=== PATIENT | female | born 1970 | race Caucasian/White ===

== ENCOUNTER 2018-02-26 03:46 | Inpatient (IN) | payer OTHER ==
[~2018-02-26] VITALS: Ht 160 cm; Wt 125.2 kg
[~2018-02-26 03:46] MED LIST: CITA20 PO; CLIN150 PO; FURO40; GLIP2.5ER; LABE100 PO; LEVSOD50 PO; Lasix40 MG PO; METF500 PO; METF500C PO; METO25ER PO; Prinivil10 MG PO; Synthroid50 MCG PO; TRAZ50 PO; Toprol Xl25 MG PO; Valium5 MG PO
[2018-02-26] MEDS ORDERED: METF500C PO (04:13)
[2018-02-26] MEDS ORDERED: METO50 PO (04:13)
[2018-02-26] MEDS ORDERED: FURO80 PO (04:14)
[2018-02-26 05:05] LABS: BASOPHILS PERCENT AUTO 1 % (0-2); EOSINOPHILS PERCENT AUTO 2 % (0-6); Hematocrit 29.8 % (33.0-51.0); Hemoglobin 8.1 g/dL (11.5-16.0); IMMATURE GRAN ABSOLUTE AUTO 0.05 K/mm3 (0.00-0.10); IMMATURE GRAN PERCENT AUTO 0 % (0-1); LYMPHOCYTES ABSOLUTE AUTO 1.93 K/mm3 (0.84-5.20); LYMPHOCYTES PERCENT AUTO 17 % (21-46); MONOCYTES ABSOLUTE AUTO 0.57 K/mm3 (0.16-1.47); MONOCYTES PERCENT AUTO 5 % (4-13); Mean Corpuscular HGB 19.4 pg (26.0-34.0); Mean Corpuscular HGB Conc 27.2 g/dL (31.5-36.5); Mean Corpuscular Volume 71 fL (80-100); NEUTROPHILS PERCENT AUTO 75 % (41-73); NRBC ABSOLUTE 0.02 K/mm3 (0.00-0.02); NRBC Auto 0.2 /100 WBC (0.0-0.2); RDW Coefficient Variation 18.6 % (11.7-14.2); Red Blood Cell Count 4.18 M/mm3 (3.80-5.20); White Blood Cell Count 11.35 K/mm3 (4.00-11.30)
[2018-02-26 05:08] LABS: Platelet Count 212 K/mm3 (150-400)
[2018-02-26 05:21] LABS: Albumin, Blood 2.8 g/dL (3.4-5.0); Albumin/Globulin Ratio 0.6 (0.8-1.8); Bilirubin, Total 0.4 mg/dL (0.1-1.0); Bun/Creatinine Ratio 15.1 (12.0-20.0); Calcium, Blood 8.5 mg/dL (8.5-10.1); Creatinine, Blood 1.46 mg/dL (0.40-1.00); Globulin, Blood 4.5 g/dL (2.2-4.0); Potassium, Blood 3.8 mmol/L (3.5-5.5); Total Protein, Blood 7.3 g/dL (6.4-8.2)
[2018-02-26 07:08] LABS: Percent Saturation 5.6 % (15.0-50.0)
[2018-02-26 09:52] LABS: Source, Urine Clean Catch
[2018-02-26 10:01] LABS: Bilirubin, Urine Neg (Neg); Blood, Urine 1+ (Neg); Glucose Qualitative, Urine 1+ (Neg); Ketones, Urine Neg (Neg); Leukocyte Esterase, Urine 2+ (Neg); Nitrite, Urine Neg (Neg); Protein, Urine 3+ (Neg); Specific Gravity, Urine 1.005 (1.003-1.022); Urobilinogen, Urine NORM (Normal)
[2018-02-26 10:06] LABS: Appearance, Urine Clear (Clear); Color, Urine Yellow (P-Yellow)
[2018-02-26 10:07] LABS: Squamous Epithelial Cells Few /hpf (Few)
[2018-02-26 10:08] LABS: Bacteria Rare /hpf
[2018-02-26 15:42] LABS: Thyroid Stimulating Hormone 13.3 uIU/mL (0.360-4.800)
[2018-02-27 04:54] LABS: Source, Urine Catheter
[2018-02-27 04:55] LABS: Hematocrit 27.7 % (33.0-51.0); Hemoglobin 7.4 g/dL (11.5-16.0)
[2018-02-27 04:56] LABS: Bilirubin, Urine Neg (Neg); Blood, Urine 2+ (Neg); Glucose Qualitative, Urine Neg (Neg); Ketones, Urine Neg (Neg); Leukocyte Esterase, Urine 2+ (Neg); Nitrite, Urine Neg (Neg); Protein, Urine 4+ (Neg); Urobilinogen, Urine 1+ (Normal)
[2018-02-27 05:20] LABS: Appearance, Urine Hazy (Clear); Color, Urine Yellow (P-Yellow)
[2018-02-27 05:21] LABS: Squamous Epithelial Cells Rare /hpf (Few); White Blood Cells, Urine 50-100 /hpf (0-5)
[2018-02-27 05:23] LABS: Bacteria Few /hpf
[2018-02-27 05:28] LABS: Alanine Aminotransfer (ALT/SGP 28 U/L (12-78); Albumin, Blood 2.5 g/dL (3.4-5.0); Albumin/Globulin Ratio 0.6 (0.8-1.8); Alk Phos 82 U/L (50-136); Anion Gap 8 mmol/L (6-16); Aspartate Aminotrans (AST/SGOT 20 U/L (12-37); Bilirubin, Total 0.5 mg/dL (0.1-1.0); Blood Urea Nitrogen 21 mg/dL (8-24); Bun/Creatinine Ratio 15.9 (12.0-20.0); CO2, Blood 29 mmol/L (21-32); Calcium, Blood 8.3 mg/dL (8.5-10.1); Chloride, Blood 99 mmol/L (98-108); Creatinine, Blood 1.32 mg/dL (0.40-1.00); Globulin, Blood 4.1 g/dL (2.2-4.0); Glomerular Filtration Rate 46 (60-); Glucose, Blood 161 mg/dL (70-99); Magnesium, Blood 1.8 mg/dL (1.6-2.4); Phosphorus, Blood 4.9 mg/dL (2.5-4.9); Potassium, Blood 3.8 mmol/L (3.5-5.5); Sodium, Blood 136 mmol/L (136-145); Total Protein, Blood 6.6 g/dL (6.4-8.2)
[2018-02-27 13:20] LABS: Hematocrit 32.8 % (33.0-51.0)
[2018-02-28 05:02] LABS: BASOPHILS ABSOLUTE AUTO 0.07 K/mm3 (0.00-0.23); BASOPHILS PERCENT AUTO 1 % (0-2); EOSINOPHILS ABSOLUTE AUTO 0.22 K/mm3 (0.00-0.68); EOSINOPHILS PERCENT AUTO 3 % (0-6); Hematocrit 28.2 % (33.0-51.0); Hemoglobin 7.6 g/dL (11.5-16.0); IMMATURE GRAN ABSOLUTE AUTO 0.04 K/mm3 (0.00-0.10); IMMATURE GRAN PERCENT AUTO 1 % (0-1); LYMPHOCYTES ABSOLUTE AUTO 1.92 K/mm3 (0.84-5.20); LYMPHOCYTES PERCENT AUTO 24 % (21-46); MONOCYTES ABSOLUTE AUTO 0.55 K/mm3 (0.16-1.47); MONOCYTES PERCENT AUTO 7 % (4-13); Mean Corpuscular HGB 19.4 pg (26.0-34.0); Mean Corpuscular Volume 72 fL (80-100); NEUTROPHILS ABSOLUTE AUTO 5.24 K/mm3 (1.96-9.15); NEUTROPHILS PERCENT AUTO 65 % (41-73); Platelet Count 233 K/mm3 (150-400); RDW Coefficient Variation 18.6 % (11.7-14.2); RDW Standard Deviation 47.8 fL (35.1-46.3); Red Blood Cell Count 3.91 M/mm3 (3.80-5.20); White Blood Cell Count 8.04 K/mm3 (4.00-11.30)
[2018-02-28 05:21] LABS: Albumin, Blood 2.5 g/dL (3.4-5.0); Anion Gap 8 mmol/L (6-16); Blood Urea Nitrogen 26 mg/dL (8-24); Bun/Creatinine Ratio 16.6 (12.0-20.0); CO2, Blood 29 mmol/L (21-32); Calcium, Blood 8.4 mg/dL (8.5-10.1); Chloride, Blood 99 mmol/L (98-108); Creatinine, Blood 1.57 mg/dL (0.40-1.00); Glomerular Filtration Rate 38 (60-); Glucose, Blood 157 mg/dL (70-99); Magnesium, Blood 1.9 mg/dL (1.6-2.4); Phosphorus, Blood 5.2 mg/dL (2.5-4.9); Potassium, Blood 3.9 mmol/L (3.5-5.5); Sodium, Blood 136 mmol/L (136-145)
[2018-02-28 06:37] LABS: Protein, Urine Quantitative 164.2 mg/dL (0.0-11.9)
[2018-02-28 15:08] LABS: A/G RATIO 0.9 (0.7-1.7); ALBUMIN 2.9 g/dL (2.9-4.4); ALPHA-1-GLOBULIN 0.4 g/dL (0.0-0.4); ALPHA-2-GLOBULIN 0.8 g/dL (0.4-1.0); BETA GLOBULIN 1.2 g/dL (0.7-1.3); GAMMA GLOBULIN 1.2 g/dL (0.4-1.8); GLOBULIN, TOTAL 3.5 g/dL (2.2-3.9); IMMUNOGLOBULIN A, QN, SERUM 513 mg/dL (87-352); IMMUNOGLOBULIN G, QN, SERUM 1027 mg/dL (700-1600); IMMUNOGLOBULIN M, QN, SERUM 197 mg/dL (26-217); M-SPIKE Not Observed g/dL (Not Observed); PROTEIN, TOTAL, SERUM 6.4 g/dL (6.0-8.5)
[2018-03-01 05:33] LABS: BASOPHILS ABSOLUTE AUTO 0.08 K/mm3 (0.00-0.23); BASOPHILS PERCENT AUTO 1 % (0-2); EOSINOPHILS ABSOLUTE AUTO 0.24 K/mm3 (0.00-0.68); EOSINOPHILS PERCENT AUTO 3 % (0-6); Hematocrit 26.7 % (33.0-51.0); Hemoglobin 7.2 g/dL (11.5-16.0); IMMATURE GRAN ABSOLUTE AUTO 0.01 K/mm3 (0.00-0.10); IMMATURE GRAN PERCENT AUTO 0 % (0-1); LYMPHOCYTES ABSOLUTE AUTO 1.98 K/mm3 (0.84-5.20); LYMPHOCYTES PERCENT AUTO 27 % (21-46); MONOCYTES ABSOLUTE AUTO 0.51 K/mm3 (0.16-1.47); MONOCYTES PERCENT AUTO 7 % (4-13); Mean Corpuscular Volume 71 fL (80-100); NEUTROPHILS ABSOLUTE AUTO 4.48 K/mm3 (1.96-9.15); NEUTROPHILS PERCENT AUTO 61 % (41-73); Platelet Count 205 K/mm3 (150-400); RDW Coefficient Variation 18.7 % (11.7-14.2); RDW Standard Deviation 46.8 fL (35.1-46.3); Red Blood Cell Count 3.78 M/mm3 (3.80-5.20)
[2018-03-01 05:57] LABS: Albumin, Blood 2.4 g/dL (3.4-5.0); Anion Gap 9 mmol/L (6-16); Blood Urea Nitrogen 29 mg/dL (8-24); CO2, Blood 29 mmol/L (21-32); Calcium, Blood 8.3 mg/dL (8.5-10.1); Chloride, Blood 100 mmol/L (98-108); Creatinine, Blood 1.38 mg/dL (0.40-1.00); Glomerular Filtration Rate 44 (60-); Glucose, Blood 156 mg/dL (70-99); Magnesium, Blood 1.9 mg/dL (1.6-2.4); Potassium, Blood 3.7 mmol/L (3.5-5.5); Sodium, Blood 138 mmol/L (136-145)
[2018-03-01 14:14] LABS: Stool Occult Blood Guaiac 1 Neg (Neg)
[2018-03-02 06:14] LABS: Hematocrit 30.1 % (33.0-51.0); Hemoglobin 8.1 g/dL (11.5-16.0)
[2018-03-02 06:28] LABS: Albumin, Blood 2.8 g/dL (3.4-5.0); Anion Gap 8 mmol/L (6-16); Blood Urea Nitrogen 27 mg/dL (8-24); Bun/Creatinine Ratio 20.9 (12.0-20.0); CO2, Blood 31 mmol/L (21-32); Calcium, Blood 8.7 mg/dL (8.5-10.1); Chloride, Blood 100 mmol/L (98-108); Creatinine, Blood 1.29 mg/dL (0.40-1.00); Glomerular Filtration Rate 47 (60-); Glucose, Blood 140 mg/dL (70-99); Magnesium, Blood 1.8 mg/dL (1.6-2.4); Phosphorus, Blood 4.2 mg/dL (2.5-4.9); Potassium, Blood 4.1 mmol/L (3.5-5.5); Sodium, Blood 139 mmol/L (136-145)
[2018-03-02] MEDS ORDERED: GLIM2 PO (12:17)
[2018-03-02] MEDS ORDERED: Ferrous Sulfat325 MG PO (12:18)
[2018-03-02] MEDS ORDERED: CLON.2 PO (12:18)
[2018-03-02] MEDS ORDERED: LEVSOD50 PO (12:19)
[2018-03-04 08:58] LABS: HBSAG SCREEN Negative (Negative); HEP B CORE AB, TOT Negative (Negative); HEP C VIRUS AB 0.1 (0.0-0.9)
[2018-03-04 21:08] LABS: ALDOS/RENIN RATIO <.5 (0.0-30.0); ALDOSTERONE <1.0 ng/dL (0.0-30.0)
[2018-03-04 22:10] LABS: METANEPHRINE, UR 37 ug/L (Undefined)
== END 2018-03-02 14:13 | disposition home or self-care (01) | DRG 291 ==
LOC: ER 03:46 → MEDS 06:32
PROVIDERS: Emergency Medicine; Family Medicine; Hospitalist; Internal Medicine; Internal Medicine Gastroenterology; Internal Medicine Nephrology
PROC: 30233N1 Transfusion of Nonautologous Red Blood Cells into Peripheral Vein, Percutaneous Approach (ICD-10-PCS; 2018-03-02)
PROC: 0DB98ZX Excision of Duodenum, Via Natural or Artificial Opening Endoscopic, Diagnostic (ICD-10-PCS; principal; 2018-03-02 08:00)
PROC: 0DB68ZX Excision of Stomach, Via Natural or Artificial Opening Endoscopic, Diagnostic (ICD-10-PCS; 2018-03-02 08:00)
DX: I13.0 Hypertensive heart and chronic kidney disease with heart failure and stage 1 through stage 4 chronic kidney disease, or unspecified chronic kidney disease (principal); I50.21 Acute systolic (congestive) heart failure; N17.0 Acute kidney failure with tubular necrosis; N39.0 Urinary tract infection, site not specified; Z68.42 Body mass index [BMI] 45.0-49.9, adult; N18.9 Chronic kidney disease, unspecified; E11.22 Type 2 diabetes mellitus with diabetic chronic kidney disease; E66.01 Morbid (severe) obesity due to excess calories; I27.20 Pulmonary hypertension, unspecified; E03.9 Hypothyroidism, unspecified; D50.9 Iron deficiency anemia, unspecified; D63.1 Anemia in chronic kidney disease; K64.8 Other hemorrhoids; E11.65 Type 2 diabetes mellitus with hyperglycemia; E11.319 Type 2 diabetes mellitus with unspecified diabetic retinopathy without macular edema; J45.909 Unspecified asthma, uncomplicated; F41.9 Anxiety disorder, unspecified; G47.33 Obstructive sleep apnea (adult) (pediatric); K76.0 Fatty (change of) liver, not elsewhere classified
CPT/HCPCS: 36415; 51702; 76770; 80048; 80053; 80069; 81001; 81050; 82088; 82272; 82530; 82728; 82784; 82947; 83540; 83550; 83735; 83835; 83880; 84100; 84156; 84165; 84244; 84443; 84550; 85014; 85018; 85025; 86317; 86334; 86704; 86708; 86803; 86850; 86900; 86901; 86923; 87086; 87340; 90686; 93005; 93010; 93306; 93970; 93975; 94640; 94760; 96374; 96375; 99285-25; J0360; J0696; J0881; J1650; J1815; J2405; J2916; J7050; J7120

== ENCOUNTER 2018-07-10 06:01 | Day surgery (SDC) | payer OTHER ==
[~2018-07-10] VITALS: Ht 162.6 cm; Wt 128.0 kg
[~2018-07-10 06:01] MED LIST changes: +AMIT10 PO; +ATOR40TA PO; +Aspirin EC81 MG PO; +BUSP5 PO; +CLON.2 PO; +FURO80 PO; +Ferrous Sulfat325 MG PO; +GLIM4 PO; +LISI5 PO; +METO50ER PO
--- NOTE | 2018-07-10 09:00 | NUR ---
SHEATH PULLED: R FEMORAL SHEATH PULLED AND MANUAL PRESSURE HELD X 20 MIN. R FEM STABLE. NO BLEEDING OR HEMATOMA NOTED. PT DENIES PAIN OR NEEDS. FAMILY TO BEDSIDE. CALL LIGHT WITHIN REACH.
--- NOTE | 2018-07-10 10:00 | NUR ---
10CC AIR REMOVED FROM R WRIST TR BAND. -BLEEDING OR SWELLING.
--- NOTE | 2018-07-10 12:30 | NUR ---
DR MCALLISTER TO ROOM DISCUSSING PLAN OF CARE.
--- NOTE | 2018-07-10 12:47 | NUR ---
PT AMBULATES TO RESTROOM AND BACK WITHOUT DIFF. NADN. VSS. PT IV DC'D. CATH INTACT. PRESSURE DSG APPLIED. PT AND FAMILY VERBALIZES UNDERSTANDING WRITTEN AND VERBAL INSTRUCTIONS. PT DC TO HOME VIA ESCORT BY BRIE.
== END 2018-07-10 12:56 | disposition home or self-care (01) ==
LOC: MHTC 06:01
DX: I42.0 Dilated cardiomyopathy (principal); R93.1 Abnormal findings on diagnostic imaging of heart and coronary circulation; R53.83 Other fatigue; R06.02 Shortness of breath
CPT/HCPCS: 93458; 99152; 99153; C1769; C1887; C1894; J0360; J0690; J1644; J2250; J3010; J7030; Q9967

== ENCOUNTER → 2018-08-13 | Outpatient (CLI) | payer OTHER ==
[2018-08-15 14:37] LABS: HPV 16 Negative (Negative); HPV 18 Negative (Negative); HPV OTHER HR TYPES Negative (Negative)
== END | disposition home or self-care (01) ==
LOC: LAB 16:12 → LAB SHORT 16:12
PROVIDERS: Obstetrics & Gynecology
DX: Z12.4 Encounter for screening for malignant neoplasm of cervix (principal); N92.1 Excessive and frequent menstruation with irregular cycle
CPT/HCPCS: 87624; G0123

== ENCOUNTER 2018-10-16 12:14 | Day surgery (SDC) | payer OTHER | END 2018-10-16 22:42 | disposition home or self-care (01) | LOC: WOUND 12:14 | DX: S21.319A Laceration without foreign body of unspecified front wall of thorax with penetration into thoracic cavity, initial encounter (principal); I11.0 Hypertensive heart disease with heart failure; I50.9 Heart failure, unspecified; E11.9 Type 2 diabetes mellitus without complications; I25.10 Atherosclerotic heart disease of native coronary artery without angina pectoris; D64.9 Anemia, unspecified | CPT/HCPCS: G0463 ==

== ENCOUNTER 2018-10-24 00:13 | Day surgery (SDC) | payer OTHER | END 2018-10-24 22:43 | disposition home or self-care (01) | LOC: WOUND 00:13 | DX: T81.89XA Other complications of procedures, not elsewhere classified, initial encounter (principal); E11.9 Type 2 diabetes mellitus without complications; J45.909 Unspecified asthma, uncomplicated; E03.9 Hypothyroidism, unspecified; I11.0 Hypertensive heart disease with heart failure; I50.9 Heart failure, unspecified; Z95.1 Presence of aortocoronary bypass graft | CPT/HCPCS: G0463 ==

== ENCOUNTER 2018-10-30 11:00 | Day surgery (SDC) | payer OTHER | END 2018-10-30 22:44 | disposition home or self-care (01) | LOC: WOUND 11:00 | DX: T81.89XA Other complications of procedures, not elsewhere classified, initial encounter (principal); E11.9 Type 2 diabetes mellitus without complications; J45.909 Unspecified asthma, uncomplicated; I25.10 Atherosclerotic heart disease of native coronary artery without angina pectoris; I10 Essential (primary) hypertension; E03.9 Hypothyroidism, unspecified; Z95.1 Presence of aortocoronary bypass graft | CPT/HCPCS: G0463 ==

== ENCOUNTER 2018-11-06 10:45 | Day surgery (SDC) | payer OTHER | END 2018-11-06 22:56 | disposition home or self-care (01) | LOC: WOUND 10:45 | DX: T81.89XA Other complications of procedures, not elsewhere classified, initial encounter (principal); E11.622 Type 2 diabetes mellitus with other skin ulcer; J45.909 Unspecified asthma, uncomplicated; I11.0 Hypertensive heart disease with heart failure; I50.9 Heart failure, unspecified; I25.10 Atherosclerotic heart disease of native coronary artery without angina pectoris; D64.9 Anemia, unspecified; E03.9 Hypothyroidism, unspecified; Z95.1 Presence of aortocoronary bypass graft ==

== ENCOUNTER 2018-11-13 10:51 | Day surgery (SDC) | payer OTHER | END 2018-11-13 22:43 | disposition home or self-care (01) | LOC: WOUND 10:51 | DX: T81.89XA Other complications of procedures, not elsewhere classified, initial encounter (principal); I11.0 Hypertensive heart disease with heart failure; I50.9 Heart failure, unspecified; E11.9 Type 2 diabetes mellitus without complications; I25.10 Atherosclerotic heart disease of native coronary artery without angina pectoris; J45.909 Unspecified asthma, uncomplicated; D64.9 Anemia, unspecified; E03.9 Hypothyroidism, unspecified; Z95.1 Presence of aortocoronary bypass graft | CPT/HCPCS: G0463 ==

== ENCOUNTER 2018-11-20 10:55 | Day surgery (SDC) | payer OTHER | END 2018-11-20 22:58 | disposition home or self-care (01) | LOC: WOUND 10:55 | DX: T81.89XA Other complications of procedures, not elsewhere classified, initial encounter (principal); E11.9 Type 2 diabetes mellitus without complications; J45.909 Unspecified asthma, uncomplicated; I25.10 Atherosclerotic heart disease of native coronary artery without angina pectoris; I10 Essential (primary) hypertension; E03.9 Hypothyroidism, unspecified; Z95.1 Presence of aortocoronary bypass graft ==

== ENCOUNTER 2019-11-30 07:48 | Emergency (ER) | payer OTHER ==
[~2019-11-30] VITALS: Ht 160 cm; Wt 131.1 kg
[~2019-11-30 07:48] MED LIST changes: -FURO80 PO
[2019-11-30] MEDS ORDERED: GLIP5 PO (08:07)
[2019-11-30] MEDS ORDERED: EYLEA2 MG/0.02 (08:13)
[2019-11-30] MEDS ORDERED: Avastin25 MG/ML (08:13)
[2020-01-10] MEDS ORDERED: Prednisone20 MG PO (10:10)
[2020-01-10] MEDS ORDERED: CEPH500 PO (10:10)
== END 2019-11-30 08:38 | disposition home or self-care (01) ==
LOC: ER 07:48
DX: S63.501A Unspecified sprain of right wrist, initial encounter (principal); S80.212A Abrasion, left knee, initial encounter; S80.211A Abrasion, right knee, initial encounter; Z91.048 Other nonmedicinal substance allergy status; Z91.018 Allergy to other foods; Z88.8 Allergy status to other drugs, medicaments and biological substances; Z79.899 Other long term (current) drug therapy; E03.9 Hypothyroidism, unspecified; E11.65 Type 2 diabetes mellitus with hyperglycemia; J45.909 Unspecified asthma, uncomplicated; I10 Essential (primary) hypertension; F41.9 Anxiety disorder, unspecified; E11.319 Type 2 diabetes mellitus with unspecified diabetic retinopathy without macular edema; W18.30XA Fall on same level, unspecified, initial encounter
CPT/HCPCS: 73110; 73130; 99283-25

== ENCOUNTER 2020-01-20 10:26 | Inpatient (IN) | payer OTHER ==
[~2020-01-20] VITALS: Ht 160 cm; Wt 140.5 kg
[~2020-01-20 10:26] MED LIST changes: +Avastin25 MG/ML; +CEPH500 PO; +EYLEA2 MG/0.02; +GLIP5 PO; +Prednisone20 MG PO
[2020-01-20 11:39] LABS: Base Excess Venous 6.2 mmol/L; Bicarbonate Venous 29.6 mmol/L (24.0-30.0); PCO2 Venous 39.9 mmHg (38-42); pH Blood Venous 7.48 (7.34-7.37)
[2020-01-20 11:51] LABS: BASOPHILS ABSOLUTE AUTO 0.07 K/mm3 (0.00-0.23); BASOPHILS PERCENT AUTO 1 % (0-2); EOSINOPHILS ABSOLUTE AUTO 0.44 K/mm3 (0.00-0.68); EOSINOPHILS PERCENT AUTO 3 % (0-6); Hematocrit 38.2 % (33.0-51.0); Hemoglobin 12.2 g/dL (11.5-16.0); IMMATURE GRAN ABSOLUTE AUTO 0.28 K/mm3 (0.00-0.10); IMMATURE GRAN PERCENT AUTO 2 % (0-1); LYMPHOCYTES ABSOLUTE AUTO 1.66 K/mm3 (0.84-5.20); LYMPHOCYTES PERCENT AUTO 13 % (21-46); MONOCYTES ABSOLUTE AUTO 0.65 K/mm3 (0.16-1.47); MONOCYTES PERCENT AUTO 5 % (4-13); Mean Corpuscular HGB 27.3 pg (26.0-34.0); Mean Corpuscular HGB Conc 31.9 g/dL (31.5-36.5); Mean Corpuscular Volume 86 fL (80-100); Mean Platelet Volume 12.6 fL (9.1-12.4); NEUTROPHILS PERCENT AUTO 77 % (41-73); NRBC ABSOLUTE 0.02 K/mm3 (0.00-0.02); NRBC Auto 0.2 /100 WBC (0.0-0.2); Platelet Count 228 K/mm3 (150-400); RDW Coefficient Variation 15.8 % (11.7-14.2); RDW Standard Deviation 47.8 fL (35.1-46.3); Red Blood Cell Count 4.47 M/mm3 (3.80-5.20)
[2020-01-20 12:17] LABS: Albumin/Globulin Ratio 0.5 (0.8-1.8); Bilirubin, Total 0.6 mg/dL (0.1-1.0); Bun/Creatinine Ratio 33.1 (12.0-20.0); Calcium, Blood 9.5 mg/dL (8.5-10.1); Creatinine, Blood 2.9 mg/dL (0.40-1.00); Globulin, Blood 5.5 g/dL (2.2-4.0); Potassium, Blood 3.8 mmol/L (3.5-5.5); Total Protein, Blood 8.5 g/dL (6.4-8.2); Troponin I 0.143 ng/mL (0.000-0.040)
[2020-01-20] MEDS ORDERED: Diltiazem HCl120 MG PO (13:40)
[2020-01-20] MEDS ORDERED: FURO80 PO (13:40)
[2020-01-20] MEDS ORDERED: METO5 PO (13:41)
[2020-01-20] MEDS ORDERED: LANTUS SOL100 UNIT/1 SC (13:45)
[2020-01-20] MEDS ORDERED: ASPI325EC PO (13:47)
[2020-01-20] MEDS ORDERED: LEVSOD75 PO (13:49)
[2020-01-20] MEDS ORDERED: POTA10T PO (13:49)
[2020-01-20] MEDS ORDERED: AMIT10 PO (13:50)
[2020-01-20] MEDS ORDERED: AMLO10 PO (13:51)
[2020-01-20] MEDS ORDERED: ALOGLIPTIN6.25 MG PO (13:51)
[2020-01-20] MEDS ORDERED: CALC.25 PO (13:51)
[2020-01-20] MEDS ORDERED: ATOR40TA PO (13:52)
[2020-01-20] MEDS ORDERED: CARV25 PO (13:52)
[2020-01-20] MEDS ORDERED: GLIM4 PO (13:53)
[2020-01-20] MEDS ORDERED: HUMALOG100 UNIT/1 SC (13:55)
--- NOTE | 2020-01-21 04:30 | NUR ---
PT RESTED COMFORTABLY THROUGHOUT NIGHT. AOX4, 2LNC, TELE NSR, VOIDING 2L, 0 BM, AMBULATING INDEPENDENTLY. NO PAIN. VSS. CALL LIGHT WITHIN REACH, BED IN LOWEST POSITION. WILL CONTINUE TO MONITOR.
[2020-01-21 04:44] LABS: Hemoglobin 11.1 g/dL (11.5-16.0); Mean Corpuscular HGB 26.9 pg (26.0-34.0); Mean Corpuscular HGB Conc 31.7 g/dL (31.5-36.5); Mean Corpuscular Volume 85 fL (80-100); Mean Platelet Volume 12.5 fL (9.1-12.4); NRBC ABSOLUTE 0.03 K/mm3 (0.00-0.02); NRBC Auto 0.2 /100 WBC (0.0-0.2); Platelet Count 215 K/mm3 (150-400); RDW Coefficient Variation 15.8 % (11.7-14.2); RDW Standard Deviation 47.2 fL (35.1-46.3); Red Blood Cell Count 4.13 M/mm3 (3.80-5.20); White Blood Cell Count 14.85 K/mm3 (4.00-11.30)
[2020-01-21 05:09] LABS: Albumin, Blood 2.8 g/dL (3.4-5.0); Albumin/Globulin Ratio 0.5 (0.8-1.8); Bilirubin, Total 0.7 mg/dL (0.1-1.0); Bun/Creatinine Ratio 32.3 (12.0-20.0); Calcium, Blood 9.3 mg/dL (8.5-10.1); Creatinine, Blood 3.1 mg/dL (0.40-1.00); Globulin, Blood 5.1 g/dL (2.2-4.0); Magnesium, Blood 2.4 mg/dL (1.6-2.4); Phosphorus, Blood 6.3 mg/dL (2.5-4.9); Potassium, Blood 3.5 mmol/L (3.5-5.5); Total Protein, Blood 7.9 g/dL (6.4-8.2)
--- NOTE | 2020-01-21 17:43 | NUR ---
SHIFT NOTE PT HAS BEEN RESTING WELL IN ROOM T/O THE DAY. DENIES CP AND SOB, STS THAT BREATHING IS BETTER WITH O2. PT HAS BEEN WATCHING TV AND VISITING WITH S/O AT BEDSIDE. ECHO IS PERFORMED TODAY. DR GIVENS HAS BEEN IN TO SEE PT. VSS. OTHERWISE NO CHANGES TO DISCUSS FOR THIS SHIFT
[2020-01-22 04:12] LABS: Hemoglobin 11.4 g/dL (11.5-16.0)
[2020-01-22 04:32] LABS: Albumin, Blood 2.8 g/dL (3.4-5.0); Anion Gap 9 mmol/L (6-16); Blood Urea Nitrogen 101 mg/dL (8-24); Bun/Creatinine Ratio 32.7 (12.0-20.0); CO2, Blood 33 mmol/L (21-32); Chloride, Blood 91 mmol/L (98-108); Creatinine, Blood 3.09 mg/dL (0.40-1.00); Glomerular Filtration Rate 17 (60-); Glucose, Blood 100 mg/dL (70-99); Magnesium, Blood 2.2 mg/dL (1.6-2.4); Potassium, Blood 2.7 mmol/L (3.5-5.5); Sodium, Blood 133 mmol/L (136-145)
--- NOTE | 2020-01-22 05:51 | NUR ---
AO TELE NSR 2LNC VOIDING TO BATHROOM INDEPENDENTLY 0 BM CBG @HS 181 H/H HOLDING BUN/CREAT UNCHANGED NO C/O PAIN CALL LIGHT WITHIN REACH, BED IN LOWEST POSITION WILL CONTINUE TO MONITOR
--- NOTE | 2020-01-22 15:56 | NUR ---
PT TRANSFERED. PT TRANSFERED TO ROOM 334. CALL LIGHT IN REACH. PT ORIENTED TO ROOM. DENIES OTHER NEEDS AT THIS TIME.
--- NOTE | 2020-01-22 21:25 | NUR ---
2124 PT C/O INCREASED DRY COUGH AND SOME SOB. PT LS DIM IN BASES, NO CRACKLES NOTED. WCTM
--- NOTE | 2020-01-23 03:04 | NUR ---
0245 PT WOKE UP SWEATY STATES FEELS LIKE HER CBG IS LOW. CBCG CHECKED AND WAS 130. PT HAS BEEN NPO SINCE 0000 HRS. WCTM
--- NOTE | 2020-01-23 04:20 | NUR ---
SUMMARY PT HAD SOME SOB AT REST AND NOTED LEG SWELLING. SOB RESOLVED ON OWN. DR GIVENS ORDERED A POTASSIUM LAB DRAW AND WAS CALLED W/ RESULTS. DR GIVENS ORDERED OT DOSE OF BUMEX. PT HAS BEEN VOIDING WELL. PT DID HAVE EPISODE OF SWEATING AND CBG WAS CHECKED, CBG 130. PT CURRENTLY SLEEPING AND BREATHING EASY. CALL LIGHT IN REACH.
[2020-01-23 05:24] LABS: Hematocrit 34.4 % (33.0-51.0); Hemoglobin 11.1 g/dL (11.5-16.0)
[2020-01-23 05:46] LABS: Albumin, Blood 2.8 g/dL (3.4-5.0); Anion Gap 9 mmol/L (6-16); Blood Urea Nitrogen 86 mg/dL (8-24); Bun/Creatinine Ratio 30.6 (12.0-20.0); CO2, Blood 33 mmol/L (21-32); Calcium, Blood 9.3 mg/dL (8.5-10.1); Chloride, Blood 92 mmol/L (98-108); Creatinine, Blood 2.81 mg/dL (0.40-1.00); Glomerular Filtration Rate 19 (60-); Glucose, Blood 116 mg/dL (70-99); Magnesium, Blood 2.4 mg/dL (1.6-2.4); Phosphorus, Blood 4.9 mg/dL (2.5-4.9); Sodium, Blood 134 mmol/L (136-145)
--- NOTE | 2020-01-23 16:55 | NUR ---
SHIFT SUMMARY PT HAD BREAKFAST AND THEN FASTED UNTIL 1430 FOR STRESS TEST. PT NAPPED MOST OF THIS TIME. 1ST PORTION OF STRESS TEST COMPLETED THIS SHIFT. PT DENIES PAIN T/O SHIFT. PT IN TO VISIT TODAY. VS REVIEWED. NO CHANGES IN ASSESSMENT AT THIS TIME. WILL CONTINUE TO MONITOR UNTIL TURNOVER IS COMPLETE.
--- NOTE | 2020-01-24 04:10 | NUR ---
SUMMARY PT DENIES ANY SOB DURING SHIFT. PT HAS SLEPT OFF AND ON T/O NIGHT. PT CURRENTLY RESTING AND BREATHING EASY. CALL LIGHT IN REACH.
[2020-01-24 05:36] LABS: Hematocrit 32.7 % (33.0-51.0); Hemoglobin 10.6 g/dL (11.5-16.0)
[2020-01-24 05:58] LABS: Albumin, Blood 2.6 g/dL (3.4-5.0); Anion Gap 8 mmol/L (6-16); Blood Urea Nitrogen 82 mg/dL (8-24); CO2, Blood 32 mmol/L (21-32); Calcium, Blood 8.9 mg/dL (8.5-10.1); Chloride, Blood 94 mmol/L (98-108); Creatinine, Blood 2.73 mg/dL (0.40-1.00); Glomerular Filtration Rate 20 (60-); Glucose, Blood 120 mg/dL (70-99); Magnesium, Blood 2.4 mg/dL (1.6-2.4); Phosphorus, Blood 4.5 mg/dL (2.5-4.9); Potassium, Blood 3.1 mmol/L (3.5-5.5); Sodium, Blood 134 mmol/L (136-145)
[2020-01-24] MEDS ORDERED: ALDACTONE25 MG PO (12:59)
--- NOTE | 2020-01-24 14:52 | NUR ---
DISCHARGE PATIENT VERBALIZED UNDERSTANDING OF THE DISCHARGE ORDERS AND ALL QUESTIONS WERE ANSWERED. DR GIVENS UPDATED PRESCRIPTION ORDERS AT TIME OF DISCHARGE, PT VERBALIZED UNDERSTANDING, AND DISCHARGE PAPERWORK WAS UPDATED BY THIS RN. THE PHARMACY AT [facility] WAS CALLED AND GIVEN THE VERBAL ORDERS, WITH POSITIVE READBACK. HOSPITALIST NOTIFIED OF CHANGES, AND NEPHROLOGY'S REQUEST FOR HH ORDERS FOR RASH TO LEFT FOOT. HOSPITALIST NOTIFIED THIS RN THAT HH ORDERS WERE NOT APPROPRIATE AT THIS TIME, PT IS NOT HOMEBOUND. PT SEEN BY WOUND RN AND VERBAL RECS WERE GIVEN. THIS RN LEFT A MESSAGE WITH CARDIOLOGY'S ANSWERING SERVICE THAT PT WILL NEED FOLLOW-UP APPT, PER PT AND HOSPITALIST REQUEST. PT VERBALIZED UNDERSTANDING OF POST HOSPITAL FOLLOW-UP.
== END 2020-01-24 15:00 | disposition home or self-care (01) | DRG 291 ==
LOC: ER 10:26 → PCU 14:30 → ERHOLD 14:30 → PCU 16:07 → MEDS 01-22 15:50
PROVIDERS: Emergency Medicine; Internal Medicine Nephrology; Nurse Practitioner Acute Care; ADMIT Internal Medicine
DX: I13.0 Hypertensive heart and chronic kidney disease with heart failure and stage 1 through stage 4 chronic kidney disease, or unspecified chronic kidney disease (principal); I50.23 Acute on chronic systolic (congestive) heart failure; N18.6 End stage renal disease; J96.01 Acute respiratory failure with hypoxia; N17.0 Acute kidney failure with tubular necrosis; E87.1 Hypo-osmolality and hyponatremia; N25.81 Secondary hyperparathyroidism of renal origin; Z68.43 Body mass index [BMI] 50.0-59.9, adult; N18.4 Chronic kidney disease, stage 4 (severe); Z20.828 Contact with and (suspected) exposure to other viral communicable diseases; E11.22 Type 2 diabetes mellitus with diabetic chronic kidney disease; Z99.2 Dependence on renal dialysis; D63.1 Anemia in chronic kidney disease; E03.9 Hypothyroidism, unspecified; E11.3299 Type 2 diabetes mellitus with mild nonproliferative diabetic retinopathy without macular edema, unspecified eye; E66.01 Morbid (severe) obesity due to excess calories; E78.5 Hyperlipidemia, unspecified; E87.6 Hypokalemia; E88.09 Other disorders of plasma-protein metabolism, not elsewhere classified; F32.9 Major depressive disorder, single episode, unspecified; F41.1 Generalized anxiety disorder; I25.10 Atherosclerotic heart disease of native coronary artery without angina pectoris; J45.20 Mild intermittent asthma, uncomplicated; I44.7 Left bundle-branch block, unspecified; R33.9 Retention of urine, unspecified; T38.0X5A Adverse effect of glucocorticoids and synthetic analogues, initial encounter; Z95.1 Presence of aortocoronary bypass graft; E11.65 Type 2 diabetes mellitus with hyperglycemia
CPT/HCPCS: 36415; 71046; 76770; 78452; 80053; 80069; 82803; 82947; 83735; 83880; 84100; 84132; 84439; 84443; 84481; 84484; 85014; 85018; 85025; 85027; 93005; 93010; 93017; 96374; 96375; 99285-25; A9270-GY; A9500; C1751; C8929; J0706; J1644; J1940; J2405; J2785; J3480; J7050; Q9957

== ENCOUNTER 2020-06-21 11:18 | Day surgery (SDC) | payer OTHER ==
[~2020-06-21] VITALS: Ht 160 cm; Wt 137.0 kg
[~2020-06-21 11:18] MED LIST changes: +ALDACTONE25 MG PO; +ALOGLIPTIN6.25 MG PO; +AMLO10 PO; +ASPI325EC PO; +Aspir 8181 MG PO; +CALC.25 PO; +CARV25 PO; +Diltiazem HCl120 MG PO; +FURO80 PO; +GLIP2.5ER PO; +HUMALOG100 UNIT/1 SC; +LANTUS SOL100 UNIT/1 SC; +LEVSOD75 PO; +METO5 PO; +POTA10T PO
[2020-06-21] MEDS ORDERED: CLOP75 PO (11:58)
--- NOTE | 2020-06-21 13:18 | NUR ---
PT BACK TO RECOVERY ROOM AFTER PROCEDURE. DOZING, BUT ROUSES EASILY TO VERBAL STIMULI. VSS, CALL LIGHT IN REACH. REPORT RECEIVED FROM GRIFFIN TOPETE. PERM CATH IN PLACE TO RIGHT CHEST. DRESSING CLEAN, DRY, INTACT. NO BLEEDING OR SWELLING NOTED.
--- NOTE | 2020-06-21 14:32 | NUR ---
PT SLEEPING, SPOUSE AT BEDSIDE. CALL LIGHT IN REACH. VSS.
--- NOTE | 2020-06-21 15:09 | NUR ---
IV DC'D, CATH INTACT. PT AND VERBALIZED UNDERSTANDING OF DC INSTRUCTIONS. PT OUT TO CAR VIA WHEELCHAIR.
[2020-08-11] MEDS ORDERED: METO5 PO (14:08)
[2020-09-26] MEDS ORDERED: NARCAN4 M1 (13:20)
== END 2020-06-21 14:55 | disposition home or self-care (01) ==
LOC: MHTC 11:18
DX: I12.0 Hypertensive chronic kidney disease with stage 5 chronic kidney disease or end stage renal disease (principal); E11.22 Type 2 diabetes mellitus with diabetic chronic kidney disease; N18.6 End stage renal disease; E55.9 Vitamin D deficiency, unspecified; Z95.1 Presence of aortocoronary bypass graft; Z91.030 Bee allergy status; Z88.8 Allergy status to other drugs, medicaments and biological substances; Z91.018 Allergy to other foods; Z91.048 Other nonmedicinal substance allergy status; Z79.82 Long term (current) use of aspirin; Z79.4 Long term (current) use of insulin
CPT/HCPCS: 36558; 76937; 77001; 99152; C1750; C1769; C1894; J1644; J2250; J3010; J7030

== ENCOUNTER 2020-07-09 13:07 | Inpatient (IN) | payer OTHER ==
[~2020-07-09] VITALS: Ht 160 cm; Wt 132.8 kg
[~2020-07-09 13:07] MED LIST changes: +CLOP75 PO
[2020-07-09 13:35] LABS: BASOPHILS ABSOLUTE AUTO 0.04 K/mm3 (0.00-0.23); BASOPHILS PERCENT AUTO 0 % (0-2); EOSINOPHILS PERCENT AUTO 0 % (0-6); Hematocrit 32.1 % (33.0-51.0); Hemoglobin 10.7 g/dL (11.5-16.0); IMMATURE GRAN ABSOLUTE AUTO 0.18 K/mm3 (0.00-0.10); IMMATURE GRAN PERCENT AUTO 1 % (0-1); LYMPHOCYTES ABSOLUTE AUTO 0.72 K/mm3 (0.84-5.20); LYMPHOCYTES PERCENT AUTO 4 % (21-46); MONOCYTES ABSOLUTE AUTO 1.19 K/mm3 (0.16-1.47); MONOCYTES PERCENT AUTO 7 % (4-13); Mean Corpuscular HGB 27.8 pg (26.0-34.0); Mean Corpuscular HGB Conc 33.3 g/dL (31.5-36.5); Mean Corpuscular Volume 83 fL (80-100); NEUTROPHILS ABSOLUTE AUTO 15.78 K/mm3 (1.96-9.15); NEUTROPHILS PERCENT AUTO 88 % (41-73); Platelet Count 134 K/mm3 (150-400); RDW Coefficient Variation 15.1 % (11.7-14.2); RDW Standard Deviation 45.8 fL (35.1-46.3); Red Blood Cell Count 3.85 M/mm3 (3.80-5.20); White Blood Cell Count 17.91 K/mm3 (4.00-11.30)
[2020-07-09 13:36] LABS: Mean Platelet Volume 13.1 fL (9.1-12.4)
[2020-07-09 14:07] LABS: Albumin, Blood 2.5 g/dL (3.4-5.0); Albumin/Globulin Ratio 0.5 (0.8-1.8); Bilirubin, Total 0.9 mg/dL (0.1-1.0); Bun/Creatinine Ratio 10.7 (12.0-20.0); Calcium, Blood 8.5 mg/dL (8.5-10.1); Globulin, Blood 5.1 g/dL (2.2-4.0); Potassium, Blood 3.9 mmol/L (3.5-5.5); Total Protein, Blood 7.6 g/dL (6.4-8.2)
[2020-07-09 14:20] LABS: Troponin I 2.46 ng/mL (0.000-0.040)
[2020-07-09 14:52] LABS: Influenza A, PCR NEGATIVE (NEGATIVE); Influenza B, PCR NEGATIVE (NEGATIVE); Resp Syncytial Virus, PCR NEGATIVE (NEGATIVE); SARS-Cov-2 (COVID-19) PCR, MMC NEGATIVE (NEGATIVE)
[2020-07-09] MEDS ORDERED: POTA10T PO (15:16)
[2020-07-09 16:29] LABS: International Normalized Ratio 1.15; Prothrombin Time Results 12.2 Sec (9.7-11.5)
--- NOTE | 2020-07-09 16:49 | NUR ---
ECHOCARDIOGRAM COMPLETE
[2020-07-09] MEDS ORDERED: Amitriptyline H10 MG PO (18:41)
--- NOTE | 2020-07-09 18:42 | NUR ---
PT ARRIVED TO PCU 2 VIA [place] FROM ED. REPORT FROM YOSELYN MOYA, PT PULLED TO BED FROM [facility], SHE IS ON BIPAP, A/OX3 ORIENTED TO ROOM LAYOUT. CALL LIGHT IN REACH.
--- NOTE | 2020-07-09 21:36 | NUR ---
ASSUMED CARE AT 1900, SEA LAYING IN BED WITHOUT AND CONCERNS AT THIS TIME. [facility]
[2020-07-10 00:54] LABS: BASOPHILS ABSOLUTE AUTO 0.02 K/mm3 (0.00-0.23); BASOPHILS PERCENT AUTO 0 % (0-2); EOSINOPHILS PERCENT AUTO 0 % (0-6); Hematocrit 33.5 % (33.0-51.0); IMMATURE GRAN ABSOLUTE AUTO 0.12 K/mm3 (0.00-0.10); IMMATURE GRAN PERCENT AUTO 1 % (0-1); LYMPHOCYTES ABSOLUTE AUTO 0.58 K/mm3 (0.84-5.20); LYMPHOCYTES PERCENT AUTO 4 % (21-46); MONOCYTES ABSOLUTE AUTO 0.48 K/mm3 (0.16-1.47); MONOCYTES PERCENT AUTO 3 % (4-13); Mean Corpuscular HGB 27.3 pg (26.0-34.0); Mean Corpuscular HGB Conc 32.8 g/dL (31.5-36.5); Mean Corpuscular Volume 83 fL (80-100); NEUTROPHILS ABSOLUTE AUTO 13.91 K/mm3 (1.96-9.15); NEUTROPHILS PERCENT AUTO 92 % (41-73); Platelet Count 128 K/mm3 (150-400); RDW Coefficient Variation 14.9 % (11.7-14.2); RDW Standard Deviation 45.4 fL (35.1-46.3); Red Blood Cell Count 4.03 M/mm3 (3.80-5.20); White Blood Cell Count 15.11 K/mm3 (4.00-11.30)
[2020-07-10 00:58] LABS: Mean Platelet Volume 12.8 fL (9.1-12.4)
[2020-07-10 01:13] LABS: Alanine Aminotransfer (ALT/SGP 24 U/L (12-78); Albumin, Blood 2.6 g/dL (3.4-5.0); Albumin/Globulin Ratio 0.5 (0.8-1.8); Alk Phos 92 U/L (50-136); Anion Gap 14 mmol/L (6-16); Aspartate Aminotrans (AST/SGOT 35 U/L (12-37); Bilirubin, Total 0.7 mg/dL (0.1-1.0); Blood Urea Nitrogen 48 mg/dL (8-24); Bun/Creatinine Ratio 11.9 (12.0-20.0); CO2, Blood 25 mmol/L (21-32); Calcium, Blood 8.8 mg/dL (8.5-10.1); Chloride, Blood 88 mmol/L (98-108); Creatinine, Blood 4.02 mg/dL (0.40-1.00); Globulin, Blood 5.5 g/dL (2.2-4.0); Glomerular Filtration Rate 13 (60-); Glucose, Blood 403 mg/dL (70-99); Magnesium, Blood 2.3 mg/dL (1.6-2.4); Potassium, Blood 3.9 mmol/L (3.5-5.5); Sodium, Blood 127 mmol/L (136-145); Total Protein, Blood 8.1 g/dL (6.4-8.2)
--- NOTE | 2020-07-10 08:00 | NUR ---
pt laying in bed awake a/ox3, pleasant and cooperative with care, follows commands well, denies pain, lungs are clear dim in bases, resp even and unlabored, is currently on 4 liters via n/c, no cough noted, hrr, tele in place running sr per monitor, see strip, no edema noted, ppp+2, cap refill <3sec, vs stable, afebrile, iv site to left shoulder, infusing heperin gtt at this time, btx4, abd flat soft nontender, no void yet, skin c/w/d, maew, owen, call light in reach.
--- NOTE | 2020-07-10 12:46 | NUR ---
pt returned to room from dialysis, sitting up in the chair, is going to try to eat some lunch. call light in reach.
--- NOTE | 2020-07-10 17:43 | NUR ---
pt had a bedbath, is sitting on the side of the bed eating dinner, she states she can't eat it, ordered a different tray, she is continuing on 4 liters 02 via n/c, tolerated dialysis today, no acute changes today, call light in reach.
--- NOTE | 2020-07-10 22:44 | NUR ---
PT CBG AT APPROX 1939, [facility] NOTIFED THIS RN OF EVENING CBG RESULTS: 491. NO HUMALOG HS COVERAGE ORDERED. CALL PLACED TO MD FRAIRE AT APPROX 1949 WITH NO ANSWER. TWO MORE CALLS PLACED TO MD FRAIRE. STILL AWAITING A RETURN PHONE CALL AT THIS TIME.
--- NOTE | 2020-07-10 23:18 | NUR ---
PT UPDATE MD TRUONG ON FLOOR ADMITTING OTHER PT. SPOKE TO MD TRUONG ABOUT THIS PT'S CBG OF 491, SINCE STILL HAVE NOT HEARD BACK FROM MD FRAIRE. MD TRUONG W/ ORDERS FOR MED SLIDING SCALE COVERAGE FOR PT TONIGHT.
[2020-07-11 03:59] LABS: Hematocrit 34.1 % (33.0-51.0); Hemoglobin 11.1 g/dL (11.5-16.0)
[2020-07-11 04:15] LABS: Albumin, Blood 2.4 g/dL (3.4-5.0); Anion Gap 9 mmol/L (6-16); Blood Urea Nitrogen 64 mg/dL (8-24); Bun/Creatinine Ratio 16.9 (12.0-20.0); CO2, Blood 27 mmol/L (21-32); Calcium, Blood 8.8 mg/dL (8.5-10.1); Chloride, Blood 89 mmol/L (98-108); Creatinine, Blood 3.78 mg/dL (0.40-1.00); Glomerular Filtration Rate 14 (60-); Glucose, Blood 478 mg/dL (70-99); Magnesium, Blood 2.4 mg/dL (1.6-2.4); Phosphorus, Blood 4.8 mg/dL (2.5-4.9); Potassium, Blood 3.7 mmol/L (3.5-5.5); Sodium, Blood 125 mmol/L (136-145)
--- NOTE | 2020-07-11 05:57 | NUR ---
SHIFT SUMMARY NO ACUTE CHANGES THIS SHIFT. PT A&OX4. SP02>92% ON 4L NC. PT HAS OCCASIONAL DRY COUGH. TELEMETRY READS SR W/ BBB. HR 80'S. PT DENIED PAIN. PT ALSO DID NOT SLEEP MUCH DURING SHIFT, WATCHED TV AND RESTED. PT HAD ELEVATED BLOOD GLUCOSE THIS SHIFT, SEE PREVIOUS NOTE. CALL LIGHTIN MICHELLE. WILL GIVE REPORT TO ONCOMING NURSE.
--- NOTE | 2020-07-11 08:16 | NUR ---
ASSUMED CARE FROM NOC RN. PT WAS ASLEEP DURING MORNING REPORT, A VISUAL CHECK WAS DONE TO ENSURE PATIENT SAFETY. VS STABLE, PT ON RA. PT HAS CONSISTENTLY HAS HAD ELEVATED BLOOD SUGARS, AND SOME ADJUSTMENTS ARE BEING MADE TO INSULIN. PT REPORTS BEING VERY TIRED AND NOT BEING ABLE TO GET ENOUGH SLEEP. PT HAS HAD DIALYSIS SEVERAL TIMES THIS WEEK AND IS SCHEDULED AGAIN TODAY. PT IS CURRENTLY SITTING IN THE CHAIR VISITING WITH THE DOCTOR
[2020-07-11 09:31] LABS: Source, Urine Catheter
[2020-07-11 09:35] LABS: Bilirubin, Urine Neg (Neg); Blood, Urine 2+ (Neg); Glucose Qualitative, Urine 2+ (Neg); Ketones, Urine Neg (Neg); Leukocyte Esterase, Urine 1+ (Neg); Nitrite, Urine Neg (Neg); Protein, Urine 3+ (Neg); Urobilinogen, Urine 1+ (Normal)
[2020-07-11 09:44] LABS: Color, Urine Yellow (P-Yellow)
[2020-07-11 09:47] LABS: Appearance, Urine Hazy (Clear); Bacteria Many /hpf; Squamous Epithelial Cells Many /hpf (Few)
[2020-07-11 09:48] LABS: Amorphous Light (0-Heavy)
--- NOTE | 2020-07-11 12:30 | NUR ---
BLOOD GLUCOSE CBG WAS CHECKED THIS MORNING AND THE PT RECEIVED 22 UNITS TOTAL OF HUMALOG, UP ON RECHECKING PT'S CBG IT WAS 440, THIS VALUE DID NOT TRANSFER FROM MACHINE TO MEDITECH. THE AFTERNOON DOSES OF HUMALOG WERE GIVEN AT THIS POINT WHICH WAS A TOTAL OF 22UNITS; AN HOUR LATER THE RECHECK WAS 465. PT HAS BEEN NPO SINCE FINISHING BREAKFAST DR. TRIPATHI WAS NOTIFIED VIA PHONE, NO FURTHER DIRECTION WAS GIVEN AT THIS TIME.
[2020-07-11 16:34] LABS: Vancomycin, Random 23.2 ug/mL
[2020-07-11] MEDS ORDERED: Percocet 10-321 EACH PO (18:17)
--- NOTE | 2020-07-11 18:28 | NUR ---
SHIFT SUMMARY PT WAS VERY LETHARGIC TODAY. PT'S BLOOD GLUCOSE WAS VERY HIGH THIS MORNING AND MULTIPLE DOSES OF HUMALOG TO MANAGE THE GLUCOSE LEVELS. PT HAD DIALYSIS THIS AFTERNOON AND APPROXIMATELY 3.5L WAS REMOVED. PT HAS HAD BACK PAIN SINCE RETURNING FROM DIALYSIS WHICH IS TO BE TREATED PER EMAR. PT WAS KEPT NPO UNTIL BLOOD SUGAR WAS BETTER CONTROLLED. WHEN RETURNING FROM DIALYSIS PT'S SUGAR WAS IMPROVED AND THE SLIDING SCALE HUMALOG WAS HELD. PT WAS NOT INTERESTED IN EATING DINNER BUT STILL NEEDED THE 10 UNITS OF STANDING HUMALOG; PT WAS GIVEN A SNACK OF MILK, CRACKERS AND PEANUT BUTTER TO HELP STABLIZE THE GLUCOSE AND PREVENT IT FROM DROPPING. PT IS IN HER CHAIR RESTING AND WATCHING TV AT THIS TIME
[2020-07-12 04:56] LABS: Hematocrit 40.4 % (33.0-51.0); Hemoglobin 13.1 g/dL (11.5-16.0)
[2020-07-12 05:12] LABS: Albumin, Blood 2.6 g/dL (3.4-5.0); Anion Gap 10 mmol/L (6-16); Blood Urea Nitrogen 58 mg/dL (8-24); Bun/Creatinine Ratio 15.5 (12.0-20.0); CO2, Blood 27 mmol/L (21-32); Calcium, Blood 9.2 mg/dL (8.5-10.1); Chloride, Blood 94 mmol/L (98-108); Creatinine, Blood 3.74 mg/dL (0.40-1.00); Glomerular Filtration Rate 14 (60-); Glucose, Blood 210 mg/dL (70-99); Magnesium, Blood 2.4 mg/dL (1.6-2.4); Phosphorus, Blood 3.9 mg/dL (2.5-4.9); Potassium, Blood 3.5 mmol/L (3.5-5.5); Sodium, Blood 131 mmol/L (136-145)
--- NOTE | 2020-07-12 05:22 | NUR ---
SHIFT SUMMARY NO ACUTE CHANGES THIS SHIFT. PT A&OX4. SP02>92% ON 2L NC. PT MED NO TELE STATUS, VSS. PT C/0 OF 01/04 SHOULDER PAIN THIS SHIFT. MEDICATED PER EMAR X1. PT UP TO BATHROOM INDEPENDENTLY X1 THIS SHIFT TO VOID. PT SLEPT HARD FIRST HALF OF SHIFT, STATED SHE FEELS "MUCH BETTER". PT NOW UP IN CHAIR RESTING AND WATCHING TV. CALL LIGHT IN REACH. WILL GIVE REPORT TO ONCOMING NURSE.
--- NOTE | 2020-07-12 09:49 | NUR ---
ASSUMED CARE FROM NOC RN PT WAS SLEEPING DURING SHIFT CHANGE AND APPEARED COMFORTABLE RESTING IN HER RECLINER. PT WOKE FOR VS, BREAKFAST, CBG AND MORNING MEDICATION. PT REPORTS FEELING MUCH BETTER THAN YESTERDAY, LESS PAIN AND MALAISE. PT MOVED TO DIALYSIS AT APPROXIMATELY 0900 THIS MORNING VIA WHEELCHAIR.
[2020-07-12 12:52] LABS: Vancomycin, Random 13.1 ug/mL
--- NOTE | 2020-07-12 13:56 | NUR ---
SBAR REPORT FROM GRIFFIN CONNELLY U
[2020-07-13 05:27] LABS: Hematocrit 39.3 % (33.0-51.0); Hemoglobin 12.8 g/dL (11.5-16.0)
[2020-07-13 06:06] LABS: Albumin, Blood 2.4 g/dL (3.4-5.0); Anion Gap 12 mmol/L (6-16); Blood Urea Nitrogen 68 mg/dL (8-24); Bun/Creatinine Ratio 14.4 (12.0-20.0); CO2, Blood 22 mmol/L (21-32); Calcium, Blood 8.8 mg/dL (8.5-10.1); Chloride, Blood 92 mmol/L (98-108); Creatinine, Blood 4.73 mg/dL (0.40-1.00); Glomerular Filtration Rate 10 (60-); Glucose, Blood 236 mg/dL (70-99); Magnesium, Blood 2.3 mg/dL (1.6-2.4); Phosphorus, Blood 4.7 mg/dL (2.5-4.9); Potassium, Blood 3.9 mmol/L (3.5-5.5); Sodium, Blood 126 mmol/L (136-145)
--- NOTE | 2020-07-13 10:21 | NUR ---
DIALYSIS UNABLE TO GET THE CATH TO RUN 200BFR OR BETTER. DCED, RETURNED BLOOD. ORDERED CATHFLO. INSTILLED CATHFLO IN CATHS.
--- NOTE | 2020-07-13 10:49 | NUR ---
[place] [facility] [place], SPOKE WITH NAWAF.
--- NOTE | 2020-07-13 11:09 | NUR ---
DIALYSIS UNABLE TO GET CATH TO RUN. CALLED DR. GIVENS. DCED TX, RETURNED BLOOD. INSTILLED CATHFLO AGAIN.
[2020-07-13 15:32] LABS: Vancomycin, Random 28.9 ug/mL
--- NOTE | 2020-07-13 15:34 | NUR ---
Reviewed chart, discussed case with PT Gerson and Bedside RN Alda. Pt unable to work with PT due to significant fatigue. Pt has been receiving dialysis every day. Plan for permcath to be replaced. Pt resting in bed upon arrival. Pt appears faitgued and lethargic. Pt denies pain at this time and states pain occurs in her left shoulder and pain in her right jaw and ear when speaking. Pt reports recently developing difficulty hearing. Pt's spouse Deep at bedside. Answered questions and offered therapeutic listening. Ended visit to allow Pt to rest. Palliative Care will remain available.
--- NOTE | 2020-07-13 19:40 | NUR ---
PATIENT ARRIVED TO ICU 10 VIA BED FROM DIALYSIS POST CODE. PATIENT TRANSFERRED TO BED AND PLACED ON ICU MONITORS. MONITOR SHOWING SINUS WITH BBB. PATIENT AWAKE AND DIAPHORETIC, USING CELL PHONE TO TEXT HER . NS 500 CC BOLUS INFUSING POST CODE. POWER GLIDE STARTED TO RIGHT UPPER ARM. ALEJANDRA LINEN ROOM ATTENDANT AT BEDSIDE AND PLAN FOR DOCTOR ABDALLA TO REMOVE DIALYSIS CATH.
--- NOTE | 2020-07-13 19:42 | NUR ---
DAY RN REPORTS PATIENT OUT OF ROOM TO DIALYSIS.
[2020-07-13 19:50] LABS: Hematocrit 40.1 % (33.0-51.0); Hemoglobin 13.1 g/dL (11.5-16.0); Mean Corpuscular HGB 27.3 pg (26.0-34.0); Mean Corpuscular HGB Conc 32.7 g/dL (31.5-36.5); Mean Corpuscular Volume 84 fL (80-100); NRBC ABSOLUTE 0.05 K/mm3 (0.00-0.02); NRBC Auto 0.1 /100 WBC (0.0-0.2); Platelet Count 195 K/mm3 (150-400); RDW Coefficient Variation 15.9 % (11.7-14.2); RDW Standard Deviation 48.3 fL (35.1-46.3); White Blood Cell Count 37.64 K/mm3 (4.00-11.30)
--- NOTE | 2020-07-13 20:02 | NUR ---
PATIENT TRANSFER TO ICU10 PER GRIEF COUNSELLOR LISA, FROM DIALYSIS.
--- NOTE | 2020-07-13 20:11 | NUR ---
1910 pt less responsive, states she cannot breathe, pt becoming dusky with circumoral cyanosis, pt put in supine position. 02 placed via nasal cannula, rapid response team activated, pullman conductor returning blood, code called. care transferred to code team. see critical care record Dayron MOYA
[2020-07-13 20:12] LABS: Albumin, Blood 2.5 g/dL (3.4-5.0); Albumin/Globulin Ratio 0.5 (0.8-1.8); Bilirubin, Total 0.4 mg/dL (0.1-1.0); Bun/Creatinine Ratio 14.8 (12.0-20.0); Calcium, Blood 9.1 mg/dL (8.5-10.1); Creatinine, Blood 4.74 mg/dL (0.40-1.00); Globulin, Blood 5.5 g/dL (2.2-4.0); Magnesium, Blood 2.5 mg/dL (1.6-2.4); Phosphorus, Blood 4.4 mg/dL (2.5-4.9)
[2020-07-13 20:15] LABS: International Normalized Ratio 1.12; Prothrombin Time Results 11.9 Sec (9.7-11.5)
--- NOTE | 2020-07-13 20:33 | NUR ---
DOCTOR LIANNE IN TO SEE PATIENT TO REMOVE PERMA CATH
[2020-07-13 20:35] LABS: BAND PERCENT MAN 2 % (0-8); BASOPHILS PERCENT MAN 0 % (0-2); EOSINOPHILS PERCENT MAN 0 % (0-6); LYMPHOCYTES ABSOLUTE MAN 2.25 K/mm3 (0.84-5.20); LYMPHOCYTES PERCENT MAN 6 % (21-46); METAMYELOCYTE ABSOLUTE MAN 1.12 K/mm3 (0.00-0.00); METAMYELOCYTE PERCENT MAN 3 % (0-0); MONOCYTES ABSOLUTE MAN 1.88 K/mm3 (0.16-1.47); MONOCYTES PERCENT MAN 5 % (4-13); MYELOCYTE PERCENT MAN 4 % (0-0); NEUTROPHILS ABSOLUTE MAN 30.86 K/mm3 (1.96-9.15); SEG NEUTROPHILS PERCENT MAN 80 % (41-73); TOTAL CELLS COUNTED 100
--- NOTE | 2020-07-13 21:12 | NUR ---
RIGHT CHEST SITE OOZING SLIGHTLY CONTAINED IN DRESSING, AREA AROUND SITE SOFT. CONTINUE TO MONITOR. BIOX 88-89% ON RA OXYGEN PLACED AT 2L/NC
[2020-07-14 04:10] LABS: Hematocrit 37.6 % (33.0-51.0); Hemoglobin 11.9 g/dL (11.5-16.0)
[2020-07-14 04:28] LABS: Albumin, Blood 2.3 g/dL (3.4-5.0); Anion Gap 11 mmol/L (6-16); Blood Urea Nitrogen 80 mg/dL (8-24); Bun/Creatinine Ratio 15.5 (12.0-20.0); CO2, Blood 24 mmol/L (21-32); Calcium, Blood 8.6 mg/dL (8.5-10.1); Chloride, Blood 92 mmol/L (98-108); Creatinine, Blood 5.15 mg/dL (0.40-1.00); Glomerular Filtration Rate 9 (60-); Glucose, Blood 353 mg/dL (70-99); Magnesium, Blood 2.5 mg/dL (1.6-2.4); Phosphorus, Blood 5.2 mg/dL (2.5-4.9); Potassium, Blood 4.1 mmol/L (3.5-5.5); Sodium, Blood 127 mmol/L (136-145)
--- NOTE | 2020-07-14 06:33 | NUR ---
SUMMARY PATIENT SLEEPING OFF AND ON T/O NIGHT. PLACED ON 1L/NC DUE TO BIOX 88-89% ON RA. LUNG SOUNDS REMAIN CLEAR DECREASED IN THE BASES. CONTINUES TO BE SINUS RHYTHM WITH BBB. REPOSITIONING SELF IN BED FOR COMFORT. SITE TO RIGHT CHEST WHERE DIALYSIS CATH WAS REMOVED WITH DRESSING INTACT WITH NO FURTHER BLEEDING SEEN.
--- NOTE | 2020-07-14 07:45 | NUR ---
ASSUMED CARE BEDSIDE REPORT RECIEVED. PT IS LAYING IN BED RESTING QUIETLY. PT AWAKENS EASILY TO VERBAL STIMULI. PT IS ABLE ANSWER QUESTIONS APPROPRIATELY. PT DENIES PAIN, NAUSEA, AND SOB. VITAL SIGNS STABLE. PT ON 2L O2 NC. POWERGLIDE IN PLACE, NS INFUSING TKO. S/P DIALYSIS REMOVAL SITE TO RIGHT UPPER CHEST IS C/D/I. DRESSING WITH OLD BLOOD SHADOW NOTED. PT IS ABLE TO MOVE SELF AROUND IN BED INDEPENDENTLY. WILL CONTINUE TO MONITOR.
--- NOTE | 2020-07-14 12:35 | NUR ---
TRANSFER TO PCU REPORT CALLED VIA PHONE. ALL QUESTIONS ANSWERED. PT TAKEN TO PCU 16 VIA BED WITH TOOL GRINDING MACHINE OPERATOR ASSISTANCE. ALL PT BELONGINGS AND MEDS TAKEN WITH PT.
--- NOTE | 2020-07-14 17:28 | NUR ---
NO ACUTE EVENTS THIS HALF OF SHIFT. PATIENT ABLE TO AMBULATE FROM ICU BED TO ROOM BED WITH STANDBY ASSIST FOR LINE MANAGEMENT, PATIENT TOLERATED WELL. ON 1L NASAL CANNULA, WHEN TRIALED ON ROOM AIR PATIENT O2 DOWN TO 88%. CBG ELEVATED TO 452, TIDM INSULIN COVERAGE ADDED. NO HEARING DEFICITS NOTED TODAY. PATIENT DENIED PAIN THIS SHIFT, ALERT AND ORIENTED, COOPERATIVE WITH CARE. WCTM.
[2020-07-14 17:42] LABS: Vancomycin, Random 23.3 ug/mL
[2020-07-15 04:29] LABS: Hematocrit 34.2 % (33.0-51.0); Hemoglobin 11.2 g/dL (11.5-16.0); Mean Corpuscular HGB 27.3 pg (26.0-34.0); Mean Corpuscular HGB Conc 32.7 g/dL (31.5-36.5); Mean Corpuscular Volume 83 fL (80-100); NRBC ABSOLUTE 0.06 K/mm3 (0.00-0.02); NRBC Auto 0.2 /100 WBC (0.0-0.2); Platelet Count 226 K/mm3 (150-400); RDW Standard Deviation 48.7 fL (35.1-46.3); White Blood Cell Count 27.55 K/mm3 (4.00-11.30)
[2020-07-15 04:47] LABS: Mean Platelet Volume 13.9 fL (9.1-12.4)
[2020-07-15 04:59] LABS: Albumin, Blood 2.3 g/dL (3.4-5.0); Anion Gap 14 mmol/L (6-16); Blood Urea Nitrogen 103 mg/dL (8-24); Bun/Creatinine Ratio 21.7 (12.0-20.0); CO2, Blood 20 mmol/L (21-32); Calcium, Blood 8.9 mg/dL (8.5-10.1); Chloride, Blood 91 mmol/L (98-108); Creatinine, Blood 4.74 mg/dL (0.40-1.00); Glomerular Filtration Rate 10 (60-); Glucose, Blood 333 mg/dL (70-99); Magnesium, Blood 2.5 mg/dL (1.6-2.4); Phosphorus, Blood 5.2 mg/dL (2.5-4.9); Sodium, Blood 125 mmol/L (136-145)
--- NOTE | 2020-07-15 05:11 | NUR ---
SHIFT SUMMARY PT HAD AN UNEVENTFUL SHIFT. SHE WAS PLEASENT AND COOPERATIVE WITH CARE. VITALS STABLE. BP 140-150'S SYSTOLIC. HR 70-80'S, SINUS WITH A BBB AND FIRST DEGREE HB. PT DENIED ANY CHEST PAIN. O2 SATS >90% ON 1LPM VIA NC, PT DENIED ANY SOB. POWERGLIDE UNABLE TO FLUSH AND DRAW, REPOSITIONED AND DRESSING CHANGED, NOW ABLE TO FLUSH BUT DOES NOT DRAW. PT WAS HYPERGLYCEMIC AT START OF SHIFT, INSULIN REORDERED AND GIVEN AND BG DOWN TO 333 WITH AM LABS. PT IS ON HIGH SLIDING SCALE. CATH REMOVAL SITE IN [facility] IS WNL AND DRESSING IS CDI. PT STATES FEELING READY FOR PROCEDURE TODAY.
[2020-07-15 07:34] LABS: BAND PERCENT MAN 6 % (0-8); BASOPHILS PERCENT MAN 0 % (0-2); EOSINOPHILS ABSOLUTE MAN 0.27 K/mm3 (0.00-0.68); EOSINOPHILS PERCENT MAN 1 % (0-6); LYMPHOCYTES ABSOLUTE MAN 0.82 K/mm3 (0.84-5.20); LYMPHOCYTES PERCENT MAN 3 % (21-46); METAMYELOCYTE ABSOLUTE MAN 1.65 K/mm3 (0.00-0.00); METAMYELOCYTE PERCENT MAN 6 % (0-0); MONOCYTES PERCENT MAN 8 % (4-13); MYELOCYTE ABSOLUTE MAN 1.92 K/mm3 (0.00-0.00); MYELOCYTE PERCENT MAN 7 % (0-0); NEUTROPHILS ABSOLUTE MAN 20.66 K/mm3 (1.96-9.15); SEG NEUTROPHILS PERCENT MAN 69 % (41-73); TOTAL CELLS COUNTED 100
--- NOTE | 2020-07-15 15:57 | NUR ---
Attempted to see Pt but currently receiving dialysis in room. Will attempt to visit with Pt at a later time. Spoke with Bedside GRIFFIN Braxton and discussed case. No permcath placed today. Dr Masters consulted. Palliative Care will remain available for supportive visits as needed.
[2020-07-15 16:36] LABS: Vancomycin, Random 13.5 ug/mL
--- NOTE | 2020-07-15 17:05 | NUR ---
SHIFT SUMMARY NO ACUTE EVENTS THIS SHIFT, VSS. PATIENT ALERT AND ORIENTED, COOPERATIVE WITH CARE. PATIENT HAD NEW DIALYSIS CATH PLACED TODAY, SOME DISCHARGE NOTED AT SITE, NO ADDITIONAL DISCHARGE NOTED AFTER ARRIVAL TO UNIT. PATIENT RECIEVED DIALYSIS TODAY AT BEDSIDE, SOME ADDITIONAL DISCHARGE NOTED AT NEW CATH SITE FROM DIALYSIS, STOPPED WITH END OF DIALYSIS AND NO NEW DISCHARGE NOTED AT THIS TIME. PATIENT ABLE TO AMBULATE TO RECLINER WITH STANDBY ASSIST, TOLERATING WELL. PATIETN REMAINS ON 0.5-1 L NASAL CANNULA. PLAN IS FOR DIALYSIS AGAIN TOMORROW.
[2020-07-16 04:13] LABS: Hematocrit 34.7 % (33.0-51.0); Hemoglobin 11.4 g/dL (11.5-16.0)
[2020-07-16 04:28] LABS: Albumin, Blood 2.2 g/dL (3.4-5.0); Anion Gap 13 mmol/L (6-16); Blood Urea Nitrogen 85 mg/dL (8-24); Bun/Creatinine Ratio 24.8 (12.0-20.0); CO2, Blood 23 mmol/L (21-32); Calcium, Blood 8.7 mg/dL (8.5-10.1); Chloride, Blood 96 mmol/L (98-108); Creatinine, Blood 3.43 mg/dL (0.40-1.00); Glomerular Filtration Rate 15 (60-); Glucose, Blood 314 mg/dL (70-99); Magnesium, Blood 2.4 mg/dL (1.6-2.4); Phosphorus, Blood 5.1 mg/dL (2.5-4.9); Sodium, Blood 132 mmol/L (136-145)
--- NOTE | 2020-07-16 04:37 | NUR ---
SHIFT SUMMARY PT IS A/O X4, SBA IN ROOM. OVERNIGHT PT HAS BEEN ON RA WITH O2 SAT BETWEEN 92%-96%. DENIES SOB AND CHEST PAIN/PRESSURE OVERNIGHT. TOLERATING PO INTAKE W/O NAUSEA. HOB ELEVATED OVERNIGHT. BLOOD CULTURES CAME BACK POSITIVE; SEE MICRO; DISCUSSED WITH COMPUTER APPLICATIONS ENGINEER AND PHARMACY. PLAN IS FOR PT TO HAVE DIALYSIS TODAY. NO ACUTE CHANGES OVERNIGHT. PT RESTING IN BED WITH CALL LIGHT IN REACH AT THIS TIME.
[2020-07-16 11:36] LABS: Vancomycin, Random 21.3 ug/mL
--- NOTE | 2020-07-16 14:08 | NUR ---
Spiritual care visit conducted. Patient tells me about her CKD, port issues and heart problems. Then tells me about her recent family reconciliation, her [employer] business and her Shinto dayan. Her spouse Deep arrives and talks about their volunteering to get kids presents for Johnny, his work with kids with autism and how they work together to get the family through the tough days. I normalize their experience, reinforce helpful attitudes and practices and provide therapeutic listening and prayer. Patient and Deep responds well and show signs of increased peace. I will continue to remain available to patient and family.
--- NOTE | 2020-07-16 17:05 | NUR ---
PT STABLE POST PROCEDURE. PT AWKAE AND CONVERSING, CONTINUES TO DENY PAIN, REMAINS ON 2L NC, SPO2 92-94%. REPORT TO GRIFFIN ROONEY; ALL QUESTIONS ANSWERED. PT RETURNED TO PCU 16.
--- NOTE | 2020-07-16 17:52 | NUR ---
SHIFT SUMMARY PT RECIEVED DIALYSIS THIS AM. PT MADE NPO AFTER BREAKFAST FOR HOME LATER IN THE DAY. BLOOD SUGARS HAVE BEEN CONSISTENTLY ELEVATED T/O SHIFT. DR. TRIPATHI CALLED FOR LUNCH BLOOD SUGAR SINCE PT WAS NPO. 20 UNITS GIVEN INSTEAD OF THE ORIGINAL 28 UNITS. HOME DONE AT 1600 WITH NO SIGNS OF VEGITATION. PT MEDICATED WITH 28 UNITS THIS EVENING WITH DINNER. NEW PG PLACED TO DIAMOND. PT EAGAR TO DC SOMETIME SOON. VS REVIEWED. NO OTHER ACUTE CHANGES IN ASSESSMENT AT THIS TIME. PT UP IN CHAIR WITH AT BEDSIDE.
--- NOTE | 2020-07-17 05:41 | NUR ---
SHIFT SUMMARY PT SLEPT GOOD T/O SHIFT. VSS. ON ROOM AIR, SATURATING AT 95%. CBG OF 371 LAST NIGHT. MEDICATED FOR 15 UNITS OF HUMALOG, W/ HIGH SS. INSULIN. NO ACUTE CHANGES T/O SHIFT. PT REMAIN TO HAVE L SHOULDER PAIN. SHE ALSO REPORTS THAT HEARING IS BACK TO BASELINE. POWRGLIDE ON DIAMOND, PATENT BUT UNABLE TO PULL BLOOD THIS AM. PT HAS POOR APPETITE, DENIES NAUSEA AND VOMITING. SHE IS A SBA, STABLE ON FEET. PT REPORTS EAGER TO GO HOME SOON. CALL LIGHT WITHIN REACH.
[2020-07-17 05:49] LABS: Hematocrit 34.1 % (33.0-51.0); Hemoglobin 10.9 g/dL (11.5-16.0)
[2020-07-17 06:08] LABS: Albumin, Blood 2.2 g/dL (3.4-5.0); Anion Gap 12 mmol/L (6-16); Blood Urea Nitrogen 88 mg/dL (8-24); Bun/Creatinine Ratio 27.6 (12.0-20.0); CO2, Blood 24 mmol/L (21-32); Calcium, Blood 8.6 mg/dL (8.5-10.1); Chloride, Blood 95 mmol/L (98-108); Creatinine, Blood 3.19 mg/dL (0.40-1.00); Glomerular Filtration Rate 16 (60-); Glucose, Blood 323 mg/dL (70-99); Magnesium, Blood 2.4 mg/dL (1.6-2.4); Phosphorus, Blood 4.6 mg/dL (2.5-4.9); Potassium, Blood 4.2 mmol/L (3.5-5.5); Sodium, Blood 131 mmol/L (136-145)
[2020-07-17] MEDS ORDERED: ATOR40TA PO (08:12)
[2020-07-17] MEDS ORDERED: DOCUZEN 8.6-501 EACH PO (08:15)
[2020-07-17] MEDS ORDERED: Prinivil10 MG PO (08:16)
[2020-07-17] MEDS ORDERED: METO50ER PO (08:17)
[2020-07-17] MEDS ORDERED: ONDA4 PO (08:17)
[2020-07-17] MEDS ORDERED: MIRALAX17 GM PO (08:19)
[2020-07-17] MEDS ORDERED: Prednisone20 MG PO (10:14)
--- NOTE | 2020-07-17 10:39 | NUR ---
PATIENT GIVEN DISCHARGE INSTRUCTIONS. ALL QUESTIONS ANSWERED. MEDICATIONS REVIEWED WITH PATIENT. PATIENT TO FOLLOW-UP UP WITH PCP & ENT. DIALYSIS SCHEDULED FOR SUNDAY. PATIENT GETTING READY FOR DISCHARGE IN ROOM AT THIS TIME. TO HOOKING MACHINE OPERATOR.
--- NOTE | 2020-07-17 10:45 | NUR ---
PATIENT DISCHARGED AT 1045. OFFSET PRESSMAN ASSISTED PATIENT OUT BY WHEEL CHAIR.
[2020-08-11] MEDS ORDERED: METO5 PO (14:08)
[2020-09-26] MEDS ORDERED: NARCAN4 M1 (13:20)
== END 2020-07-17 10:47 | disposition home or self-care (01) | DRG 280 ==
LOC: ER 13:07 → ERHOLD 15:52 → PCU 15:52 → MEDS 15:52 → PCU 18:24 → MEDS 07-12 14:14 → ICUW 07-13 19:53 → PCU 07-14 12:32
PROVIDERS: Emergency Medicine; Family Medicine; Internal Medicine Nephrology; Nurse Practitioner Acute Care; Pharmacist; ADMIT Hospitalist
PROC: 5A09357 Assistance with Respiratory Ventilation, Less than 24 Consecutive Hours, Continuous Positive Airway Pressure (ICD-10-PCS; principal; 2020-07-09)
PROC: 0JH63XZ Insertion of Tunneled Vascular Access Device into Chest Subcutaneous Tissue and Fascia, Percutaneous Approach (ICD-10-PCS; 2020-07-15)
PROC: B24BZZ4 Ultrasonography of Heart with Aorta, Transesophageal (ICD-10-PCS; 2020-07-15)
PROC: 02HV33Z Insertion of Infusion Device into Superior Vena Cava, Percutaneous Approach (ICD-10-PCS; 2020-07-15)
PROC: B5181ZA Fluoroscopy of Superior Vena Cava using Low Osmolar Contrast, Guidance (ICD-10-PCS; 2020-07-15)
DX: T80.211A Bloodstream infection due to central venous catheter, initial encounter (principal); N18.6 End stage renal disease; I21.A1 Myocardial infarction type 2; J96.01 Acute respiratory failure with hypoxia; J18.9 Pneumonia, unspecified organism; A41.02 Sepsis due to Methicillin resistant Staphylococcus aureus; N25.81 Secondary hyperparathyroidism of renal origin; E87.1 Hypo-osmolality and hyponatremia; I16.1 Hypertensive emergency; I13.2 Hypertensive heart and chronic kidney disease with heart failure and with stage 5 chronic kidney disease, or end stage renal disease; Z79.82 Long term (current) use of aspirin; J45.909 Unspecified asthma, uncomplicated; Z79.4 Long term (current) use of insulin; E11.3293 Type 2 diabetes mellitus with mild nonproliferative diabetic retinopathy without macular edema, bilateral; E03.9 Hypothyroidism, unspecified; F41.1 Generalized anxiety disorder; Z99.2 Dependence on renal dialysis; I25.10 Atherosclerotic heart disease of native coronary artery without angina pectoris; E11.22 Type 2 diabetes mellitus with diabetic chronic kidney disease; J44.9 Chronic obstructive pulmonary disease, unspecified; Z95.1 Presence of aortocoronary bypass graft; E88.09 Other disorders of plasma-protein metabolism, not elsewhere classified; E66.01 Morbid (severe) obesity due to excess calories; H91.90 Unspecified hearing loss, unspecified ear; I25.5 Ischemic cardiomyopathy; E83.41 Hypermagnesemia; I08.0 Rheumatic disorders of both mitral and aortic valves
CPT/HCPCS: 0241U; 36415; 36558; 36589; 71045; 74176; 76937; 80053; 80069; 80202; 81001; 82947; 83605; 83735; 83880; 84100; 84145; 84443; 84484; 85014; 85018; 85025; 85610; 85730; 87040; 87070; 87077; 87147; 87186; 93005; 93010; 93312; 93325; 94660; 94760; 94762; 96365; 96367; 96375; 97110; 97162; 97165; 97530; 97535; 99152; 99285-25; A9270; C1750; C1751; C1769; C1894; C8923; J0153; J0282; J0456; J0696; J1644; J1815; J2001; J2250; J2405; J2704; J2930; J2997; J3010; J3370; J7030; J7040; J7050; J7512; Q9967

== ENCOUNTER 2020-07-21 06:39 | Day surgery (SDC) | payer OTHER ==
[~2020-07-21] VITALS: Ht 160 cm; Wt 127.0 kg
[~2020-07-21 06:39] MED LIST changes: +Amitriptyline H10 MG PO; +DOCUZEN 8.6-501 EACH PO; +MIRALAX17 GM PO; +ONDA4 PO; +Percocet 10-321 EACH PO
--- NOTE | 2020-07-21 08:50 | NUR ---
PT TO RECOVERY ROOM POST PROCEDURE. PT AWAKE AND CONVERSING APPORPRIATELY, DENIES PAIN AT SITE. MONITOR SR 80'S, B/P 160/72, AFEBRILE, SPO2 95% RA. R CHEST PERMCATH NO SWELLING/HEMATOMA, DRAIN GAUZE AND TAPE DRSG INTACT. PT SITTING UP AND EATING BREAKFAST.
--- NOTE | 2020-07-21 09:09 | NUR ---
GRIFFIN AT [facility] UPDATED ON PT'S DIALYSIS CATH.
--- NOTE | 2020-07-21 09:55 | NUR ---
PT DRESSED SELF WITHOUT ISSUE, SITE UNCHANGED-IV REMOVED, CANNULA INTACT.
--- NOTE | 2020-07-21 10:00 | NUR ---
PT AND RECEIVED DISCHARGE INSTRUCTIONS, MED LIST AND AFTER CARE INSTRUCTIONS; VERBALIZED GOOD UNDERSTANDING. PT LEFT FACILITY VIA W/C, CONDITION STABLE.
[2020-08-11] MEDS ORDERED: METO5 PO (14:08)
[2020-09-26] MEDS ORDERED: NARCAN4 M1 (13:20)
== END 2020-07-21 10:00 | disposition home or self-care (01) ==
LOC: MHTC 06:39
DX: T82.868A Thrombosis due to vascular prosthetic devices, implants and grafts, initial encounter (principal); E11.22 Type 2 diabetes mellitus with diabetic chronic kidney disease; I12.0 Hypertensive chronic kidney disease with stage 5 chronic kidney disease or end stage renal disease; N18.6 End stage renal disease; J44.9 Chronic obstructive pulmonary disease, unspecified; I25.10 Atherosclerotic heart disease of native coronary artery without angina pectoris; E66.9 Obesity, unspecified; A49.02 Methicillin resistant Staphylococcus aureus infection, unspecified site; R78.81 Bacteremia; Y82.8 Other medical devices associated with adverse incidents; Z99.2 Dependence on renal dialysis; Z79.4 Long term (current) use of insulin; Z87.01 Personal history of pneumonia (recurrent); Z95.1 Presence of aortocoronary bypass graft; Z88.3 Allergy status to other anti-infective agents; Z91.030 Bee allergy status; Z91.018 Allergy to other foods; Z91.048 Other nonmedicinal substance allergy status; Z79.82 Long term (current) use of aspirin; Z79.02 Long term (current) use of antithrombotics/antiplatelets
CPT/HCPCS: 36596; 99152; 99153; J1644; J2250; J3010; J7040; Q9967

== ENCOUNTER 2020-07-27 14:21 | Emergency (ER) | payer OTHER ==
[~2020-07-27] VITALS: Ht 160 cm; Wt 127.0 kg
[2020-08-11] MEDS ORDERED: METO5 PO (14:08)
[2020-09-26] MEDS ORDERED: NARCAN4 M1 (13:20)
== END 2020-07-27 18:57 | disposition home or self-care (01) ==
LOC: ER 14:21
DX: M54.31 Sciatica, right side (principal); E11.9 Type 2 diabetes mellitus without complications; E03.9 Hypothyroidism, unspecified; I10 Essential (primary) hypertension; J45.909 Unspecified asthma, uncomplicated; Z79.899 Other long term (current) drug therapy; Z91.030 Bee allergy status; Z79.4 Long term (current) use of insulin
CPT/HCPCS: 72131; 93971; 99283-25

== ENCOUNTER 2020-07-30 19:29 | Inpatient (IN) | payer OTHER ==
[~2020-07-30] VITALS: Ht 160 cm; Wt 128.4 kg
[2020-07-30 20:04] LABS: BASOPHILS ABSOLUTE AUTO 0.04 K/mm3 (0.00-0.23); BASOPHILS PERCENT AUTO 0 % (0-2); EOSINOPHILS ABSOLUTE AUTO 0.33 K/mm3 (0.00-0.68); EOSINOPHILS PERCENT AUTO 4 % (0-6); Hematocrit 31.3 % (33.0-51.0); Hemoglobin 9.6 g/dL (11.5-16.0); IMMATURE GRAN ABSOLUTE AUTO 0.11 K/mm3 (0.00-0.10); IMMATURE GRAN PERCENT AUTO 1 % (0-1); LYMPHOCYTES ABSOLUTE AUTO 1.32 K/mm3 (0.84-5.20); LYMPHOCYTES PERCENT AUTO 14 % (21-46); MONOCYTES ABSOLUTE AUTO 0.88 K/mm3 (0.16-1.47); MONOCYTES PERCENT AUTO 9 % (4-13); Mean Corpuscular HGB 28.3 pg (26.0-34.0); Mean Corpuscular HGB Conc 30.7 g/dL (31.5-36.5); Mean Corpuscular Volume 92 fL (80-100); Mean Platelet Volume 11.3 fL (9.1-12.4); NEUTROPHILS ABSOLUTE AUTO 6.71 K/mm3 (1.96-9.15); NEUTROPHILS PERCENT AUTO 71 % (41-73); NRBC ABSOLUTE 0.02 K/mm3 (0.00-0.02); NRBC Auto 0.2 /100 WBC (0.0-0.2); Platelet Count 158 K/mm3 (150-400); RDW Coefficient Variation 16.7 % (11.7-14.2); RDW Standard Deviation 56.4 fL (35.1-46.3); Red Blood Cell Count 3.39 M/mm3 (3.80-5.20); White Blood Cell Count 9.39 K/mm3 (4.00-11.30)
[2020-07-30 20:28] LABS: Albumin, Blood 1.9 g/dL (3.4-5.0); Albumin/Globulin Ratio 0.4 (0.8-1.8); Bilirubin, Total 0.4 mg/dL (0.1-1.0); Bun/Creatinine Ratio 7.5 (12.0-20.0); Calcium, Blood 8.6 mg/dL (8.5-10.1); Creatinine, Blood 2.28 mg/dL (0.40-1.00); Potassium, Blood 4.2 mmol/L (3.5-5.5); Total Protein, Blood 6.9 g/dL (6.4-8.2); Troponin I 0.048 ng/mL (0.000-0.040)
[2020-07-30] MEDS ORDERED: SERT100 PO (21:16)
[2020-07-30] MEDS ORDERED: XANAX0.5 MG PO (21:17)
[2020-07-31 00:01] LABS: Vancomycin, Random 13.5 ug/mL
[2020-07-31 05:06] LABS: BASOPHILS ABSOLUTE AUTO 0.02 K/mm3 (0.00-0.23); BASOPHILS PERCENT AUTO 0 % (0-2); EOSINOPHILS ABSOLUTE AUTO 0.47 K/mm3 (0.00-0.68); EOSINOPHILS PERCENT AUTO 6 % (0-6); Hematocrit 26.6 % (33.0-51.0); Hemoglobin 8.2 g/dL (11.5-16.0); IMMATURE GRAN ABSOLUTE AUTO 0.08 K/mm3 (0.00-0.10); IMMATURE GRAN PERCENT AUTO 1 % (0-1); LYMPHOCYTES ABSOLUTE AUTO 1.26 K/mm3 (0.84-5.20); LYMPHOCYTES PERCENT AUTO 15 % (21-46); MONOCYTES ABSOLUTE AUTO 0.83 K/mm3 (0.16-1.47); MONOCYTES PERCENT AUTO 10 % (4-13); Mean Corpuscular HGB 28.1 pg (26.0-34.0); Mean Corpuscular HGB Conc 30.8 g/dL (31.5-36.5); Mean Corpuscular Volume 91 fL (80-100); NEUTROPHILS PERCENT AUTO 68 % (41-73); NRBC ABSOLUTE 0.02 K/mm3 (0.00-0.02); NRBC Auto 0.2 /100 WBC (0.0-0.2); Platelet Count 152 K/mm3 (150-400); RDW Coefficient Variation 16.7 % (11.7-14.2); RDW Standard Deviation 55.8 fL (35.1-46.3); Red Blood Cell Count 2.92 M/mm3 (3.80-5.20); White Blood Cell Count 8.36 K/mm3 (4.00-11.30)
[2020-07-31 05:41] LABS: Calcium, Blood 8.2 mg/dL (8.5-10.1); Creatinine, Blood 2.87 mg/dL (0.40-1.00); Potassium, Blood 3.9 mmol/L (3.5-5.5)
--- NOTE | 2020-07-31 14:14 | NUR ---
1400 DOSE OF 120MG PO CARDIZEM HELD FOR BP OF 101/63. DR DOOLEY AWARE.
--- NOTE | 2020-07-31 18:16 | NUR ---
NO DIALYSIS TODAY, ANTICIPATE TOMORROW, PT C/O OF BACK PAIN, DECLINES PER LAST PERCOCETT, DOES TAKE SOME TYLENOL AND A XANAEX AT [address] DOOLEY SHE IS A POSSIBLE DISCHARGE TOMORROW. NO ACUTE CHANGES NOTED THIS SHIFT. WILL CONTINUE TO MONITOR AND REPORT TO ONCOMING RN.
--- NOTE | 2020-08-01 04:45 | NUR ---
CUT OUT STITCHER SUMMARY PT A&OX4, ABLE TO MAKE NEEDS KNOWN, PLEASANT AND COOPERATIVE TO CARE. PT MEDICATED FOR BACK PAIN X1 PER EMAR. NO C/O CP OR N&V. PT CONT TO C/O SOB W/ EXERTION, PT ON 3LPM O2 VIA NC, SATS >9O%. PT CALM AND RESTED IN BED T/O SHIFT. NO ACUTE CHANGES NOTED. PT 2P MAX ASSIST WITH TRANSFERS D/T WEAKNESS. BED AT LOWEST POSITION. CALL LIGHT WITHIN REACH.
[2020-08-01 05:49] LABS: Hematocrit 27.9 % (33.0-51.0); Hemoglobin 8.6 g/dL (11.5-16.0)
[2020-08-01 06:09] LABS: Albumin, Blood 1.7 g/dL (3.4-5.0); Anion Gap 7 mmol/L (6-16); Blood Urea Nitrogen 33 mg/dL (8-24); Bun/Creatinine Ratio 7.5 (12.0-20.0); CO2, Blood 34 mmol/L (21-32); Calcium, Blood 8.9 mg/dL (8.5-10.1); Chloride, Blood 93 mmol/L (98-108); Creatinine, Blood 4.38 mg/dL (0.40-1.00); Glomerular Filtration Rate 11 (60-); Glucose, Blood 134 mg/dL (70-99); Magnesium, Blood 2.2 mg/dL (1.6-2.4); Phosphorus, Blood 5.2 mg/dL (2.5-4.9); Potassium, Blood 4.2 mmol/L (3.5-5.5); Sodium, Blood 134 mmol/L (136-145)
[2020-08-01 13:42] LABS: Vancomycin, Random 14.6 ug/mL
--- NOTE | 2020-08-02 05:52 | NUR ---
AUTO PAINTER HELPER SUMMARY NO ACUTE CHANGES NOTED TO PT THIS SHIFT. A&OX4, ABLE TO MAKE NEEDS KNOWN, PLEASANT AND COOPERATIVE TO CARE. MEDICATED FOR BACK PAIN PER EMAR. NO C/O CP OR N&V. PT CONT ON 3LPM O2 VIA NC, SOB W/ EXERTION NOTED. PT 1-2P ASSIST TO BSC. PT CALM AND RESTED IN BED T/O SHIFT. BED AT LOWEST POSITION. CALL LIGHT WITHIN REACH.
[2020-08-02 11:57] LABS: Vancomycin, Random 17.7 ug/mL
[2020-08-02] MEDS ORDERED: VANCOMYCIN HCL1 G1 IV (13:25)
[2020-08-11] MEDS ORDERED: METO5 PO (14:08)
[2020-09-26] MEDS ORDERED: NARCAN4 M1 (13:20)
== END 2020-08-02 14:46 | disposition home or self-care (01) | DRG 189 ==
LOC: ER 19:29 → MEDS 23:19 → ENPENDDIS 08-02 12:47 → MEDS 08-02 14:46
PROVIDERS: Internal Medicine Nephrology; Physician Assistant; ADMIT Hospitalist
DX: J96.01 Acute respiratory failure with hypoxia (principal); N18.6 End stage renal disease; I13.2 Hypertensive heart and chronic kidney disease with heart failure and with stage 5 chronic kidney disease, or end stage renal disease; N25.81 Secondary hyperparathyroidism of renal origin; E87.1 Hypo-osmolality and hyponatremia; I50.22 Chronic systolic (congestive) heart failure; I24.8 Other forms of acute ischemic heart disease; R78.81 Bacteremia; E66.2 Morbid (severe) obesity with alveolar hypoventilation; Z68.43 Body mass index [BMI] 50.0-59.9, adult; T82.7XXA Infection and inflammatory reaction due to other cardiac and vascular devices, implants and grafts, initial encounter; E11.22 Type 2 diabetes mellitus with diabetic chronic kidney disease; E03.9 Hypothyroidism, unspecified; E88.09 Other disorders of plasma-protein metabolism, not elsewhere classified; M54.5 Low back pain; B95.62 Methicillin resistant Staphylococcus aureus infection as the cause of diseases classified elsewhere; E11.3293 Type 2 diabetes mellitus with mild nonproliferative diabetic retinopathy without macular edema, bilateral; F41.1 Generalized anxiety disorder; I25.10 Atherosclerotic heart disease of native coronary artery without angina pectoris; D63.1 Anemia in chronic kidney disease; M54.16 Radiculopathy, lumbar region; J44.9 Chronic obstructive pulmonary disease, unspecified; I25.2 Old myocardial infarction; Z95.1 Presence of aortocoronary bypass graft; Z99.2 Dependence on renal dialysis; Z91.018 Allergy to other foods; Z88.8 Allergy status to other drugs, medicaments and biological substances; Z91.030 Bee allergy status; Z91.048 Other nonmedicinal substance allergy status; Z79.4 Long term (current) use of insulin; Z79.82 Long term (current) use of aspirin; Z98.890 Other specified postprocedural states; Z79.02 Long term (current) use of antithrombotics/antiplatelets; Z79.899 Other long term (current) drug therapy; Y84.8 Other medical procedures as the cause of abnormal reaction of the patient, or of later complication, without mention of misadventure at the time of the procedure
CPT/HCPCS: 36415; 70450; 71045; 80048; 80053; 80069; 80202; 82947; 83735; 83880; 84132; 84484; 85014; 85018; 85025; 85651; 86140; 87040; 93005; 93010; 99285-25; A9270; J0881; J1644; J1815; J3370; J7050

== ENCOUNTER 2020-08-05 11:35 | Emergency (ER) | payer OTHER ==
[~2020-08-05] VITALS: Ht 160 cm; Wt 131.1 kg
[~2020-08-05 11:35] MED LIST changes: +SERT100 PO; +VANCOMYCIN HCL1 G1 IV; +XANAX0.5 MG PO
[2020-08-05 18:51] LABS: BASOPHILS ABSOLUTE AUTO 0.03 K/mm3 (0.00-0.23); BASOPHILS PERCENT AUTO 0 % (0-2); EOSINOPHILS ABSOLUTE AUTO 0.23 K/mm3 (0.00-0.68); EOSINOPHILS PERCENT AUTO 3 % (0-6); Hematocrit 27.6 % (33.0-51.0); Hemoglobin 8.3 g/dL (11.5-16.0); IMMATURE GRAN ABSOLUTE AUTO 0.18 K/mm3 (0.00-0.10); IMMATURE GRAN PERCENT AUTO 3 % (0-1); LYMPHOCYTES ABSOLUTE AUTO 1.47 K/mm3 (0.84-5.20); LYMPHOCYTES PERCENT AUTO 20 % (21-46); MONOCYTES ABSOLUTE AUTO 0.69 K/mm3 (0.16-1.47); MONOCYTES PERCENT AUTO 10 % (4-13); Mean Corpuscular HGB 27.3 pg (26.0-34.0); Mean Corpuscular HGB Conc 30.1 g/dL (31.5-36.5); Mean Corpuscular Volume 91 fL (80-100); Mean Platelet Volume 10.8 fL (9.1-12.4); NEUTROPHILS ABSOLUTE AUTO 4.69 K/mm3 (1.96-9.15); NEUTROPHILS PERCENT AUTO 64 % (41-73); Platelet Count 192 K/mm3 (150-400); RDW Coefficient Variation 17.2 % (11.7-14.2); RDW Standard Deviation 56.3 fL (35.1-46.3); Red Blood Cell Count 3.04 M/mm3 (3.80-5.20); White Blood Cell Count 7.29 K/mm3 (4.00-11.30)
[2020-08-05 19:14] LABS: C-REACTIVE PROTEIN, EXT RANGE >19.000 mg/dL (0.000-0.300)
[2020-08-05 20:31] LABS: Anion Gap 7 mmol/L (6-16); Blood Urea Nitrogen 31 mg/dL (8-24); Bun/Creatinine Ratio 7.9 (12.0-20.0); CO2, Blood 31 mmol/L (21-32); Chloride, Blood 97 mmol/L (98-108); Creatinine, Blood 3.92 mg/dL (0.40-1.00); Glomerular Filtration Rate 13 (60-); Glucose, Blood 135 mg/dL (70-99); Potassium, Blood 4.3 mmol/L (3.5-5.5); Sodium, Blood 135 mmol/L (136-145)
[2020-08-11] MEDS ORDERED: METO5 PO (14:08)
[2020-09-26] MEDS ORDERED: NARCAN4 M1 (13:20)
== END 2020-08-05 22:57 | disposition home or self-care (01) ==
LOC: ER 11:35
PROVIDERS: Emergency Medicine
DX: M54.5 Low back pain (principal); Z79.02 Long term (current) use of antithrombotics/antiplatelets; Z79.4 Long term (current) use of insulin; Z79.899 Other long term (current) drug therapy
CPT/HCPCS: 36415; 72132; 80048; 83605; 83880; 85025; 85651; 86140; 87040; 87077; 87147; 87186; 99284-25; A9270; Q9967

== ENCOUNTER 2020-08-12 08:28 | Day surgery (SDC) | payer OTHER ==
[~2020-08-12] VITALS: Ht 160 cm; Wt 127.0 kg
--- NOTE | 2020-08-12 10:30 | NUR ---
PT TO RECOVERY ROOM POST PROCEDURE. PT DROWSY, BUT CONVERSING APPROPRIATELY, DENIES PAIN POST PROCEDURE. MONITOR SR 80'S, B/P 156/85, AFEBRILE, SPO2 95% 2L NC. R CHEST PERM CATH SITE NO SWELLING/HEMATOMA, DRAIN GAUZE AND TAPE DRSG INTACT. PT'S SPOUSE AT BEDSIDE, UPDATED WITH PT'S CONSENT.
--- NOTE | 2020-08-12 11:08 | NUR ---
REPORT TO Maylin FIELDS RN; ALL QUESTIONS ANSWERED.
--- NOTE | 2020-08-12 11:11 | NUR ---
PETRA RECIEVED FROM DAISY Deluna RN.
--- NOTE | 2020-08-12 12:01 | NUR ---
DISCHARGE PT REMAINED A&OX3 AND DENIED ANY PAIN DURING RECOVERY. RIGHT UPPER CHEST SITE REMAINS CDI-NO HEMATOMA NOTED. IV DC'D WITH CANULA IN TACT. DISCHARGE PAPERWORK GONE OVER WITH PT AND SPOUSE. PT AND SPOUSE VERBALLY STATED THE UNDERSTANDING OF THE DISCHARGE PAPERWORK AND DENIED ANY QUESTIONS AT THIS TIME. PT REQUIRED ASISTANCE WITH DRESSING AND AMBUALTING TO WHEELCHAIR. PT WHEELED OUT BY HER SPOUSE.
[2020-09-26] MEDS ORDERED: NARCAN4 M1 (13:20)
== END 2020-08-12 12:29 | disposition home or self-care (01) ==
LOC: MHTC 08:28
DX: T82.49XA Other complication of vascular dialysis catheter, initial encounter (principal); I12.0 Hypertensive chronic kidney disease with stage 5 chronic kidney disease or end stage renal disease; N18.6 End stage renal disease; E11.22 Type 2 diabetes mellitus with diabetic chronic kidney disease; J44.9 Chronic obstructive pulmonary disease, unspecified; I25.10 Atherosclerotic heart disease of native coronary artery without angina pectoris; Y71.8 Miscellaneous cardiovascular devices associated with adverse incidents, not elsewhere classified; Z99.2 Dependence on renal dialysis; Z95.1 Presence of aortocoronary bypass graft; Z79.4 Long term (current) use of insulin; Z79.82 Long term (current) use of aspirin
CPT/HCPCS: 36010; 36581; 36596; 75827; 82947; 99152; 99153; C1725; C1750; C1769; J1644; J2250; J3010; J7040; Q9967

== ENCOUNTER 2020-08-19 17:26 | Inpatient (IN) | payer OTHER ==
[~2020-08-19] VITALS: Ht 160 cm; Wt 141.1 kg
[2020-08-19 18:01] LABS: BASOPHILS PERCENT AUTO 1 % (0-2); EOSINOPHILS ABSOLUTE AUTO 0.25 K/mm3 (0.00-0.68); EOSINOPHILS PERCENT AUTO 2 % (0-6); Hematocrit 26.8 % (33.0-51.0); Hemoglobin 8.2 g/dL (11.5-16.0); IMMATURE GRAN ABSOLUTE AUTO 0.18 K/mm3 (0.00-0.10); IMMATURE GRAN PERCENT AUTO 2 % (0-1); LYMPHOCYTES ABSOLUTE AUTO 1.31 K/mm3 (0.84-5.20); LYMPHOCYTES PERCENT AUTO 11 % (21-46); MONOCYTES ABSOLUTE AUTO 0.98 K/mm3 (0.16-1.47); MONOCYTES PERCENT AUTO 9 % (4-13); Mean Corpuscular HGB 27.5 pg (26.0-34.0); Mean Corpuscular HGB Conc 30.6 g/dL (31.5-36.5); Mean Corpuscular Volume 90 fL (80-100); NEUTROPHILS ABSOLUTE AUTO 8.73 K/mm3 (1.96-9.15); NEUTROPHILS PERCENT AUTO 76 % (41-73); NRBC ABSOLUTE 0.03 K/mm3 (0.00-0.02); NRBC Auto 0.3 /100 WBC (0.0-0.2); Platelet Count 390 K/mm3 (150-400); RDW Coefficient Variation 16.7 % (11.7-14.2); RDW Standard Deviation 54.4 fL (35.1-46.3); Red Blood Cell Count 2.98 M/mm3 (3.80-5.20); White Blood Cell Count 11.55 K/mm3 (4.00-11.30)
[2020-08-19 18:25] LABS: Alanine Aminotransfer (ALT/SGP 19 U/L (12-78); Albumin, Blood 2.1 g/dL (3.4-5.0); Albumin/Globulin Ratio 0.4 (0.8-1.8); Alk Phos 82 U/L (50-136); Anion Gap 10 mmol/L (6-16); Aspartate Aminotrans (AST/SGOT 17 U/L (12-37); Bilirubin, Total 0.4 mg/dL (0.1-1.0); Blood Urea Nitrogen 21 mg/dL (8-24); Bun/Creatinine Ratio 7.8 (12.0-20.0); CO2, Blood 28 mmol/L (21-32); Calcium, Blood 9.2 mg/dL (8.5-10.1); Chloride, Blood 99 mmol/L (98-108); Creatinine, Blood 2.69 mg/dL (0.40-1.00); Globulin, Blood 4.8 g/dL (2.2-4.0); Glomerular Filtration Rate 20 (60-); Glucose, Blood 83 mg/dL (70-99); Potassium, Blood 3.9 mmol/L (3.5-5.5); Sodium, Blood 137 mmol/L (136-145); Total Protein, Blood 6.9 g/dL (6.4-8.2)
[2020-08-19 19:14] LABS: International Normalized Ratio 1.13
--- NOTE | 2020-08-19 19:52 | NUR ---
DIALYSIS ED CALLED BLOOD CULTURE DRAW. ASKED TO DRAW BLOOD CULTURE SIMULTANEOUSLY WITH LAB. LETICIA BLOOD CULTURE PER PROTOCAL. GAVE TO CUT OFF OPERATOR SCORER.
[2020-08-20 00:10] LABS: Influenza A, PCR Negative (NEGATIVE); Influenza B, PCR Negative (NEGATIVE); Resp Syncytial Virus, PCR Negative (NEGATIVE); SARS-Cov-2 (COVID-19) PCR, MMC Negative (NEGATIVE)
[2020-08-20] MEDS ORDERED: PERCOCET 10-321 EAC1 PO (03:20)
[2020-08-20] MEDS ORDERED: MIRTAZAPINE7.5 M1 PO (03:23)
[2020-08-20 05:39] LABS: BASOPHILS ABSOLUTE AUTO 0.09 K/mm3 (0.00-0.23); BASOPHILS PERCENT AUTO 1 % (0-2); EOSINOPHILS PERCENT AUTO 3 % (0-6); Hematocrit 25.9 % (33.0-51.0); Hemoglobin 7.9 g/dL (11.5-16.0); IMMATURE GRAN ABSOLUTE AUTO 0.15 K/mm3 (0.00-0.10); IMMATURE GRAN PERCENT AUTO 1 % (0-1); LYMPHOCYTES ABSOLUTE AUTO 1.45 K/mm3 (0.84-5.20); LYMPHOCYTES PERCENT AUTO 13 % (21-46); MONOCYTES ABSOLUTE AUTO 0.92 K/mm3 (0.16-1.47); MONOCYTES PERCENT AUTO 8 % (4-13); Mean Corpuscular HGB 27.2 pg (26.0-34.0); Mean Corpuscular HGB Conc 30.5 g/dL (31.5-36.5); Mean Corpuscular Volume 89 fL (80-100); Mean Platelet Volume 11.1 fL (9.1-12.4); NEUTROPHILS ABSOLUTE AUTO 8.12 K/mm3 (1.96-9.15); NEUTROPHILS PERCENT AUTO 74 % (41-73); Platelet Count 367 K/mm3 (150-400); RDW Coefficient Variation 16.6 % (11.7-14.2); RDW Standard Deviation 53.9 fL (35.1-46.3); White Blood Cell Count 11.03 K/mm3 (4.00-11.30)
[2020-08-20 06:00] LABS: Bun/Creatinine Ratio 7.9 (12.0-20.0); Calcium, Blood 9.1 mg/dL (8.5-10.1); Creatinine, Blood 2.77 mg/dL (0.40-1.00); Potassium, Blood 3.4 mmol/L (3.5-5.5)
--- NOTE | 2020-08-20 06:40 | NUR ---
Rn summary: Patient arrived from ER via stretcher and was assisted to bed from stretcher. Pt is comfortable at this time. Pt with healing pressure ulcer area on coccyx, has a small blister on her left waist and a scab on left abdomen. Pt is able to turn to side with some assist. Pt states she has numbness in her feet and is unable to stand unassisted. She states she puts her arms around her husbands neck and he pivot transfers to the commode. Pt has a permacath to R upper chest wall. Last dialysis was Sunday. Pt is alert and oriented and pleasant. Pt has MRSA positive blood cultures per Dr Masters. Pt is on her mensus. Pt was medicated at 0510 with percocet x1 for back pain after turning and repositioning in bed. Pt was able to rest afterward. Call light is in reach. Pt in contact isolation.
--- NOTE | 2020-08-20 18:16 | NUR ---
SHIFT SUMMARY. A&OX4, ON BEDREST ALTHOUGH WAS ABLE TO ASSIST PT TO BSC WITH HOME ROUTINE, DIALYSIS COMPLETED TODAY. LOWER BACK PAIN MANAGED WELL WITH CURRENT ORDERS. NO N/V, SOB. BLOOD CULTURES POSITIVE, AWAITING FINAL RESULT, MD AWARE. AT BEDSIDE THIS AFTERNOON. NO OTHER CHANGES OR CONCERNS.
--- NOTE | 2020-08-21 04:56 | NUR ---
SHIFT SUMMARY ASSUMED CARE OF PT AT 1900. PT IS A/OX4. HEART SOUNDS REGULAR, LUNG SOUNDS CLEAR. PT HAS NOT VOIDED THIS SHIFT, BUT THIS IS NORMAL FOR HER. PT HAS BEEN ON BED REST. PT C/O PAIN IN HER BACK, MEDICATED PER EMAR. PT REFUSED L0NG ACTING INSULIN BECAUSE HER BLOOD SUGAR WAS LOWER THAN NORMAL AT 122. AFTER RECHECK AT 0000 GLUCOSE WAS 90. PT RECEIVED A SNACK AND HAS HAD NO SYMPTOMS SINCE. PT SLEPT T/O THE NIGHT. CALL LIGHT IN REACH, BED IN LOWEST POSTION.
[2020-08-21 05:38] LABS: BASOPHILS ABSOLUTE AUTO 0.09 K/mm3 (0.00-0.23); BASOPHILS PERCENT AUTO 1 % (0-2); EOSINOPHILS PERCENT AUTO 4 % (0-6); Hematocrit 28.2 % (33.0-51.0); Hemoglobin 8.4 g/dL (11.5-16.0); IMMATURE GRAN PERCENT AUTO 2 % (0-1); LYMPHOCYTES ABSOLUTE AUTO 1.38 K/mm3 (0.84-5.20); LYMPHOCYTES PERCENT AUTO 12 % (21-46); MONOCYTES ABSOLUTE AUTO 0.87 K/mm3 (0.16-1.47); MONOCYTES PERCENT AUTO 8 % (4-13); Mean Corpuscular HGB 27.1 pg (26.0-34.0); Mean Corpuscular HGB Conc 29.8 g/dL (31.5-36.5); Mean Corpuscular Volume 91 fL (80-100); Mean Platelet Volume 11.2 fL (9.1-12.4); NEUTROPHILS ABSOLUTE AUTO 8.16 K/mm3 (1.96-9.15); NEUTROPHILS PERCENT AUTO 74 % (41-73); Platelet Count 396 K/mm3 (150-400); RDW Coefficient Variation 16.6 % (11.7-14.2); RDW Standard Deviation 55.6 fL (35.1-46.3)
[2020-08-21 06:02] LABS: Albumin, Blood 2.2 g/dL (3.4-5.0); Anion Gap 7 mmol/L (6-16); Blood Urea Nitrogen 20 mg/dL (8-24); CO2, Blood 30 mmol/L (21-32); Calcium, Blood 9.6 mg/dL (8.5-10.1); Chloride, Blood 98 mmol/L (98-108); Creatinine, Blood 2.86 mg/dL (0.40-1.00); Glomerular Filtration Rate 19 (60-); Glucose, Blood 120 mg/dL (70-99); Magnesium, Blood 2.2 mg/dL (1.6-2.4); Phosphorus, Blood 3.6 mg/dL (2.5-4.9); Potassium, Blood 3.5 mmol/L (3.5-5.5); Sodium, Blood 135 mmol/L (136-145)
--- NOTE | 2020-08-21 17:08 | NUR ---
SHIFT SUMMARY NO ACUTE EVENTS THIS SHIFT, VSS. PATIENT IS ALERT AND ORIENTED, COOPERATIVE WITH CARE. PATIENT COMPLAINED OF BACK PAIN THROUGHOUT SHIFT, MEDICATED PER EMAR. PATIENT WAS ABLE TO GET UP TO BEDSIDE COMMODE PER TECHNICAL SALES DIRECTOR WITH ASSISTANCE FROM TECHNICAL SALES DIRECTOR AND PATIENT'S AT BEDSIDE. PATIENT DENIES ANY NUMBNESS OR TINGLING THIS SHIFT.
--- NOTE | 2020-08-22 05:00 | NUR ---
SHIFT SUMMARY ASSUMED CARE OF PT AT 1900. PT IS A/OX4. HEART SOUNDS DISTANT. LUNG SOUNDS DIMINISHED. PT DID NOT VOID BUT THIS WAS NORMAL FOR HER. PT C/O PAIN ONCE DURING THE NIGHT. MEDICATED PER EMAR. PT HAS NO NEW COMPLAINTS. PT AT 2 POSITIVE BLOOD CULTURES, PHARMACIST SAYS SHE IS GETTING PRPER ABX FOR TREATMENT. CALL LIGHT IN REACH, BED IN LOWEST POSITION.
[2020-08-22 05:03] LABS: Hematocrit 24.3 % (33.0-51.0); Hemoglobin 7.5 g/dL (11.5-16.0)
[2020-08-22 05:28] LABS: Albumin, Blood 1.9 g/dL (3.4-5.0); Anion Gap 8 mmol/L (6-16); Blood Urea Nitrogen 28 mg/dL (8-24); Bun/Creatinine Ratio 8.4 (12.0-20.0); CO2, Blood 28 mmol/L (21-32); Calcium, Blood 9.2 mg/dL (8.5-10.1); Chloride, Blood 97 mmol/L (98-108); Creatinine, Blood 3.32 mg/dL (0.40-1.00); Glomerular Filtration Rate 16 (60-); Glucose, Blood 174 mg/dL (70-99); Magnesium, Blood 2.1 mg/dL (1.6-2.4); Phosphorus, Blood 4.3 mg/dL (2.5-4.9); Potassium, Blood 3.9 mmol/L (3.5-5.5); Sodium, Blood 133 mmol/L (136-145)
--- NOTE | 2020-08-22 18:25 | NUR ---
PT SUMMARY: PT ALERT AND ORIENTED, AT BASELINE. VITALS HRR SR 80'S ON TELE NO EVENTS REPORTED, BP SYSTOLIC 120-150'S, SATS ABOVE 90% ON RA, AFEBRILE. PT HAD DIALYSIS TODAY, NO ISSUES REPORTED, PT KEEPS C/O BACK PAIN WORSENS WITH MOVEMENT PAIN MEDS GIVEN X2 FOR THE SHIFT AND WAS EFFECTIVE. PT USES BEDSIDE COMMODE 1PA VIA WALKER, PT HAD A BOWEL MOVEMENT THIS AM, VOIDED THIS AFTERNOON UNABLE TO MEASURE PER CONSTRUCTION COST ESTIMATOR. PT DENIES ANY INCONTINENCE AND WEAKNESS ON THE LOWER EXTREMITIES FOR THE SHIFT. TO REPEAT BLOOD CULTURE IN AM PER DR BRISENO AND DR BOSS TO RE-EVALUATE PT. CAME IN TO VIST PT TODAY. NO OTHER ISSUES ENCOUNTERED, PT ABLE TO MAKE NEEDS KNOWN. WILL MONITOR UNTIL END OF SHIFT
--- NOTE | 2020-08-23 01:12 | NUR ---
ASSUMED CARE OF PT. THIS RN AGREES TO PREVIOUS RN'S ASSESSMENT FINDINGS. PT AWAKE WATCHING TV IN BED BUT DENIED COMPLAINTS/NEEDS. WCTM.
--- NOTE | 2020-08-23 04:09 | NUR ---
SUMMARY: PT A/OX4, CALLS APPROPRIATELY AND SPECIFIES NEEDS. SHE C/O MILD BACK PAIN W/MOVEMENT BUT DENIED NEEDING PRN PAIN RELIEF THIS SHIFT. PT ON DIALYSIS W/PERMACATH PRESENT TO R.CW. SHE VOIDS OCCASIONALLY VIA 1PA W/FWW TO BSC BUT WASN'T UP THIS SHIFT. BLOOD SUGARS REMAINED STABLE. SHE'S NSR AT 80'S-90'S BPM PER TELEMETRY W/VSS AND AFEBRILE. NO ACUTE CHANGES. REPEAT BLOOD CX'S THIS AM. WCTM AND REPORT TO DAY RN.
[2020-08-23 05:50] LABS: Hematocrit 25.2 % (33.0-51.0); Hemoglobin 7.6 g/dL (11.5-16.0)
[2020-08-23 06:05] LABS: Albumin, Blood 1.9 g/dL (3.4-5.0); Anion Gap 8 mmol/L (6-16); Blood Urea Nitrogen 27 mg/dL (8-24); Bun/Creatinine Ratio 9.8 (12.0-20.0); CO2, Blood 29 mmol/L (21-32); Calcium, Blood 9.1 mg/dL (8.5-10.1); Chloride, Blood 97 mmol/L (98-108); Creatinine, Blood 2.76 mg/dL (0.40-1.00); Glomerular Filtration Rate 19 (60-); Glucose, Blood 183 mg/dL (70-99); Magnesium, Blood 2.2 mg/dL (1.6-2.4); Phosphorus, Blood 3.5 mg/dL (2.5-4.9); Potassium, Blood 3.9 mmol/L (3.5-5.5); Sodium, Blood 134 mmol/L (136-145)
--- NOTE | 2020-08-23 14:32 | NUR ---
Patient is sitting up in bed and alert. Patient talks of her medical issues and the struggle to get some infections under control. Patient tells me that she just takes things one day at a time because things seem to be good one day and not the next. Patient talks about her family unit complications and the stress that this causes her but recently there have some positive steps toward reconciliation though. I reinforce helpful attitudes and practices and provide pastoral guidance and prayer. Patient responds well and shows signs of increased peace. I will continue to remain available to patient and family.
--- NOTE | 2020-08-23 19:40 | NUR ---
PT AA&OX4. COOPERATE. MEDICATED FOR PAIN X1. REPORTS TOLERABLE PAIN IF " LAYING STILL".1 ASSIST TO BSC. AWAITING BLOOD CULTURE TO DETERMIN PLAN. MAY NEED TO TRANSFER NORTH FOR MRI. NO MAJOR ISSUES NOTED, CLIENT HAS NO COMPLAINTS OR CONCERNS.
[2020-08-24 05:43] LABS: Hemoglobin 7.5 g/dL (11.5-16.0)
[2020-08-24 06:05] LABS: Albumin, Blood 1.8 g/dL (3.4-5.0); Anion Gap 7 mmol/L (6-16); Blood Urea Nitrogen 25 mg/dL (8-24); Bun/Creatinine Ratio 9.6 (12.0-20.0); CO2, Blood 32 mmol/L (21-32); Chloride, Blood 95 mmol/L (98-108); Creatinine, Blood 2.61 mg/dL (0.40-1.00); Glomerular Filtration Rate 21 (60-); Glucose, Blood 126 mg/dL (70-99); Magnesium, Blood 2.1 mg/dL (1.6-2.4); Potassium, Blood 4.3 mmol/L (3.5-5.5); Sodium, Blood 134 mmol/L (136-145)
--- NOTE | 2020-08-24 06:29 | NUR ---
SHIFT SUMMARY NO ACUTE CHANGES THIS SHIFT. AOX4. VSS. REPORTS PAIN / & STATED PAIN HAS BEEN TOLERABLE ALL NIGHT, DENIES NEED FOR ANY PAIN MEDICATION, WAS MEDICATED PRIOR TO SHIFT STARTING LAST NIGHT. DENIES N/V OR DYSPNEA. HS CBG @154. DID NOT VOID THIS SHIFT, IS DIALYSIS PT. AWAITING REPEAT BLOOD CX RESULTS. PT WANTING TO DC HOME. CALL LIGHT IN REACH, WILL MONITOR.
--- NOTE | 2020-08-24 11:35 | NUR ---
PATIENT RETURNED FROM DIALYSIS VIA HER BED. TOLERATED RBC TRANSFUSION WELL. PAIN WELL CONTROLLED AT THIS TIME, MORNING MEDICATIONS GIVEN.
--- NOTE | 2020-08-24 17:44 | NUR ---
SHIFT SUMMARY: NO ACUTE EVENTS. C/O 08/04 PAIN IN BACK; MEDICATED PER EMAR WITH ADEQUATE RELIEF. HAD DIALYSIS TODAY, TRANSFUSED 1 UNIT PRBC'S DURING, TOLERATED WELL. HAD LARGE BM THIS MORNING, BUT STILL NEEDS TO TAKE BOWEL MEDS. WAS DISAPPOINTED THAT ONE BLOOD CULTURE CAME BACK POSITIVE TODAY; PHARMACIST NOTIFIED, STATED THAT DAPTOMYCIN WAS ADEQUATE COVERAGE. DID NOT WORK WITH PT/OT TODAY (SEE NOTES). APPETITE GOOD, TOLERATING PO INTAKE. SPOUSE VISITED THIS AFTERNOON.
[2020-08-25 05:59] LABS: Hematocrit 27.7 % (33.0-51.0); Hemoglobin 8.4 g/dL (11.5-16.0)
--- NOTE | 2020-08-25 05:59 | NUR ---
SHIFT SUMMARY NO ACUTE CHANGES THIS SHIFT. AOX4. VSS. REPORTED 3/10 BACK PAIN, MEDICATED 1X c OXYCODONE, PT ABLE TO REST COMFORTABLY. HS CBG @151, COVERAGE & SNACK PROVIDED. CALL LIGHT IN REACH & PT ABLE TO MAKE NEEDS KNOWN.
[2020-08-25 06:39] LABS: Albumin, Blood 1.7 g/dL (3.4-5.0); Anion Gap 8 mmol/L (6-16); Blood Urea Nitrogen 31 mg/dL (8-24); Bun/Creatinine Ratio 12.6 (12.0-20.0); CO2, Blood 29 mmol/L (21-32); Calcium, Blood 8.9 mg/dL (8.5-10.1); Chloride, Blood 96 mmol/L (98-108); Creatinine, Blood 2.46 mg/dL (0.40-1.00); Glomerular Filtration Rate 22 (60-); Glucose, Blood 181 mg/dL (70-99); Magnesium, Blood 2.1 mg/dL (1.6-2.4); Phosphorus, Blood 4.1 mg/dL (2.5-4.9); Potassium, Blood 4.1 mmol/L (3.5-5.5); Sodium, Blood 133 mmol/L (136-145)
--- NOTE | 2020-08-25 15:13 | NUR ---
MRI SCHEDULED FOR 08/31 IN [place]: PATIENT CALLED TO CHECK TIME ON MRI APPOINTMENT IN [place] ON AUGUST 31. PT STATED THAT SHE WAS TOLD SHE DOES NOT HAVE AN APPT NEXT WEEK FOR MRI, AND THAT HER INSURANCE MUST PRE-AUTHORIZE THE MRI BEFORE THEY CAN SCHEDULE. DR. BRISENO NOTIFIED IN PERSON.
--- NOTE | 2020-08-25 15:36 | NUR ---
Patient is lying in bed and alert. Spouse, Deep, is bedside. Patient immediately tells me that she is having a down day beacuse of the length of her hospital stay, the slow gains on having good cultures and the back pain. I normalize patient's experience, and provide levity, pastoral bereavement counselor and prayer. Patient shows signs of an elevated mood. I will continue to remain available to patient and family.
--- NOTE | 2020-08-25 18:15 | NUR ---
SHIFT SUMMARY: AFTER GETTING ON AND OFF BSC THIS AFTERNOON, PT'S PAIN INCREASED TO 8/10; RECEIVED VERBAL ORDER FOR ONE TIME DOSE OF PAIN MEDICATION AND INTERVAL CHANGE TO [id number]. PT REPORTS THAT PAIN IS CONTROLLED AT THIS TIME. RU CHEST PERMACATH REMOVED WITHOUT INCIDENT, DRESSING CD&I, NO S/S OF BLEEDING. TOLERATING PO INTAKE, DENIES NAUSEA. PATIENT MADE AWARE OF PLAN FOR CT SCAN TOMORROW. SPOUSE VISITED THIS AFTERNOON.
--- NOTE | 2020-08-26 04:32 | NUR ---
SHIFT SUMMARY ASUSMED CARE OF PT AT 1900. PT IS A/OX4. HEART SOUNDS REGULAR, LUNG SOUNDS DIMINISHED. PT PERMACTH BANDAGE CHANGED. PT STATES NO NEW COMPLAINTS, COMPLINED OF PAIN ONCE DURING THE NIGHT. CALL LIGHT IN REACH, BED IN LOWEST POSITON.
[2020-08-26 04:42] LABS: Hematocrit 28.3 % (33.0-51.0); Hemoglobin 8.8 g/dL (11.5-16.0)
[2020-08-26 05:01] LABS: Albumin, Blood 1.9 g/dL (3.4-5.0); Anion Gap 7 mmol/L (6-16); Blood Urea Nitrogen 36 mg/dL (8-24); Bun/Creatinine Ratio 12.3 (12.0-20.0); CO2, Blood 31 mmol/L (21-32); Calcium, Blood 9.1 mg/dL (8.5-10.1); Chloride, Blood 93 mmol/L (98-108); Creatinine, Blood 2.93 mg/dL (0.40-1.00); Glomerular Filtration Rate 18 (60-); Glucose, Blood 106 mg/dL (70-99); Magnesium, Blood 2.2 mg/dL (1.6-2.4); Phosphorus, Blood 4.6 mg/dL (2.5-4.9); Potassium, Blood 3.7 mmol/L (3.5-5.5); Sodium, Blood 131 mmol/L (136-145)
--- NOTE | 2020-08-26 13:33 | NUR ---
Spiritual care visit conducted. I Provide pastoral youth counselor and emotioanl/spiritual encouragement. Patient responds well and voices appreciation for the visit.
--- NOTE | 2020-08-26 17:51 | NUR ---
SHIFT SUMMARY PT AxOx4. PLEASANT AND COOPERATIVE WITH CARE. PT REPORTS BACK PAIN, INCREASED WITH MOVEMENT. MEDICATED PER EMAR. PT HAD CT OF CHEST/ABD TODAY. MORE BLOOD CULTURES SENT TO LAB. NPO AFTER NOON FOR EXPECTED PERM CATH REPLACEMENT PROCEDURE THIS EVENING. PT STILL WAITING AT THIS TIME. IN ROOM TODAY AND GIVEN UPDATE. PT HAD 1 VOID TODAY WITH 'S HELP TO BSC. DECLINED GETTING UP ANY OTHER TIMES. VITALS REVIEWED. PT CURRENTLY RESTING IN BED WITH CALL LIGHT IN REACH. DECLINES ANY NEEDS AT THIS TIME.
--- NOTE | 2020-08-27 04:33 | NUR ---
SHIFT SUMMARY ASSUMED CARE OF PT AT 1900. PT IS A/OX4. HEART SOUNDS REGULAR, LUNG SOUNDS DIMINISHED. PT C/O PAIN ONCE THIS SHIFT, MEDICATED PER EMAR. PT HAS NO NEW COMPLAINTS. DR AWAN WAS CALLED AND UPDATED ABOUT PTS CONCERNS. DR GIVENS UPDATED PT MEDICATIONS AND TALKED WITH HER ABOUT WHAT HIS PLAN OF CARE WAS. HE IS AWAITING BLOOD CULTURE RESULTS FROM AFTER PERMACATH WAS REMOVED. CALL LIGHT IN REACH, BED IN LOWEST POSITON.
[2020-08-27 04:51] LABS: Hematocrit 29.5 % (33.0-51.0); Hemoglobin 9.1 g/dL (11.5-16.0)
[2020-08-27 05:06] LABS: Anion Gap 9 mmol/L (6-16); Blood Urea Nitrogen 53 mg/dL (8-24); CO2, Blood 29 mmol/L (21-32); Calcium, Blood 9.5 mg/dL (8.5-10.1); Chloride, Blood 93 mmol/L (98-108); Creatinine, Blood 3.53 mg/dL (0.40-1.00); Glomerular Filtration Rate 15 (60-); Glucose, Blood 170 mg/dL (70-99); Magnesium, Blood 2.3 mg/dL (1.6-2.4); Phosphorus, Blood 5.6 mg/dL (2.5-4.9); Potassium, Blood 4.3 mmol/L (3.5-5.5); Sodium, Blood 131 mmol/L (136-145)
--- NOTE | 2020-08-27 10:06 | NUR ---
Patient is alert and very conversive today. Patient talks about the delays and set-backs that have occurred due to not having the infection resolved. She states that the challenges get her down sometimes but not as much as it affects her . She states her concerns about the stress and frustration he is carrying. Patient is looking forward to a visit with her friend, Sammi, who is coming on Sunday. I listen empathically, reinforce her positive attitude and outlook and provide pastoral mitochondrial disorders counselor and prayer for her and her spouse, Deep. Patient responds well and shows signs of reduced stress. I will continue to remain available.
--- NOTE | 2020-08-27 12:58 | NUR ---
PT GOING UP TO [place] FOR MRI NOW, TRANSPORT HERE TO TAKE HER VIA BIMAL WATERS HAS BEEN ARRANGED BY CARE MANAGEMENT
--- NOTE | 2020-08-27 17:18 | NUR ---
SUMMARY PT STILL OUT OF THE ROOM, WENT TO [place] FOR MRI
--- NOTE | 2020-08-27 17:41 | NUR ---
SUMMARY PT BACK FROM MRI, HERE TO VISIT, PT MED PER EMAR FOR PAIN
--- NOTE | 2020-08-28 05:36 | NUR ---
SHIFT SUMMARY PATIENT ALERT AND ORIENTED. WAS MEDICATED PER EMAR FOR PAIN NEEDED. HAD NO COMPLAINTS OF CHEST PAIN OR SHORTNESS OF BREATH. IV PATENT AND FLUSHED. BED IN LOWEST POSITION WITH WHEELS LOCKED AND ALARM ON. CALL LIGHT WITHIN REACH. REPORT GIVEN TO ONCOMING RN.
[2020-08-28 09:04] LABS: Bun/Creatinine Ratio 16.6 (12.0-20.0); Calcium, Blood 9.6 mg/dL (8.5-10.1); Creatinine, Blood 4.1 mg/dL (0.40-1.00); Potassium, Blood 4.4 mmol/L (3.5-5.5)
--- NOTE | 2020-08-28 18:44 | NUR ---
SHIFT SUMMARY- PT BP WAS LOWER THIS MORNING, WHEN COMPARED TO PREVIOUS MORNINGS. SPOKE TO DR GREENBERGPRASHLEY HELD TODAY, IV LASIX GIVEN THEN METOPROLOL AFTER BP RECHECK. PT WAS C/O BACK SPASAMS, SPOKE TO DR RICK AND RECIEVED AN ORDER FOR FLEXERIL. PT HAS RECIEVED 2 DOSES AND PAIN HAS BEEN WELL MANAGED, IT DOES MAKE HER A LITTLE SLEEPY, PER PT STATEMENT.
[2020-08-29 05:14] LABS: Hemoglobin 8.5 g/dL (11.5-16.0)
[2020-08-29 05:35] LABS: Albumin, Blood 1.9 g/dL (3.4-5.0); Anion Gap 8 mmol/L (6-16); Blood Urea Nitrogen 77 mg/dL (8-24); Bun/Creatinine Ratio 17.2 (12.0-20.0); CO2, Blood 28 mmol/L (21-32); Calcium, Blood 9.4 mg/dL (8.5-10.1); Chloride, Blood 92 mmol/L (98-108); Creatinine, Blood 4.47 mg/dL (0.40-1.00); Glomerular Filtration Rate 11 (60-); Glucose, Blood 174 mg/dL (70-99); Magnesium, Blood 2.6 mg/dL (1.6-2.4); Phosphorus, Blood 6.7 mg/dL (2.5-4.9); Sodium, Blood 128 mmol/L (136-145)
--- NOTE | 2020-08-29 05:41 | NUR ---
SHIFT SUMMARY PATIENT ALERT AND ORIENTED. HER BACK WAS VERY PAINFUL OVERNIGHT WHICH CAUSED HER TO NOT BE ABLE TO GET MUCH SLEEP. PATIENT MEDICATED PER EMAR FOR PAIN AND BACK SPASMS. PATIENT WAS ABLE TO HAVE A BOWEL MOVEMENT, SOME VANNA RED BLOOD WAS NOTICED UPON GIVING EMMA CARE AFTER BUT IT WAS NOT IN THE BM. IV PATENT AND FLUSHED. BED IN LOWEST POSITION WITH WHEELS LOCKED AND ALARM ON. CALL LIGHT WITHIN REACH. REPORT GIVEN TO ONCOMING RN.
--- NOTE | 2020-08-29 07:57 | NUR ---
ASSUMED CARE OF PT- BEDSIDE REPORT COMPLETED WITH NIGHT RN. PT STATED 2/10 PAIN AT THIS TIME. PAIN IS WELL MANAGED PER PT. 4/10 IS THE POINT WHERE SHE WANTS PAIN MEDICATION. 5/10 IS UNBEARABLE. WILL CTM PT FOR S&S OF PAIN AND MEDICATE PER EMAR. PT IN BED CALL LIGHT IN REACH ABLE TO MAKE NEEDS KNOWN. PT WAS UP TO BSC LAST NIGHT AND HAD A LARGE BM. PER REPORT WHEN STAFF ASSISTED WITH EMMA CARE THERE WAS SOME VANNA RED BLOOD NOTED, NO OTHER S&S OF BLEEDING SINCE. HGB IS A LITTLE LOWER THAN PREVIOUS LABS 2 DAYS AGO. WILL MENTION TO DR RICK ON MORNING ROUNDS.
--- NOTE | 2020-08-29 18:26 | NUR ---
SHIFT SUMMARY- PT ALERT AND ORIENTED, 2P ASSIST TO THE BSC. PT HAS NOT BEEN OUT OF BED TODAY. PAIN SEEMS TO BE WELL MANAGED PT REPORTS A 2/10 ON LAST CARE ROUNDING. PT DECLINED SS INSULIN BUT TOOK 12 UNIT DOSE WITH DINNER. PT IS IN BED CALL LIGHT IN REACH ABLE TO MAKE HER NEEDS KNOWN, CALLS APPROPRIATELY. PLAN IS TO PLACE A DIALYSIS PORT ONCE THE PT HAS NEGATIVE BLOOD CULTURES. MOST RECENT BLOOD CULTURES TAKEN YESTERDAY CAME BACK POSSITIVE ON TODAYS RESULT.
--- NOTE | 2020-08-29 19:41 | NUR ---
CALLED DR RICK- PT HAD A BED BATH TODAY. LICENSED CLUB MANAGER NOTED MENSTRAL LIKE BLEEDING WITH CLOTS THE SIZE OF A ISSAC. SPOKE TO DR ABOUT THIS HE IS AWARE. ORDER RECIEVED FOR SCD'S AND DC HEPARIN. PASSED ON TO NIGHT RN IN BEDSIDE REPORT. NIGHT LICENSED CLUB MANAGER TO PLACE THE SCD'S.
[2020-08-30 05:04] LABS: Hemoglobin 8.6 g/dL (11.5-16.0)
[2020-08-30 05:33] LABS: Albumin, Blood 1.8 g/dL (3.4-5.0); Anion Gap 11 mmol/L (6-16); Blood Urea Nitrogen 85 mg/dL (8-24); Bun/Creatinine Ratio 16.8 (12.0-20.0); CO2, Blood 21 mmol/L (21-32); Calcium, Blood 9.3 mg/dL (8.5-10.1); Chloride, Blood 93 mmol/L (98-108); Creatinine, Blood 5.05 mg/dL (0.40-1.00); Glomerular Filtration Rate 10 (60-); Glucose, Blood 119 mg/dL (70-99); Magnesium, Blood 2.7 mg/dL (1.6-2.4); Phosphorus, Blood 7.5 mg/dL (2.5-4.9); Potassium, Blood 5.2 mmol/L (3.5-5.5); Sodium, Blood 125 mmol/L (136-145)
--- NOTE | 2020-08-30 06:06 | NUR ---
SHIFT SUMMARY A/O, ABLE TO MAKE NEEDS KNOWN. COOPERATIVE WITH CARE. CALLS AND ANSWERS QUESTIONS APPROPRIATELY. C/O PAIN/DISCOMFORT TO BACK WHICH IS ACUTE R/T DISCITIS OF LUMBAR REGION; MEDICATED PER EMAR. REQUEST SENT OFF TO [facility] FOR MRI RESULTS. REMAINS ON IV ABX WHICH INFUSE WITHOUT COMPLICATION. APPEARED TO REST MUCH OF THE NIGHT. VSS/AFEBRILE. BED IN LOWEST POSITION; ALARM ON. CALL LIGHT AND BELONGINGS WITHIN REACH. CONTINUE WITH CURRENT PLAN OF CARE. REPORT TO ONCOMING RN.
--- NOTE | 2020-08-30 17:50 | NUR ---
SHIFT SUMMARY- PT IS A/O, PLESANT AND COOPERATIVE. SHE IS EATING AND DRINKING WELL. HER IS AT HER BEDSIDE. SHE SLEPT FOR A BIT THIS AFTERNOON. SHE EXPERIENCED SOME PAIN THIS AFTERNOON AND WAS TREATED PER JUL. SHE RECIEVED AN ECHO THIS MORNING. SHE WORKED WITH PT AND OT AND TOLERATED WELL. SHE WAS UP THE THE BS. HER BED IS IN THE LOW POSITION AND CALL LIGHT IS WITIN REACH.
--- NOTE | 2020-08-31 04:45 | NUR ---
SHIFT SUMMARY ASSUMED CARE OF PT AT 1900. PT IS A/OX4. HEART SOUNDS DISTANT. LUNG SOUNDS DIMINISHED. PT HAS NO NEW COMPLAINTS BUT SAYS THAT HER BACK IS HURTING MORE THAN USUAL. PT WAS MEDICATED TWICE WITH PAIN MEDICATION. CALL LIGHT IN REACH, BED IN LOWEST POSITION.
[2020-08-31 04:55] LABS: Hematocrit 29.7 % (33.0-51.0); Hemoglobin 9.2 g/dL (11.5-16.0)
[2020-08-31 05:20] LABS: Albumin, Blood 2.1 g/dL (3.4-5.0); Anion Gap 10 mmol/L (6-16); Blood Urea Nitrogen 90 mg/dL (8-24); Bun/Creatinine Ratio 15.8 (12.0-20.0); CO2, Blood 27 mmol/L (21-32); Calcium, Blood 9.7 mg/dL (8.5-10.1); Chloride, Blood 89 mmol/L (98-108); Creatinine, Blood 5.68 mg/dL (0.40-1.00); Glomerular Filtration Rate 8 (60-); Glucose, Blood 115 mg/dL (70-99); Magnesium, Blood 2.9 mg/dL (1.6-2.4); Potassium, Blood 5.1 mmol/L (3.5-5.5); Sodium, Blood 126 mmol/L (136-145)
[2020-08-31 05:39] LABS: Phosphorus, Blood 8.2 mg/dL (2.5-4.9)
--- NOTE | 2020-08-31 06:08 | NUR ---
CRITICAL VALUE NOTIFEID DR GIVENS AT 0608. SAID THAT THAT WAS AN ACCEPTABLE LEVEL FOR THE PATIENT.
--- NOTE | 2020-08-31 16:46 | NUR ---
SHIFT SUMMARY- PT IS A/O, PLESANT AND COOPERATIVE. HER WAS AT BEDSIDE THIS AFTERNOON. SHE IS BEING TREATED FOR PAIN NEEDED. ONE OF HER BLOOD CULTURES FROM YESTERDAY CAME BACK POSITIVE. SHE IS EATING AND DRINKING WELL. BLOOD SUGARS HAVE REMAINED STABLE. HER BED IS IN THE LOW POSITION AND CALL LIGHT IS WITHIN REACH
[2020-09-01 06:13] LABS: Hematocrit 28.8 % (33.0-51.0); Hemoglobin 9.1 g/dL (11.5-16.0)
[2020-09-01 06:46] LABS: Albumin, Blood 2.1 g/dL (3.4-5.0); Anion Gap 14 mmol/L (6-16); Blood Urea Nitrogen 92 mg/dL (8-24); Bun/Creatinine Ratio 14.9 (12.0-20.0); CO2, Blood 23 mmol/L (21-32); Calcium, Blood 9.7 mg/dL (8.5-10.1); Chloride, Blood 89 mmol/L (98-108); Creatinine, Blood 6.16 mg/dL (0.40-1.00); Glomerular Filtration Rate 8 (60-); Glucose, Blood 145 mg/dL (70-99); Magnesium, Blood 2.7 mg/dL (1.6-2.4); Potassium, Blood 5.5 mmol/L (3.5-5.5); Sodium, Blood 126 mmol/L (136-145)
[2020-09-01 06:49] LABS: Phosphorus, Blood 8.5 mg/dL (2.5-4.9)
--- NOTE | 2020-09-01 07:57 | NUR ---
PATIENT AWAKE AND PAINFUL MOST OF NIGHT SLEEPING ONLY A SHORT TIME AFTER RECEIVING PAIN PILL AND ANTI SPASMOTIC MEDICATION. THIS MORNING'S PHOSPHORUS WAS 8.5.. DR GIVENS HAD ALREADY PLACED ORDER FOR TEMPORARY DIALYSIS CATHETER PLACEMENT WITH DIALYSIS TO FOLLOW. HE WAS INFORMED OF THE OF THE CRITICAL LAB AT 0740. DEE WAS DETERMINED TO HAVE A BOWEL MOVEMENT EARLY THIS MORNING, AND INSISTED ON SITTING ON BSC FOR AROUND 30 MINIUTES. SHE WAS A MAXIMUM EFFORT OF TWO STAFF TO GET HER TO THE EDGE OF THE BED AND PIVOT HER TO THE COMMODE. PART OF THIS IS MAY BE THAT IT APPEARS SHE STIFFENS UP LIKE SHE IS JUST TERRIFIED. GETTING BACK TO BED, SHE COULD NOT PARTICIPATE AT ALL, AND ALMOST FELL INTO THE BED WITH TWO STRONG STAFF. A&OX4, JUST FRIGHTENED OF HER CURRENT SITUATION
--- NOTE | 2020-09-01 13:02 | NUR ---
Patient talks about how much of a challenge these days have been and how slow the process for recovery is. She admits to being down today again. We discuss ways to distract and up lift her, as well as, ways to think about what is happening with a more positive spin. I normalize her experience and provide anxiety containment and prayer. Patient responds well and shows signs of an elevated mood.
--- NOTE | 2020-09-01 18:31 | NUR ---
SHIFT SUMMARY PT AOX4; MORBID OBESITY- 2P MAX ASISST. PT WAS AT BEDSIDE TODAY. PT VERY PAINFUL ON HER LOWERBACK; MEDICATED PER EMAR. PT ALSO TAKES FLEXIRIL WITH HER MEDS. DR ABDALLA TRIED TO PUT A TEMPORARY CATH FOR DIALYSIS TODAY; HOWEVER WAS NOT SUCCESSFUL; WILL TRY AGAIN TOMORROW ,MORNING. NPO AT MIDNIGHT; PT AWARE. PT BED IS IN THE LOWEST POSITION AND CALL LIGHT WITHIN REACH
--- NOTE | 2020-09-01 23:23 | NUR ---
DR GIVENS DC IV BUMEX. ORDER IV LASIX 200 MG X ONE. ORDER LOKELMA 15 GM X ONE.
--- NOTE | 2020-09-02 04:00 | NUR ---
SHIFT SUMMARY PATIENT HAD NO ACUTE CHANGES OBSERVED. AXOX 4 AND MORBID OBESE. BEDREST AND NPO FOR PROCEDURE. POWERGLIDE DIAMOND INTACT. REPORTED LOW BACK PAIN AND MUSCLE SPASMS. OXYCODONE AND FLEXERIL GIVEN PER EMAR. CBG 117. VSS/AFEBRILE. DENIES SOB AND N/V. IV LASIX ORDERED BY DR GIVENS AND GIVEN. CALL LIGHT IN REACH. BED IN LOWEST POSITION. WILL CONTINUE TO MONITOR UNTIL DAY SHIFT NURSE ASSUMES CARE.
[2020-09-02 05:15] LABS: Hemoglobin 8.2 g/dL (11.5-16.0)
[2020-09-02 05:45] LABS: Albumin, Blood 1.9 g/dL (3.4-5.0); Anion Gap 13 mmol/L (6-16); Blood Urea Nitrogen 98 mg/dL (8-24); Bun/Creatinine Ratio 14.7 (12.0-20.0); CO2, Blood 24 mmol/L (21-32); Calcium, Blood 9.4 mg/dL (8.5-10.1); Chloride, Blood 91 mmol/L (98-108); Creatinine, Blood 6.67 mg/dL (0.40-1.00); Glomerular Filtration Rate 7 (60-); Glucose, Blood 122 mg/dL (70-99); Magnesium, Blood 2.8 mg/dL (1.6-2.4); Sodium, Blood 128 mmol/L (136-145)
[2020-09-02 06:00] LABS: Phosphorus, Blood 8.4 mg/dL (2.5-4.9)
--- NOTE | 2020-09-02 18:29 | NUR ---
PT HAD PERMACATH PLACED THIS MORNING AND THEN HAD HD IN THE DIALYSIS ROOM. PT IS TO BE NPO AFTER MIDNIGHT FOR A HOME IN [facility], NO ACUTE CHANGES NOTED THIS SHIFT, WILL CONTINUE TO MONITOR AND REPORT TO ONCOMING RN.
--- NOTE | 2020-09-03 05:20 | NUR ---
PHYSICIAN CORRESPONDENCE GOING FOR HOME TODAY. NPO SINCE 0000. OK TO GIVE PO PAIN MEDICATIONS. PHYSICIAN STATED OK TO GIVE PO PAIN MEDICATIONS.
--- NOTE | 2020-09-03 05:59 | NUR ---
SHIFT SUMMARY A/O, ABLE TO MAKE NEEDS KNOWN. COOPERATIVE WITH CARE. CALLS AND ANSWERS QUESTIONS APPROPRIATELY. C/O PAIN/DISCOMFORT TO BACK X2; MEDICATED PER EMAR. NO ACUTE CHANGES NOTED OVERNIGHT. RECIEVED IV ABX THROUGH POWERGLIDE WITHOUT ANY COMPLICATIONS. APPEARED TO REST WELL OVERNIGHT. REMINDED THAT MOVEMENT WHILE IN BED IN VERY IMPORTANT. NPO SINCE MIDNIGHT. BED REMAINED IN LOWEST POSITION. CALL LIGHT AND BELONGINGS WITHIN REACH. CONTINUE WITH CURRENT PLAN OF CARE. REPORT TO ONCOMING RN.
[2020-09-03 06:04] LABS: Hematocrit 25.2 % (33.0-51.0); Hemoglobin 7.7 g/dL (11.5-16.0)
[2020-09-03 06:24] LABS: Magnesium, Blood 2.3 mg/dL (1.6-2.4)
[2020-09-03 06:25] LABS: Albumin, Blood 1.8 g/dL (3.4-5.0); Anion Gap 9 mmol/L (6-16); Blood Urea Nitrogen 51 mg/dL (8-24); Bun/Creatinine Ratio 11.1 (12.0-20.0); CO2, Blood 29 mmol/L (21-32); Calcium, Blood 8.5 mg/dL (8.5-10.1); Chloride, Blood 91 mmol/L (98-108); Creatinine, Blood 4.58 mg/dL (0.40-1.00); Glomerular Filtration Rate 11 (60-); Glucose, Blood 96 mg/dL (70-99); Potassium, Blood 3.6 mmol/L (3.5-5.5); Sodium, Blood 129 mmol/L (136-145)
[2020-09-03 06:26] LABS: Phosphorus, Blood 5.4 mg/dL (2.5-4.9)
--- NOTE | 2020-09-03 08:04 | NUR ---
PT TOLERATED HOME WELL.
--- NOTE | 2020-09-03 08:32 | NUR ---
PT RESTING, BREATHING UNLABORED AND EVEN, PT EASILY AWAKENED AND CALL LIGHT IN REACH.
--- NOTE | 2020-09-03 08:46 | NUR ---
PT DRANK SIPS OF WATER WITH NO ASPIRATION.
--- NOTE | 2020-09-03 17:05 | NUR ---
SHIFT SUMMARY PT AWAKE DURING SHIFT REPORT. NPO FOR HOME THIS AM, AT START OF SHIFT. PT TOLERATED WELL. PER REPORT, NO VEGATATION FOUND. BCX'S OBTAINED AGAIN, PER ORDERS. ONE SET FROM DIALYSIS PORT AND THE OTHER FROM IN [facility]. PT ABLE TO EAT BREAKFAST AFTER PROCEDURE. DR BOSS PLACED ORDERS THIS AM. [facility] CALLED TO REPORT, LOC-WHOLE BODY WHITE CELL STUDY TO BE DONE ON SUNDAY AM; THEY ARE UNABLE TO DO OVER THE WEEKEND. NO PREP NEEDED. PT DOWN TO DIALYSIS AT 1300 AND NOW RETURNED TO . PT'S TO , ASSISTING PT TO BSC FOR BM. NYSTATIN PWD ORDERED FOR ABD SKIN FOLDS AND GROIN AREA REDNESS. CALL LT IN REACH. ABLE TO MAKE NEEDS KNOWN.
[2020-09-04 05:22] LABS: Hematocrit 25.8 % (33.0-51.0)
--- NOTE | 2020-09-04 05:51 | NUR ---
SHIFT SUMMARY- PT. A&O, CALLS APPROPRIATELY. HAD DIALYSIS YESTERDAY. NO COMPLAINTS OF PAIN OR DISCOMFORT T/O THE NIGHT. NIGHT TIME MEDS GIVEN W/O DIFFICULTY. PT. SCHEDULED FOR WHITE CELL SCAN ON SUNDAY. DENIED ANY NEEDS THIS SHIFT. VSS. CALL LIGHT WITHIN REACH AND SIDE RAILS UPX2. WILL CONT TO MONITOR.
[2020-09-04 05:52] LABS: Albumin, Blood 1.9 g/dL (3.4-5.0); Anion Gap 7 mmol/L (6-16); Blood Urea Nitrogen 35 mg/dL (8-24); Bun/Creatinine Ratio 9.5 (12.0-20.0); CO2, Blood 31 mmol/L (21-32); Calcium, Blood 8.9 mg/dL (8.5-10.1); Chloride, Blood 96 mmol/L (98-108); Creatinine, Blood 3.68 mg/dL (0.40-1.00); Glomerular Filtration Rate 14 (60-); Glucose, Blood 150 mg/dL (70-99); Magnesium, Blood 2.4 mg/dL (1.6-2.4); Potassium, Blood 3.6 mmol/L (3.5-5.5); Sodium, Blood 134 mmol/L (136-145)
--- NOTE | 2020-09-04 18:44 | NUR ---
SHIFT SUMMARY DEE WENT TO DIALYSIS THIS MORNING. HER VISITED. GOT OXY FOR PAIN WITH FLEXERIL. CALAZIME APPLIED TO SACRAL AND COCCYX AREA, ENCOURAGED HER TO MOVE AROUND IN BED. IT TOOK A LOT OF ENCOURAGEMENT TO GET HER TO SIT UP AT EOB, SHE DECLINED SITTING IN A CHAIR. SHE IS VERY PAINFUL WITH MOVEMENT IN HER BACK. MICONAZOLE POWDER APPLIED TO YEAST UNDER PANUS. CBGS NOT REQUIRING INSULIN THIS SHIFT. CALL LIGHT IN REACH, [facility]
--- NOTE | 2020-09-05 05:07 | NUR ---
SHIFT SUMMARY- NO ACUTE CHANGES OVERNIGHT. PT. C/O BACK PAIN, MEDICATED PER EMAR. PT. REPORTED MINIMAL RELIEF. OFFERED TO REPOSITION FOR COMFORT AND PRN. PT. REFUSED, STATES PAINFUL TO MOVE AROUND IN BED. IV ABX'S GIVEN PER EMAR, TOLERATING WELL. DENIED OTHER NEEDS T/O THE NIGHT, VSS. CALL LIGHT WITHIN REACH AND SIDE RAILS UPX2. WILL CONT TO MONITOR.
[2020-09-05 09:39] LABS: BASOPHILS ABSOLUTE AUTO 0.07 K/mm3 (0.00-0.23); BASOPHILS PERCENT AUTO 1 % (0-2); EOSINOPHILS ABSOLUTE AUTO 1.57 K/mm3 (0.00-0.68); EOSINOPHILS PERCENT AUTO 13 % (0-6); Hematocrit 26.1 % (33.0-51.0); Hemoglobin 7.9 g/dL (11.5-16.0); IMMATURE GRAN ABSOLUTE AUTO 0.12 K/mm3 (0.00-0.10); IMMATURE GRAN PERCENT AUTO 1 % (0-1); LYMPHOCYTES ABSOLUTE AUTO 1.08 K/mm3 (0.84-5.20); LYMPHOCYTES PERCENT AUTO 9 % (21-46); MONOCYTES ABSOLUTE AUTO 0.81 K/mm3 (0.16-1.47); MONOCYTES PERCENT AUTO 7 % (4-13); Mean Corpuscular HGB 26.9 pg (26.0-34.0); Mean Corpuscular HGB Conc 30.3 g/dL (31.5-36.5); Mean Corpuscular Volume 89 fL (80-100); Mean Platelet Volume 10.3 fL (9.1-12.4); NEUTROPHILS ABSOLUTE AUTO 8.55 K/mm3 (1.96-9.15); NEUTROPHILS PERCENT AUTO 70 % (41-73); Platelet Count 265 K/mm3 (150-400); RDW Coefficient Variation 17.8 % (11.7-14.2); RDW Standard Deviation 57.1 fL (35.1-46.3); Red Blood Cell Count 2.94 M/mm3 (3.80-5.20)
[2020-09-05 09:58] LABS: Anion Gap 4 mmol/L (6-16); Blood Urea Nitrogen 24 mg/dL (8-24); Bun/Creatinine Ratio 7.6 (12.0-20.0); CO2, Blood 32 mmol/L (21-32); Calcium, Blood 9.1 mg/dL (8.5-10.1); Chloride, Blood 95 mmol/L (98-108); Creatinine, Blood 3.15 mg/dL (0.40-1.00); Glomerular Filtration Rate 17 (60-); Glucose, Blood 160 mg/dL (70-99); Phosphorus, Blood 3.2 mg/dL (2.5-4.9); Potassium, Blood 3.5 mmol/L (3.5-5.5); Sodium, Blood 131 mmol/L (136-145)
--- NOTE | 2020-09-05 18:40 | NUR ---
SHIFT SUMMARY DEE WAS VERY PAINFUL THIS SHIFT. OXY CHANGED TO PO DILAUDID BY DOCTOR PRABHOJT. HAD HD THIS MORNING. POOR PO INTAKE TODAY. UP TO BSC FOR BM WITH MAX AO2. CALAZIME APPLIED TO RED SACRAL AREA. POSITIVE BLOOD CULTURE RESULTS TODAY WITH GRAM POSITIVE COCCI IN CLUSTERS, DR RICK AWARE, MORE BC DRAWN. VISITED. CALL LIGHT IN REACH, [facility]
[2020-09-06 05:07] LABS: HBSAG SCREEN Negative (Negative)
[2020-09-06 05:24] LABS: Hematocrit 26.4 % (33.0-51.0); Hemoglobin 7.9 g/dL (11.5-16.0)
--- NOTE | 2020-09-06 05:34 | NUR ---
SHIFT SUMMARY- PT. PAINFUL LAST NIGHT 09/04. STATES WORSE WITH MOVEMENT. MEDICATED PER EMAR. APPEARED TO HAVE RESTED COMFORTABLY T/O THE NIGHT, NO APPARENT DISTRESS NOTED. DENIED ANY OTHER NEEDS DURING THE NIGHT. CALL LIGHT WITHIN REACH AND SIDE RAILS UPX2. WILL CONT TO MONITOR.
[2020-09-06 05:49] LABS: Magnesium, Blood 2.2 mg/dL (1.6-2.4)
[2020-09-06 05:50] LABS: Albumin, Blood 1.8 g/dL (3.4-5.0); Anion Gap 6 mmol/L (6-16); Blood Urea Nitrogen 20 mg/dL (8-24); CO2, Blood 31 mmol/L (21-32); Calcium, Blood 9.1 mg/dL (8.5-10.1); Chloride, Blood 97 mmol/L (98-108); Creatinine, Blood 2.84 mg/dL (0.40-1.00); Glomerular Filtration Rate 19 (60-); Glucose, Blood 110 mg/dL (70-99); Phosphorus, Blood 3.1 mg/dL (2.5-4.9); Potassium, Blood 3.6 mmol/L (3.5-5.5); Sodium, Blood 134 mmol/L (136-145)
--- NOTE | 2020-09-06 12:39 | NUR ---
Patient is lying in bed and resting. Patient's spouse, Deep is bedside and he fills me in on the lengthy test patient will be involved today in to determine the origin of the infection. Patient explains how tired she is. I provide a quick prayer and allow patient return to resting. Deep voices appreciation for the prayer. I will continue to remain available to patient and family
--- NOTE | 2020-09-06 13:15 | NUR ---
INITIAL PAL CARE VISIT - PAL CARE referral received from staff, due to poorly controlled low back pain. Pt is a 50 year old woman, PMH-ESRD on hemodialysis, DM-insulin dep, COPD, CAD s/p CABG, recent MRSA infections thought to be from dialysis cath but now thought to be discitis and osteomyelitis of lumbar spine. She had her HD cath replaced a number of times, and this did not resolve or prove to be primary source of infection. Pt is lying in bed with half eaten lunch on overbed table. She appears very uncomfortable with short, catching respirations with breath holding, grimacing, grunting and frowning noted during conversation. She appears anxious also. We reviewed her s/s, especially nature of her pain. She was started on PO dilaudid yesterday and has had two doses since then and is anticipating next dose now that she has had lunch. Pt states it helps but it's hard to stay on top of pain, and remember to ask for analgesics q4hrs per eMAR. Pt is obese. During assessment, seeping of abd injection site noted and much of pt's bedding and gown spotted with blood. quick to assist with me cleaning and changing. All new bedding brought in and nurse notified. I reviewed plan of care, current s/s and medications with pt's RN and contacted with request to consider a long acting rx for pain so that PO dilauded could be used less frequently for break thru pain. Pt has special considerations with HD and renal function. VO received and entered for duragesic patch 12.5 mcg q3d starting now. This was discussed with pt/ & pt's RN. Pt is undergoing w/u to determine source of infection today. When discussing other s/s she denies nausea, LORA or sort throat. She acknowledges anxiety and depression. She is on routine meds for these chronic issues and also has a prn rx for anxiety. She has tried neurontin for pain in the past and did not feel it was helpful. She does report some shooting/referred pain from her low back down the back of her left thigh. Plan for f/u tomorrow to reassess pain, anxiety and for supportive visit from [facility].
--- NOTE | 2020-09-06 18:39 | NUR ---
pt eating dinner this evening, looks more relaxed, states her pain is better, rates at about 2, she has the fentanyl patch on. no further needs at this time, call light in reach.
[2020-09-07 05:04] LABS: Hematocrit 28.9 % (33.0-51.0); Hemoglobin 8.7 g/dL (11.5-16.0)
[2020-09-07 05:18] LABS: Anion Gap 8 mmol/L (6-16); Blood Urea Nitrogen 27 mg/dL (8-24); CO2, Blood 30 mmol/L (21-32); Calcium, Blood 9.4 mg/dL (8.5-10.1); Chloride, Blood 96 mmol/L (98-108); Creatinine, Blood 3.38 mg/dL (0.40-1.00); Glomerular Filtration Rate 15 (60-); Glucose, Blood 162 mg/dL (70-99); Phosphorus, Blood 3.5 mg/dL (2.5-4.9); Sodium, Blood 134 mmol/L (136-145)
--- NOTE | 2020-09-07 05:45 | NUR ---
SHIFT SUMMARY PATIENT ALERT AND ORIENTED. SHE CONTINUES TO BE EXTREMELY PAINFUL UPON MOVEMENT. MEDICATED PER EMAR FOR PAIN. PATIENT WORE O2 NEEDED WHEN SHE WAS FEELING SHORT OF BREATH. POWERGLIDE PATENT AND FLUSHED. BED IN LOWEST POSITION WITH WHEELS LOCKED AND ALARM ON. CALL LIGHT WITHIN REACH. REPORT GIVEN TO ONCOMING RN.
--- NOTE | 2020-09-07 14:50 | NUR ---
Patient has had dialysis today and she is on some pain management medications so she is very drowsy. Patient's spouse, Deep, and dauther, Stephanie, are bedside and they get me caught up on the findings from yesterday's attempt to locate the infection. We also talk about the family and how they are doing with all that is happening with Y[place] and what the plan will be when she is finally ready to go home. I listen therapeutically and provide prayer. I will continue to remain available.
--- NOTE | 2020-09-07 17:50 | NUR ---
SHIFT SUMMARY: NO ACUTE EVENTS. HAD DIALYSIS TODAY, TOLERATED WELL. BLOOD CULTURES NEGATIVE X 2 DAYS. C/O 6/10 BACK PAIN; MEDICATED WITH DILAUDID AND FLEXERIL PER EMAR WITH ADEQUATE RELIEF. ON ROOM AIR AT BASELINE, BUT USED O2 FOR LOW SATS O/N. SPOUSE VISITED ALL AFTERNOON.
--- NOTE | 2020-09-07 18:37 | NUR ---
Spiritual care note: Pt appeared very weak and sleepy having just recieved dialysis. Spouse and dtr were at bedside. Spouse reports "we're doing ok" and declined needs/concerns. Offered prayer and encouragement. Affirmed obvious love. I will remain available.
[2020-09-08 05:20] LABS: Hematocrit 25.3 % (33.0-51.0); Hemoglobin 7.6 g/dL (11.5-16.0)
[2020-09-08 05:41] LABS: Albumin, Blood 1.8 g/dL (3.4-5.0); Anion Gap 7 mmol/L (6-16); Blood Urea Nitrogen 22 mg/dL (8-24); Bun/Creatinine Ratio 7.3 (12.0-20.0); CO2, Blood 30 mmol/L (21-32); Calcium, Blood 8.7 mg/dL (8.5-10.1); Chloride, Blood 95 mmol/L (98-108); Creatinine, Blood 3.02 mg/dL (0.40-1.00); Glomerular Filtration Rate 18 (60-); Glucose, Blood 153 mg/dL (70-99); Magnesium, Blood 1.9 mg/dL (1.6-2.4); Potassium, Blood 3.9 mmol/L (3.5-5.5); Sodium, Blood 132 mmol/L (136-145)
--- NOTE | 2020-09-08 07:10 | NUR ---
SHIFT SUMMARY NO ACUTE CHANGES THIS SHIFT. AOX4. VSS. REPORTS 4/10 LOW BACK PAIN, MEDICATED 2X c FLEXERIL & 2X c 4MG DILAUDID, STATES RELIEF. HS CBG @129, HELD SCHEDULED 80U SEMGLEE. PT PASSED ROUGHLY 4 SMALL BLOOD CLOTS WHEN USING BSC, LARGEST BEING ROUGHLY 4CM x 1.5CM, PT STATES BLOOD IS FROM MENSES. CALL LIGHT IN REACH.
--- NOTE | 2020-09-08 12:01 | NUR ---
Pt currently receiving dialysis at this time, covered with a warm blanket with eyes closed. She awakens easily. She remains pleasant and oriented. This is a f/u on pain managemnt. She states her pain is better controlled with fentanyl patch in place and dilauded po. No immedicate other needs identified at this time.
--- NOTE | 2020-09-08 19:40 | NUR ---
SHIFT SUMMARY: NO ACUTE EVENTS. HAD DIALYSIS TODAY, WAS QUITE FATIGUED WHEN COMPLETED. C/O PAIN IN LOW BACK; MEDICATED WITH FLEXERIL AND DILAUDID WITH ADEQUATE RELIEF. O2 SAT THIS MORNING 85-90% ON RA; PLACED ON 2 L/MIN NC WITH SATS 92-95%. BLOOD CULTURES WITH NO GROWTH X 3 DAYS; PT IS QUITE HOPEFUL THAT SHE WILL GET TO GO HOME SOON. DECLINED OFFERED BATH AND LINEN CHANGE. WORKED WITH PHYSICAL THERAPY FOR A SHORT TIME, TOO PAINFUL TO DO MUCH. IS REFUSING HEPARIN SQ BECAUSE SHE REPORTED THAT SHE HAD PASSED SOME BLOOD CLOTS VAGINALLY LAST NIGHT, IS NOT ON HER MENSES.
--- NOTE | 2020-09-09 05:45 | NUR ---
SHIFT SUMMARY NO ACUTE CHANGES THIS SHIFT, MEDICATED 2X FOR BACK PAIN W/DILAUDID & FLEXARIL, REPORTS MINIMAL PAIN @ REST (08/04), UP X2 TO BSC W/2 PERSON ASSIST, FWW & GAIT BELT, SLEPT T/O THE NIGHT, BEDRESTING AT THIS TIME, CALL LIGHT IN REACH, WILL CONT TO MONITOR UNTIL REPORT GIVEN TO DAY RN.
[2020-09-09 05:48] LABS: Hematocrit 28.9 % (33.0-51.0); Hemoglobin 8.7 g/dL (11.5-16.0)
[2020-09-09 06:23] LABS: Albumin, Blood 2.1 g/dL (3.4-5.0); Anion Gap 9 mmol/L (6-16); Blood Urea Nitrogen 22 mg/dL (8-24); Bun/Creatinine Ratio 7.5 (12.0-20.0); CO2, Blood 30 mmol/L (21-32); Calcium, Blood 9.5 mg/dL (8.5-10.1); Chloride, Blood 93 mmol/L (98-108); Creatinine, Blood 2.95 mg/dL (0.40-1.00); Glomerular Filtration Rate 18 (60-); Glucose, Blood 166 mg/dL (70-99); Magnesium, Blood 2.2 mg/dL (1.6-2.4); Phosphorus, Blood 2.9 mg/dL (2.5-4.9); Potassium, Blood 4.2 mmol/L (3.5-5.5); Sodium, Blood 132 mmol/L (136-145)
--- NOTE | 2020-09-09 15:36 | NUR ---
Spiritual care visit conducted. I provide therapeutic listening and prayer. Patient and Deep voice their appreciation for the visit.
--- NOTE | 2020-09-09 18:59 | NUR ---
SHIFT SUMMARY PT IS A&OX4 ABLE TO MAKE NEEDS KNONW. PT HAS BEEN IN PAIN FOR THE SHIFT. USE OF PRN PAIN MEDICATION AND ICE PACK HELPED DECREASE PAIN LEVEL BUT PAIN WAS A CONSTANT. PT CAME TO VISIT AND THAT SEEMED TO GIVE COMFORT TO THE PATIENT. PT DECLINED MORNING AND AFTERNOON INSULIN DOSES SHE DID NOT EAT. PT WENT TO CT AT DINNER AND INSULIN WAS HELD, PT IN ROOM WITH DINNER TRAY AND STATES SHE MAY TRY TO EAT SOMTHING. CALL LIGHT W/IN REACH. SHIFT REPORT GIVEN TO NIGHT NURSE.
--- NOTE | 2020-09-10 03:36 | NUR ---
SHIFT SUMMARY: VSS. AFEB. 02 99% ON 2L VIA NC. MED X1 W/ DILAUDID AND FLEXERIL FOR BACK PAIN. REPORTS PAIN 3/10 IMPROVES TO 1/10 W/ MEDS AND KEEPS PAIN FROM SPIKING MUCH W/ MOVEMENT. PT HAS BEEN SLEEPING MOST OF THE NIGHT. IV ABT INFUSED PER ORDERS. REFUSES OFFERS AND ENCOURAGEMENT TO TURN, CHOSING TO STAY ON HER BACK FLOATING W/ PILLOWS UNDER BOTH HIPS. NO ACUTE CHANGES. WCTM.
[2020-09-10 06:05] LABS: Hematocrit 24.9 % (33.0-51.0); Hemoglobin 7.5 g/dL (11.5-16.0)
[2020-09-10 06:19] LABS: Albumin, Blood 1.9 g/dL (3.4-5.0); Anion Gap 7 mmol/L (6-16); Blood Urea Nitrogen 28 mg/dL (8-24); Bun/Creatinine Ratio 7.9 (12.0-20.0); CO2, Blood 31 mmol/L (21-32); Calcium, Blood 9.5 mg/dL (8.5-10.1); Chloride, Blood 92 mmol/L (98-108); Creatinine, Blood 3.55 mg/dL (0.40-1.00); Glomerular Filtration Rate 15 (60-); Glucose, Blood 121 mg/dL (70-99); Magnesium, Blood 2.2 mg/dL (1.6-2.4); Sodium, Blood 130 mmol/L (136-145)
--- NOTE | 2020-09-10 17:27 | NUR ---
SHIFT SUMMARY PT AOX4; AT BEDSIDE. PT HAD DIALYSIS THIS AM. PT ALSO HAD A BLOOD CULTURE DRAW THIS AFTERNOON. H&H IS LOW- ARANESP GIVEN PER EMAR. BED IS IN THE LOWEST POSITION AND CALL LIGHT WITHIN REACH
--- NOTE | 2020-09-11 06:02 | NUR ---
SHIFT SUMMARY: PATIENT IS A&OX4, REFUSING TO TURN AND CHANGE POSITION AND FULL SKIN ASSESSMENT. PATIENT REPORTS HAVING HER PERIOD AND IS REFUSING HEPARIN BECAUSES OF THIS. PATIENT REFUSES ASSISTANCE WITH CHANGING EMMA PADS AND DENIES NEED OF SUPPLIES.
[2020-09-11 08:22] LABS: Hematocrit 23.9 % (33.0-51.0); Hemoglobin 7.2 g/dL (11.5-16.0)
[2020-09-11 08:55] LABS: Albumin, Blood 1.9 g/dL (3.4-5.0); Anion Gap 6 mmol/L (6-16); Blood Urea Nitrogen 22 mg/dL (8-24); Bun/Creatinine Ratio 6.7 (12.0-20.0); CO2, Blood 33 mmol/L (21-32); Calcium, Blood 9.2 mg/dL (8.5-10.1); Chloride, Blood 96 mmol/L (98-108); Glomerular Filtration Rate 16 (60-); Glucose, Blood 99 mg/dL (70-99); Magnesium, Blood 2.3 mg/dL (1.6-2.4); Phosphorus, Blood 3.3 mg/dL (2.5-4.9); Potassium, Blood 3.9 mmol/L (3.5-5.5); Sodium, Blood 135 mmol/L (136-145)
--- NOTE | 2020-09-11 11:59 | NUR ---
1116 pt c/o feeling fuzzy and light headed, o2 via rebreather @15 litres, blood returned. HRR at this time, no cyanosis noted, pt encouraged ti take deep breathes and relax. bp 62/42/ pulse 88 rr 12 biox 88% on room air. 1118 bp 64/47 pulse 90 rr 16 biox 100% on fifteen litres. blood return complete. pt alert and oriented starting to feel better. 1120 bp 98/57 pulse 91 rr 16 biox 98 % on 3 litres per n/c pt stabilizing. 1131 bp 116/60, p 90 rr 16 biox 98 % 3L/nc pt to floor via bed with medical staff in stable condition. ralph Vivar Rn
--- NOTE | 2020-09-11 19:14 | NUR ---
SHIFT SUMMARY PT AxOx4. REPORTS HIGH PAIN IN HIPS AND BACK WITH MOVEMENTS. STATES "I CANNOT GET UP." PT ATTEMPTED VOID ON BEDPAN THIS AM THAT WAS UNSUCCESSFUL D/T TOO MUCH PAIN. DIALYSIS DONE TODAY. DIALYSIS NURSE REPORTED PATIENT HAD LOW PRESSURES AT DIALYSIS. MONITORED VITALS PER PROTOCOL. BP INCREASED AFTER GETTING BACK TO THE FLOOR. DR BRISENO ORDERED 2 MG IV DILAUDID ONE TIME ORDER TO GIVE PATIENT SO SHE COULD GET OUT OF BED AND USE COMMODE. PT MEDICATED PER ORDER, [facility]ANCE FROM AND 2 STAFF. PT URINATED AND HAD BM. MIRALAX ORDERED AND ADMINISTRATED FOR CONSTIPATION. PT HAD COMPLETE PELVIC US TODAY FOR REPORTED IRREGULAR MENSTRUAL BLEEDING. DECLINED INSULIN X2 TODAY- TOOK EVENING DOSE. PT CURRENTLY RESTING IN BED WITH AT BEDSIDE AND CALL LIGHT IN REACH, EATING TAKE OUT. REPORTS PAIN 3/10 WITHOUT MOVEMENT. MEDICATED FOR PAIN PER EMAR. DENIES ANY FURTHER NEEDS AT THIS TIME.
--- NOTE | 2020-09-12 00:49 | NUR ---
LATE ENTRY: 09/11/20 @2220 - PATIENT REFUSED LONG ACTING INSULIN DUE TO BLOOD GLUCOSE BEING 121. HOSPITALITY WORKERS, ANURAG RAMOS WAS NOTIFIED AND IS AWARE.
--- NOTE | 2020-09-12 06:12 | NUR ---
SHIFT SUMMARY: A&OX4, PATIENT CONTINUES TO RATE BACK PAIN 3/10 AT REST. PATIENT IS ENCOURAGED TO TAKE PAIN MEDICINE SO THAT REPOSITIONING IS NOT SO PAINFUL. PATIENT CONTINUES TO REFUSE PAIN MED AND REPOSITIONING. SECOND MATE UNABLE TO DO FULL SKIN ASSESSMENT. BLOOD GLUCOSE WAS 121 AT HS. PATIENT REFUSED LONG ACTING INSULIN. DRY CHAIN OFFBEARER ENVIRONMENTAL ASSOCIATE WAS NOTIFIED AND REFUSAL WAS DOCUMENTED ON THE JUL.
[2020-09-12 07:59] LABS: BASOPHILS ABSOLUTE AUTO 0.07 K/mm3 (0.00-0.23); BASOPHILS PERCENT AUTO 1 % (0-2); EOSINOPHILS ABSOLUTE AUTO 0.78 K/mm3 (0.00-0.68); EOSINOPHILS PERCENT AUTO 10 % (0-6); Hematocrit 24.1 % (33.0-51.0); Hemoglobin 7.3 g/dL (11.5-16.0); IMMATURE GRAN ABSOLUTE AUTO 0.05 K/mm3 (0.00-0.10); IMMATURE GRAN PERCENT AUTO 1 % (0-1); LYMPHOCYTES ABSOLUTE AUTO 0.74 K/mm3 (0.84-5.20); LYMPHOCYTES PERCENT AUTO 9 % (21-46); MONOCYTES ABSOLUTE AUTO 0.73 K/mm3 (0.16-1.47); MONOCYTES PERCENT AUTO 9 % (4-13); Mean Corpuscular HGB 26.5 pg (26.0-34.0); Mean Corpuscular HGB Conc 30.3 g/dL (31.5-36.5); Mean Corpuscular Volume 88 fL (80-100); Mean Platelet Volume 10.3 fL (9.1-12.4); NEUTROPHILS ABSOLUTE AUTO 5.66 K/mm3 (1.96-9.15); NEUTROPHILS PERCENT AUTO 71 % (41-73); Platelet Count 232 K/mm3 (150-400); RDW Coefficient Variation 16.8 % (11.7-14.2); RDW Standard Deviation 53.2 fL (35.1-46.3); Red Blood Cell Count 2.75 M/mm3 (3.80-5.20); White Blood Cell Count 8.03 K/mm3 (4.00-11.30)
[2020-09-12 08:14] LABS: Anion Gap 6 mmol/L (6-16); Blood Urea Nitrogen 24 mg/dL (8-24); Bun/Creatinine Ratio 6.9 (12.0-20.0); CO2, Blood 33 mmol/L (21-32); Calcium, Blood 9.1 mg/dL (8.5-10.1); Chloride, Blood 96 mmol/L (98-108); Creatinine, Blood 3.47 mg/dL (0.40-1.00); Glomerular Filtration Rate 15 (60-); Glucose, Blood 107 mg/dL (70-99); Magnesium, Blood 2.2 mg/dL (1.6-2.4); Phosphorus, Blood 3.5 mg/dL (2.5-4.9); Sodium, Blood 135 mmol/L (136-145)
--- NOTE | 2020-09-12 16:43 | NUR ---
SHIFT SUMMARY NO ACUTE CHANGES, A&Ox4. FLAT AND WITHDRAWN EFFECT. PT REFUSES TO GET OUT OF BED OR REPOSITION. STATES PAIN IS TOO MUCH c MOVEMENT. TREATED FOR PAIN x2 THIS SHIFT. STATES PAIN IS BETTER AFTER MEDICATION ADMINISTRATION. REMAINS ON 2 L/MIN NC. NEW PG PLACED TODAY, PREVIOUS PG WOULD NOT FLUSH. NO DIALYSIS TODAY. PERMACATH PLACEMENT TOMORROW. PT IS CURRENTLY RESTING, IS AT BEDSIDE. CALL LIGHT WITHIN REACH, CALLS APPROPRIATELY.
--- NOTE | 2020-09-13 05:19 | NUR ---
SHIFT SUMMARY PT FELL AROUND 192 LAST NIGHT. REPORTED HE WAS ATTEMPTING TO TRAN[place] [facility] [place] SHE "SLID". EDUCATED THE IMPORTANCE OF STAFF HELP, GAIT BELT & NON SLIP SOCKS. PT DENIES INJURY FROM FALL. TOOK 3 PEOPLE & LIFT TO TRANSFER BACK TO BED. AOX3. VSS. SPO2 >90% ON 2L O2, STATES SHE USES O2 PRN. REPORTS 6/10 SPASM PAIN IN LOW BACK, MEDICATED 2X c 5MG FLEXERIL & 2X c 4MG DILAUDID PER ORDERS. HS CBG @109, HELD HS HIMANSHU PER ORDERS. PLAN TO HAVE NEW PERMACATH PLACED FOR DIALYSIS TODAY. PT BEDREST @THIS TIME, VERY WEAK & DECONDITIONED. ATTEMPTED TO STAND PT 2 PER c GAIT BELT & SHE WAS UNABLE TO SUPPORT WEIGHT. PER REPORT PT HAS NOT BEEN PARTICIPATING IN PT/OT. CALL LIGHT IN REACH & PT ABLE TO MAKE NEEDS KNOWN.
[2020-09-13 08:41] LABS: BASOPHILS ABSOLUTE AUTO 0.11 K/mm3 (0.00-0.23); BASOPHILS PERCENT AUTO 1 % (0-2); EOSINOPHILS PERCENT AUTO 9 % (0-6); Hematocrit 25.5 % (33.0-51.0); Hemoglobin 7.8 g/dL (11.5-16.0); IMMATURE GRAN ABSOLUTE AUTO 0.07 K/mm3 (0.00-0.10); IMMATURE GRAN PERCENT AUTO 1 % (0-1); LYMPHOCYTES ABSOLUTE AUTO 0.76 K/mm3 (0.84-5.20); LYMPHOCYTES PERCENT AUTO 8 % (21-46); MONOCYTES ABSOLUTE AUTO 0.68 K/mm3 (0.16-1.47); MONOCYTES PERCENT AUTO 7 % (4-13); Mean Corpuscular HGB 26.5 pg (26.0-34.0); Mean Corpuscular HGB Conc 30.6 g/dL (31.5-36.5); Mean Corpuscular Volume 87 fL (80-100); Mean Platelet Volume 10.7 fL (9.1-12.4); NEUTROPHILS ABSOLUTE AUTO 7.21 K/mm3 (1.96-9.15); NEUTROPHILS PERCENT AUTO 74 % (41-73); Platelet Count 257 K/mm3 (150-400); RDW Coefficient Variation 16.5 % (11.7-14.2); RDW Standard Deviation 52.5 fL (35.1-46.3); Red Blood Cell Count 2.94 M/mm3 (3.80-5.20); White Blood Cell Count 9.73 K/mm3 (4.00-11.30)
[2020-09-13 09:14] LABS: Anion Gap 8 mmol/L (6-16); Blood Urea Nitrogen 31 mg/dL (8-24); Bun/Creatinine Ratio 7.5 (12.0-20.0); CO2, Blood 30 mmol/L (21-32); Calcium, Blood 9.2 mg/dL (8.5-10.1); Chloride, Blood 95 mmol/L (98-108); Creatinine, Blood 4.14 mg/dL (0.40-1.00); Glomerular Filtration Rate 12 (60-); Glucose, Blood 106 mg/dL (70-99); Magnesium, Blood 2.1 mg/dL (1.6-2.4); Phosphorus, Blood 3.5 mg/dL (2.5-4.9); Potassium, Blood 4.2 mmol/L (3.5-5.5); Sodium, Blood 133 mmol/L (136-145)
--- NOTE | 2020-09-13 17:21 | NUR ---
SHIFT SUMMARY NO ACUTE CHANGES, A&Ox4, FLAT AND WITHDRAWN. PT HAD A FALL DURING THE PREVIOUS SHIFT, PT STATES SHE HAS NO INJURIES FROM THIS FALL. PERMACATH PLACEMENT WAS NOT COMPLETED TODAY, LIKELY TO OCCUR TOMORROW. NO DIALYSIS TODAY. PT TREATED FOR PAIN X2 TODAY PER EMAR AND PT REQUEST. PT IN SEVERE PAIN WITH ANY MOVEMENT OR ELEVATION OF HOB. PT USED BEDPAN X1 TODAY, HAD A BM. PT TOLERATED ROLLING ONTO BEDPAN FAIRLY. REPEAT BLOOD CULTURES DONE PER GIVENS ORDERS. PT IS RESTING IN BED WITH CALL LIGHT WITHIN REACH. @ BEDSIDE. PT IS BEDBOUND AT BECAUSE SHE IS WEAK AND UNABLE TO BARE WEIGHT. PT CALLS APPROPRIATELY.
--- NOTE | 2020-09-14 05:50 | NUR ---
SHIFT SUMMARY NO ACUTE CHANGES THIS SHIFT. FLAT, WITHDRAWN. AOX3. VSS. REPORTS 3/10 LOW BACK PAIN SPASMS, MEDICATED 1X c 5MG FLEXERIL & 1X c 2MG DILAUDID. 2 ASSIST c BEDPAN, TOLERATED WELL, BEDREST @THIS TIME SINCE UNABLE TO BEAR WEIGHT R/T PAIN & DECONDITIONING. HAS APPEARED MORE COMFORTABLE/RELAXED TONIGHT. DENIES ANY NEEDS WHEN ASKED. PLAN TO GET PERMACATH PLACED TODAY. CALL LIGHT IN REACH, WILL MONITOR.
[2020-09-14 07:04] LABS: Hematocrit 23.5 % (33.0-51.0); Hemoglobin 7.3 g/dL (11.5-16.0)
[2020-09-14 07:41] LABS: Anion Gap 8 mmol/L (6-16); Blood Urea Nitrogen 35 mg/dL (8-24); Bun/Creatinine Ratio 7.7 (12.0-20.0); CO2, Blood 29 mmol/L (21-32); Calcium, Blood 9.4 mg/dL (8.5-10.1); Chloride, Blood 94 mmol/L (98-108); Creatinine, Blood 4.57 mg/dL (0.40-1.00); Glomerular Filtration Rate 11 (60-); Glucose, Blood 127 mg/dL (70-99); Magnesium, Blood 2.2 mg/dL (1.6-2.4); Phosphorus, Blood 3.8 mg/dL (2.5-4.9); Potassium, Blood 4.4 mmol/L (3.5-5.5); Sodium, Blood 131 mmol/L (136-145)
--- NOTE | 2020-09-14 09:17 | NUR ---
PT DOWN TO DIALYSIS
--- NOTE | 2020-09-14 14:45 | NUR ---
Spiritual care visit conducted. Patient tells me about how discouraged she is by infection continuing to grow in her blood and her stay in the hospital continue to be extended. Patient's spouse, Deep, who is present for the visit talks about their efforts to try to stay positive. Patient is exhausted from dialysis is seeing that her temporary port is beginning to fail. I normalize patient's experience, reinforce helpful attitudes and practices and provide prayer. Patient shows very little change from the spiritual care visit but Deep shows signs of being encouraged in his dayan. I will continue to remain available to patient and family.
--- NOTE | 2020-09-14 14:59 | NUR ---
PT BACK FROM DIALYSIS AROUND 1300, PT WITH NEW POSITIVE BLOOD CULTURES, DR RICK NOTIFIED, PICC LINE ON HOLD AND PERMACATH ON HOLD, DR RICK CAME TO SPEAK WITH THE PT AND HER SPOUSE IN THE ROOM IN REGARDS TO THE BLOOD CULTURES
--- NOTE | 2020-09-14 17:09 | NUR ---
SUMMARY PT RESTING QUIETLY IN BED, WAKES EASILY, GOT DIALYSIS TODAY, CECILIA WELL, PT MED PER EMAR FOR PAIN, SPOUSE IN TO VISIT, NO COMPLAINTS, VSS, WILL CONT TO MONITOR
--- NOTE | 2020-09-15 04:52 | NUR ---
SHIFT SUMMARY AOX4. TEARFUL & EMOTIONAL DURING ASSESSMENT OVER TODAYS BLOOD CX RESULTS. VSS. REPORTS LOW BACK PAIN IS "GETTING BETTER" & MOSTLY SHARP RADIATING PAIN DOWN R LEG TONIGHT. MEDICATED 1X c 2MG DILAUDID & 1X c 5MG FLEXERIL, STATED PAIN RELIEF. HS CBG @127, HELD INSULIN COVERAGE SINCE PT REPORTS LACK OF APPETITE. SLEPT WELL T/O NIGHT. AWAITING NEGATIVE BLOOD CX RESULTS BEFORE DC HOME c HH. BEDREST @THIS TIME, PT WEAK & DECONDITIONED. CALL LIGHT IN REACH & PT ABLE TO MAKE NEEDS KNOWN.
[2020-09-15 05:55] LABS: Hemoglobin 7.7 g/dL (11.5-16.0)
[2020-09-15 06:21] LABS: Anion Gap 7 mmol/L (6-16); Blood Urea Nitrogen 25 mg/dL (8-24); Bun/Creatinine Ratio 6.7 (12.0-20.0); CO2, Blood 30 mmol/L (21-32); Calcium, Blood 9.1 mg/dL (8.5-10.1); Chloride, Blood 95 mmol/L (98-108); Creatinine, Blood 3.73 mg/dL (0.40-1.00); Glomerular Filtration Rate 14 (60-); Glucose, Blood 116 mg/dL (70-99); Magnesium, Blood 2.1 mg/dL (1.6-2.4); Phosphorus, Blood 3.1 mg/dL (2.5-4.9); Potassium, Blood 3.8 mmol/L (3.5-5.5); Sodium, Blood 132 mmol/L (136-145)
--- NOTE | 2020-09-15 10:38 | NUR ---
PT OFF FLOOR 0900 FOR DIALYSIS. UNABLE TO PASS AM MEDICATION WILL ADMINISTER WHEN PT RETURNS. PT HEMOGLOBIN 6.9. DR. GIVENS ORDERED 2 UNITS PRBC TO BE ADMINISTERED DURING DIALYSIS. PT TYPED AND CROSSED, CONSENT SIGNED. DR. FERRO DC'D HEPARIN, PT TO RESTART ELIQUIS 5MG BID. DR. DAMIAN CONSULTED BY THIS RN HE STATES OKAY TO START.
--- NOTE | 2020-09-15 18:41 | NUR ---
PT AA&OX4. BEDREST. NO DIALYSIS TODAY. BLOCK HANDLER ADMINISTERED CATHFLOW AND OBTAIN BLOOD CULTURES VIA CATH. MEDICATED FOR PAIN X2 WITH HYDROMORPHONE WITH GOOD RESULTS. LLL WITH CRACKLES ALL OTHER LOBES CLEAR. INITIATED IS WITH EDUCATION, WILL NEED REINFORCED. AM PM INSULIN HELD D/T LOW BG, DR. RICK NOTIFIED, HE REPORTS HE "WILL LOOK INTO IT" NO OTHER CHANGES NOTED.
--- NOTE | 2020-09-16 06:11 | NUR ---
HOT POND OPERATOR SUMMARY PT A/O X4. MEDICATED ONCE OVERNIGHT FOR CHORNIC BACK PAIN. SLEPT WELL TONIGHT. DENIES SOB, NAUSEA. CALLS APPROPRIATELY. NO ACUTE CHANGES. FLAT EXPRESSION. CONTINUES TO BE ON BEDREST WITH LACK OF MOTIVATION. CALL LIGHT WITHIN REACH.
[2020-09-16 08:49] LABS: Hematocrit 26.1 % (33.0-51.0); Hemoglobin 8.2 g/dL (11.5-16.0)
[2020-09-16 09:06] LABS: Albumin, Blood 2.2 g/dL (3.4-5.0); Anion Gap 10 mmol/L (6-16); Blood Urea Nitrogen 29 mg/dL (8-24); Bun/Creatinine Ratio 7.1 (12.0-20.0); CO2, Blood 28 mmol/L (21-32); Calcium, Blood 9.2 mg/dL (8.5-10.1); Chloride, Blood 95 mmol/L (98-108); Creatinine, Blood 4.08 mg/dL (0.40-1.00); Glomerular Filtration Rate 12 (60-); Glucose, Blood 116 mg/dL (70-99); Magnesium, Blood 2.1 mg/dL (1.6-2.4); Phosphorus, Blood 2.9 mg/dL (2.5-4.9); Sodium, Blood 133 mmol/L (136-145)
[2020-09-16 10:18] LABS: Hematocrit 24.6 % (33.0-51.0); Hemoglobin 7.5 g/dL (11.5-16.0)
[2020-09-16 10:40] LABS: Anion Gap 8 mmol/L (6-16); Blood Urea Nitrogen 30 mg/dL (8-24); Bun/Creatinine Ratio 7.2 (12.0-20.0); CO2, Blood 29 mmol/L (21-32); Calcium, Blood 9.3 mg/dL (8.5-10.1); Chloride, Blood 94 mmol/L (98-108); Creatinine, Blood 4.17 mg/dL (0.40-1.00); Glomerular Filtration Rate 12 (60-); Glucose, Blood 156 mg/dL (70-99); Phosphorus, Blood 4.1 mg/dL (2.5-4.9); Potassium, Blood 3.9 mmol/L (3.5-5.5); Sodium, Blood 131 mmol/L (136-145)
--- NOTE | 2020-09-16 15:37 | NUR ---
Spiritual care visit conducted. Patient is resting but easily awakens as I walk in the . Patient tells me about her perspective that no news is good news as she continues to wait for proof that she no longer has an infection. Patient is challenged by the fact that now she will be in the hopsital at least through Sunday because of needing her port installed and DR. Pruitt not working again until Sunday. I listen empthically and provide prayer.
--- NOTE | 2020-09-16 18:39 | NUR ---
SHIFT SUMMARY PT A&O AND ABLE TO MAKE NEEDS KNONW. PT RECEIVED DIALYSIS THIS MORNING. PT HAD PASSED A BLOOD CLOT WHEN ON THE BED BAUMANN, INFORMED DR RICK. PT DECLINED HEPARIN SHOT, DR. RICK REQUESTED PT TRY TO HAVE PT WEAR SCD WHEN IN BED. PT AGREABLE TO THE IDEA. PT POWERGLIDE STOPPED WORKING AND WAS REMOVED, NEW POWERGLIDE INSERTED BY [facility]. DUE TO DIALYSIS AND POWERGLID FAILING TEFLARO FINISHED INFUSING AT 1800. NO ACUTE CHANGES TO REPORT. CALL LIGHT W/IN REACH, PT WATCHING TV.
--- NOTE | 2020-09-17 04:09 | NUR ---
MOBILE HOME PARK MANAGER SUMMARY PT A/O X4. MEDICATED ONCE FOR CHRONIC BACK PAIN OVERNIGHT. USES CALL LIGHT APPROPRIATELY. VOIDED AND HAD 1 BM OVERNIGHT ON BEDPAN, NO BLOOD CLOTS SEEN THIS TIME. THERE IS STILL SOME MENSTRUAL BLOOD SPOTTING. PT CONTINUES TO BE ON BEDREST. ROOM AIR MAINTAINING GOOD SATS, DENIES SOB, DENIES CHEST PAIN. PT TOLERATED BILATERAL SCD'S FOR THE FIRST HALF OF THE NIGHT. VSS. CALL LIGHT WITHIN REACH. WILL CONTINUE TO MONITOR.
[2020-09-17 06:04] LABS: Hematocrit 24.9 % (33.0-51.0); Hemoglobin 7.9 g/dL (11.5-16.0)
[2020-09-17 06:23] LABS: Albumin, Blood 2.1 g/dL (3.4-5.0); Anion Gap 7 mmol/L (6-16); Blood Urea Nitrogen 19 mg/dL (8-24); Bun/Creatinine Ratio 6.2 (12.0-20.0); CO2, Blood 31 mmol/L (21-32); Calcium, Blood 8.8 mg/dL (8.5-10.1); Chloride, Blood 94 mmol/L (98-108); Creatinine, Blood 3.07 mg/dL (0.40-1.00); Glomerular Filtration Rate 17 (60-); Glucose, Blood 137 mg/dL (70-99); Magnesium, Blood 2.1 mg/dL (1.6-2.4); Phosphorus, Blood 2.3 mg/dL (2.5-4.9); Potassium, Blood 3.6 mmol/L (3.5-5.5); Sodium, Blood 132 mmol/L (136-145)
--- NOTE | 2020-09-17 17:24 | NUR ---
SHIFT SUMMARY PT IS ALERT AND ORIENTED AND ABLE TO MAKE NEEDS KNOWN. PT HAD DIALYSIS THIS MORNING AND IMAGING THIS AFTERNOON. PT HAS HAD PAIN IN THE RIGHT HIP AND BACK THROUGHOUT SHIFT. MEDICATED PER EMAR AND USING ICE PACKS TO HELP THE PAIN. NO ACUTE CHANGES TO REPORT. PT RESTING IN BED, CALL LIGHT W/IN REACH. WILL CONTINUE TO MONITOR UNITL NIGHT NURSE ARRIVES.
[2020-09-18 04:53] LABS: Hematocrit 25.7 % (33.0-51.0); Hemoglobin 7.8 g/dL (11.5-16.0)
[2020-09-18 05:13] LABS: Albumin, Blood 2.1 g/dL (3.4-5.0); Anion Gap 5 mmol/L (6-16); Blood Urea Nitrogen 15 mg/dL (8-24); Bun/Creatinine Ratio 5.9 (12.0-20.0); CO2, Blood 31 mmol/L (21-32); Calcium, Blood 8.7 mg/dL (8.5-10.1); Chloride, Blood 97 mmol/L (98-108); Creatinine, Blood 2.54 mg/dL (0.40-1.00); Glomerular Filtration Rate 21 (60-); Glucose, Blood 136 mg/dL (70-99); Phosphorus, Blood 1.9 mg/dL (2.5-4.9); Potassium, Blood 3.5 mmol/L (3.5-5.5); Sodium, Blood 133 mmol/L (136-145)
--- NOTE | 2020-09-18 05:33 | NUR ---
SHIFT SUMMARY- PT. A&OX4, HAD LARGE BM DURING THE NIGHT WITH MODERATE AMOUNT OF URINE OUTPUT. C/O PAIN TO BACK AND R HIP. MEDICATED PER EMAR. PT. APPEARED TO HAVE RESTED COMFORTABLY T/O THE NIGHT, NO APPARENT DISTRESS NOTED. DENIED ANY OTHER NEEDS T/O THE NIGHT. VSS. CALL LIGHT WITHIN REACH AND SIDE RAILS UPX2. WILL CONT TO MONITOR.
--- NOTE | 2020-09-18 18:43 | NUR ---
SHIFT SUMMARY DEE COMPLAINED OF R HIP PAIN AND BACK PAIN--GAVE FLEXERIL, PO DILAUDID WHICH WORKED SOMEWHAT. DECLINED TO GET UP TO CHAIR AT LUNCH AND AT DINNER. VISITED. USED BED BAUMANN. TOOK PILLS PRESCRIBED. CALL LIGHT IN REACH, TM
[2020-09-19 05:21] LABS: Hemoglobin 8.1 g/dL (11.5-16.0)
--- NOTE | 2020-09-19 05:33 | NUR ---
SHIFT SUMMARY- NO ACUTE EVENTS OVERNIGHT. MEDICATED FOR C/O BACK AND R HIP PAIN. PT. SLEPT T/O THE NIGHT, NO APPARENT DISTRESS NOTED. VOIDED 1X IN BEDPAN, VSS. CALL LIGHT WITHIN REACH. WILL CONT TO MONITOR.
[2020-09-19 05:55] LABS: Albumin, Blood 2.2 g/dL (3.4-5.0); Anion Gap 4 mmol/L (6-16); Blood Urea Nitrogen 18 mg/dL (8-24); Bun/Creatinine Ratio 6.2 (12.0-20.0); CO2, Blood 30 mmol/L (21-32); Calcium, Blood 9.3 mg/dL (8.5-10.1); Chloride, Blood 96 mmol/L (98-108); Creatinine, Blood 2.89 mg/dL (0.40-1.00); Glomerular Filtration Rate 18 (60-); Glucose, Blood 154 mg/dL (70-99); Phosphorus, Blood 2.7 mg/dL (2.5-4.9); Potassium, Blood 3.7 mmol/L (3.5-5.5); Sodium, Blood 130 mmol/L (136-145)
--- NOTE | 2020-09-19 18:52 | NUR ---
SHIFT SUMMARY DEE COMPLAINED OF R HIP PAIN THIS SHIFT, GOT PO DILAUDID AND FLEXERIL PRN. HAD DIALYSIS THIS MORNING. VISITED. USED BEDPAN TO PASS URINE. GOT UP TO CHAIR WITH LIFT, HOWEVER IT WAS TOO PAINFUL FOR HER TO TOLERATE, SHE ONLY MANAGED A FEW MINUTES. BOTTOM RED, CALAZIME APPLIED, REPOSITIONED. EDUCATED ON IMPORTANCE OF MOBILITY, AND THE BENEFITS OF A SNF. SHE STILL IS REALLY WANTING TO GO HOME. CALL LIGHT IN REACH, REPORT GIVEN TO NIGHT NURSE
[2020-09-20 05:17] LABS: Hemoglobin 8.1 g/dL (11.5-16.0)
--- NOTE | 2020-09-20 05:18 | NUR ---
SHIFT SUMMARY- PT. HAD NO ACUTE EVENTS OVERNIGHT. HAD BM AND VOIDED 1X LAST NIGHT IN BEDPAN. PT. VERY PAINFUL WITH MOVEMENT. MEDICATED PER EMAR WITH GOOD EFFECT. SLEPT T/O THE NIGHT, NO APPARENT DISTRESS NOTED. VSS. CALL LIGHT WITHIN REACH, SIDE RAILS UPX2, AND BED IN LOW POSITION. WILL CONT TO MONITOR.
[2020-09-20 05:35] LABS: Albumin, Blood 2.3 g/dL (3.4-5.0); Anion Gap 5 mmol/L (6-16); Blood Urea Nitrogen 12 mg/dL (8-24); Bun/Creatinine Ratio 4.9 (12.0-20.0); CO2, Blood 31 mmol/L (21-32); Calcium, Blood 8.9 mg/dL (8.5-10.1); Chloride, Blood 98 mmol/L (98-108); Creatinine, Blood 2.43 mg/dL (0.40-1.00); Glomerular Filtration Rate 23 (60-); Glucose, Blood 152 mg/dL (70-99); Phosphorus, Blood 2.6 mg/dL (2.5-4.9); Potassium, Blood 3.7 mmol/L (3.5-5.5); Sodium, Blood 134 mmol/L (136-145)
--- NOTE | 2020-09-20 13:49 | NUR ---
Spiritual care visit conducted. Patient finally has good news to share about the reduction of the infection to the point that her port can be reinstalled and she can DC from the hospital. Patient also is very quick to say that she will not go to a SNF from the hospital. She shares the horrible things she has experienced as her grandmother was lodged in a local SNF. Patient also went through the life changing experience she had as she cared for her Grand mother until she . Deep came into the room while we were talking and so the conversation shifted toward him as he explained about the steps he is taking to live healthier and bring more to the table at home in order to take the weight of the patient. I reinforce helpful attitudes and practices and provide therapeutic listening and prayer. I will continue to remain available to patient and family.
--- NOTE | 2020-09-20 17:08 | NUR ---
PT A&Ox4. PLEASANT WITH CARE. PT REPORTS HIGH BACK AND R HIP PAIN, ESPECIALLY WITH MOVEMENT. DR RICK CHANGED PATIENTS PAIN MEDICATIONS AND ORDERED GAPAPENTIN FOR NERVE PAIN. PT HAD ONE DOSE OF NEW PAIN MEDS AND GABAPENTIN AND REPORTED NO PAIN. PT REQUESTED TO GET UP AND GET IN RECLINER DUE TO FEELING SO MUCH BETTER. PATIENT TOLERATED RECLINER FOR APPROX 1 HOUR. NO DIALYSIS TODAY. POWERGLIDE DRESSING CHANGED TODAY. PT IN FOR VISIT, AND UPDATE ON CARE PLAN. PT HAD PHYSICAL THERAPY TODAY. POSSIBLE DC TOMORROW AFTER PERM CATH PLACEMENT TOMORROW AM. STILL WAITING ON DR BOSS, INFECTIOUS DISEASE F/U VISIT. VITALS REVIEWED. PT CURRENTLY RESTING IN BED WITH CALL LIGHT IN REACH. DENIES ANY NEEDS AT THIS TIME.
--- NOTE | 2020-09-21 05:29 | NUR ---
SUMMARY: A/OX4, CALLS APPROPRIATELY AND PLEASANT/COOPERATIVE W/CARE. SHE'S REPORTED IMPROVED BACK, HIP AND NERVE PAIN SINCE ADDITION OF GABAPENTIN AND SWITCHING TO PRN PERCOCET W/PREVIOUSLY RX'D FLEXERIL. SHE DEMONSTRATED LIFTING LEGS FROM BED THIS SHIFT AND HER WAS ABLE TO MANUALLY LIFT HER TO A CHAIR ON DAY SHIFT. BACK PAIN REMAINS WORSE W/MOVEMENT BUT WAS TOLERABLE W/THIS NEW MED REGIMEN. REPOSITIONING ASSIST PROVIDED PRN AND PT CONT'S OLIGURIC W/NO UO TONIGHT. SHE'S BEEN NPO SINCE MS FOR NEW PERMCATH PLACEMENT TODAY BY , THEN PT MAY HAVE DIALYSIS W/POSSIBLE D/C HOME. SHE IS STILL AWAITING INFECTIOUS DISEASE F/U THAT DIDN'T OCCUR ON 09/20/20. NO ACUTE CHANGES, VSS/AFEBRILE. WCTM AND REPORT TO DAY RN.
[2020-09-21 06:46] LABS: Hematocrit 26.2 % (33.0-51.0); Hemoglobin 7.9 g/dL (11.5-16.0)
[2020-09-21 06:56] LABS: Albumin, Blood 2.3 g/dL (3.4-5.0); Anion Gap 6 mmol/L (6-16); Blood Urea Nitrogen 18 mg/dL (8-24); CO2, Blood 27 mmol/L (21-32); Calcium, Blood 8.9 mg/dL (8.5-10.1); Chloride, Blood 98 mmol/L (98-108); Creatinine, Blood 2.99 mg/dL (0.40-1.00); Glomerular Filtration Rate 18 (60-); Glucose, Blood 155 mg/dL (70-99); Potassium, Blood 3.8 mmol/L (3.5-5.5); Sodium, Blood 131 mmol/L (136-145)
--- NOTE | 2020-09-21 12:40 | NUR ---
PT RETURNED FROM DIALYSIS AOX4 AND COOPERATIVE OF CARE AT 1240.
[2020-09-21 17:47] LABS: Influenza A, PCR NEGATIVE (NEGATIVE); Influenza B, PCR NEGATIVE (NEGATIVE); Resp Syncytial Virus, PCR NEGATIVE (NEGATIVE); SARS-Cov-2 (COVID-19) PCR, MMC NEGATIVE (NEGATIVE)
--- NOTE | 2020-09-21 17:47 | NUR ---
PT AOX4 AND COOPERATIVE OF CARE. PT TREATED FOR R HIP PAIN PER EMAR AND STATES HER PAIN IS BETTER CONTROLLED NOW. PT WAS NPO ALL DAY AND WAS TAKEN DOWN FOR PERMA CATH PLACEMENT. WILL WAIT FOR PT TO RETURN.
--- NOTE | 2020-09-21 18:07 | NUR ---
PT BACK TO ROOM AFTER PERMCATH PLACEMENT. HANDOFF REPORT GIVEN TO [facility]. MEDICATIONS AND SITE REVIEWED. NO FURTHER QUESTIONS.
[2020-09-22 05:48] LABS: Hematocrit 26.2 % (33.0-51.0)
[2020-09-22 06:04] LABS: Albumin, Blood 2.2 g/dL (3.4-5.0); Anion Gap 5 mmol/L (6-16); Blood Urea Nitrogen 18 mg/dL (8-24); Bun/Creatinine Ratio 6.7 (12.0-20.0); CO2, Blood 31 mmol/L (21-32); Calcium, Blood 8.3 mg/dL (8.5-10.1); Chloride, Blood 95 mmol/L (98-108); Creatinine, Blood 2.67 mg/dL (0.40-1.00); Glomerular Filtration Rate 20 (60-); Glucose, Blood 164 mg/dL (70-99); Magnesium, Blood 1.9 mg/dL (1.6-2.4); Phosphorus, Blood 2.9 mg/dL (2.5-4.9); Potassium, Blood 3.6 mmol/L (3.5-5.5); Sodium, Blood 131 mmol/L (136-145)
--- NOTE | 2020-09-22 06:13 | NUR ---
SUMMARY NO NEW ISSUES NOTED. PT PAIN TX PER EMAR WITH RELIEF. PT PERMACATH SITE HAS REMAINED C/D/I. PT CURRENTLY SLEEPING AND IN NO DISTRESS. CALL LIGHT IN REACH.
[2020-09-22] MEDS ORDERED: CYCL10 PO (16:22)
[2020-09-22] MEDS ORDERED: CUBICIN RF500 M1 IV ×2 (16:24→16:29)
[2020-09-22] MEDS ORDERED: FENTANYL1 EA12 TOP (16:31)
[2020-09-22] MEDS ORDERED: GABA100 PO (16:32)
[2020-09-22] MEDS ORDERED: HUMALOG KW100 UNIT/1 SC (16:34)
[2020-09-22] MEDS ORDERED: ANTIFUNGAL POWD71 GM TOP (16:36)
[2020-09-22] MEDS ORDERED: Percocet 5-3251 EACH PO (16:37)
[2020-09-22] MEDS ORDERED: MIRALAX17 GM PO (16:38)
[2020-09-22] MEDS ORDERED: Senno8.6 MG PO (16:38)
[2020-09-22] MEDS ORDERED: VISBIOME 112.51 EACH PO (16:39)
--- NOTE | 2020-09-22 17:24 | NUR ---
ATTEMPTED PICC LINE X3 ON R UPPER ARM. ABLE TO GET INTO VEIN X2 WITH GOOD BLOOD FLOW, UNABLE TO THREAD WIRE BOTH TIMES. DEANGELO TIDWELL RN ATTEMPTED TO GET PICC IN WITH GOOD BLOOD FLOW AND UNABLE TO THREAD THE WIRE. 2 HOURS SPENT INTRYING TO GET A PICC LINE STARTED. WILL GET PICC LINE WHEN POWER-GLIDE IN L ARM NEEDS CHANGED. WILL TAKE HOSPITAL ORDER FOR CHANGE.
--- NOTE | 2020-09-22 18:05 | NUR ---
PT AOX4 AND COOPERATIVE OF CARE. PT DISCHARGED TODAY AFTER LAST DOSE OF ANTIBOTIC GIVEN, AND AN ATTEMPT AT PICC LINE. PICC LINE WAS UNABLE TO BE PLACED SO PT HAS BEEN SCHEDULED TO HAVE ONE REPLACED 10/07/20 AT [facility]. APPOIMENTS SCHEDULED AND REVIEWED. PT WILL SET UP DIALYISIS TIME THROUGH DR GIVENS[facility]S CLINIC. ALL PAPER WORK REVIEWED AND EDUCATIONAL MATERIAL SENT WITH PT. PT HAD ALL PERSONAL BELONGINGS COLLECTED AND MEDICAITON WAS FAXED TO [facility]. PT ESCORTED OUT VIA WHEEL CHAIR AND FRIEND TO TRANSPORT HOME.
== END 2020-09-22 17:44 | disposition home health service (06) | DRG 539 ==
LOC: ER 17:26 → MEDS 08-20 02:16
PROVIDERS: Emergency Medicine; Family Medicine; Hospitalist; Internal Medicine; Internal Medicine Nephrology; Physician Assistant; Radiology Diagnostic Radiology; ADMIT Internal Medicine
PROC: 5A1D70Z Performance of Urinary Filtration, Intermittent, Less than 6 Hours Per Day (ICD-10-PCS; 2020-08-23)
PROC: 05PYX3Z Removal of Infusion Device from Upper Vein, External Approach (ICD-10-PCS; principal; 2020-08-25)
PROC: 02H633Z Insertion of Infusion Device into Right Atrium, Percutaneous Approach (ICD-10-PCS; 2020-09-02)
PROC: B518ZZA Fluoroscopy of Superior Vena Cava, Guidance (ICD-10-PCS; 2020-09-02)
PROC: B24BZZ4 Ultrasonography of Heart with Aorta, Transesophageal (ICD-10-PCS; 2020-09-03)
DX: M46.26 Osteomyelitis of vertebra, lumbar region (principal); N18.6 End stage renal disease; I24.8 Other forms of acute ischemic heart disease; N25.81 Secondary hyperparathyroidism of renal origin; Z68.43 Body mass index [BMI] 50.0-59.9, adult; I13.2 Hypertensive heart and chronic kidney disease with heart failure and with stage 5 chronic kidney disease, or end stage renal disease; Z68.42 Body mass index [BMI] 45.0-49.9, adult; E87.1 Hypo-osmolality and hyponatremia; Z20.822 Contact with and (suspected) exposure to COVID-19; M46.46 Discitis, unspecified, lumbar region; R79.81 Abnormal blood-gas level; E87.5 Hyperkalemia; E83.41 Hypermagnesemia; E83.39 Other disorders of phosphorus metabolism; E11.9 Type 2 diabetes mellitus without complications; E11.22 Type 2 diabetes mellitus with diabetic chronic kidney disease; E03.9 Hypothyroidism, unspecified; J45.909 Unspecified asthma, uncomplicated; I50.9 Heart failure, unspecified; F41.1 Generalized anxiety disorder; D63.1 Anemia in chronic kidney disease; E11.3293 Type 2 diabetes mellitus with mild nonproliferative diabetic retinopathy without macular edema, bilateral; E87.6 Hypokalemia; Z91.048 Other nonmedicinal substance allergy status; G89.29 Other chronic pain; I25.5 Ischemic cardiomyopathy; B95.62 Methicillin resistant Staphylococcus aureus infection as the cause of diseases classified elsewhere; E66.01 Morbid (severe) obesity due to excess calories; I25.10 Atherosclerotic heart disease of native coronary artery without angina pectoris; N92.6 Irregular menstruation, unspecified; F41.8 Other specified anxiety disorders; I25.2 Old myocardial infarction; Z99.2 Dependence on renal dialysis; Z88.8 Allergy status to other drugs, medicaments and biological substances; Z91.018 Allergy to other foods; Z91.030 Bee allergy status; Z79.4 Long term (current) use of insulin; Z79.02 Long term (current) use of antithrombotics/antiplatelets; Z79.899 Other long term (current) drug therapy; Z79.82 Long term (current) use of aspirin; Z98.890 Other specified postprocedural states; Z95.1 Presence of aortocoronary bypass graft
CPT/HCPCS: 0241U; 36415; 36430; 36556; 71045; 71250; 72126; 72129; 72132; 73522; 74176; 76856; 76937; 77001; 78802; 80048; 80053; 80069; 82550; 82947; 83036; 83605; 83735; 84132; 84145; 85014; 85018; 85025; 85610; 85651; 86140; 86850; 86900; 86901; 86923; 87040; 87077; 87147; 87186; 87340; 93005; 93010; 93308; 93312; 93321; 93325; 96365-59; 96375-59; 97110; 97112; 97162; 97166; 97530; 99152; 99153; 99285-25; A9270; A9270-GY; A9569; C1750; C1752; C1769; C1894; J0712; J0878; J0881; J1170; J1644; J1815; J1940; J2250; J2270; J2310; J2997; J3010; J3370; J3480; J7030; J7040; J7050; J7060; P9016; Q9967

== ENCOUNTER 2020-09-28 11:47 | Inpatient (IN) | payer OTHER ==
[~2020-09-28] VITALS: Ht 160 cm; Wt 102.1 kg
[~2020-09-28 11:47] MED LIST changes: +ANTIFUNGAL POWD71 GM TOP; +CUBICIN RF500 M1 IV; +CYCL10 PO; +FENTANYL1 EA12 TOP; +GABA100 PO; +HUMALOG KW100 UNIT/1 SC; +MIRTAZAPINE7.5 M1 PO; +NARCAN4 M1; +PERCOCET 10-321 EAC1 PO; +Percocet 5-3251 EACH PO; +Senno8.6 MG PO; +VISBIOME 112.51 EACH PO
[2020-09-28 12:46] LABS: BASOPHILS ABSOLUTE AUTO 0.17 K/mm3 (0.00-0.23); BASOPHILS PERCENT AUTO 1 % (0-2); EOSINOPHILS ABSOLUTE AUTO 0.38 K/mm3 (0.00-0.68); EOSINOPHILS PERCENT AUTO 3 % (0-6); Hematocrit 29.3 % (33.0-51.0); Hemoglobin 8.6 g/dL (11.5-16.0); IMMATURE GRAN ABSOLUTE AUTO 0.14 K/mm3 (0.00-0.10); IMMATURE GRAN PERCENT AUTO 1 % (0-1); LYMPHOCYTES ABSOLUTE AUTO 0.85 K/mm3 (0.84-5.20); LYMPHOCYTES PERCENT AUTO 7 % (21-46); MONOCYTES ABSOLUTE AUTO 0.95 K/mm3 (0.16-1.47); MONOCYTES PERCENT AUTO 8 % (4-13); Mean Corpuscular HGB Conc 29.4 g/dL (31.5-36.5); Mean Corpuscular Volume 89 fL (80-100); Mean Platelet Volume 11.3 fL (9.1-12.4); NEUTROPHILS ABSOLUTE AUTO 10.19 K/mm3 (1.96-9.15); NEUTROPHILS PERCENT AUTO 80 % (41-73); NRBC ABSOLUTE 0.03 K/mm3 (0.00-0.02); NRBC Auto 0.2 /100 WBC (0.0-0.2); Platelet Count 303 K/mm3 (150-400); RDW Coefficient Variation 18.9 % (11.7-14.2); RDW Standard Deviation 58.5 fL (35.1-46.3); Red Blood Cell Count 3.31 M/mm3 (3.80-5.20); White Blood Cell Count 12.68 K/mm3 (4.00-11.30)
[2020-09-28 13:02] LABS: Albumin, Blood 2.3 g/dL (3.4-5.0); Albumin/Globulin Ratio 0.5 (0.8-1.8); Bilirubin, Total 0.5 mg/dL (0.1-1.0); Bun/Creatinine Ratio 5.5 (12.0-20.0); Calcium, Blood 8.7 mg/dL (8.5-10.1); Creatinine, Blood 7.13 mg/dL (0.40-1.00); Globulin, Blood 4.9 g/dL (2.2-4.0); Potassium, Blood 4.8 mmol/L (3.5-5.5); Total Protein, Blood 7.2 g/dL (6.4-8.2)
[2020-09-28 13:04] LABS: International Normalized Ratio 1.1; Prothrombin Time Results 11.8 Sec (9.7-11.5)
[2020-09-28 14:12] LABS: Source, Urine Catheter
[2020-09-28 14:15] LABS: Appearance, Urine Hazy (Clear); Blood, Urine 3+ (Neg); Color, Urine Yellow (P-Yellow); Glucose Qualitative, Urine Neg (Neg); Ketones, Urine Neg (Neg); Leukocyte Esterase, Urine 3+ (Neg); Nitrite, Urine Neg (Neg); Protein, Urine 3+ (Neg); Urobilinogen, Urine NORM (Normal)
[2020-09-28 14:21] LABS: Bilirubin, Urine 1+ (Neg)
[2020-09-28 14:22] LABS: White Blood Cells, Urine 25-50 /hpf (0-5)
[2020-09-28 14:24] LABS: Bacteria Many /hpf; Red Blood Cells, Urine 0-2 /hpf (0-2); Squamous Epithelial Cells Rare /hpf (Few); Transitional Epithelial Cells Few /hpf (0-Rare)
[2020-09-28 14:29] LABS: U Amphetamine Screen Not Detected; U Barbituate Screen Not Detected; U Benzodiazapine Screen Not Detected; U Buprenorphine Screen Not Detected; U Cannabinoids Screen Not Detected; U Cocaine Screen Not Detected; U Methadone Screen Not Detected; U Methamphetamine Screen Not Detected; U Opiates Screen DETECTED; U Oxycodone Screen DETECTED; U Phencyclidine Screen Not Detected; U Propoxyphene Screen Not Detected
[2020-09-28] MEDS ORDERED: OXYGEN (15:34)
[2020-09-28 15:58] LABS: Base Excess Venous 6.5 mmol/L; Bicarbonate Venous 29.6 mmol/L (24.0-30.0); PCO2 Venous 47.9 mmHg (38-42); PO2 Venous 83.7 mmHg (38-42); pH Blood Venous 7.42 (7.34-7.37)
--- NOTE | 2020-09-28 18:30 | NUR ---
PATIENT IS ALERT AND ORIENTED. HER COCCYX IS PAINFUL. PICTURE OF HER COCCYX WOUND IS ON THE CHART. HILL IS IN PLACE AND DRAINING CLOUDY YELLOW URINE. THE PATIENT'S /CAREGIVER WAS AT THE BEDSIDE UPON ADMIT. ON 3L O2 VIA NC. DR. GIVENS HAS BEEN CONSULTED AND PLANS ON DIALIZING THE PATIENT TONIGHT. WILL CONTINUE TO MONITOR
--- NOTE | 2020-09-28 20:44 | NUR ---
1:1 NON-ROUTINE HOURS HEMODIALYSIS ORDERED BY DR GIVENS FOR PATIENT ADMITED TO FLOOR VIA ER WITH C/O EXACERBATION OF CHRONIC HYPOXIA WITH SATS MID 70s. PATIENT HAS REPORTEDLY MISSED HER LAST SCHEDULED CHRONIC OUTPAIENT HEMODIALYSIS APPOINTMENT.
--- NOTE | 2020-09-29 04:17 | NUR ---
SHIFT SUMMARY ADMITTED FOR AMS/UTI. FULL CODE. PLAN FOR SNF PLACEMENT OR DC WITH HOME HEALTH. IV ABX TO TREAT THE UTI. PT HAD DIALYSIS LAST NIGHT. PT WAS ORIGINALLY OBTUNDED AND VERY DROWSY ON ASSESSMENT. PT MORE ALERT AND CONVERSATIONAL AFTER DIALYSIS. PM MEDICATIONS WERE HELD DUE TO PT BEING DROWSY AND POSSIBLE ASPIRATION RISK. PT RESTING IN BED WATCHING TV AT THIS TIME.
[2020-09-29 04:51] LABS: Hematocrit 27.2 % (33.0-51.0); Hemoglobin 8.1 g/dL (11.5-16.0)
--- NOTE | 2020-09-29 05:11 | NUR ---
SHIFT SUMMARY I HAVE ASSESSED THIS PT. I HAVE READ THE GREENBELT'S DOCUMENTATION AND I AGREE. SHIFT SUMMARY IN GREENBELT NOTES.
[2020-09-29 05:14] LABS: Anion Gap 7 mmol/L (6-16); Blood Urea Nitrogen 27 mg/dL (8-24); Bun/Creatinine Ratio 5.1 (12.0-20.0); CO2, Blood 31 mmol/L (21-32); Calcium, Blood 8.6 mg/dL (8.5-10.1); Chloride, Blood 97 mmol/L (98-108); Creatinine, Blood 5.33 mg/dL (0.40-1.00); Glomerular Filtration Rate 9 (60-); Glucose, Blood 136 mg/dL (70-99); Magnesium, Blood 2.5 mg/dL (1.6-2.4); Sodium, Blood 135 mmol/L (136-145)
--- NOTE | 2020-09-29 14:30 | NUR ---
Spiritual care visit conducted. Patient is crying and states that she is scared. She says her body fills wierd and numb and she can't remember things. Her Deep is present and [facility] and patient cries while saying that she does not remember it at all. Patient also shares about how worried she is about the future. Deep explains about how his world seems upside down as well. I listen empathically, normalize their experience and reactions and provide encouragement and prayer. They respond well and show signs of reduced stress and fear. I will continue to remain available to patient and family.
--- NOTE | 2020-09-29 19:16 | NUR ---
SHIFT SUMMARY PT HAD MOMENTS OF CONFUSION THIS AM BUT HER MENTATION HAS IMPROVED T/O THE DAY. C/O NOT BEING ABLE TO MOVE R ARM AND LEG AND NOT BEING ABLE TO SEE HER HAND WELL. C.T. DONE AND DIALYSIS DONE WELL. TOLERATING P.O INTAKE. POWERGLIDE DRESSING CHANGED. GETTING IV ANTIBIOTICS FOR UTI. HILL PATENT AND DRAINING. LARGE STAGE ONE PRESSURE ULCER ON COCCYX. VSS. REPORT GIVEN TO ONCOMING RN.
--- NOTE | 2020-09-29 19:39 | NUR ---
DUE TO NEEDING OF LIFT ROOM THE PT HAS BEEN MOVED FROM 303 TO 364.
--- NOTE | 2020-09-30 04:33 | NUR ---
SHIFT SUMMARY ADMITTED FOR AMS/HYPOXIA. PT IS A FULL CODE. PLAN FOR SNF PLACEMENT. PT CONTINUES TO COMPLAIN THAT SHE CANNOT SEE BELOW HER ELBOWS OR MOVE HER RIGHT ARM, DESPITE USING THE ARM INTERMITTENTLY. PT APPEARS ANXIOUS THROUGHOUT THE SHIFT, BUT HAS BEEN RESTING/SLEEPING FREQUENTLY. NO NEW CONCERNS THIS SHIFT.
--- NOTE | 2020-09-30 05:16 | NUR ---
CTA/OUTREACH COUNSELOR I HAVE ASSESSED THIS PT. I HAVE READ THE OUTREACH COUNSELOR DOCUMENTATION AND I AGREE. SHIFT SUMMARY IN OUTREACH COUNSELOR NOTES
[2020-09-30 06:18] LABS: Hematocrit 28.4 % (33.0-51.0); Hemoglobin 8.3 g/dL (11.5-16.0)
[2020-09-30 06:57] LABS: Albumin, Blood 2.1 g/dL (3.4-5.0); Anion Gap 7 mmol/L (6-16); Blood Urea Nitrogen 23 mg/dL (8-24); Bun/Creatinine Ratio 5.4 (12.0-20.0); CO2, Blood 31 mmol/L (21-32); Calcium, Blood 8.8 mg/dL (8.5-10.1); Chloride, Blood 96 mmol/L (98-108); Creatinine, Blood 4.26 mg/dL (0.40-1.00); Glomerular Filtration Rate 12 (60-); Glucose, Blood 122 mg/dL (70-99); Magnesium, Blood 2.3 mg/dL (1.6-2.4); Phosphorus, Blood 4.5 mg/dL (2.5-4.9); Potassium, Blood 3.6 mmol/L (3.5-5.5); Sodium, Blood 134 mmol/L (136-145)
--- NOTE | 2020-09-30 08:00 | NUR ---
PT PLEASANT QUIET. A/O X3. NO PAIN AT THIS TIME. H/R REG, NO MURMER NOTED. IS DISTANT. NO TELE. LUNGS CLEAR, BUT DIM T/O. ON 3L O2. RESP EASY UNLABORED. BT HYPO. LAST BM FEW DAYS PER PT. VOIDS HILL CATH. YELLOW WITH SOME SEDIMENT NOTED. PT HAS BREAKDOWN ON BOTTOM. BARRIER CREAM WHITE AND PINK APPLIED. DIALYSIS PORT NOTED LUCW. STATES NO FISTULA. BED IN LOW POSITION, CALL LITE IN REACH, CALLS APPROP
--- NOTE | 2020-09-30 12:30 | NUR ---
PT TO DIALYSIS [phone] - [phone]. RETURNED TO ROOM. HUSB AT BEDSIDE. PT PLEASANT AWAKE.
--- NOTE | 2020-09-30 14:05 | NUR ---
Spiritual care visit conducted. Patient tells me about the CT scan results and how plaesed she is to know that she did not sustain a stroke. Patient's spouse Deep is present during the visit. Patient shares about how she will go to [facility] and that she will attempt to maintain a good attitude about it. She discusses her fears surrounding this relocation strategy and also the pluses. I normalize her experience, reinforce helpful attitudes and provide therapeutic listening. Patient and Deep respond well and show signs of an elevated mood.
--- NOTE | 2020-09-30 14:46 | NUR ---
ADVISED OF PT WOUNDS BREAKDOWN ON BOTTOM. BARRIER CREAM APPLIED
--- NOTE | 2020-09-30 18:17 | NUR ---
PT DID SOME PT TODAY. SPENT SOME TIME ENCOURAGING HER TO CONTINUE TO EXERCISE. MOVEMENT HAS IMPROVED IN RT HAND. IS SLIDING ACROSS TABLE. HAS BEEN ABLE TO DIAL PHONE AND TALK. ENCOURAGED HER TO CONTINUE TO EXERCISE HER LEGS ABLE AND PUSH FOR PT TO KEEP WORKING WITH HER. SHE STATES WANTS TO WALK AGAIN. KNOWS IS A HARD ROAD. SHE VERBALIZED UNDERSTANDING THAT WORK IS WHAT SHE NEEDS TO DO. NO OTHER CONCERNS NOTED TODAY. BED IN LOW POSITION, CALL LITE IN REACH, CALLS APPROP
--- NOTE | 2020-10-01 05:38 | NUR ---
SHIFT SUMMARY LYING IN SEMI FOWLERS WITH EYES OPEN WHILE VISITING WITH SCRAP BALER AFTER BED BATH. HAS RESTED OFF AND ON. NO SIGNIFICANT CHANGES THIS SHIFT. POWERGLIDE AND PIV REMAIN PATENT, EACH FLUSH WITH EASE. BEDBATH COMPLETED THIS MORNING. MEPILEX CHANGED TO COCCYX/SACRUM. DENIES PAIN, DISCOMFORT, OR FURTHER NEEDS AT THIS TIME. SAFETY MEASURES IN PLACE. WILL CONTINUE TO MONITOR AND ADDRESS NEEDS THEY ARISE. WILL GIVE HAND OFF TO ONCOMING SHIFT USING SBAR DURING BEDSIDE REPORT.
[2020-10-01 06:06] LABS: Hematocrit 27.8 % (33.0-51.0); Hemoglobin 8.3 g/dL (11.5-16.0)
[2020-10-01 06:26] LABS: Albumin, Blood 2.2 g/dL (3.4-5.0); Anion Gap 4 mmol/L (6-16); Blood Urea Nitrogen 25 mg/dL (8-24); Bun/Creatinine Ratio 6.9 (12.0-20.0); CO2, Blood 33 mmol/L (21-32); Calcium, Blood 8.9 mg/dL (8.5-10.1); Chloride, Blood 95 mmol/L (98-108); Creatinine, Blood 3.61 mg/dL (0.40-1.00); Glomerular Filtration Rate 14 (60-); Glucose, Blood 142 mg/dL (70-99); Magnesium, Blood 2.3 mg/dL (1.6-2.4); Phosphorus, Blood 4.2 mg/dL (2.5-4.9); Potassium, Blood 3.3 mmol/L (3.5-5.5); Sodium, Blood 132 mmol/L (136-145)
--- NOTE | 2020-10-01 08:35 | NUR ---
PT PLEASANT QUIET A/O X3. PT DENIES PAIN. H/R REG, NO MURMER NOTED. LUNGS CLEAR BUT DIM T/O. RESP EASY, UNLABORED. ON 2L O2. BT HYPO. LAST BM STATED ABOUT A WEEK. BED REST. TURN Q2. VOIDS HILL CATH. YELLOW SEDIMENTARY FLUID IN BAG. BOTTOM HAS RED SKIN, OPEN AREAS, LITE WHITE AND PINK CREAM APPLIED WITH MEPILEX. DIALYSIS PORT LUCW. NOT OTHER CONCERNS NOTED. ENCOURAGING AMBULATION AND PHYSICAL THERAPY. BED IN LOW POSITION, CALL LITE IN REACH CALLS APPROP
--- NOTE | 2020-10-01 09:52 | NUR ---
to dialysis 0945 y
--- NOTE | 2020-10-01 18:26 | NUR ---
PT HAS BEEN PLEASANT TODAY. NO C/O PAIN. HAS BEEN COOPERATIVE WITH THERAPY. STATES IS INTERESTED IN WALKING SOON. ADMITS IS GOING TO BE TREMENDOUS AMOUNT OF WORK. BUT WILLING TO DO THE WORK. HUSB AT BEDSIDE THIS AFT. SISTER ALSO IN ROOM TODAY. PT COUNTANANCE IMPROVED TODAY OVER YESTERDAY. NO NEW CONCERNS NOTED. BED IN LOW POSITION, CALL LITE IN REACH, CALLS APPROP
--- NOTE | 2020-10-02 03:59 | NUR ---
PATIENT HAD AN UNEVENTFUL NIGHT. MEPILEX REMAINS IN PLACE AND INTACT OVER SACRUM AND COCCYX. REDNESS BETWEEN GLUTEAL FOLDS APPEARS MUCH IMPROVED PER ORDER DESK CLERK WHO ASSISTED THIS RN WITH REPOSITIONING AND HAS BEEN WITH HER LAST TWO NIGHTS TO RECOGNIZE THE IMPROVEMENT. STILL NO BOWEL MOVEMENT SINCE 09/22. NO COMPLAINTS OF PAIN EXCEPT FOR CONTINUED NUMBNESS AND TINGLING LOWER EXTREMITIES AND RIGHT HAND
[2020-10-02 05:48] LABS: Hematocrit 27.9 % (33.0-51.0); Hemoglobin 8.5 g/dL (11.5-16.0)
[2020-10-02 06:05] LABS: Albumin, Blood 2.2 g/dL (3.4-5.0); Anion Gap 7 mmol/L (6-16); Blood Urea Nitrogen 25 mg/dL (8-24); CO2, Blood 31 mmol/L (21-32); Calcium, Blood 9.1 mg/dL (8.5-10.1); Chloride, Blood 91 mmol/L (98-108); Creatinine, Blood 3.11 mg/dL (0.40-1.00); Glomerular Filtration Rate 17 (60-); Glucose, Blood 168 mg/dL (70-99); Magnesium, Blood 2.2 mg/dL (1.6-2.4); Phosphorus, Blood 3.6 mg/dL (2.5-4.9); Potassium, Blood 3.4 mmol/L (3.5-5.5); Sodium, Blood 129 mmol/L (136-145)
--- NOTE | 2020-10-02 17:49 | NUR ---
SHIFT SUMMARY PT ALERT ORIENTED; AT BEDSIDE. PT PAINFUL; BUT REFUSED ANY PAIN MEDICATIONS BECAUSE OF WHAT HAPPENED TO HER. PT MOST OF THE TIME REFUSES TO BE TURN; BUT CALLS APPROPRIATELY. PT HAS HILL DRAINING AND PATENT. DENIES SOB OR CP. PT AWAITS FOR PLACEMENT. BED IS IN THE LOWEST POSITION AND CALL LIGHT WITHIN REACH
[2020-10-03 04:30] LABS: Hemoglobin 8.7 g/dL (11.5-16.0)
[2020-10-03 05:08] LABS: Albumin, Blood 2.3 g/dL (3.4-5.0); Anion Gap 9 mmol/L (6-16); Blood Urea Nitrogen 33 mg/dL (8-24); Bun/Creatinine Ratio 9.5 (12.0-20.0); CO2, Blood 29 mmol/L (21-32); Calcium, Blood 9.3 mg/dL (8.5-10.1); Chloride, Blood 91 mmol/L (98-108); Creatinine, Blood 3.47 mg/dL (0.40-1.00); Glomerular Filtration Rate 15 (60-); Glucose, Blood 212 mg/dL (70-99); Magnesium, Blood 2.2 mg/dL (1.6-2.4); Phosphorus, Blood 4.2 mg/dL (2.5-4.9); Potassium, Blood 3.6 mmol/L (3.5-5.5); Sodium, Blood 129 mmol/L (136-145)
--- NOTE | 2020-10-03 18:23 | NUR ---
SHIFT SUMMARY: PT REMAINS ALERT AND ORIENTED X4. ON ROOM AIR, RESPIRATORY IN TO ASSESS NEED FOR O2. PT DENIES SOB. Q2 TURNING AND NEEDED. CLEAN AND APPLIED NEW MEPILEX TO COCCYX AND BUTTOCK WOUNDS. ABDOMINAL FOLDS CLEANED AND POWDER APPLIED. PT COMPLAINS OF SOME RIGHT HAND SORNESS, REQUESTED ICE. HILL IN PLACE DRAINING TO GRAVITY. DIALYSIS THIS AM. VITALS REMAIN STABLE. NO ACUTE CHANGES. WILL CONTINUE TO MONITOR AND REPORT OFF.
--- NOTE | 2020-10-04 04:33 | NUR ---
DEE HAD AN UNEVENTFUL NIGHT. SHE IS A&OX4, PLEASANT AND COOPERATIVE WITH STAFF, AND IS EVEN BEGINNING TO ALLOW STAFF TO CHANGE AND/OR SHIFT HER POSITION QUITE FREQUENTLY AT NIGHT. SHE IS VERY CONCERNED ABOUT WHY HER RIGHT FOREARM AND ESPECIALLY HER RIGHT HAND, THEY ARE STILL NOT FUNCTIONING WELL DESPITE HER CONSTANTLY PERFORMING RANGE OF MOTION AND USING HAND EXERCIZE BALLS FOR STRENGTHENING. HOPING TO FIND OUT WHY THIS NEW DEVELOPMENT IS HAPPENING.
[2020-10-04 07:07] LABS: HBSAG SCREEN Negative (Negative)
[2020-10-04 09:40] LABS: Hematocrit 29.3 % (33.0-51.0); Hemoglobin 8.8 g/dL (11.5-16.0)
[2020-10-04 10:00] LABS: Albumin, Blood 2.4 g/dL (3.4-5.0); Anion Gap 10 mmol/L (6-16); Blood Urea Nitrogen 24 mg/dL (8-24); Bun/Creatinine Ratio 8.7 (12.0-20.0); CO2, Blood 29 mmol/L (21-32); Calcium, Blood 9.3 mg/dL (8.5-10.1); Chloride, Blood 98 mmol/L (98-108); Creatinine, Blood 2.75 mg/dL (0.40-1.00); Glomerular Filtration Rate 20 (60-); Glucose, Blood 233 mg/dL (70-99); Magnesium, Blood 1.9 mg/dL (1.6-2.4); Potassium, Blood 3.8 mmol/L (3.5-5.5); Sodium, Blood 137 mmol/L (136-145)
--- NOTE | 2020-10-04 15:28 | NUR ---
Spiritual care visit conducted. I talk with patient's spouse, Deep, in the hallway. He tells me about the struggle to find a local SNF that will allow for the antibiotics that patient has need of. He talks about the solution that he has been trying to push at [facility]. that in his mind would solve the dilemma. He also shares his struggle to stay positive. We talk about different strategies and what might work for him. He has a few good ones in place but the longevity and weight of this situation is causing both the patient and himself to have to work at it. Deep responds well to this conversation and displays evidence of an elevated mood. Spiritual care will continue to remain available to patient and family.
--- NOTE | 2020-10-04 19:58 | NUR ---
DISCHARGE SUMMARY PT AxOx4. PLEASANT AND COOPERATIVE WITH CARE. PT HAD DIALYSIS TODAY. REPORTED R HAND/ARM WEAKNESS & PAIN TODAY. HEAT AND ICE APPLIED AND MEDICATED WITH TYLENOL. PT , TRISTIAN IN THE ROOM TODAY, UPDATED ON PLAN OF CARE. PLAN IS CURRENTLY LOOKING FOR SNF PLACEMENT. HILL DRAINING CLEAR YELLOW URINE. PT HAD LARGE BM TODAY. PT UNABLE TO WORK WITH PATIENT TODAY. Q2 TURNS AND FLOATING WITH PILLOWS TOLERATED. PT CURRENTLY RESTING IN BED WITH CALL LIGHT IN REACH. VITALS REVIEWED. DENIES ANY NEEDS AT THIS TIME.
--- NOTE | 2020-10-05 03:56 | NUR ---
SPORTS STATISTICIAN SUMMARY PT A/O X4. PLEASANT AND COOPERATIVE. ICE PACK PROVIDED FOR RIGHT ARM PAIN. DENIES SOB, NAUSEA, CHEST PAIN. CONTINUES TO BE ON BEDREST. CALLS APPROPRIATELY. VSS, NO ACUTE CHANGES.
[2020-10-05 06:39] LABS: Albumin, Blood 2.5 g/dL (3.4-5.0); Anion Gap 7 mmol/L (6-16); Blood Urea Nitrogen 18 mg/dL (8-24); Bun/Creatinine Ratio 7.9 (12.0-20.0); CO2, Blood 30 mmol/L (21-32); Calcium, Blood 9.3 mg/dL (8.5-10.1); Chloride, Blood 95 mmol/L (98-108); Creatinine, Blood 2.28 mg/dL (0.40-1.00); Glomerular Filtration Rate 24 (60-); Glucose, Blood 215 mg/dL (70-99); Phosphorus, Blood 3.2 mg/dL (2.5-4.9); Potassium, Blood 3.8 mmol/L (3.5-5.5); Sodium, Blood 132 mmol/L (136-145)
--- NOTE | 2020-10-05 19:40 | NUR ---
SHIFT SUMMARY PT AxOx4. PLEASANT AND COOPERATIVE WITH CARE. PT HAD DIALYSIS TODAY AND WORKED WITH PT. PT WAS ABLE TO GET PATIENT TO SIT UP x2. PATIENT C/O FEELING WORN OUT AFTER AND REQUESTED TYLENOL, AND FLEXERIL. MEDICATED PER EMAR. PT DECLINED ADVIL UNTIL CONSULTING WITH DR GIVENS. PT HAD BM TODAY. HILL PATENT AND DRAINING TO GRAVITY. , TRISTIAN IN ROOM TODAY, UPDATED ON PLAN OF CARE. VITALS REVIEWED. PT CURRENTLY RESTING IN BED WITH CALL LIGHT IN REACH. DENIES ANY NEEDS AT THIS TIME.
--- NOTE | 2020-10-06 07:22 | NUR ---
A+O, RM AIR SALINE LOCKED, CALL LIGHT IN REACH, REPOSITIONED Q2, HIP PAIN WAS CONTROLLED WITH MUSCLE RELAXER, NO ACUTE CHANGES NOTED DURING SHIFT
[2020-10-06 09:01] LABS: HBSAG SCREEN Negative (Negative); HEP A AB, IGM Negative (Negative); HEP B CORE AB, IGM Negative (Negative); HEP B SURFACE AB Non Reactive (.); HEP C VIRUS AB <0.1 (0.0-0.9)
[2020-10-06 09:24] LABS: Hematocrit 30.2 % (33.0-51.0); Hemoglobin 9.1 g/dL (11.5-16.0)
[2020-10-06 09:36] LABS: Albumin, Blood 2.5 g/dL (3.4-5.0); Anion Gap 8 mmol/L (6-16); Blood Urea Nitrogen 19 mg/dL (8-24); Bun/Creatinine Ratio 7.9 (12.0-20.0); CO2, Blood 29 mmol/L (21-32); Calcium, Blood 9.4 mg/dL (8.5-10.1); Chloride, Blood 100 mmol/L (98-108); Creatinine, Blood 2.42 mg/dL (0.40-1.00); Glomerular Filtration Rate 23 (60-); Glucose, Blood 215 mg/dL (70-99); Magnesium, Blood 1.8 mg/dL (1.6-2.4); Phosphorus, Blood 3.3 mg/dL (2.5-4.9); Potassium, Blood 3.7 mmol/L (3.5-5.5); Sodium, Blood 137 mmol/L (136-145)
--- NOTE | 2020-10-06 15:47 | NUR ---
Spiritual care visit conducted. Patient tells me about her possible transfer to a SNF in [place] and then receive her regular schedule of dialysis in [place]. She talks about how disappointing it is to have to be so far away from home and about all that Deep tried to do to allow for her to stay local. Patient talks about the struggle that PT has been for her but she understands what she will have to do to get back home. She admits that she is very scared. I provide pastoral drug abuse counselor and prayer. Patient responds well and shows signs of increased peace. Spiritual care will remain available.
--- NOTE | 2020-10-06 16:56 | NUR ---
SHIFT SUMMARY- PT A/OX4. PT PLEASANT AND COOPERATIVE T/O THE DAY. LS DIMINISHED, ON RA. PT REPORTS PAIN TO BILAT HIPS AND RIGHT HAND, PT USING ICE PACK FOR RIGHT HAND AND DID AGREE FOR AN ADVIL AFTER TALKING WITH DR GIVENS, PT TOOK ADVIL PRIOR TO WORKING WITH THERAPY. BED BATH COMPLETED AND PT AGREED TO GET UP TO CHAIR WITH LIFT. PT ABLE TO SIT UP IN CHAIR WITH THERAPY TODAY. NO DIALYSIS TODAY. PT TO D/C ON SUNDAY/ SUNDAY NEXT WEEK TO [facility] ONCE OUTPATIENT DIALYSIS SET UP. NEW PHOTOS TAKEN OF BUTTOCKS/ COCCYX, NEW DRESSINGS APPLIED. PRESSURE ULCER/ EXCORIATION IMPROVING. PT REMAINS WITH HILL IN PLACE. NO OTHER ACUTE CHANGES THIS SHIFT.
--- NOTE | 2020-10-07 06:13 | NUR ---
SHIFT SUMMARY ASSUMED CARE OF PT AT 1900. PT IS A/OX4. HEART SOUNDS REGULAR, LUNG SOUNDS DIMINISHED. PT HAS CATHETER DRAINING WITH GRAVITY, URINE CLEAR AND YELLOW. PT CONCERND ABOUT WHEN CATHETER WILL COME OUT. PT DIALYSIS PORT IS FREE OF S/SX OF INFECTION. PT HAD NO OTHER COMPLAINTS DURING THE NIGHT. PT SLEPT T/O THE NIGHT. CALL LIGHT IN REACH, BED IN LOWEST POSITON.
[2020-10-07 09:37] LABS: Hematocrit 30.5 % (33.0-51.0); Hemoglobin 9.3 g/dL (11.5-16.0)
[2020-10-07 09:54] LABS: Albumin, Blood 2.5 g/dL (3.4-5.0); Anion Gap 8 mmol/L (6-16); Blood Urea Nitrogen 25 mg/dL (8-24); Bun/Creatinine Ratio 8.9 (12.0-20.0); CO2, Blood 27 mmol/L (21-32); Calcium, Blood 9.7 mg/dL (8.5-10.1); Chloride, Blood 98 mmol/L (98-108); Creatinine, Blood 2.81 mg/dL (0.40-1.00); Glomerular Filtration Rate 19 (60-); Glucose, Blood 269 mg/dL (70-99); Magnesium, Blood 1.9 mg/dL (1.6-2.4); Phosphorus, Blood 3.5 mg/dL (2.5-4.9); Potassium, Blood 3.8 mmol/L (3.5-5.5); Sodium, Blood 133 mmol/L (136-145)
--- NOTE | 2020-10-07 15:42 | NUR ---
Spiritual care visit conducted. Patient tells me about her successes with PT and also the pain it creates. She talks about the hope of possibly going to a local SNF and the progress that has been made since yesterday. She reminds me about how exhausting dialysis is for her. I provide therapeutic listening and prayer.
--- NOTE | 2020-10-07 17:18 | NUR ---
SHIFT SUMMARY PATIENT ALERT AND ORIENTED THIS SHIFT. PATIENT REMAINS BEDBOUND. PATIENT DOWN TO DIALYSIS THIS AM. HILL CATHETER REMAINS IN PLACE, DRAINING YELLOW URINE. PATIENT STATES PAIN IN THE RIGHT FOREARM/WRIST, 4 OUT OF 10 PAIN THIS AFTERNOON. PATIENT STATES THIS PAIN HAS BEEN A RECENT OCCURANCE. PATIENT MEDICATED PER EMAR. VISITOR IN THE ROOM WITH PATIENT THIS AFTERNOON. PATIENT CURRENTLY LYING IN BED WATCHING TELEVISION.
--- NOTE | 2020-10-08 04:30 | NUR ---
SHIFT SUMMARY ASSUMED CARE OF PT AT 1900. HEART SOUNDS REGULAR, LUNG SOUNDS DIMINISHED. PT HAS CATHETER DRAINING CLEAR YELLOW URINE. PT HAD BM THIS EVENING. SKIN ON PT BOTTOM IS RED. PT C/O PAIN IN HER R ARM. PT WAS MEDICATED WITH FENTYAL WITH LITTLE RELEIF. PT THINKS THAT THE PAIN IN NERVE PAIN. PT STATES THE BENGAY ALSO DOES NOT HELP WITH THE PAIN. CALL LIGHT IN REACH, BED IN LOWEST POSITION.
[2020-10-08 08:56] LABS: Hematocrit 30.4 % (33.0-51.0); Hemoglobin 9.7 g/dL (11.5-16.0)
[2020-10-08 09:15] LABS: Albumin, Blood 2.6 g/dL (3.4-5.0); Anion Gap 7 mmol/L (6-16); Blood Urea Nitrogen 20 mg/dL (8-24); Bun/Creatinine Ratio 8.7 (12.0-20.0); CO2, Blood 29 mmol/L (21-32); Calcium, Blood 9.7 mg/dL (8.5-10.1); Chloride, Blood 97 mmol/L (98-108); Creatinine, Blood 2.29 mg/dL (0.40-1.00); Glomerular Filtration Rate 24 (60-); Glucose, Blood 209 mg/dL (70-99); Magnesium, Blood 1.8 mg/dL (1.6-2.4); Phosphorus, Blood 3.3 mg/dL (2.5-4.9); Potassium, Blood 3.5 mmol/L (3.5-5.5); Sodium, Blood 133 mmol/L (136-145)
--- NOTE | 2020-10-08 14:01 | NUR ---
STUDENT ASSESSMENT REVIEW I HAVE REVIEWED THE STUDENT'S ASSESSMENT, CONDUCTED MY OWN ASSESSMENT, AND I AGREE WITH THE STUDENT'S FINDINGS.
--- NOTE | 2020-10-08 19:12 | NUR ---
Shift Summary, The patient is A/OX4 to person, place, time, and event. The patient is compliant and cooperative with care. 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 The patient has c/o right arm/hand pain controlled with medication per EMAR and cold packs. She is receiving IV antibiotics per EMAR. Patient worked with PT/OT this shift. She has no acute changes this shift. She is currently resting in her bed and watching TV.
--- NOTE | 2020-10-09 06:05 | NUR ---
PT IS A/O, DIALYSIS PT, C/O PAIN IN RIGHT ARM, BENGAY AND ICE PACKS USED FOR PAIN. HILL CATH, PT IS ON BEDREST. PLAN TO D/C TO SNF FOR ABX THERAPY.
[2020-10-09 09:52] LABS: Hematocrit 31.4 % (33.0-51.0); Hemoglobin 9.9 g/dL (11.5-16.0)
[2020-10-09 10:09] LABS: Albumin, Blood 2.5 g/dL (3.4-5.0); Anion Gap 9 mmol/L (6-16); Blood Urea Nitrogen 26 mg/dL (8-24); Bun/Creatinine Ratio 9.8 (12.0-20.0); CO2, Blood 25 mmol/L (21-32); Calcium, Blood 9.6 mg/dL (8.5-10.1); Chloride, Blood 101 mmol/L (98-108); Creatinine, Blood 2.66 mg/dL (0.40-1.00); Glomerular Filtration Rate 20 (60-); Glucose, Blood 257 mg/dL (70-99); Magnesium, Blood 1.5 mg/dL (1.6-2.4); Phosphorus, Blood 3.1 mg/dL (2.5-4.9); Potassium, Blood 3.7 mmol/L (3.5-5.5); Sodium, Blood 135 mmol/L (136-145)
--- NOTE | 2020-10-09 19:23 | NUR ---
SHIFT SUMMARY: NO ACUTE EVENTS TO REPORT THIS SHIFT. PT A&O; CALM AND COOPERATIVE WITH CARE. MEDICATED FOR CHRONIC PAIN PER EMAR. DIALYSIS THIS SHIFT; PT TIRED & WEAK. HILL IN PLACE; PATENT AND DRAINING. AWAITING OUTPATIENT DIALYSIS COORDINATION. REPORT GIVEN TO ONCOMING RN.
--- NOTE | 2020-10-10 05:59 | NUR ---
PT IS A/O, BEDBOUND WITH CHRONIC BACK PAIN AND WEAKNESS, WORKING WITH PT DURING THE DAY. HILL CATH, PT TO HAVE CT TODAY DUE TO RIGHT ARM PAIN. SOURCE UNKNOWN, DIALYSIS PT SEEING BY DR GIVENS.
[2020-10-10 13:14] LABS: Hematocrit 32.2 % (33.0-51.0); Hemoglobin 10.4 g/dL (11.5-16.0)
[2020-10-10 13:30] LABS: Albumin, Blood 2.7 g/dL (3.4-5.0); Anion Gap 10 mmol/L (6-16); Blood Urea Nitrogen 23 mg/dL (8-24); Bun/Creatinine Ratio 9.7 (12.0-20.0); CO2, Blood 27 mmol/L (21-32); Calcium, Blood 9.7 mg/dL (8.5-10.1); Chloride, Blood 93 mmol/L (98-108); Creatinine, Blood 2.38 mg/dL (0.40-1.00); Glomerular Filtration Rate 23 (60-); Glucose, Blood 202 mg/dL (70-99); Magnesium, Blood 1.8 mg/dL (1.6-2.4); Phosphorus, Blood 3.4 mg/dL (2.5-4.9); Potassium, Blood 3.8 mmol/L (3.5-5.5); Sodium, Blood 130 mmol/L (136-145)
--- NOTE | 2020-10-10 19:45 | NUR ---
SHIFT SUMMARY: NO ACUTE EVENTS TO REPORT THIS SHIFT. PT A&O; CALM AND COOPERATIVE WITH CARE. MEDICATED FOR R ARM PAIN PER EMAR. C-SPINE CT THIS SHIFT; NO ACUTE PROCESS NOTED. NO DIALYSIS TODAY. AWAITING SAFE DISCHARGE PLAN. REPORT GIVEN TO ONCOMING RN.
--- NOTE | 2020-10-11 06:20 | NUR ---
PT IS A/O, DIALYSIS PT. LIFT PT DUE TO WEAKNESS AND BACK PAIN, PLAN TO D/C TO SNF. CBG AC/HS. MEDICATED THIS SHIFT FOR BACK PAIN, RIGHT ARM WEAK AND PAINFUL, ICE BAGS HELPFUL.
[2020-10-11 09:52] LABS: Hematocrit 32.3 % (33.0-51.0); Hemoglobin 10.2 g/dL (11.5-16.0)
[2020-10-11 10:10] LABS: Albumin, Blood 2.7 g/dL (3.4-5.0); Anion Gap 10 mmol/L (6-16); Blood Urea Nitrogen 27 mg/dL (8-24); Bun/Creatinine Ratio 10.3 (12.0-20.0); CO2, Blood 26 mmol/L (21-32); Chloride, Blood 93 mmol/L (98-108); Creatinine, Blood 2.61 mg/dL (0.40-1.00); Glomerular Filtration Rate 21 (60-); Glucose, Blood 236 mg/dL (70-99); Magnesium, Blood 1.7 mg/dL (1.6-2.4); Phosphorus, Blood 3.7 mg/dL (2.5-4.9); Potassium, Blood 3.6 mmol/L (3.5-5.5); Sodium, Blood 129 mmol/L (136-145)
--- NOTE | 2020-10-11 17:03 | NUR ---
SHIFT SUMMARY PATIENT ALERT AND ORIENTED THIS SHIFT. PATIENT DOWN FOR DIALYSIS THIS AM. PATIENT'S SPOUSE IN THE ROOM FOR MUCH OF THIS SHIFT. PATIENT UP TO RECLINER VIA LIFT THIS AFTERNOON. PATIENT WORKED WITH PT/OT WHILE IN THE RECLINER. NO ACUTE CHANGES THIS SHIFT. PATIENT CURRENTLY LAYING IN BED WATCHING TELEVISION.
--- NOTE | 2020-10-12 06:11 | NUR ---
PT IS A/O, LIFT PT, CHRONIC BACK PAIN AND WEAKNESS TO RIGHT ARM AND LEGS, HILL CATH. DIALYSIS PT, PLANS TO D/C TO SNF FOR ANTIBIOTIC MANAGEMENT. PT REFUSED PRN NORCO FOR PAIN THIS SHIFT.
[2020-10-12 06:56] LABS: Hematocrit 31.1 % (33.0-51.0); Hemoglobin 9.9 g/dL (11.5-16.0)
[2020-10-12 07:14] LABS: Albumin, Blood 2.8 g/dL (3.4-5.0); Anion Gap 7 mmol/L (6-16); Blood Urea Nitrogen 20 mg/dL (8-24); Bun/Creatinine Ratio 9.4 (12.0-20.0); CO2, Blood 29 mmol/L (21-32); Calcium, Blood 9.8 mg/dL (8.5-10.1); Chloride, Blood 98 mmol/L (98-108); Creatinine, Blood 2.13 mg/dL (0.40-1.00); Glomerular Filtration Rate 26 (60-); Glucose, Blood 222 mg/dL (70-99); Phosphorus, Blood 3.1 mg/dL (2.5-4.9); Potassium, Blood 3.7 mmol/L (3.5-5.5); Sodium, Blood 134 mmol/L (136-145)
--- NOTE | 2020-10-12 10:38 | NUR ---
Spiritual care visit conducted. Patient is lying in bed and alert. Patient tells me about the possible transport to a [place], [place]. We discuss her fears as well as the things she sees as benefits of the move. Patient talks about her goals and her gratitude for her 's flexibility to find a temporary living arrangement to remain in close proximity to the SNF. Patient continues to emphasize the pain that PT and OT work causes for patient but she also recognizes the improvement she has observed. I provide anxiety containment, therapeutic listening and prayer. Patient responds well and voices appreciation for the spiritual care and kindness given.
[2020-10-12 10:59] LABS: SARS-Cov-2 (COVID-19) PCR, MMC NEGATIVE (NEGATIVE)
--- NOTE | 2020-10-12 17:24 | NUR ---
Shift Summary, The patient is A/OX4 to person, place, time, and event. The patient has been cooperative with her care. She is a ceiling lift. The patient worked with PT/OT today. She had back and right arm pain that was relieved with pain medication per EMAR. Her was visiting [facility] and brought her food. Her IV antibiotics were continued today. She had no acute changes this shift. Patient is resting in her bed watching TV.
--- NOTE | 2020-10-12 18:02 | NUR ---
STUDENT ASSESSMENT REVIEW I HAVE REVIEWED THE STUDENT'S ASSESSMENT, CONDUCTED MY OWN ASSESSMENT, AND I AGREE WITH THE STUDENT'S FINDINGS.
--- NOTE | 2020-10-13 07:46 | NUR ---
PHOTOGRAPHIC ARTIST SUMMARY Yina slept well overnight after receiving one norco at for 7/10 right arm pain. She was quite proud of her advances in physical therapy with her upper body strengthening exercizes, but thinks this is what made her right arm less tolerable last night. Patient did not want to try APAP with her meds, and this RN offered her the [place] although the patient was quite reticent about taking it. Arm pain went from a 7 to a 2/10 shortly before she went to sleep
[2020-10-13 09:07] LABS: Hemoglobin 9.7 g/dL (11.5-16.0)
[2020-10-13 09:26] LABS: Albumin, Blood 2.8 g/dL (3.4-5.0); Anion Gap 7 mmol/L (6-16); Blood Urea Nitrogen 26 mg/dL (8-24); Bun/Creatinine Ratio 10.5 (12.0-20.0); CO2, Blood 29 mmol/L (21-32); Calcium, Blood 10.1 mg/dL (8.5-10.1); Chloride, Blood 97 mmol/L (98-108); Creatinine, Blood 2.48 mg/dL (0.40-1.00); Glomerular Filtration Rate 22 (60-); Glucose, Blood 223 mg/dL (70-99); Magnesium, Blood 1.9 mg/dL (1.6-2.4); Phosphorus, Blood 3.7 mg/dL (2.5-4.9); Potassium, Blood 3.9 mmol/L (3.5-5.5); Sodium, Blood 133 mmol/L (136-145)
--- NOTE | 2020-10-13 13:12 | NUR ---
Spiritual care visit conducted. Patient says that she is very disappointed about the plans [facility] [place] She shares about how she has had to work through many disppointments with her medical issues and how she has had to dig deep to keep from getting depressed. She talks about her daughter and her and how her long stay in the hospital has impacted them both. I normalize her experience and provide therapeutic lisntening and prayer. Patient responds well and shows signs of renewed dayan and hope. Spiritual care will continue to remain available
--- NOTE | 2020-10-13 19:46 | NUR ---
no acute changes noted during shift, call light in reach, able to make needs known but still has limited rom in r hand/arm, requested limited pain medication, rm air, moved from bed to chair for lunch and therapy asked that it continue to happen each lunch, bsr shared with noc nurse
--- NOTE | 2020-10-14 05:31 | NUR ---
SUMMARY PT PAIN TX PER EMAR W/ RELIEF. PT REPOSITIONED NEEDED. PT HAD NO OTHER ISSUES NOTED. CALL LIGHT IN REACH.
[2020-10-14 09:05] LABS: Hematocrit 30.8 % (33.0-51.0); Hemoglobin 9.9 g/dL (11.5-16.0)
[2020-10-14 09:32] LABS: Albumin, Blood 2.7 g/dL (3.4-5.0); Anion Gap 4 mmol/L (6-16); Blood Urea Nitrogen 21 mg/dL (8-24); Bun/Creatinine Ratio 8.9 (12.0-20.0); CO2, Blood 32 mmol/L (21-32); Calcium, Blood 9.6 mg/dL (8.5-10.1); Chloride, Blood 94 mmol/L (98-108); Creatinine, Blood 2.35 mg/dL (0.40-1.00); Glomerular Filtration Rate 23 (60-); Glucose, Blood 216 mg/dL (70-99); Phosphorus, Blood 3.3 mg/dL (2.5-4.9); Potassium, Blood 3.7 mmol/L (3.5-5.5); Sodium, Blood 130 mmol/L (136-145)
--- NOTE | 2020-10-14 19:44 | NUR ---
no acute changes noted during shift, pt back side is deterioriating, but she fights being moved/floated, got her up into the chair today for lunch, shared bsr with noc nurse and pt
--- NOTE | 2020-10-15 04:16 | NUR ---
SUMMARY NO NEW ISSUES NOTED. PT SLEPT T/O SHIFT. CALL LIGHT IN REACH.
[2020-10-15 10:04] LABS: Hematocrit 31.2 % (33.0-51.0); Hemoglobin 10.1 g/dL (11.5-16.0)
[2020-10-15 10:15] LABS: Albumin, Blood 2.5 g/dL (3.4-5.0); Anion Gap 7 mmol/L (6-16); Blood Urea Nitrogen 29 mg/dL (8-24); Bun/Creatinine Ratio 10.7 (12.0-20.0); CO2, Blood 29 mmol/L (21-32); Calcium, Blood 9.9 mg/dL (8.5-10.1); Chloride, Blood 94 mmol/L (98-108); Glomerular Filtration Rate 20 (60-); Glucose, Blood 266 mg/dL (70-99); Potassium, Blood 3.8 mmol/L (3.5-5.5); Sodium, Blood 130 mmol/L (136-145)
--- NOTE | 2020-10-15 17:16 | NUR ---
PATIENT A/OX4, UP WITH LIFT TO CHAIR TODAY. DIALYSIS DONE TODAY. VSS, ON RA. NORCO AND FLEXERIL USED TO TREAT HIP PAIN. WORKED WITH PT/OT TODAY. POWERGLIDE TO LUE WNL AND SL BETWEEN ABX. MEPILEX TO COCCYX REMAINS C/D/I. BLADDER TRAINING OVER NIGHT, HILL TO BE D/C'D IN AM.
[2020-10-16 07:07] LABS: Hematocrit 32.1 % (33.0-51.0)
[2020-10-16 07:28] LABS: Albumin, Blood 2.7 g/dL (3.4-5.0); Anion Gap 5 mmol/L (6-16); Blood Urea Nitrogen 25 mg/dL (8-24); Bun/Creatinine Ratio 10.4 (12.0-20.0); CO2, Blood 30 mmol/L (21-32); Calcium, Blood 9.6 mg/dL (8.5-10.1); Chloride, Blood 96 mmol/L (98-108); Creatinine, Blood 2.41 mg/dL (0.40-1.00); Glomerular Filtration Rate 23 (60-); Glucose, Blood 221 mg/dL (70-99); Phosphorus, Blood 3.3 mg/dL (2.5-4.9); Potassium, Blood 3.8 mmol/L (3.5-5.5); Sodium, Blood 131 mmol/L (136-145)
[2020-10-16 17:09] LABS: Source, Urine Catheter
[2020-10-16 17:13] LABS: Appearance, Urine Cloudy (Clear); Bilirubin, Urine Neg (Neg); Blood, Urine 5+ (Neg); Color, Urine Yellow (P-Yellow); Glucose Qualitative, Urine Neg (Neg); Ketones, Urine Neg (Neg); Leukocyte Esterase, Urine 3+ (Neg); Nitrite, Urine Neg (Neg); Protein, Urine 4+ (Neg); Specific Gravity, Urine 1.015 (1.003-1.022); Urobilinogen, Urine NORM (Normal)
--- NOTE | 2020-10-16 17:19 | NUR ---
PT IS A/OX3, PLEASANT AND COOPERATIVE, THE PT IS A LIFT PATIENT THE PT WAS UP IN THE CHAIR FOR A COUPLE HOURS FOR LUNCH TODAY. PTS WAS IN TO VISIT. THE PTS HILL CATHETER WAS TAKEN OUT AND REPLACED PER DR. SHARMA'S VERBAL ORDER AND A UA SENT. PTS BUTTOCKS WOUND WAS CLEANED AND A NEW DRESSING APPLIED, THE PT WAS GIVEN PAIN MEDICATION POST WOUND CARE, NEW PHOTO WAS TAKEN OF THE WOUND WITH THE PTS CONSENT, CALL LIGHT IN REACH, WILL CONTINUE TO MONITOR AND ASSESS FOR CHANGES
[2020-10-16 17:31] LABS: Bacteria Many /hpf; Squamous Epithelial Cells Few /hpf (Few); White Blood Cells, Urine TNTC /hpf (0-5)
--- NOTE | 2020-10-17 06:01 | NUR ---
SHIFT SUMMARY PT IS A 50 Y/O FEMALE, ADMITTD FOR HYPOXIA AND CURRENTLY WAITING PLACEMENT. PT IS BEDREST, LIFT PT. PT IS DIALYSIS, WITH PERMACATH IN LEFT UPPER CHEST. NO C/O ACUTE PAIN, NAUSEA OR SOB. VITAL SIGNS STABLE. NO ACUTE CHANGES IN PT CONDITION NOTED. WILL CONTINUE TO MONITOR AND TREAT PER EMAR UNTIL HAND OFF TO DAY SHIFT RN.
[2020-10-17 09:18] LABS: BASOPHILS ABSOLUTE AUTO 0.05 K/mm3 (0.00-0.23); BASOPHILS PERCENT AUTO 1 % (0-2); EOSINOPHILS ABSOLUTE AUTO 0.62 K/mm3 (0.00-0.68); EOSINOPHILS PERCENT AUTO 11 % (0-6); Hematocrit 26.7 % (33.0-51.0); Hemoglobin 8.4 g/dL (11.5-16.0); IMMATURE GRAN ABSOLUTE AUTO 0.06 K/mm3 (0.00-0.10); IMMATURE GRAN PERCENT AUTO 1 % (0-1); LYMPHOCYTES ABSOLUTE AUTO 1.06 K/mm3 (0.84-5.20); LYMPHOCYTES PERCENT AUTO 18 % (21-46); MONOCYTES ABSOLUTE AUTO 0.32 K/mm3 (0.16-1.47); MONOCYTES PERCENT AUTO 5 % (4-13); Mean Corpuscular HGB 27.5 pg (26.0-34.0); Mean Corpuscular HGB Conc 31.5 g/dL (31.5-36.5); Mean Corpuscular Volume 87 fL (80-100); Mean Platelet Volume 10.7 fL (9.1-12.4); NEUTROPHILS ABSOLUTE AUTO 3.79 K/mm3 (1.96-9.15); NEUTROPHILS PERCENT AUTO 64 % (41-73); Platelet Count 207 K/mm3 (150-400); RDW Coefficient Variation 16.7 % (11.7-14.2); RDW Standard Deviation 53.1 fL (35.1-46.3); Red Blood Cell Count 3.06 M/mm3 (3.80-5.20)
[2020-10-17 10:12] LABS: Magnesium, Blood 1.9 mg/dL (1.6-2.4)
[2020-10-17 10:15] LABS: Albumin, Blood 2.7 g/dL (3.4-5.0); Anion Gap 6 mmol/L (6-16); Blood Urea Nitrogen 24 mg/dL (8-24); Bun/Creatinine Ratio 10.9 (12.0-20.0); CO2, Blood 30 mmol/L (21-32); Calcium, Blood 9.4 mg/dL (8.5-10.1); Chloride, Blood 97 mmol/L (98-108); Glomerular Filtration Rate 25 (60-); Glucose, Blood 249 mg/dL (70-99); Phosphorus, Blood 2.7 mg/dL (2.5-4.9); Potassium, Blood 3.8 mmol/L (3.5-5.5); Sodium, Blood 133 mmol/L (136-145)
--- NOTE | 2020-10-17 10:37 | NUR ---
PT AKEN TO DIALYSIS AT 0900, PT WAS AWAKE A/OX4, APPEARED TO BE BREATHING EASILY ON RA
--- NOTE | 2020-10-17 18:39 | NUR ---
PT IS A/OX3, PLEASANT AND COOPERATIVE, PT IS UP WITH A CEILING LIFT TO THE CHAIR, THE PT WAS UP IN THE CHAIR FOR LUNCH FOR A SHORT TIME BUT WAS UNCOMFORTABLE AND WANTED TO BE PLACED BACK INTO THE BED, THE PTS BUTTOCKS WAS FLOATED T/O THE DAY ON PILLOWS PER HER REQUEST, THE PT WAS MEDICATED FOR PAIN X1 TODAY, THE HAD DIALYSIS TODAY AND TOLERATED WELL, THE PTS WAS AT THE BEDSIDE TODAY, CALL LIGHT IN REACH WILL CONTINUE TO MONITOR AND ASSESS FOR CHANGES
--- NOTE | 2020-10-18 07:15 | NUR ---
SHIFT SUMMARY PT IS A 50 Y/O FEMALE, ORIGINALLY ADMITTED FOR HYPOXIA AND CURRENTLY AWAITING PLACEMENT. SHE IS A&O X 4, BEDREST LIFT PATIENT. NO C/O ACUTE PAIN, NAUSEA OR SOB. VITAL SIGNS STABLE. NO ACUTE CHANGES IN PT CONDITION NOTED DURING THE NIGHT. WILL CONTINUE TO MONITOR AND TREAT PER EMAR UNTIL HAND OFF TO DAY SHIFT RN.
--- NOTE | 2020-10-18 19:40 | NUR ---
SHIFT SUMMARY: NO ACUTE CHANGES TO REPORT THIS SHIFT. PT A&O; CALM AND COOPERATIVE WITH CARE. MEDICATED FOR PAIN PRIOR TO WORKING WITH PT&OT. NO DIALYSIS TODAY. MEDICALLY STABLE; AWAITING PLACEMENT. REPORT GIVEN TO ONCOMING RN.
--- NOTE | 2020-10-19 06:24 | NUR ---
SHIFT SUMMARY PATIENT ALERT AND ORIENTED. DENIED NEED FOR PAIN MEDICATIONS. NO COMPLAINTS OF CHEST PAIN OR SHORTNESS OF BREATH. PATIENT SLEPT WELL OVERNIGHT AND HAD MINIMAL NEEDS. NO ACUTE ISSUES NOTED OVERNIGHT. POWERGLIDE PATENT AND FLUSHED. BED IN LOWEST POSITION WITH WHEELS LOCKED AND ALARM ON. CALL LIGHT WITHIN REACH. REPORT GIVEN TO ONCOMING RN.
[2020-10-19 09:50] LABS: BASOPHILS ABSOLUTE AUTO 0.07 K/mm3 (0.00-0.23); BASOPHILS PERCENT AUTO 1 % (0-2); EOSINOPHILS ABSOLUTE AUTO 0.64 K/mm3 (0.00-0.68); EOSINOPHILS PERCENT AUTO 9 % (0-6); Hemoglobin 9.9 g/dL (11.5-16.0); IMMATURE GRAN ABSOLUTE AUTO 0.07 K/mm3 (0.00-0.10); IMMATURE GRAN PERCENT AUTO 1 % (0-1); LYMPHOCYTES ABSOLUTE AUTO 1.22 K/mm3 (0.84-5.20); LYMPHOCYTES PERCENT AUTO 16 % (21-46); MONOCYTES ABSOLUTE AUTO 0.47 K/mm3 (0.16-1.47); MONOCYTES PERCENT AUTO 6 % (4-13); Mean Corpuscular HGB 27.6 pg (26.0-34.0); Mean Corpuscular HGB Conc 31.9 g/dL (31.5-36.5); Mean Corpuscular Volume 86 fL (80-100); NEUTROPHILS ABSOLUTE AUTO 4.96 K/mm3 (1.96-9.15); NEUTROPHILS PERCENT AUTO 67 % (41-73); Platelet Count 248 K/mm3 (150-400); RDW Coefficient Variation 16.4 % (11.7-14.2); RDW Standard Deviation 52.3 fL (35.1-46.3); Red Blood Cell Count 3.59 M/mm3 (3.80-5.20); White Blood Cell Count 7.43 K/mm3 (4.00-11.30)
[2020-10-19 10:16] LABS: Albumin, Blood 2.6 g/dL (3.4-5.0); Anion Gap 14 mmol/L (6-16); Blood Urea Nitrogen 30 mg/dL (8-24); Bun/Creatinine Ratio 11.9 (12.0-20.0); CO2, Blood 26 mmol/L (21-32); Calcium, Blood 9.7 mg/dL (8.5-10.1); Chloride, Blood 92 mmol/L (98-108); Creatinine, Blood 2.52 mg/dL (0.40-1.00); Glomerular Filtration Rate 22 (60-); Glucose, Blood 288 mg/dL (70-99); Magnesium, Blood 1.9 mg/dL (1.6-2.4); Phosphorus, Blood 3.6 mg/dL (2.5-4.9); Potassium, Blood 4.1 mmol/L (3.5-5.5); Sodium, Blood 132 mmol/L (136-145)
--- NOTE | 2020-10-19 10:30 | NUR ---
DIALYSIS NOTE PT MOVED TO BED 3 IN THE MIDDL;E O9F TREATMENT. BLOOD RETURNED TO PATIENT PRIOR DUE TO R/O LEAKING. WILL RESUME TX AFTER TEST C OMPLETE. PT EXPERIENCED NO NEGATIVE EFFECTS. STABLE
--- NOTE | 2020-10-19 19:52 | NUR ---
SHIFT SUMMARY: NO ACUTE CHANGES TO REPORT THIS SHIFT. PT A&O; CALM AND COOPERATIVE WITH CARE. MEDICATED FOR BACK & HIP PAIN PER EMAR. DIALYSIS TODAY; PT TOLERATED WELL. HILL IN PLACE FOR SKIN BREAKDOWN; PATENT & DRAINING. IV ABX CONTINUING. AWAITING PLACEMENT. REPORT GIVEN TO ONCOMING RN.
--- NOTE | 2020-10-20 04:49 | NUR ---
SHIFT SUMMARY: NO SIGNIFICANT CHANGES THIS SHIFT. PT A&O X4. VS WNL. PT MEDICATED WITH FLEXERIL Q6 PER ORDERS. PT REPORTS ONLY NEEDING NARCOTICS PRIOR TO PHYSICAL THERAPY IN THE MORNING. PT MAX ASSISTANCE REQUIRING LIFT FOR ALL TRANSFERS. HILL PATENT AND DRAINING YELLOW URINE. TOLERATING SIPS OF WATER THROUGHOUT NIGHT. DENIES N/V. NO COMPLAINTS THIS SHIFT. AWAITING SNF PLACEMENT.
[2020-10-20 08:12] LABS: BASOPHILS ABSOLUTE AUTO 0.08 K/mm3 (0.00-0.23); BASOPHILS PERCENT AUTO 1 % (0-2); EOSINOPHILS ABSOLUTE AUTO 0.68 K/mm3 (0.00-0.68); EOSINOPHILS PERCENT AUTO 9 % (0-6); Hematocrit 31.5 % (33.0-51.0); Hemoglobin 10.2 g/dL (11.5-16.0); IMMATURE GRAN ABSOLUTE AUTO 0.07 K/mm3 (0.00-0.10); IMMATURE GRAN PERCENT AUTO 1 % (0-1); LYMPHOCYTES ABSOLUTE AUTO 1.18 K/mm3 (0.84-5.20); LYMPHOCYTES PERCENT AUTO 16 % (21-46); MONOCYTES ABSOLUTE AUTO 0.53 K/mm3 (0.16-1.47); MONOCYTES PERCENT AUTO 7 % (4-13); Mean Corpuscular HGB 27.6 pg (26.0-34.0); Mean Corpuscular HGB Conc 32.4 g/dL (31.5-36.5); Mean Corpuscular Volume 85 fL (80-100); Mean Platelet Volume 11.3 fL (9.1-12.4); NEUTROPHILS ABSOLUTE AUTO 4.84 K/mm3 (1.96-9.15); NEUTROPHILS PERCENT AUTO 66 % (41-73); Platelet Count 255 K/mm3 (150-400); RDW Coefficient Variation 16.6 % (11.7-14.2); RDW Standard Deviation 51.7 fL (35.1-46.3); White Blood Cell Count 7.38 K/mm3 (4.00-11.30)
--- NOTE | 2020-10-20 17:43 | NUR ---
SHIFT SUMMARY PT AOX4; USES LIFT. PT WORKED WITH PT/OT TODAY. CONSISTENT PAIN PRESENT; MEDICATER PER EMAR. REPOSITION NEEDED. MEPELEX INTACT ON HER BUTTOCKS AREA. PT DENIES CP OR DISCOMFORT. BED IS IN THE LOWEST POSITION AND CALL LIGHT WITHIN REACH
--- NOTE | 2020-10-21 08:00 | NUR ---
No changes overnight for Ynia. Wound care done on her gluteal shearing wounds. New mepilex applied to lower right gluteus as area looked quite red after area of skin was gently removed. Borden given once in preparation for dressing changes.
[2020-10-21 09:55] LABS: BASOPHILS ABSOLUTE AUTO 0.08 K/mm3 (0.00-0.23); BASOPHILS PERCENT AUTO 1 % (0-2); EOSINOPHILS ABSOLUTE AUTO 0.75 K/mm3 (0.00-0.68); EOSINOPHILS PERCENT AUTO 10 % (0-6); Hematocrit 32.6 % (33.0-51.0); Hemoglobin 10.4 g/dL (11.5-16.0); IMMATURE GRAN ABSOLUTE AUTO 0.06 K/mm3 (0.00-0.10); IMMATURE GRAN PERCENT AUTO 1 % (0-1); LYMPHOCYTES ABSOLUTE AUTO 1.21 K/mm3 (0.84-5.20); LYMPHOCYTES PERCENT AUTO 16 % (21-46); MONOCYTES ABSOLUTE AUTO 0.46 K/mm3 (0.16-1.47); MONOCYTES PERCENT AUTO 6 % (4-13); Mean Corpuscular HGB 27.3 pg (26.0-34.0); Mean Corpuscular HGB Conc 31.9 g/dL (31.5-36.5); Mean Corpuscular Volume 86 fL (80-100); NEUTROPHILS ABSOLUTE AUTO 5.24 K/mm3 (1.96-9.15); NEUTROPHILS PERCENT AUTO 67 % (41-73); Platelet Count 265 K/mm3 (150-400); RDW Coefficient Variation 16.4 % (11.7-14.2); RDW Standard Deviation 51.9 fL (35.1-46.3); Red Blood Cell Count 3.81 M/mm3 (3.80-5.20)
[2020-10-21 10:12] LABS: Alanine Aminotransfer (ALT/SGP 21 U/L (12-78); Albumin, Blood 2.7 g/dL (3.4-5.0); Albumin/Globulin Ratio 0.7 (0.8-1.8); Alk Phos 111 U/L (50-136); Anion Gap 9 mmol/L (6-16); Aspartate Aminotrans (AST/SGOT 10 U/L (12-37); Bilirubin, Direct <0.1 mg/dL (0.0-0.3); Bilirubin, Indirect Unable to Calculate mg/dL (0.1-0.7); Bilirubin, Total 0.2 mg/dL (0.1-1.0); Blood Urea Nitrogen 29 mg/dL (8-24); Bun/Creatinine Ratio 11.2 (12.0-20.0); CO2, Blood 28 mmol/L (21-32); Calcium, Blood 10.3 mg/dL (8.5-10.1); Chloride, Blood 96 mmol/L (98-108); Globulin, Blood 4.1 g/dL (2.2-4.0); Glomerular Filtration Rate 21 (60-); Glucose, Blood 237 mg/dL (70-99); Magnesium, Blood 1.9 mg/dL (1.6-2.4); Phosphorus, Blood 3.6 mg/dL (2.5-4.9); Potassium, Blood 3.8 mmol/L (3.5-5.5); Sodium, Blood 133 mmol/L (136-145); Total Protein, Blood 6.8 g/dL (6.4-8.2)
--- NOTE | 2020-10-21 17:55 | NUR ---
SHIFT SUMMARY PT ALERT ORIENTED; AT BEDSIDE. PT IS STILL USES LIFT. PT WORKED WITH PHYSICAL THERAPY TODAY. PT VERY PAINFUL. MEDICATED PRIOR WORKING WITH PT. AFTER WORKING WITH THERAPIST, PT BECAME VERY PAINFUL; CALLED THE DR AND PT RECEIVED A ONE DOSE OF PAIN MEDS. PT AWAITS FOR DISCHARGE PLAN TO HAPPEN TO SUNDAY. PT WILL WORK WITH THERAPIST TOMORROW STEAM TUNNEL FEEDER, WILL PASS ALONG TO NEXT SHIFT NURSE TO MEDICATE THE PT PRIOR. NO CP OR ANY OTHER CONCERNS NOTED. MEPELEX INTACT ON HER COCCYX. BED IS IN THE LOWEST POSITION AND CALL LIGHT WITHIN REACH.
--- NOTE | 2020-10-22 06:34 | NUR ---
PT ALERT AND ORIENTED. VSS ON RA. C/O PAIN. MANAGED WELL W FLEXARIL. PT DECLINED OTHER PAIN MEDS. PT REPOSTIONED 2X. REFUSED Q2HR TURNS, EDUCATION PROVIDED. HILL IN PLACE. SEMINENT FOUND IN HILL CATHETER. SLEEPING B/W CARE. USING CALL LIGHT TO MAKE NEEDS KNOWN.
--- NOTE | 2020-10-22 16:48 | NUR ---
pt pleasnt today. she did stand with sit to stand lift today. she states is very pleased with this. took pain med prior to phys therapy. this helped per her discussion. husb in to visit today. no new concerns noted today., bed in low positoin, call lite in reach, calls approp
--- NOTE | 2020-10-23 05:33 | NUR ---
POSTAL SERVICE CLERK SUMMARY PT A/O X4. SLEPT WELL TONIGHT. DENIES PAIN, NAUSEA, SOB. ROOM AIR. VSS. NO ACUTE CHANGES. WILL CONTINUE TO MONITOR. CALL LIGHT WITHIN REACH.
[2020-10-23 09:43] LABS: BASOPHILS ABSOLUTE AUTO 0.07 K/mm3 (0.00-0.23); BASOPHILS PERCENT AUTO 1 % (0-2); EOSINOPHILS PERCENT AUTO 9 % (0-6); Hematocrit 31.7 % (33.0-51.0); IMMATURE GRAN ABSOLUTE AUTO 0.06 K/mm3 (0.00-0.10); IMMATURE GRAN PERCENT AUTO 1 % (0-1); LYMPHOCYTES ABSOLUTE AUTO 1.34 K/mm3 (0.84-5.20); LYMPHOCYTES PERCENT AUTO 17 % (21-46); MONOCYTES ABSOLUTE AUTO 0.47 K/mm3 (0.16-1.47); MONOCYTES PERCENT AUTO 6 % (4-13); Mean Corpuscular HGB 27.2 pg (26.0-34.0); Mean Corpuscular HGB Conc 31.5 g/dL (31.5-36.5); Mean Corpuscular Volume 86 fL (80-100); NEUTROPHILS ABSOLUTE AUTO 5.18 K/mm3 (1.96-9.15); NEUTROPHILS PERCENT AUTO 66 % (41-73); Platelet Count 237 K/mm3 (150-400); RDW Coefficient Variation 16.6 % (11.7-14.2); RDW Standard Deviation 52.8 fL (35.1-46.3); Red Blood Cell Count 3.67 M/mm3 (3.80-5.20); White Blood Cell Count 7.82 K/mm3 (4.00-11.30)
[2020-10-23 09:58] LABS: Albumin, Blood 2.6 g/dL (3.4-5.0); Anion Gap 11 mmol/L (6-16); Blood Urea Nitrogen 31 mg/dL (8-24); Bun/Creatinine Ratio 11.6 (12.0-20.0); CO2, Blood 27 mmol/L (21-32); Calcium, Blood 10.5 mg/dL (8.5-10.1); Chloride, Blood 99 mmol/L (98-108); Creatinine, Blood 2.67 mg/dL (0.40-1.00); Glomerular Filtration Rate 20 (60-); Glucose, Blood 216 mg/dL (70-99); Magnesium, Blood 1.7 mg/dL (1.6-2.4); Sodium, Blood 137 mmol/L (136-145)
--- NOTE | 2020-10-23 18:40 | NUR ---
SHIFT SUMMARY. A&OX4, PLEASANT AND COOPERATIVE WITH CARE. PT REPORTED BACK PAIN IS TOLERABLE THIS SHIFT AND DENIED THE NEED FOR PAIN MEDICAITON. NO N/V, SOB. DIALYSIS COMPLETED THIS AM. VSS. RESEARCHED POWERGLIDE IV, IT WAS PLACED IN AXEL 10/07/20. HILL PATENT AND DRAINING SMALL AMOUNT OF CLEAR YELLOW URINE.
--- NOTE | 2020-10-24 05:02 | NUR ---
RIVET TOSSER SUMMARY PT A/O X4. MEDICATED ONCE FOR HIP PAIN OVERNIGHT. SLEPT WELL TONIGHT. DENIED CHEST PAIN, SOB AND NAUSEA. NO OTHER COMPLAINTS. ABLE TO MAKE NEEDS KNOWN. REFUSES TO BE REPOSITOINED, LIKES TO HAVE HIPS FLOATED ONLY. CALL LIGHT WITHIN REACH, NO ACUTE CHANGES. PLEASANT AND COOPERATIVE.
--- NOTE | 2020-10-24 18:10 | NUR ---
SHIFT SUMMMARY. NO DIALYSIS TODAY. BOWEL CARE STARTED, PT HAD SMALL BM AND IS ON BEDPAN AGAIN ANNA THIS TIME. PT REPORTED PAIN ONCE THIS SHIFT, PAIN MANAGED WELL WITH CURRENT ORDERS. NO SOB, N/V. NO OTHER CHANGES OR CONCERNS.
--- NOTE | 2020-10-25 05:00 | NUR ---
AML ANALYST SUMMARY PT A/O X4. SLEPT WELL TONIGHT. MEDICATED ONCE OVERNIGHT FOR CHRONIC HIP AND BACK PAIN. DENIES SOB, NAUSEA AND OTHER COMPLAINTS. ABLE TO MAKE NEEDS KNOWN. PT REFUSES TO BE REPOSITIONED IN BED, ONLY LIKES TO HAVE HIPS FLOATED ON PILLOWS. NO ACUTE CHANGES, CALL LIGHT WITHIN REACH.
[2020-10-25 09:43] LABS: BASOPHILS ABSOLUTE AUTO 0.09 K/mm3 (0.00-0.23); BASOPHILS PERCENT AUTO 1 % (0-2); EOSINOPHILS ABSOLUTE AUTO 0.72 K/mm3 (0.00-0.68); EOSINOPHILS PERCENT AUTO 11 % (0-6); Hematocrit 33.5 % (33.0-51.0); Hemoglobin 10.8 g/dL (11.5-16.0); IMMATURE GRAN ABSOLUTE AUTO 0.06 K/mm3 (0.00-0.10); IMMATURE GRAN PERCENT AUTO 1 % (0-1); LYMPHOCYTES ABSOLUTE AUTO 1.37 K/mm3 (0.84-5.20); LYMPHOCYTES PERCENT AUTO 21 % (21-46); MONOCYTES ABSOLUTE AUTO 0.51 K/mm3 (0.16-1.47); MONOCYTES PERCENT AUTO 8 % (4-13); Mean Corpuscular HGB 27.7 pg (26.0-34.0); Mean Corpuscular HGB Conc 32.2 g/dL (31.5-36.5); Mean Corpuscular Volume 86 fL (80-100); Mean Platelet Volume 10.9 fL (9.1-12.4); NEUTROPHILS ABSOLUTE AUTO 3.94 K/mm3 (1.96-9.15); NEUTROPHILS PERCENT AUTO 59 % (41-73); Platelet Count 235 K/mm3 (150-400); RDW Coefficient Variation 16.6 % (11.7-14.2); RDW Standard Deviation 51.8 fL (35.1-46.3); White Blood Cell Count 6.69 K/mm3 (4.00-11.30)
[2020-10-25 10:09] LABS: Albumin, Blood 2.7 g/dL (3.4-5.0); Anion Gap 5 mmol/L (6-16); Blood Urea Nitrogen 34 mg/dL (8-24); Bun/Creatinine Ratio 12.4 (12.0-20.0); CO2, Blood 30 mmol/L (21-32); Calcium, Blood 10.9 mg/dL (8.5-10.1); Chloride, Blood 96 mmol/L (98-108); Creatinine, Blood 2.74 mg/dL (0.40-1.00); Glomerular Filtration Rate 20 (60-); Glucose, Blood 198 mg/dL (70-99); Magnesium, Blood 2.2 mg/dL (1.6-2.4); Phosphorus, Blood 4.5 mg/dL (2.5-4.9); Potassium, Blood 3.9 mmol/L (3.5-5.5); Sodium, Blood 131 mmol/L (136-145)
--- NOTE | 2020-10-25 18:12 | NUR ---
SHIFT SUMMARY PATIENT ALERT AND ORIENTATED X4. MEDICATED WITH NORCO 1X THIS SHIFT FOR CHRONIC PAIN IN HIPS AND BACK. PATIENT IS ABLE TO COMMUNICATE NEEDS APPROPRIATELY. DENIES SOB, NAUSEA, AND OTHER COMPLAINTS. PATIENT HAS WORKED WITH PHYSICAL THERAPY AND HAS ABULATED TO THE CHAIR THIS SHIFT. POWERGLIDE REMOVED. NO IV ACCESS ORDER RECEIVED. NO ACUTE CHANGES THIS SHIFT. VITAL SIGNS REVIEWED.
--- NOTE | 2020-10-25 18:34 | NUR ---
AIR CONDITIONING UNIT TESTER DOC REVIEW THIS RN ASSESSED THE PT. THIS RN REVIEWED STUDENT'S DOCUMENTATION AND AGREES WITH HIS ASSESSMENT.
--- NOTE | 2020-10-26 04:38 | NUR ---
SHIFT SUMMARY- PT. APPEARED TO HAVE SLEPT WELL T/O THE NIGHT, NO APPARENT DISTRESS NOTED. MEDICATED FOR PAIN TO R HIP AND BACK X1. PT. REPORTED GOOD RELIEF. DENIED ANY OTHER NEEDS DURING THE NIGHT, VSS. CALL LIGHT WITHIN REACH AND SIDE RAILS UPX2. WILL CONT TO MONITOR.
[2020-10-26 07:36] LABS: Hematocrit 32.7 % (33.0-51.0); Hemoglobin 10.4 g/dL (11.5-16.0)
[2020-10-26 07:56] LABS: Albumin, Blood 2.8 g/dL (3.4-5.0); Anion Gap 5 mmol/L (6-16); Blood Urea Nitrogen 26 mg/dL (8-24); Bun/Creatinine Ratio 10.9 (12.0-20.0); CO2, Blood 31 mmol/L (21-32); Calcium, Blood 10.8 mg/dL (8.5-10.1); Chloride, Blood 101 mmol/L (98-108); Creatinine, Blood 2.39 mg/dL (0.40-1.00); Glomerular Filtration Rate 23 (60-); Glucose, Blood 124 mg/dL (70-99); Phosphorus, Blood 3.8 mg/dL (2.5-4.9); Potassium, Blood 4.2 mmol/L (3.5-5.5); Sodium, Blood 137 mmol/L (136-145)
--- NOTE | 2020-10-26 18:11 | NUR ---
SHIFT SUMMARY PATIENT MEDICATED X1 FOR PAIN THIS SHIFT, DENIES NAUSEA AND SHORTNESS OF BREATH. WORKED WITH PT AND OT. UP TO RECLINER WITH CEILING LIFT, USED SIT TO STAND LIFT TO STAND TWICE. ATING AND DRINKING WELL. VISITED IN AFTERNOON. NO DIALYSIS TODAY.
--- NOTE | 2020-10-27 07:17 | NUR ---
SHIFT SUMMARY PT IS A 50 Y/O FEMALE, ADMITTED FOR HYPOXIA AND CURRENTLY AWAITING SNF PLACEMENT. SHE IS A&O X 4, BEDREST LIFT PT. SHE WAS MEDICATED ONCE FOR BACK PAIN WITH PRN HYDROCODONE. NO C/O NAUSEA OR SOB. VITAL SIGNS STABLE. HILL IN PLACE, PATENT AND DRAINING. NO ACUTE CHANGES IN PT CONDITION NOTED. REPORT GIVEN TO ONCOMING RN.
[2020-10-27 10:40] LABS: Hematocrit 34.3 % (33.0-51.0)
[2020-10-27 10:57] LABS: Albumin, Blood 2.9 g/dL (3.4-5.0); Anion Gap 5 mmol/L (6-16); Blood Urea Nitrogen 27 mg/dL (8-24); Bun/Creatinine Ratio 13.3 (12.0-20.0); CO2, Blood 30 mmol/L (21-32); Calcium, Blood 10.5 mg/dL (8.5-10.1); Chloride, Blood 97 mmol/L (98-108); Creatinine, Blood 2.03 mg/dL (0.40-1.00); Glomerular Filtration Rate 28 (60-); Glucose, Blood 181 mg/dL (70-99); Magnesium, Blood 2.1 mg/dL (1.6-2.4); Phosphorus, Blood 2.9 mg/dL (2.5-4.9); Potassium, Blood 3.9 mmol/L (3.5-5.5); Sodium, Blood 132 mmol/L (136-145)
--- NOTE | 2020-10-27 17:53 | NUR ---
SHIFT SUMMARY PATIENT MEDICATED X1 FOR PAIN, DENIES NAUSEA AND SHORTNESS OF BREATH. PATIENT WORKED WITH PT AND OT TODAY. UP TO RECLINCER VIA CEILING LIFT, PRACTICING STANDING VIA SIT TO STAND LIFT. DIALYSIS THIS MORNING. CARE MANAGEMENT CONTINUES TO SEEK SNF PLACEMENT. VISITED IN AFTERNOON.
--- NOTE | 2020-10-28 06:41 | NUR ---
SHIFT SUMMARY PT IS A 50 Y/O FEMALE, ADMITTED FOR HYPOXIA AND CURRENTLY AWAITING PLACEMENT VS HOME WITH HOME HEALTH. SHE IS A&O X 4, BEDREST AND LIFT TO THE CHAIR. NO C/O ACUTE PAIN, NAUSEA OR SOB. PT DID REPORT CHRONIC BACK PAIN, BUT DENIED THE NEED FOR PAIN MEDS. VITAL SIGNS STABLE. NO ACUTE CHANGES IN PT CONDITION NOTED. WILL CONTINUE TO MONITOR AND TREAT PER EMAR UNTIL HAND OFF TO DAY SHIFT RN.
[2020-10-28 09:37] LABS: Hematocrit 33.6 % (33.0-51.0); Hemoglobin 10.8 g/dL (11.5-16.0)
[2020-10-28 09:56] LABS: Albumin, Blood 2.8 g/dL (3.4-5.0); Anion Gap 5 mmol/L (6-16); Blood Urea Nitrogen 27 mg/dL (8-24); Bun/Creatinine Ratio 10.8 (12.0-20.0); CO2, Blood 31 mmol/L (21-32); Calcium, Blood 10.8 mg/dL (8.5-10.1); Chloride, Blood 95 mmol/L (98-108); Creatinine, Blood 2.49 mg/dL (0.40-1.00); Glomerular Filtration Rate 22 (60-); Glucose, Blood 149 mg/dL (70-99); Magnesium, Blood 2.1 mg/dL (1.6-2.4); Potassium, Blood 4.3 mmol/L (3.5-5.5); Sodium, Blood 131 mmol/L (136-145)
[2020-10-28] MEDS ORDERED: DOCU100 PO (13:47)
[2020-10-28] MEDS ORDERED: ACET325 PO (13:47)
[2020-10-28] MEDS ORDERED: INSULANPEN SC (13:48)
[2020-10-28] MEDS ORDERED: LIDO700A20 TOP (13:48)
--- NOTE | 2020-10-28 14:53 | NUR ---
Patient and Deep tell me about the plan to DC today. They share the concerns and the joys of leaving the hospital. I highlight their ability to overcome long and trying circumstances and point out that that it is that same kind of strength that will help them move toward total recovery. I Provide therapeutic listening and a prayer of blessing. They responds well and voice appreciation for the support from the spiritual care department.
--- NOTE | 2020-10-28 18:38 | NUR ---
PATIENT DISCHARGED HOME WITH HOME HEALTH. TEACHBACK METHOD USED. PATIENT AND VERBALIZED UNDERSTANDING OF THE DISCHARGE INSTRUCTIONS AND ALL OF THEIR QUESTIONS WERE ANSWERED. VERBALIZED THAT THEY HAD ALL THE EQUIPMENT THAT THEY NEED AT HOME TO CARE FOR PATIENT. ALL PERSONAL BELONGINGS SENT WITH PATIENT AND [facility]. PER ALE QUEVEDO FOR PATIENT TO DISCHARGE WITHOUT VOIDING POST URINARY CATHETER REMOVAL.
== END 2020-10-28 17:59 | disposition home health service (06) | DRG 871 ==
LOC: ER 11:47 → MEDS 11:48
PROVIDERS: Emergency Medicine; Family Medicine; Internal Medicine; Internal Medicine Nephrology; Physician Assistant; ADMIT Internal Medicine
PROC: 5A1D70Z Performance of Urinary Filtration, Intermittent, Less than 6 Hours Per Day (ICD-10-PCS; principal; 2020-10-01)
DX: B37.7 Candidal sepsis (principal); G92 Toxic encephalopathy; J96.21 Acute and chronic respiratory failure with hypoxia; I50.33 Acute on chronic diastolic (congestive) heart failure; N18.6 End stage renal disease; R53.2 Functional quadriplegia; E87.1 Hypo-osmolality and hyponatremia; N39.0 Urinary tract infection, site not specified; I13.2 Hypertensive heart and chronic kidney disease with heart failure and with stage 5 chronic kidney disease, or end stage renal disease; I50.32 Chronic diastolic (congestive) heart failure; M46.32 Infection of intervertebral disc (pyogenic), cervical region; Z20.822 Contact with and (suspected) exposure to COVID-19; L89.312 Pressure ulcer of right buttock, stage 2; T40.601A Poisoning by unspecified narcotics, accidental (unintentional), initial encounter; L89.152 Pressure ulcer of sacral region, stage 2; E03.9 Hypothyroidism, unspecified; E11.22 Type 2 diabetes mellitus with diabetic chronic kidney disease; J44.9 Chronic obstructive pulmonary disease, unspecified; F41.1 Generalized anxiety disorder; D63.1 Anemia in chronic kidney disease; M50.13 Cervical disc disorder with radiculopathy, cervicothoracic region; M48.03 Spinal stenosis, cervicothoracic region; I25.10 Atherosclerotic heart disease of native coronary artery without angina pectoris; E66.01 Morbid (severe) obesity due to excess calories; G89.4 Chronic pain syndrome; Z68.39 Body mass index [BMI] 39.0-39.9, adult; Z99.2 Dependence on renal dialysis; Z91.030 Bee allergy status; Z74.01 Bed confinement status; Z91.018 Allergy to other foods; Z88.8 Allergy status to other drugs, medicaments and biological substances; Z91.09 Other allergy status, other than to drugs and biological substances; I25.2 Old myocardial infarction; Z91.048 Other nonmedicinal substance allergy status; Z91.15 Patient's noncompliance with renal dialysis; Z79.899 Other long term (current) drug therapy; Z95.1 Presence of aortocoronary bypass graft; Z79.4 Long term (current) use of insulin; Z79.02 Long term (current) use of antithrombotics/antiplatelets; Z79.82 Long term (current) use of aspirin; Z98.890 Other specified postprocedural states
CPT/HCPCS: 36415; 51702; 70450; 71046; 71260; 72125; 80053; 80069; 80074; 81001; 82248; 82803; 82947; 83605; 83735; 84100; 85014; 85018; 85025; 85610; 85651; 86140; 86317; 87040; 87086; 87340; 93005; 93010; 93971; 97110; 97112; 97140; 97163; 97166; 97530; 99285-25; A9270; J0696; J0878; J0881; J1644; J1815; J2997; J3010; J7050; Q9967; U0004

== ENCOUNTER 2020-10-30 03:18 | Emergency (ER) | payer OTHER ==
[~2020-10-30] VITALS: Ht 160 cm; Wt 124.7 kg
[~2020-10-30 03:18] MED LIST changes: +ACET325 PO; +DOCU100 PO; +INSULANPEN SC; +LIDO700A20 TOP; +OXYGEN
[2020-10-30 03:40] LABS: Source, Urine Catheter
[2020-10-30 03:42] LABS: Appearance, Urine Turbid (Clear); Bilirubin, Urine Neg (Neg); Blood, Urine 5+ (Neg); Color, Urine Yellow (P-Yellow); Glucose Qualitative, Urine Neg (Neg); Ketones, Urine Neg (Neg); Leukocyte Esterase, Urine 3+ (Neg); Nitrite, Urine Neg (Neg); Protein, Urine 4+ (Neg); Urobilinogen, Urine NORM (Normal)
[2020-10-30 03:48] LABS: Bacteria Many /hpf; Red Blood Cells, Urine 0-2 /hpf (0-2); Squamous Epithelial Cells Not Seen /hpf (Few); White Blood Cells, Urine TNTC /hpf (0-5)
[2020-10-30 04:17] LABS: BASOPHILS ABSOLUTE AUTO 0.07 K/mm3 (0.00-0.23); BASOPHILS PERCENT AUTO 1 % (0-2); EOSINOPHILS ABSOLUTE AUTO 0.12 K/mm3 (0.00-0.68); EOSINOPHILS PERCENT AUTO 2 % (0-6); Hematocrit 37.1 % (33.0-51.0); IMMATURE GRAN ABSOLUTE AUTO 0.05 K/mm3 (0.00-0.10); IMMATURE GRAN PERCENT AUTO 1 % (0-1); LYMPHOCYTES ABSOLUTE AUTO 0.81 K/mm3 (0.84-5.20); LYMPHOCYTES PERCENT AUTO 10 % (21-46); MONOCYTES ABSOLUTE AUTO 0.78 K/mm3 (0.16-1.47); MONOCYTES PERCENT AUTO 10 % (4-13); Mean Corpuscular HGB 27.8 pg (26.0-34.0); Mean Corpuscular HGB Conc 32.3 g/dL (31.5-36.5); Mean Corpuscular Volume 86 fL (80-100); Mean Platelet Volume 10.8 fL (9.1-12.4); NEUTROPHILS ABSOLUTE AUTO 6.14 K/mm3 (1.96-9.15); NEUTROPHILS PERCENT AUTO 77 % (41-73); Platelet Count 189 K/mm3 (150-400); RDW Coefficient Variation 16.5 % (11.7-14.2); RDW Standard Deviation 52.4 fL (35.1-46.3); Red Blood Cell Count 4.31 M/mm3 (3.80-5.20); White Blood Cell Count 7.97 K/mm3 (4.00-11.30)
[2020-10-30 04:35] LABS: Alanine Aminotransfer (ALT/SGP 18 U/L (12-78); Albumin, Blood 3.1 g/dL (3.4-5.0); Albumin/Globulin Ratio 0.7 (0.8-1.8); Alk Phos 113 U/L (50-136); Anion Gap 7 mmol/L (6-16); Aspartate Aminotrans (AST/SGOT 12 U/L (12-37); Bilirubin, Total 0.4 mg/dL (0.1-1.0); Blood Urea Nitrogen 38 mg/dL (8-24); Bun/Creatinine Ratio 12.1 (12.0-20.0); CO2, Blood 28 mmol/L (21-32); Calcium, Blood 11.5 mg/dL (8.5-10.1); Chloride, Blood 94 mmol/L (98-108); Creatinine, Blood 3.14 mg/dL (0.40-1.00); Globulin, Blood 4.5 g/dL (2.2-4.0); Glomerular Filtration Rate 17 (60-); Glucose, Blood 232 mg/dL (70-99); Sodium, Blood 129 mmol/L (136-145); Total Protein, Blood 7.6 g/dL (6.4-8.2)
== END 2020-10-30 06:20 | disposition home or self-care (01) ==
LOC: ER 03:18
PROVIDERS: Emergency Medicine
DX: R33.9 Retention of urine, unspecified (principal); E11.9 Type 2 diabetes mellitus without complications; E03.9 Hypothyroidism, unspecified; I11.0 Hypertensive heart disease with heart failure; I50.9 Heart failure, unspecified; J44.9 Chronic obstructive pulmonary disease, unspecified; Z91.09 Other allergy status, other than to drugs and biological substances; Z91.030 Bee allergy status; Z91.018 Allergy to other foods; Z79.82 Long term (current) use of aspirin; Z79.4 Long term (current) use of insulin; Z79.899 Other long term (current) drug therapy
CPT/HCPCS: 36415; 51702; 80053; 81001; 85025; 87077; 87086; 87186; 99284-25

== ENCOUNTER → 2020-11-24 | Outpatient (CLI) | payer OTHER ==
[2020-11-24 10:51] LABS: Source, Urine Catheter
[2020-11-24 12:36] LABS: Appearance, Urine Cloudy (Clear); Bilirubin, Urine Neg (Neg); Blood, Urine 3+ (Neg); Color, Urine Yellow (P-Yellow); Glucose Qualitative, Urine Neg (Neg); Ketones, Urine Neg (Neg); Leukocyte Esterase, Urine 3+ (Neg); Nitrite, Urine Neg (Neg); Protein, Urine 3+ (Neg); Urobilinogen, Urine NORM (Normal)
[2020-11-24 13:08] LABS: Bacteria Many /hpf; Squamous Epithelial Cells Not Seen /hpf (Few); White Blood Cells, Urine TNTC /hpf (0-5)
== END ==
LOC: LAB 07:15 → LAB SHORT 07:15
PROVIDERS: Family Medicine
DX: N39.0 Urinary tract infection, site not specified (principal); Z88.8 Allergy status to other drugs, medicaments and biological substances; Z91.018 Allergy to other foods; Z91.038 Other insect allergy status; Z91.048 Other nonmedicinal substance allergy status; Z91.09 Other allergy status, other than to drugs and biological substances
CPT/HCPCS: 81001; 87077; 87086; 87186

== ENCOUNTER → 2021-02-10 | Outpatient (CLI) | payer OTHER ==
[2021-02-10 15:54] LABS: Source, Urine Catheter
[2021-02-10 17:50] LABS: Appearance, Urine Turbid (Clear); Bilirubin, Urine Neg (Neg); Blood, Urine 5+ (Neg); Color, Urine Yellow (P-Yellow); Glucose Qualitative, Urine Neg (Neg); Ketones, Urine Neg (Neg); Leukocyte Esterase, Urine 3+ (Neg); Nitrite, Urine Neg (Neg); Protein, Urine 4+ (Neg); Urobilinogen, Urine NORM (Normal)
[2021-02-10 18:22] LABS: Bacteria Many /hpf; Red Blood Cells, Urine TNTC /hpf (0-2); Squamous Epithelial Cells Few /hpf (Few); White Blood Cells, Urine TNTC /hpf (0-5)
== END | disposition home or self-care (01) ==
LOC: LAB HH 15:51 → LAB 15:51
PROVIDERS: Family Medicine
DX: N39.0 Urinary tract infection, site not specified (principal)
CPT/HCPCS: 81001; 87086

== ENCOUNTER 2021-02-16 20:16 | Inpatient (IN) | payer OTHER ==
[~2021-02-16] VITALS: Ht 160 cm; Wt 132.0 kg
[~2021-02-16 20:16] MED LIST changes: -Diltiazem HCl120 MG PO; -INSULANPEN SC; -SERT100 PO
[2021-02-16 21:02] LABS: BASOPHILS ABSOLUTE AUTO 0.05 K/mm3 (0.00-0.23); BASOPHILS PERCENT AUTO 0 % (0-2); EOSINOPHILS PERCENT AUTO 0 % (0-6); Hematocrit 33.4 % (33.0-51.0); Hemoglobin 11.4 g/dL (11.5-16.0); IMMATURE GRAN ABSOLUTE AUTO 0.13 K/mm3 (0.00-0.10); IMMATURE GRAN PERCENT AUTO 1 % (0-1); LYMPHOCYTES ABSOLUTE AUTO 0.52 K/mm3 (0.84-5.20); LYMPHOCYTES PERCENT AUTO 3 % (21-46); MONOCYTES ABSOLUTE AUTO 0.58 K/mm3 (0.16-1.47); MONOCYTES PERCENT AUTO 3 % (4-13); Mean Corpuscular HGB 33.2 pg (26.0-34.0); Mean Corpuscular HGB Conc 34.1 g/dL (31.5-36.5); Mean Corpuscular Volume 97 fL (80-100); Mean Platelet Volume 11.7 fL (9.1-12.4); NEUTROPHILS PERCENT AUTO 93 % (41-73); Platelet Count 189 K/mm3 (150-400); RDW Coefficient Variation 15.2 % (11.7-14.2); RDW Standard Deviation 54.5 fL (35.1-46.3); Red Blood Cell Count 3.43 M/mm3 (3.80-5.20); White Blood Cell Count 17.08 K/mm3 (4.00-11.30)
[2021-02-16 21:12] LABS: Source, Urine Catheter
[2021-02-16] MEDS ORDERED: SERT100 PO (21:13)
[2021-02-16] MEDS ORDERED: PANT40 PO (21:13)
[2021-02-16] MEDS ORDERED: AMARYL4 M1 PO (21:15)
[2021-02-16] MEDS ORDERED: FURO80 PO (21:15)
[2021-02-16 21:16] LABS: Appearance, Urine Cloudy (Clear); Bilirubin, Urine Neg (Neg); Blood, Urine 4+ (Neg); Color, Urine Brown (P-Yellow); Glucose Qualitative, Urine Neg (Neg); Ketones, Urine 1+ (Neg); Leukocyte Esterase, Urine 3+ (Neg); Nitrite, Urine Neg (Neg); Protein, Urine 3+ (Neg); Urobilinogen, Urine NORM (Normal)
[2021-02-16] MEDS ORDERED: DILT120ERA PO (21:16)
[2021-02-16] MEDS ORDERED: METO50 PO (21:16)
[2021-02-16 21:32] LABS: Alanine Aminotransfer (ALT/SGP 17 U/L (12-78); Albumin, Blood 2.5 g/dL (3.4-5.0); Albumin/Globulin Ratio 0.5 (0.8-1.8); Alk Phos 109 U/L (50-136); Anion Gap 15 mmol/L (6-16); Aspartate Aminotrans (AST/SGOT 20 U/L (12-37); Bilirubin, Total 0.5 mg/dL (0.1-1.0); Blood Urea Nitrogen 49 mg/dL (8-24); Bun/Creatinine Ratio 9.5 (12.0-20.0); CO2, Blood 24 mmol/L (21-32); Calcium, Blood 10.1 mg/dL (8.5-10.1); Chloride, Blood 89 mmol/L (98-108); Creatinine, Blood 5.15 mg/dL (0.40-1.00); Globulin, Blood 5.3 g/dL (2.2-4.0); Glomerular Filtration Rate 9 (60-); Glucose, Blood 254 mg/dL (70-99); Potassium, Blood 5.1 mmol/L (3.5-5.5); Sodium, Blood 128 mmol/L (136-145); Total Protein, Blood 7.8 g/dL (6.4-8.2)
[2021-02-16 21:35] LABS: Amorphous Mod (0-Heavy); Bacteria Many /hpf; Squamous Epithelial Cells Rare /hpf (Few); Triple Phosphate Crystals Mod /hpf; White Blood Cells, Urine TNTC /hpf (0-5)
[2021-02-16 22:55] LABS: SARS-Cov-2 (COVID-19) PCR, MMC NEGATIVE (NEGATIVE)
[2021-02-17 02:06] LABS: CHOL/HDL RATIO 6.6; Cholesterol 249 mg/dL (50-200); HDL Cholesterol 38 mg/dL (>39); LDL/HDL RATIO 4.7; Low Density Lipoprotein Chol 180 mg/dL (0-110); Triglycerides 156 mg/dL (30-160); Very Low Density Lipoprot Chol 31 mg/dL (6-32)
[2021-02-17 03:17] LABS: PCO2 Arterial 36.3 mmHg (35-45); PO2 Arterial 112 mmHg (80-100); pH Blood Arterial 7.38 (7.35-7.45)
[2021-02-17 04:29] LABS: International Normalized Ratio 1.11; Prothrombin Time Results 11.9 Sec (9.7-11.5)
[2021-02-17 05:11] LABS: BASOPHILS ABSOLUTE AUTO 0.06 K/mm3 (0.00-0.23); BASOPHILS PERCENT AUTO 0 % (0-2); EOSINOPHILS PERCENT AUTO 0 % (0-6); Hematocrit 32.4 % (33.0-51.0); Hemoglobin 10.8 g/dL (11.5-16.0); IMMATURE GRAN ABSOLUTE AUTO 0.23 K/mm3 (0.00-0.10); IMMATURE GRAN PERCENT AUTO 1 % (0-1); LYMPHOCYTES PERCENT AUTO 5 % (21-46); MONOCYTES ABSOLUTE AUTO 0.94 K/mm3 (0.16-1.47); MONOCYTES PERCENT AUTO 5 % (4-13); Mean Corpuscular HGB 32.4 pg (26.0-34.0); Mean Corpuscular HGB Conc 33.3 g/dL (31.5-36.5); Mean Corpuscular Volume 97 fL (80-100); Mean Platelet Volume 11.8 fL (9.1-12.4); NEUTROPHILS ABSOLUTE AUTO 15.61 K/mm3 (1.96-9.15); NEUTROPHILS PERCENT AUTO 88 % (41-73); Platelet Count 232 K/mm3 (150-400); RDW Coefficient Variation 15.2 % (11.7-14.2); RDW Standard Deviation 54.9 fL (35.1-46.3); Red Blood Cell Count 3.33 M/mm3 (3.80-5.20); White Blood Cell Count 17.74 K/mm3 (4.00-11.30)
[2021-02-17 06:10] LABS: Bilirubin, Total 0.5 mg/dL (0.1-1.0); Bun/Creatinine Ratio 10.1 (12.0-20.0); Calcium, Blood 9.5 mg/dL (8.5-10.1); Creatinine, Blood 5.25 mg/dL (0.40-1.00); Potassium, Blood 5.4 mmol/L (3.5-5.5); Total Protein, Blood 7.9 g/dL (6.4-8.2)
[2021-02-17 06:11] LABS: Albumin, Blood 2.3 g/dL (3.4-5.0); Albumin/Globulin Ratio 0.4 (0.8-1.8); Globulin, Blood 5.6 g/dL (2.2-4.0)
[2021-02-17] MEDS ORDERED: Ventolin/Prove6.7 GM INH (12:56)
[2021-02-17] MEDS ORDERED: DILTIAZEM 24HR120 M4 PO (12:57)
[2021-02-17] MEDS ORDERED: GABA600 PO (12:57)
[2021-02-17] MEDS ORDERED: METO50ER PO (12:58)
[2021-02-17] MEDS ORDERED: LEVSOD75 PO (12:58)
[2021-02-17] MEDS ORDERED: SERT100 PO (12:58)
[2021-02-17] MEDS ORDERED: INSULANPEN SC (12:59)
[2021-02-17] MEDS ORDERED: Amitriptyline H10 MG PO (12:59)
[2021-02-17] MEDS ORDERED: AMLO10 PO (13:01)
--- NOTE | 2021-02-17 16:31 | NUR ---
ASSUMING CARE OF PT PT ALERT AND ORIENTED. ON 3L NC, DENIES PAIN. RIGHT GROIN SITE CDI, NO S/S OF BLEEDING POST PCI. RIGHT PEDAL PULSE PALPABLE. B/P 120'S LEVOPHED IS OFF. HEPARIN GTT ON STANDBY POST PCI- RESTART TIME AT 1945. NO S/S OF ACUTE DISRESS.
--- NOTE | 2021-02-17 19:46 | NUR ---
ASSUMED CARE OF PT AT 1900, REPORT RECEIVED FROM ABISAI MOYA. PT POST WAIST CUTTER AND DIALYSIS, LYING FLAT IN REVERSE [place] POSITION. ALERT AND ORIENTED, ABLE TO MAKE NEEDS KNOWN. LEVOPHED INFUSING AT 1 MCG/MIN, AND HEPARIN CURRENTLY ON STANDBY UNTIL 1999. WILL RESUME AT 16 UNITS/KG/HR AT 1999. LUNGS CLEAR WITH DIM BASES, BOWEL TONES HYPOACTIVE. R GROIN SITE CDI, SOFT NO BLEEDING NOTED TO DRESSING. PULSES PALPABLE IN ALL EXTREMITIES, CAP REFILL WNL. PT ON 6L O2 VIA OXIMIZER, SPO2 95%. DENIES PAIN AT THIS TIME. TOLERATING SIPS OF WATER, DENIES NAUSEA.
[2021-02-18 04:48] LABS: Hematocrit 26.4 % (33.0-51.0); Hemoglobin 8.8 g/dL (11.5-16.0)
[2021-02-18 05:07] LABS: Albumin, Blood 1.9 g/dL (3.4-5.0); Anion Gap 11 mmol/L (6-16); Blood Urea Nitrogen 37 mg/dL (8-24); Bun/Creatinine Ratio 8.8 (12.0-20.0); CO2, Blood 26 mmol/L (21-32); Calcium, Blood 9.1 mg/dL (8.5-10.1); Chloride, Blood 91 mmol/L (98-108); Creatinine, Blood 4.19 mg/dL (0.40-1.00); Glomerular Filtration Rate 11 (60-); Glucose, Blood 230 mg/dL (70-99); Magnesium, Blood 2.3 mg/dL (1.6-2.4); Phosphorus, Blood 6.5 mg/dL (2.5-4.9); Potassium, Blood 4.3 mmol/L (3.5-5.5); Sodium, Blood 128 mmol/L (136-145)
--- NOTE | 2021-02-18 07:22 | NUR ---
SHIFT SUMMARY PT REMAINS ALERT AND ORIENTED, ABLE TO MAKE NEEDS KNOWN. LUNGS CLEAR WITH DIM BASES. OXYMIZER AT 7L WHILE ASLEEP DUE TO SATS OCCASIONALLY DROPPING TO MID 70'S. DENIED HAVING ANY PAIN OR SOB T/O SHIFT. COMPLAINS OF BACK PAIN WITH REPOSITIONING. GROIN SITE SOFT, CDI. HEPARIN INFUSING AT 18 UNITS/HR. LEVO CONTINUES TO BE ON STANDBY.
--- NOTE | 2021-02-18 10:48 | NUR ---
TRANSFER: REPORT RECIEVED FROM CLINICAL NUTRITION MANAGERGRIFFIN ELLIOTT. PT TO [facility] AT ABOUT 0945. UPON ASSESSMENT PT IS DROWSY, RESPONDS TO QUESTIONS, IS OREINTED. VSS, 90% ON 8L, CONTINUIOUS BI OX IN PLACE. VSS, PT ASKING TO USE BEDPAN, TELE APPLIED AND VERIFIED SINUS TACH 105. PT DENIES CP, PLACED ON BEDPAN, WILL CTM.
--- NOTE | 2021-02-18 16:52 | NUR ---
SUMMARY: NO ACUTE CHANGE SINCE TRANSFER TO PCU, PT A/O, VSS. TELE WNL, PT HAS DENIED CP. PLAN IS FOR INVESTMENT COUNSELOR TOMORROW AND NPO AT 0000 TONIGHT. WILL CTM AND REPORT TO NOC RN
--- NOTE | 2021-02-18 20:28 | NUR ---
THE PATIENT WAS COMPLAINING OF PAIN IN HER BACK DR. TRUONG WAS CALLED TO GET SOMETHING TO HELP WITH HER PAIN. SEE ORDERS
[2021-02-19 03:45] LABS: Hematocrit 26.3 % (33.0-51.0); Hemoglobin 8.7 g/dL (11.5-16.0); Mean Corpuscular HGB 32.8 pg (26.0-34.0); Mean Corpuscular HGB Conc 33.1 g/dL (31.5-36.5); Mean Corpuscular Volume 99 fL (80-100); Mean Platelet Volume 11.4 fL (9.1-12.4); Platelet Count 164 K/mm3 (150-400); RDW Coefficient Variation 15.7 % (11.7-14.2); RDW Standard Deviation 56.9 fL (35.1-46.3); Red Blood Cell Count 2.65 M/mm3 (3.80-5.20); White Blood Cell Count 8.11 K/mm3 (4.00-11.30)
[2021-02-19 04:10] LABS: Albumin, Blood 1.9 g/dL (3.4-5.0); Anion Gap 11 mmol/L (6-16); Blood Urea Nitrogen 49 mg/dL (8-24); Bun/Creatinine Ratio 8.7 (12.0-20.0); CO2, Blood 27 mmol/L (21-32); Calcium, Blood 9.7 mg/dL (8.5-10.1); Chloride, Blood 89 mmol/L (98-108); Creatinine, Blood 5.66 mg/dL (0.40-1.00); Glomerular Filtration Rate 8 (60-); Glucose, Blood 154 mg/dL (70-99); Magnesium, Blood 2.5 mg/dL (1.6-2.4); Potassium, Blood 4.7 mmol/L (3.5-5.5); Sodium, Blood 127 mmol/L (136-145)
[2021-02-19 04:42] LABS: Phosphorus, Blood 8.1 mg/dL (2.5-4.9)
--- NOTE | 2021-02-19 06:04 | NUR ---
SHIFT SUMMARY PATIENT IS RESTING IN BED. BED IS IN LOW POSITION. VITALS WERE STABLE. NO ACUTE EVENT DURING THE NIGHT. VITALS WERE STABLE. PATIENT COMPLAINED OF BACK PAIN AND WAS MEDICATED WITH PRN SEE EMAR. PATIENT IS NPO FOR POSSIBLE DIET AID TODAY. WILL CONTINUE TO MONITOR AND REPORT TO DAYSHIFT RN.
--- NOTE | 2021-02-19 08:00 | NUR ---
pt laying in bed awake, a/ox3, flat affect, lungs are clear in upper das, dim in bases, resp even and unlabored, no cough noted, is currently on 8 liters 02 via oxymizer, hrr, tele in place running sr per monitor see strip, ppp+1, cap refill< 3sec, vs stable, afebrile, iv sites are clear and patent, 22g to right wrist, central line to right groin, cath site to right groin is soft, wnl, btx4, abd flat soft nontender, has a chronic paulino cath, skin has small sores on buttocks, almost looks like scratches, feels very tired and weak today, will not be having another angio, will procede with dialysis, moves arms, call light in reach.
--- NOTE | 2021-02-19 15:37 | NUR ---
continuing with dialysis.
--- NOTE | 2021-02-19 18:00 | NUR ---
pt eating dinner, seems tired, isn't able to sit up due to back pain, working on yogurt. no acute changes this shift. call light in reach.
[2021-02-20 03:49] LABS: Hematocrit 24.5 % (33.0-51.0); Hemoglobin 8.1 g/dL (11.5-16.0); Mean Corpuscular HGB 32.4 pg (26.0-34.0); Mean Corpuscular HGB Conc 33.1 g/dL (31.5-36.5); Mean Corpuscular Volume 98 fL (80-100); Mean Platelet Volume 11.4 fL (9.1-12.4); Platelet Count 177 K/mm3 (150-400); RDW Coefficient Variation 15.7 % (11.7-14.2); RDW Standard Deviation 56.7 fL (35.1-46.3); White Blood Cell Count 7.52 K/mm3 (4.00-11.30)
[2021-02-20 04:02] LABS: Albumin, Blood 1.8 g/dL (3.4-5.0); Anion Gap 6 mmol/L (6-16); Blood Urea Nitrogen 31 mg/dL (8-24); Bun/Creatinine Ratio 7.9 (12.0-20.0); CO2, Blood 30 mmol/L (21-32); Calcium, Blood 9.4 mg/dL (8.5-10.1); Chloride, Blood 96 mmol/L (98-108); Creatinine, Blood 3.94 mg/dL (0.40-1.00); Glomerular Filtration Rate 12 (60-); Glucose, Blood 121 mg/dL (70-99); Magnesium, Blood 2.7 mg/dL (1.6-2.4); Phosphorus, Blood 5.4 mg/dL (2.5-4.9); Potassium, Blood 3.9 mmol/L (3.5-5.5); Sodium, Blood 132 mmol/L (136-145)
--- NOTE | 2021-02-20 06:49 | NUR ---
SHIFT SUMMARY PATIENT IS RESTING IN BED COMFORTABLY. BED IS IN LOW POSITION. PATIENT WAS SWITCHED TO HIFLOW NC WITH HUMIDIFIER BECAUSE OF COMPLAINTS OF DRY NOSTRILS. PATIENT IS DOING WELL. VITALS WERE STABLE. COMPLAINED OF BACK PAIN SEE EMAR. PATIENT WAS GOOD DRUING THE NIGHT. LIMITED MOVEMENT IN BED. WILL CONTINUE TO MONITOR. REPORT GIVEN TO DAY SHIFT RN.
--- NOTE | 2021-02-20 11:23 | NUR ---
REPORT GIVEN TO LUCY MOYA ON MEDICAL FLOOR.
--- NOTE | 2021-02-20 13:15 | NUR ---
PATIENT TRANSFERRED TO 356 FROM PCU ARRIVED TO UNIT @ 1255 TRANSPORTED VIA BED PATIENT A&OX4 ORIENTATED TO NEW ROOM AND ENVIRONMENT ABLE TO VERBALIZE NEEDS DENIES CHEST PAIN ON O2 @ 9L PER NC NO SOB NOTED PATIENT BEDBOUND CALL LIGHT WITHIN REACH HILL TO CD DRAINING CLEAR YELLOW URINE DRY DRESSING INTACT TO RT GROIN S/P CENTRAL LINE REMOVAL DIALYSIS CATH INTACT TO LT CHEST VSS TELE MONITOR INTACT FOR CONTINUED CARDIAC MONITORING NO S/S DISTRESS NOTED WILL CONT TO MONITOR
--- NOTE | 2021-02-21 05:50 | NUR ---
END OF SHIFT SUMMARY: Pt's room was interfering with tele signal so pt moved to 354. Pt tolerated moving well. Pt A&Ox4. Sats at 94% on 9LHFNC. Pt reporting pain in the back, medicated par eMAR. Pt is resting at this time. Call light within reach.
--- NOTE | 2021-02-21 09:30 | NUR ---
PATIENT TRANSPORTED OFF OF UNIT VIA BED TO DIALYSIS UNIT A&OX4 DENIED PAIN OR DISCOMFORT NO S/S DISTRESS NOTED PRIOR TO AND AT TIME OF TRANSFER
[2021-02-21 09:48] LABS: BASOPHILS ABSOLUTE AUTO 0.04 K/mm3 (0.00-0.23); BASOPHILS PERCENT AUTO 1 % (0-2); EOSINOPHILS ABSOLUTE AUTO 0.17 K/mm3 (0.00-0.68); EOSINOPHILS PERCENT AUTO 2 % (0-6); Hematocrit 26.3 % (33.0-51.0); Hemoglobin 8.6 g/dL (11.5-16.0); IMMATURE GRAN ABSOLUTE AUTO 0.43 K/mm3 (0.00-0.10); IMMATURE GRAN PERCENT AUTO 5 % (0-1); LYMPHOCYTES ABSOLUTE AUTO 0.73 K/mm3 (0.84-5.20); LYMPHOCYTES PERCENT AUTO 8 % (21-46); MONOCYTES ABSOLUTE AUTO 0.68 K/mm3 (0.16-1.47); MONOCYTES PERCENT AUTO 8 % (4-13); Mean Corpuscular HGB 32.3 pg (26.0-34.0); Mean Corpuscular HGB Conc 32.7 g/dL (31.5-36.5); Mean Corpuscular Volume 99 fL (80-100); Mean Platelet Volume 11.3 fL (9.1-12.4); NEUTROPHILS ABSOLUTE AUTO 6.62 K/mm3 (1.96-9.15); NEUTROPHILS PERCENT AUTO 76 % (41-73); Platelet Count 221 K/mm3 (150-400); RDW Coefficient Variation 15.6 % (11.7-14.2); RDW Standard Deviation 56.7 fL (35.1-46.3); Red Blood Cell Count 2.66 M/mm3 (3.80-5.20); White Blood Cell Count 8.67 K/mm3 (4.00-11.30)
[2021-02-21 10:03] LABS: Albumin, Blood 1.8 g/dL (3.4-5.0); Anion Gap 11 mmol/L (6-16); Blood Urea Nitrogen 43 mg/dL (8-24); Bun/Creatinine Ratio 8.9 (12.0-20.0); CO2, Blood 28 mmol/L (21-32); Calcium, Blood 9.7 mg/dL (8.5-10.1); Chloride, Blood 93 mmol/L (98-108); Creatinine, Blood 4.85 mg/dL (0.40-1.00); Glomerular Filtration Rate 10 (60-); Glucose, Blood 115 mg/dL (70-99); Magnesium, Blood 2.7 mg/dL (1.6-2.4); Phosphorus, Blood 6.7 mg/dL (2.5-4.9); Potassium, Blood 4.2 mmol/L (3.5-5.5); Sodium, Blood 132 mmol/L (136-145)
--- NOTE | 2021-02-21 12:20 | NUR ---
PATIENT RETURNED TO UNIT FROM DIALYSIS PATIENT REMAIS A&OX4 DENIES PAIN RESP EVEN UNLABORED NO COMPLIATIONS NOTED DSG INTACT TO LT CHEST DIALYSIS CATH
--- NOTE | 2021-02-21 16:50 | NUR ---
PATIENT A&OX4 O2 ABLE TO BE TITRATED DOWN TO 4L PER NC SATS REMAIN >90% PATIENT VERBALIZES IMPROVEMENT IN RESP STATUS DECREASED EPISODES OF SOB/PÉREZ RESP EASY/EVEN/UNLABORED AT REST NO S/S DISTRESS NOTED WILL CONT TO MONITOR
--- NOTE | 2021-02-22 04:38 | NUR ---
PT with MRSA infection pneumonia & required 2 to 4 l nc to keep sats greater than 92%. On vanco & rocephin to treat pneumona.On Hemodialysis had yesterday via lt chest perm cath. PT has chronic back pain, immobile with skin issues. Skin care provided. Bioxx to alert staff of hypoxia. Does not like to sit upright & may be why she aspirates. Spouse is caregiver, DC pending home eval. Continues in contact isolation
[2021-02-22] MEDS ORDERED: ATOR80 PO (11:24)
[2021-02-22] MEDS ORDERED: CLOP75 PO (11:25)
[2021-02-22] MEDS ORDERED: LINE600 PO (11:25)
--- NOTE | 2021-02-22 12:49 | NUR ---
Patient is lying in bed and alert. She tells me about her heart and back issues and her possible DC today. Patient talks at length about her daughter Stephanie and her 1st couple of weeks at college and struggles. We also talk about patient's spiritual needs at this time and about her inner conflict about whether she should be vaccinated or not. I normalize patient's experience and provide therapeutic listening, spiritual guidance and prayer. Patient responds well and shows signs of being uplifted in her dayan. I will continue to remain available to patient and family.
--- NOTE | 2021-02-22 14:51 | NUR ---
DISCHARGE: PACKET PRINTED AND PT EDUCATED, NEW MEDS REVIEWED. PER HOME 02 EVAL AND RT, PT TO DC ON 3L AND USE 3L AT HOME, PT AWARE. PT TO DC WITH CHRONIC HILL, DIALYSIS PERMACATH IN PLACE TO L CHEST WALL. EMS HERE TO ELECTRIC SHAVER MECHANIC PT AT ABOUT 1300. EMS GIVEN BLUE SHEET AND FACESHEET. PT TRANSFERED TO [facility] WITH OWN LIFT SHEET FROM HOME. O2 TANK FROM [facility] LEFT WITH PT WELL PT BELONGINGS AT ABOUT 1320.
== END 2021-02-22 13:48 | disposition home or self-care (01) | DRG 246 ==
LOC: ER 20:16 → ERHOLD 02-17 03:57 → ICUE 02-17 03:57 → PCU 02-18 09:36 → MEDS 02-20 13:04
PROVIDERS: Internal Medicine; Internal Medicine Nephrology; Student in an Organized Health Care Education/Training Program; ADMIT Hospitalist
PROC: 027136Z Dilation of Coronary Artery, Two Arteries with Three Drug-eluting Intraluminal Devices, Percutaneous Approach (ICD-10-PCS; principal; 2021-02-17)
PROC: B2181ZZ Fluoroscopy of Left Internal Mammary Bypass Graft using Low Osmolar Contrast (ICD-10-PCS; 2021-02-17)
PROC: B2111ZZ Fluoroscopy of Multiple Coronary Arteries using Low Osmolar Contrast (ICD-10-PCS; 2021-02-17)
PROC: 06HM33Z Insertion of Infusion Device into Right Femoral Vein, Percutaneous Approach (ICD-10-PCS; 2021-02-17)
PROC: 5A1D70Z Performance of Urinary Filtration, Intermittent, Less than 6 Hours Per Day (ICD-10-PCS; 2021-02-17)
DX: I21.4 Non-ST elevation (NSTEMI) myocardial infarction (principal); A41.9 Sepsis, unspecified organism; J18.9 Pneumonia, unspecified organism; N18.6 End stage renal disease; R57.0 Cardiogenic shock; J96.01 Acute respiratory failure with hypoxia; I50.21 Acute systolic (congestive) heart failure; I13.2 Hypertensive heart and chronic kidney disease with heart failure and with stage 5 chronic kidney disease, or end stage renal disease; J44.0 Chronic obstructive pulmonary disease with (acute) lower respiratory infection; Z68.42 Body mass index [BMI] 45.0-49.9, adult; E87.1 Hypo-osmolality and hyponatremia; N25.81 Secondary hyperparathyroidism of renal origin; E87.2 Acidosis; E83.41 Hypermagnesemia; Z20.822 Contact with and (suspected) exposure to COVID-19; D63.1 Anemia in chronic kidney disease; K21.9 Gastro-esophageal reflux disease without esophagitis; E87.5 Hyperkalemia; E88.09 Other disorders of plasma-protein metabolism, not elsewhere classified; R94.5 Abnormal results of liver function studies; E83.39 Other disorders of phosphorus metabolism; G89.29 Other chronic pain; M54.9 Dorsalgia, unspecified; G47.33 Obstructive sleep apnea (adult) (pediatric); I25.10 Atherosclerotic heart disease of native coronary artery without angina pectoris; E66.01 Morbid (severe) obesity due to excess calories; E11.22 Type 2 diabetes mellitus with diabetic chronic kidney disease; E03.9 Hypothyroidism, unspecified; F41.9 Anxiety disorder, unspecified; Z99.2 Dependence on renal dialysis; Z88.3 Allergy status to other anti-infective agents; Z88.8 Allergy status to other drugs, medicaments and biological substances; Z91.048 Other nonmedicinal substance allergy status; Z91.15 Patient's noncompliance with renal dialysis; Z91.038 Other insect allergy status; I25.2 Old myocardial infarction; Z95.828 Presence of other vascular implants and grafts; Z95.1 Presence of aortocoronary bypass graft; Z79.4 Long term (current) use of insulin; Z79.899 Other long term (current) drug therapy; Z86.14 Personal history of Methicillin resistant Staphylococcus aureus infection
CPT/HCPCS: 36415; 36556; 36600; 51702; 71045; 71260; 80053; 80061; 80069; 81001; 82306; 82803; 82947; 83605; 83735; 83880; 84132; 84145; 84443; 84484; 85014; 85018; 85025; 85027; 85610; 85730; 87086; 93005; 93010; 93455; 94660; 94762; 96365; 96375; 99152; 99153; 99291-25; A9270; C1725; C1760; C1769; C1874; C1887; C1894; C8929; C9600; C9601; J0456; J0692; J0696; J0881; J1250; J1265; J1644; J1815; J1940; J2185; J2250; J3010; J3370; J7030; J7050; J7060; Q9957; Q9967; U0004

== ENCOUNTER → 2021-04-28 | Outpatient (CLI) | payer OTHER ==
[~2021-04-28] MED LIST changes: +AMARYL4 M1 PO; +ATOR80 PO; +DILT120ERA PO; +DILTIAZEM 24HR120 M4 PO; +GABA600 PO; +INSULANPEN SC; +LINE600 PO; +METO50 PO; +PANT40 PO; +SERT100 PO; +Ventolin/Prove6.7 GM INH
== END ==
LOC: LAB 11:39 → LAB HH 11:39
DX: R33.9 Retention of urine, unspecified (principal)
CPT/HCPCS: 87086

== ENCOUNTER 2021-05-07 11:11 | Emergency (ER) | payer OTHER ==
[~2021-05-07] VITALS: Ht 157.5 cm; Wt 118.8 kg
[2021-05-07 12:17] LABS: BASOPHILS ABSOLUTE AUTO 0.08 K/mm3 (0.00-0.23); BASOPHILS PERCENT AUTO 1 % (0-2); EOSINOPHILS ABSOLUTE AUTO 0.21 K/mm3 (0.00-0.68); EOSINOPHILS PERCENT AUTO 3 % (0-6); Hematocrit 42.5 % (33.0-51.0); Hemoglobin 13.7 g/dL (11.5-16.0); IMMATURE GRAN ABSOLUTE AUTO 0.06 K/mm3 (0.00-0.10); IMMATURE GRAN PERCENT AUTO 1 % (0-1); LYMPHOCYTES ABSOLUTE AUTO 1.46 K/mm3 (0.84-5.20); LYMPHOCYTES PERCENT AUTO 19 % (21-46); MONOCYTES ABSOLUTE AUTO 0.61 K/mm3 (0.16-1.47); MONOCYTES PERCENT AUTO 8 % (4-13); Mean Corpuscular HGB 32.2 pg (26.0-34.0); Mean Corpuscular HGB Conc 32.2 g/dL (31.5-36.5); Mean Corpuscular Volume 100 fL (80-100); Mean Platelet Volume 11.6 fL (9.1-12.4); NEUTROPHILS ABSOLUTE AUTO 5.27 K/mm3 (1.96-9.15); NEUTROPHILS PERCENT AUTO 69 % (41-73); Platelet Count 170 K/mm3 (150-400); RDW Coefficient Variation 13.3 % (11.7-14.2); RDW Standard Deviation 48.8 fL (35.1-46.3); Red Blood Cell Count 4.25 M/mm3 (3.80-5.20); White Blood Cell Count 7.69 K/mm3 (4.00-11.30)
[2021-05-07 12:45] LABS: Bun/Creatinine Ratio 8.5 (12.0-20.0); Calcium, Blood 9.9 mg/dL (8.5-10.1); Creatinine, Blood 3.64 mg/dL (0.40-1.00); Potassium, Blood 4.3 mmol/L (3.5-5.5)
[2021-05-07 13:46] LABS: Source, Urine Catheter
[2021-05-07 13:49] LABS: Appearance, Urine Clear (Clear); Blood, Urine 3+ (Neg); Color, Urine Yellow (P-Yellow); Glucose Qualitative, Urine Neg (Neg); Ketones, Urine Neg (Neg); Leukocyte Esterase, Urine 3+ (Neg); Nitrite, Urine Neg (Neg); Protein, Urine 4+ (Neg); Specific Gravity, Urine 1.015 (1.003-1.022); Urobilinogen, Urine NORM (Normal)
[2021-05-07] MEDS ORDERED: ONDA4ODT MM (14:32)
[2021-05-07 14:35] LABS: Bilirubin, Urine 1+ (Neg)
[2021-05-07 14:37] LABS: Bacteria Many /hpf; Granular Casts 0-2 /lpf (0); Squamous Epithelial Cells Few /hpf (Few); White Blood Cells, Urine TNTC /hpf (0-5)
[2021-05-07] MEDS ORDERED: CIPR500 PO (15:07)
== END 2021-05-07 16:15 | disposition home or self-care (01) ==
LOC: ER 11:11
PROVIDERS: Emergency Medicine
DX: N39.0 Urinary tract infection, site not specified (principal); R11.2 Nausea with vomiting, unspecified; Z88.8 Allergy status to other drugs, medicaments and biological substances; Z91.048 Other nonmedicinal substance allergy status; Z91.030 Bee allergy status; Z91.018 Allergy to other foods; Z79.899 Other long term (current) drug therapy; Z79.4 Long term (current) use of insulin; E11.22 Type 2 diabetes mellitus with diabetic chronic kidney disease; E03.9 Hypothyroidism, unspecified; I13.0 Hypertensive heart and chronic kidney disease with heart failure and stage 1 through stage 4 chronic kidney disease, or unspecified chronic kidney disease; I50.9 Heart failure, unspecified; N18.9 Chronic kidney disease, unspecified; Z99.2 Dependence on renal dialysis; J44.9 Chronic obstructive pulmonary disease, unspecified; I25.2 Old myocardial infarction
CPT/HCPCS: 51702; 80048; 81001; 85025; 87086; 99284; A9270; J7030

== ENCOUNTER 2021-07-02 22:30 | Emergency (ER) | payer OTHER ==
[~2021-07-02] VITALS: Ht 160 cm; Wt 122.9 kg
[~2021-07-02 22:30] MED LIST changes: +CIPR500 PO; +ONDA4ODT MM
== END 2021-07-03 05:07 | disposition home or self-care (01) ==
LOC: ER 22:30
DX: T18.128A Food in esophagus causing other injury, initial encounter (principal); E11.9 Type 2 diabetes mellitus without complications; E03.9 Hypothyroidism, unspecified; J44.9 Chronic obstructive pulmonary disease, unspecified; I25.2 Old myocardial infarction; I11.0 Hypertensive heart disease with heart failure; I50.9 Heart failure, unspecified; Z91.048 Other nonmedicinal substance allergy status; Z88.8 Allergy status to other drugs, medicaments and biological substances; Z91.038 Other insect allergy status; Z91.018 Allergy to other foods; Z79.899 Other long term (current) drug therapy; Z79.4 Long term (current) use of insulin; Z79.02 Long term (current) use of antithrombotics/antiplatelets; X58.XXXA Exposure to other specified factors, initial encounter
CPT/HCPCS: 96372; 99283; J1610

== ENCOUNTER 2021-07-11 11:52 | Inpatient (IN) | payer OTHER ==
[~2021-07-11] VITALS: Ht 160 cm; Wt 128.3 kg
[2021-07-11] MEDS ORDERED: ZOLOFT50 MG PO (13:25)
[2021-07-11] MEDS ORDERED: TAMSULOSIN HCL0.4 M1 PO (13:26)
[2021-07-11] MEDS ORDERED: GLIMEPIRIDE4 MG PO (13:27)
[2021-07-11] MEDS ORDERED: ROPINIROLE HCL0.5 MG PO (13:29)
[2021-07-11] MEDS ORDERED: NEURONTIN300 MG PO (13:30)
[2021-07-11] MEDS ORDERED: INSULIN GL100 UNIT/2 SC (13:31)
[2021-07-11 15:09] LABS: Albumin, Blood 2.8 g/dL (3.4-5.0); Albumin/Globulin Ratio 0.6 (0.8-1.8); Bilirubin, Total 0.6 mg/dL (0.1-1.0); Bun/Creatinine Ratio 14.3 (12.0-20.0); C-REACTIVE PROTEIN, EXT RANGE 16.7 mg/dL (0.000-0.300); Calcium, Blood 9.5 mg/dL (8.5-10.1); Creatinine, Blood 3.92 mg/dL (0.40-1.00); Globulin, Blood 4.8 g/dL (2.2-4.0); Potassium, Blood 4.8 mmol/L (3.5-5.5); Total Protein, Blood 7.6 g/dL (6.4-8.2)
[2021-07-11 15:26] LABS: BASOPHILS ABSOLUTE AUTO 0.05 K/mm3 (0.00-0.23); BASOPHILS PERCENT AUTO 1 % (0-2); EOSINOPHILS ABSOLUTE AUTO 0.13 K/mm3 (0.00-0.68); EOSINOPHILS PERCENT AUTO 2 % (0-6); Hematocrit 39.4 % (33.0-51.0); Hemoglobin 12.5 g/dL (11.5-16.0); IMMATURE GRAN ABSOLUTE AUTO 0.11 K/mm3 (0.00-0.10); IMMATURE GRAN PERCENT AUTO 1 % (0-1); LYMPHOCYTES ABSOLUTE AUTO 1.13 K/mm3 (0.84-5.20); LYMPHOCYTES PERCENT AUTO 15 % (21-46); MONOCYTES ABSOLUTE AUTO 0.59 K/mm3 (0.16-1.47); MONOCYTES PERCENT AUTO 8 % (4-13); Mean Corpuscular HGB Conc 31.7 g/dL (31.5-36.5); Mean Corpuscular Volume 98 fL (80-100); Mean Platelet Volume 11.8 fL (9.1-12.4); NEUTROPHILS ABSOLUTE AUTO 5.68 K/mm3 (1.96-9.15); NEUTROPHILS PERCENT AUTO 74 % (41-73); Platelet Count 221 K/mm3 (150-400); RDW Coefficient Variation 14.2 % (11.7-14.2); RDW Standard Deviation 50.9 fL (35.1-46.3); Red Blood Cell Count 4.03 M/mm3 (3.80-5.20); White Blood Cell Count 7.69 K/mm3 (4.00-11.30)
[2021-07-12 05:23] LABS: BASOPHILS ABSOLUTE AUTO 0.04 K/mm3 (0.00-0.23); BASOPHILS PERCENT AUTO 0 % (0-2); EOSINOPHILS ABSOLUTE AUTO 0.02 K/mm3 (0.00-0.68); EOSINOPHILS PERCENT AUTO 0 % (0-6); Hematocrit 35.8 % (33.0-51.0); Hemoglobin 11.2 g/dL (11.5-16.0); IMMATURE GRAN ABSOLUTE AUTO 0.09 K/mm3 (0.00-0.10); IMMATURE GRAN PERCENT AUTO 1 % (0-1); LYMPHOCYTES ABSOLUTE AUTO 0.47 K/mm3 (0.84-5.20); LYMPHOCYTES PERCENT AUTO 5 % (21-46); MONOCYTES ABSOLUTE AUTO 0.15 K/mm3 (0.16-1.47); MONOCYTES PERCENT AUTO 2 % (4-13); Mean Corpuscular HGB Conc 31.3 g/dL (31.5-36.5); Mean Corpuscular Volume 99 fL (80-100); Mean Platelet Volume 11.5 fL (9.1-12.4); NEUTROPHILS ABSOLUTE AUTO 8.48 K/mm3 (1.96-9.15); NEUTROPHILS PERCENT AUTO 92 % (41-73); Platelet Count 194 K/mm3 (150-400); RDW Coefficient Variation 14.1 % (11.7-14.2); RDW Standard Deviation 51.5 fL (35.1-46.3); Red Blood Cell Count 3.61 M/mm3 (3.80-5.20); White Blood Cell Count 9.25 K/mm3 (4.00-11.30)
[2021-07-12 05:53] LABS: Albumin, Blood 2.4 g/dL (3.4-5.0); Albumin/Globulin Ratio 0.4 (0.8-1.8); Bilirubin, Total 0.6 mg/dL (0.1-1.0); Bun/Creatinine Ratio 15.8 (12.0-20.0); Calcium, Blood 9.6 mg/dL (8.5-10.1); Creatinine, Blood 3.86 mg/dL (0.40-1.00); Globulin, Blood 5.5 g/dL (2.2-4.0); Total Protein, Blood 7.9 g/dL (6.4-8.2)
--- NOTE | 2021-07-12 09:40 | NUR ---
DIALYSIS ADDED 30 MINS TO PT'S TX TIME (PER DR GIVENS) DUE TO PT'S PERMACATHS INABILITY TO MAINTAIN A BFR OF 350 ML/MIN. ALSO ORDERED ACTIVASE FOR EACH CATH FOR END OF TX.
[2021-07-12 13:09] LABS: Vancomycin, Random 13.9 ug/mL
--- NOTE | 2021-07-12 15:05 | NUR ---
Patient is lying in bed and alert. Because therapeutic alliance is already established in prior hospital stays, pt immediately tells me about her medical issues, her family unit complications and her dayan journey. Patient shares areas of her spiritual life that she would like to improve on and where her is struggling. I normalize pt's experience and provide spiritual guidance and prayer. Patient responds well and shows signs of having clear direction and voices appreciation for the visit. Patient states that the prayer offered was very meaningful and encouraging. I will continue to assist pt in the emotional/spiritual areas of dealing with high levels of medical issues.
--- NOTE | 2021-07-12 18:16 | NUR ---
PT AOX4 AND COOPERATIVE OF CARE. PT DOING WELL AND HAS HAD PAIN MANAGED PER EMAR. NO DISTRESS NOTED. PT WAS ABLE TO HAVE DIALYSIS TO. PT CAN CALL AND MAKE NEEDS KNOWN. PT IS A TWO PERSON TURN. CALL LIGHT WITHIN REACH. CHRONIC HILL WORKING WELL. NO DISTRESS NOTED WILL CONTINUE TO MONITOR.
[2021-07-13 06:54] LABS: Hematocrit 30.8 % (33.0-51.0); Hemoglobin 10.2 g/dL (11.5-16.0)
[2021-07-13 07:18] LABS: Albumin, Blood 2.4 g/dL (3.4-5.0); Anion Gap 10 mmol/L (6-16); Blood Urea Nitrogen 59 mg/dL (8-24); CO2, Blood 26 mmol/L (21-32); Calcium, Blood 9.4 mg/dL (8.5-10.1); Chloride, Blood 95 mmol/L (98-108); Creatinine, Blood 3.11 mg/dL (0.40-1.00); Glomerular Filtration Rate 16 (60-); Glucose, Blood 471 mg/dL (70-99); Phosphorus, Blood 4.4 mg/dL (2.5-4.9); Sodium, Blood 131 mmol/L (136-145)
--- NOTE | 2021-07-13 07:41 | NUR ---
PM SHIFT SUMMARY PATIENTIS BEING SEEN FOR DISCITIS. SHE ASKED WHEN ALL HER PAIN MEDICATIONS WERE SCHEDULE AND I EXPLAINED THEY ARE ON AN NEEDED BASIS AT SET TIME INTERVALS FROMT HE LAST ONE GTIVEN. SHE NOW HAS A LEFT ARM POWERGLIDE. SHE HAD DIALYSIS MORNING OF 07/12/21 AND TOLERATED IT WELL. IMAGING SHOWED L4-L5 DISC BULGES, EDEMA AND CHRONIC SEQUELA OF OSTEOMYELITIS. HER BLOOD CULTURES SHOW GRAM POSITIVE STAPH SPECIES.
[2021-07-13 08:10] LABS: HBSAG SCREEN Negative (Negative); HEP A AB, IGM Negative (Negative); HEP B CORE AB, IGM Negative (Negative); HEP C VIRUS AB <0.1 (0.0-0.9)
[2021-07-13 11:52] LABS: Glucose, Blood 560 mg/dL (70-99)
--- NOTE | 2021-07-13 17:28 | NUR ---
PT IS A/OX4, PLEASANT AND COOPERATIVE. PT REPORTED THAT SHE IS BEDBOUND AT THIS TIME DUE TO WEAKNESS DECONDITON AND PAIN. THE PT SO FAR REPORTS FELLING COMFORTABLE HAS NOT NEEDED PAIN MEDICATION SO FAR TODAY. PT WAS MEDICATED FOR ELEVATED BP PRN. PTS BLOOD SUGARS HAVE BEEN HIGH WAS NOTIFIED AND INSULIN HAS BEEN ADJUSTED. THE PT APPEARS TO BE BREATHING EASILY ON RA AT THIS TIME. CALL LIGHT IN REACH, WILL CONTINUE TO MONITOR AND ASSEE FOR CHANGES
[2021-07-13 21:08] LABS: Glucose, Blood 522 mg/dL (70-99)
--- NOTE | 2021-07-14 06:20 | NUR ---
PM SHIFT SUMMARY PATIENT HAD NO COMPLAINTS OF PAIN DURING THE SHIFT. SHE DID ASK IF SHE HAD ANY TORADOL LEFT INCASE SHE NEEDS IT LATER, AND I MENTIONED SHE HAD 1 DOSE LEFT. HER BLOOD SUGAR CHECK IN THE EVENING SHOWED A GLUCOSE OF 522. I SPOKE WITH DR. FERRO AND EXPLAINED SHE WAS ALREADY ON HIGH SLIDING SCALE, WELL GETTING HER FIRST DOSE OF GLARGINE SINCE BEING ADMITTED. SHE SUGGESTED WE WATCH AND TREND VALUES NOW THAT SHE IS GETTING MORE INSULIN DAILY. BLOOD CULTURE SHOWED PROBABLE SKIN CONTAMINANT STAPH AND NO GROWTH AT 2 DAYS.
[2021-07-14] MEDS ORDERED: DOCU100 PO (11:19)
[2021-07-14] MEDS ORDERED: Norco 5-325 Ta1 EACH PO (11:20)
[2021-07-14] MEDS ORDERED: MIRALAX17 GM PO (11:20)
[2021-07-14] MEDS ORDERED: ATOR40TA PO (14:06)
[2021-07-14] MEDS ORDERED: CLOP75 PO (14:07)
--- NOTE | 2021-07-14 16:42 | NUR ---
PT DISCHARGED THE PT VERBALIZED UNDERSTANDING OF THE DC INSTRUCTIONS. THE PTS PRESCRIPTIONS WERE FAXED TO [facility]- ON REQUESTED. THE PT APPEARED TO BE BREATHING EASILY ON RA. A FOLLOW UP APPOINTMENT WAS SCHEDULED WITH HER PCP. THE PT WAS LIFTED INTO A WHEELCHAIR FOR TRANSPORT HOME PT WAS ACCOMPANIED BY THE ESCORT. BELONGINGS RELEASED TO THE PATIENT
--- NOTE | 2021-07-14 17:04 | NUR ---
Patient is a [facility] patient who was transferred to [facility] on 07/11/2021 due to discitis. Patient is to discharge- 07/14/2021 with resumption of home health orders. Gathered supporting documentation for resumption (face sheet, discharge order, med list, and H&P) and faxed to [facility] for review. No further interventions required. Lyndsay Deleon Referral Liaison
== END 2021-07-14 16:38 | disposition home or self-care (01) | DRG 551 ==
LOC: ER 11:52 → MEDS 21:05
PROVIDERS: Internal Medicine Nephrology; Pharmacist; Physician Assistant; ADMIT Internal Medicine
PROC: 5A1D70Z Performance of Urinary Filtration, Intermittent, Less than 6 Hours Per Day (ICD-10-PCS; principal; 2021-07-12)
DX: M46.46 Discitis, unspecified, lumbar region (principal); N18.6 End stage renal disease; R53.2 Functional quadriplegia; M46.26 Osteomyelitis of vertebra, lumbar region; E87.1 Hypo-osmolality and hyponatremia; I13.2 Hypertensive heart and chronic kidney disease with heart failure and with stage 5 chronic kidney disease, or end stage renal disease; N25.81 Secondary hyperparathyroidism of renal origin; I50.32 Chronic diastolic (congestive) heart failure; M48.07 Spinal stenosis, lumbosacral region; G54.4 Lumbosacral root disorders, not elsewhere classified; E11.22 Type 2 diabetes mellitus with diabetic chronic kidney disease; D63.1 Anemia in chronic kidney disease; E03.9 Hypothyroidism, unspecified; J44.9 Chronic obstructive pulmonary disease, unspecified; I25.10 Atherosclerotic heart disease of native coronary artery without angina pectoris; Z95.0 Presence of cardiac pacemaker; I25.2 Old myocardial infarction; F41.9 Anxiety disorder, unspecified; Z91.02 Food additives allergy status; Z79.4 Long term (current) use of insulin; Z79.899 Other long term (current) drug therapy; Z74.01 Bed confinement status; Z91.09 Other allergy status, other than to drugs and biological substances; Z99.2 Dependence on renal dialysis; Z98.890 Other specified postprocedural states
CPT/HCPCS: 36415; 72131; 72148; 80053; 80069; 80074; 80202; 82947; 83605; 83735; 84132; 85014; 85018; 85025; 85651; 86140; 86317; 87040; 96365; 96372; 96375; 96376; 97110; 97166; 99284-25; A9270; C1751; J0360; J1100; J1170; J1644; J1815; J1885; J2543; J2997; J3010; J3370; J7030; J7050

== ENCOUNTER 2021-08-10 10:16 | Inpatient (IN) | payer OTHER ==
[~2021-08-10] VITALS: Ht 160 cm; Wt 133.5 kg
[~2021-08-10 10:16] MED LIST changes: +GLIMEPIRIDE4 MG PO; +INSULIN GL100 UNIT/2 SC; +NEURONTIN300 MG PO; +Norco 5-325 Ta1 EACH PO; +ROPINIROLE HCL0.5 MG PO; +TAMSULOSIN HCL0.4 M1 PO; +ZOLOFT50 MG PO
[2021-08-10 11:45] LABS: BASOPHILS ABSOLUTE AUTO 0.09 K/mm3 (0.00-0.23); BASOPHILS PERCENT AUTO 1 % (0-2); EOSINOPHILS PERCENT AUTO 1 % (0-6); Hematocrit 31.2 % (33.0-51.0); Hemoglobin 10.2 g/dL (11.5-16.0); IMMATURE GRAN ABSOLUTE AUTO 0.79 K/mm3 (0.00-0.10); IMMATURE GRAN PERCENT AUTO 4 % (0-1); LYMPHOCYTES ABSOLUTE AUTO 0.67 K/mm3 (0.84-5.20); LYMPHOCYTES PERCENT AUTO 3 % (21-46); MONOCYTES ABSOLUTE AUTO 0.81 K/mm3 (0.16-1.47); MONOCYTES PERCENT AUTO 4 % (4-13); Mean Corpuscular HGB 30.7 pg (26.0-34.0); Mean Corpuscular HGB Conc 32.7 g/dL (31.5-36.5); Mean Corpuscular Volume 94 fL (80-100); Mean Platelet Volume 11.4 fL (9.1-12.4); NEUTROPHILS ABSOLUTE AUTO 17.41 K/mm3 (1.96-9.15); NEUTROPHILS PERCENT AUTO 88 % (41-73); Platelet Count 267 K/mm3 (150-400); RDW Coefficient Variation 16.1 % (11.7-14.2); RDW Standard Deviation 55.5 fL (35.1-46.3); Red Blood Cell Count 3.32 M/mm3 (3.80-5.20); White Blood Cell Count 19.87 K/mm3 (4.00-11.30)
[2021-08-10 12:07] LABS: Albumin, Blood 2.3 g/dL (3.4-5.0); Albumin/Globulin Ratio 0.4 (0.8-1.8); Bilirubin, Total 0.7 mg/dL (0.1-1.0); Bun/Creatinine Ratio 8.1 (12.0-20.0); Calcium, Blood 9.8 mg/dL (8.5-10.1); Creatinine, Blood 4.47 mg/dL (0.40-1.00); Globulin, Blood 5.3 g/dL (2.2-4.0); Potassium, Blood 4.9 mmol/L (3.5-5.5); Total Protein, Blood 7.6 g/dL (6.4-8.2)
[2021-08-10 13:44] LABS: Source, Urine Clean Catch
[2021-08-10 13:58] LABS: Appearance, Urine Clear (Clear); Bilirubin, Urine Neg (Neg); Blood, Urine 4+ (Neg); Color, Urine Yellow (P-Yellow); Glucose Qualitative, Urine 1+ (Neg); Ketones, Urine 2+ (Neg); Leukocyte Esterase, Urine 2+ (Neg); Nitrite, Urine Neg (Neg); Protein, Urine 4+ (Neg); Specific Gravity, Urine 1.015 (1.003-1.022); Urobilinogen, Urine 1+ (Normal)
[2021-08-10 14:14] LABS: Red Blood Cells, Urine 0-2 /hpf (0-2)
[2021-08-10 14:16] LABS: Bacteria Many /hpf; Renal Epithelial Rare /hpf (0-Rare); Squamous Epithelial Cells Mod /hpf (Few)
[2021-08-10 14:35] LABS: Influenza A, PCR NEGATIVE (NEGATIVE); Influenza B, PCR NEGATIVE (NEGATIVE); Resp Syncytial Virus, PCR NEGATIVE (NEGATIVE)
[2021-08-10 14:36] LABS: SARS-Cov-2 (COVID-19) PCR, MMC POSITIVE (NEGATIVE)
[2021-08-10 16:06] LABS: Anti-Xa UFH, PHA Monitoring <0.10 IU/mL; International Normalized Ratio 1.18; Prothrombin Time Results 12.3 Sec (9.7-11.5)
--- NOTE | 2021-08-10 16:20 | NUR ---
Cristobal is lying in bed and expresses that she is dealing with pain. She also explains that she has just received pain meds. She asks for prayer, which I gladly provide. Patient voices appreciation for the prayer.
--- NOTE | 2021-08-10 19:18 | NUR ---
SHIFT SUMMARY: PATIENT ADMIT TO PCU AT 1800. NEURO WNL. ALERT AND ORIENTED X4. PERRLA. DENIES NUMBNESS/TINGLING. WHEELCHAIR BOUND AT BASELINE. USED SLIDE SHEET TO TRANSFER. IN ROOM AT ADMIT. ON 2L NASAL CANNULA UPON ARRIVAL. ABLE TO TITRATE DOWN TO 1L, SATING UPPER 90'S. DENIES SOB/COUGH. TELE SHOWING SINUS RHYTHM WITH HR 70'S. DENIES CHEST PAIN/PRESSURE. VITAL SIGNS STABLE. HEPARIN DRIP INFUSING. VERIFIED WEIGHT WITH PHARMACY. POWERGLIDE TO RIGHT FA. CHARGE NURSE IN ROOM AT THIS TIME ATTEMPTING ADDITIONAL IV. DENIES ABDOMINAL PAIN/NAUSEA. DRINKING WATER AT THIS TIME. CHRONIC HILL IN PLACE, CHANGED IN ED. DRAINING URINE TO GRAVITY. ATTENDS LOOSLY IN PLACE. REDNESS/SMALL ABRASION TO COCCYX. REDNESS TO FOLDS. RAILROAD WHEELS AND AXLES INSPECTOR, CALLED IN PROVIDER CONSULT TO DR. GIVENS. IN ROOM TO CONFIRM HOME MEDICATIONS. MED REC COMPLETE. ORIENTED TO ROOM/UNIT. CALL LIGHT IN REACH. REPORTED OFF TO ONCOMING RNEZIO.
[2021-08-11 01:56] LABS: Hematocrit 29.2 % (33.0-51.0); Hemoglobin 9.1 g/dL (11.5-16.0); Mean Corpuscular HGB 29.5 pg (26.0-34.0); Mean Corpuscular HGB Conc 31.2 g/dL (31.5-36.5); Mean Corpuscular Volume 95 fL (80-100); Mean Platelet Volume 11.4 fL (9.1-12.4); Platelet Count 232 K/mm3 (150-400); RDW Coefficient Variation 16.5 % (11.7-14.2); RDW Standard Deviation 57.7 fL (35.1-46.3); Red Blood Cell Count 3.08 M/mm3 (3.80-5.20); White Blood Cell Count 16.22 K/mm3 (4.00-11.30)
[2021-08-11 01:59] LABS: Albumin, Blood 2.1 g/dL (3.4-5.0); Anion Gap 8 mmol/L (6-16); Blood Urea Nitrogen 43 mg/dL (8-24); Bun/Creatinine Ratio 8.7 (12.0-20.0); CO2, Blood 32 mmol/L (21-32); Calcium, Blood 9.1 mg/dL (8.5-10.1); Chloride, Blood 88 mmol/L (98-108); Creatinine, Blood 4.95 mg/dL (0.40-1.00); Glomerular Filtration Rate 9 (60-); Glucose, Blood 171 mg/dL (70-99); Magnesium, Blood 2.1 mg/dL (1.6-2.4); Phosphorus, Blood 5.4 mg/dL (2.5-4.9); Potassium, Blood 4.6 mmol/L (3.5-5.5); Sodium, Blood 128 mmol/L (136-145)
--- NOTE | 2021-08-11 05:59 | NUR ---
OIL PROGRAM COMPLIANCE SPECIALIST SUMMARY PT IS AXO X4 AND USES HER CALL LIGHT TO MAKE HER NEEDS KNOWN. PT HAS DENIED ANY NAUSEA THIS SHIFT. PT'S BP IS WNL AND STABLE THIS SHIFT. TELE SHOWING SR/ST 90-101 W LEFT BBB AND PVC'S. PT HAS DENIED ANY CP OR PRESSURE THIS SHIFT. PT AFEBRILE. PT SLEEPING COMFORTABLY FOR MOST OF THE SHIFT W CALL LIGHT WITHIN REACH. WILL REPORT TO ONCOMING RN.
--- NOTE | 2021-08-11 10:39 | NUR ---
AM NOTE: ALERT AND ORIENTED X4. NEURO AT BASELINE. PERRLA. DENIES NUMBNESS/TINGLING. PAIN TO LOWER BACK, HISTORY OF DISC BULDGE AND OSTEOMYLYITIS. PAIN MEDS PER EMAR WITH GOOD RELIEF. ON 1L NASAL CANNULA SATING MID 90'S. DENIES SOB/COUGH. LUNGS SOUNDING CLEAR AND DIM IN BASES. TELE SHOWING SINUS RHYTHM WITH HR 80-90'S. DENIES CHEST PAIN/PRESSURE. BP STABLE. MIDODRINE HELD DUE TO SBP ABOVE 130. DENIES ABOMINAL PAIN/NAUSEA. DECREASED APPEATITE. FLUID RESTRICTION IN PLACE. HILL CATH DRAINING MINIMAL URINE TO GRAVITY. ATTENDS IN PLACE. REDNESS TO ABDOMINAL/EMMA AREA FOLDS. REDNESS/ABRASION TO COCCYX/BUTTOCK. CLEANED AND CREAM APPLIED. HEPARIN INFUSING. 2 POWERGLIDES DRAWING AND FLUSHING WELL, CAPS CHANGED. ISOLATION DISCONTINUED, PER INFECTION CONTROL. PLAN FOR DIALYSIS TODAY. AT BEDSIDE. WILL CONTINUE TO MONITOR.
[2021-08-11 13:36] LABS: Vancomycin, Random 15.4 ug/mL
--- NOTE | 2021-08-11 14:13 | NUR ---
UPDATE: PATIENT BACK FROM DIALYSIS. FEELING VERY NAUSEAOUS, SEE EMAR FOR MEDS GIVEN. NOT ABLE TO EAT LUNCH. STATES THE ONLY THING THAT HELPS HER NAUSEA IS SIPPING ON WATER. DR. GIVENS CALLED FLUID RESTRICTION CHANGED TO 1500ML. VITAL SIGNS REMAINS STABLE. WILL CONTINUE TO MONITOR.
--- NOTE | 2021-08-11 19:13 | NUR ---
SHIFT SUMMARY: SEE PREVIOUS NOTES. NO ACUTE CHANGES. NAUSEA RESOLVED. MINIMAL BACK PAIN. DRINKING WATER AND TOLERATING APPLESAUCE AND BLAND FOODS. HEPARIN AND TKO NS INFUSING AT THIS TIME. REMAINS ON 1-2L NASAL CANNULA. TELE REMAINS UNCHANGED. DENIES NEEDS AT THIS TIME. CALL LIGHT IN REACH. REPORTED OFF TO ONCOMING RN.
--- NOTE | 2021-08-11 20:33 | NUR ---
CARE ASSUMPTION PT IS AXO X4 AND COMMUNICATING APPROPRIATELY. O2 SATS >92% ON 2L NC. BP WNL AND STABLE. PT DENYING ANY NAUSEA AT THIS TIME. WCTM.
[2021-08-12 04:38] LABS: Hematocrit 26.7 % (33.0-51.0); Hemoglobin 8.1 g/dL (11.5-16.0); Mean Corpuscular HGB 29.5 pg (26.0-34.0); Mean Corpuscular HGB Conc 30.3 g/dL (31.5-36.5); Mean Corpuscular Volume 97 fL (80-100); Mean Platelet Volume 11.8 fL (9.1-12.4); Platelet Count 203 K/mm3 (150-400); RDW Standard Deviation 60.7 fL (35.1-46.3); Red Blood Cell Count 2.75 M/mm3 (3.80-5.20); White Blood Cell Count 12.45 K/mm3 (4.00-11.30)
[2021-08-12 04:53] LABS: Anti-Xa UFH, PHA Monitoring 0.37 IU/mL; International Normalized Ratio 1.28; Prothrombin Time Results 13.2 Sec (9.7-11.5)
[2021-08-12 04:55] LABS: Albumin, Blood 1.9 g/dL (3.4-5.0); Anion Gap 8 mmol/L (6-16); Blood Urea Nitrogen 32 mg/dL (8-24); Bun/Creatinine Ratio 8.6 (12.0-20.0); CO2, Blood 32 mmol/L (21-32); Calcium, Blood 8.9 mg/dL (8.5-10.1); Chloride, Blood 96 mmol/L (98-108); Creatinine, Blood 3.72 mg/dL (0.40-1.00); Glomerular Filtration Rate 13 (60-); Glucose, Blood 136 mg/dL (70-99); Phosphorus, Blood 4.5 mg/dL (2.5-4.9); Potassium, Blood 3.8 mmol/L (3.5-5.5); Sodium, Blood 136 mmol/L (136-145)
[2021-08-12 05:51] LABS: BAND PERCENT MAN 3 % (0-8); BASOPHILS PERCENT MAN 0 % (0-2); EOSINOPHILS ABSOLUTE MAN 0.24 K/mm3 (0.00-0.68); EOSINOPHILS PERCENT MAN 2 % (0-6); LYMPHOCYTES ABSOLUTE MAN 0.87 K/mm3 (0.84-5.20); LYMPHOCYTES PERCENT MAN 7 % (21-46); METAMYELOCYTE ABSOLUTE MAN 0.12 K/mm3 (0.00-0.00); METAMYELOCYTE PERCENT MAN 1 % (0-0); MONOCYTES ABSOLUTE MAN 0.37 K/mm3 (0.16-1.47); MONOCYTES PERCENT MAN 3 % (4-13); NEUTROPHILS ABSOLUTE MAN 10.83 K/mm3 (1.96-9.15); SEG NEUTROPHILS PERCENT MAN 84 % (41-73); TOTAL CELLS COUNTED 100
--- NOTE | 2021-08-12 05:55 | NUR ---
RESIDENTIAL MANAGER SUMMARY PT IS AXO X4 AND COMMUNICATES APPROPRIATELY. PT HAS MAINTAINED O2 SATS >92% ON 1L NC. PT HAS DENIED ANY NAUSEA THIS SHIFT. BP HAS REMAINED WNL AND STABLE THIS SHIFT DESPITE HAVING HER THIRD DOSE OF MIDODRINE HELD ON PREVIOUS DAYSHIFT. HEPARIN GTT RUNNING. PT HAS REFUSED REPOSITIONING THIS SHIFT. NO MAJOR CHANGES THIS SHIFT THE PT SLEPT COMFORTABLY FOR MOST OF THE NIGHT. WILL REPORT TO ONCOMING RN.
[2021-08-12 10:31] LABS: Vancomycin, Random 16.3 ug/mL
--- NOTE | 2021-08-12 10:33 | NUR ---
CARE ASSUMPTION THIS RN ASSUMED CARE FROM EZIO MOYA AT 0700. VSS. PATIENT IS ALERT AND ORENTED X4. PERRLA. NEURO IS INTACT. LUNG SOUNDS CLEAR/DIM. PATIENT REPORTS NO CHEST PAIN OR SHORTNESS OF BREATH. PATIENT REPORTS BACK PAIN AND RIGHT RIB PAIN, THAT IS NEW. THIS RN TOOK PICTURES OF PATIENT PRESSURE ULCER ON HER COCCYX AND IS IN THE CHART. SEE SHIFT ASSESSMENT FOR FULL DETAILS. MD COUCH AND FINN MADE AWARE OF PAIN AND DISCUSSED IT WITH THE PATIENT. PATIENT HAS A FRIEND AT BEDSIDE. PATIENT REPOSITIONED. CALL LIGHT WITHIN REACH AND BED IN LOWEST POSITION. WILL CONTINUE TO MONITOR AND PROVIDE CARE.
--- NOTE | 2021-08-12 11:09 | NUR ---
Spiritual care visit conducted. Patient is lying in bed and alert. Pt talks about her medical issues and the plan of care. She tells me about the emotional/spiritual struggles and her spouse, who is present does the same. I provide therapeutic listening and prayer. Patient responds well and shows signs of reduced stress.
--- NOTE | 2021-08-12 16:15 | NUR ---
Supportive visit this afternoon. Pt resting in bed and reports 4/10 pain in her chest when taking deep breaths. Pt denies dyspnea and anxiety. Reviewed plan of care and offered therapeutic listening. Pt reports being and never had any children. She does state inheriting a daughter who is now 19 years old. Listened as Pt reports seeing a spine surgeon in [facility] who is referring her to [facility]. Pt reports having a mechanical lift at home and has a wheel chair van that her spouse is able to transport her in. Pt reports current regimen is managing her pain. She reports no new concerns at this time. Palliative Care will remain available.
--- NOTE | 2021-08-12 17:20 | NUR ---
SHIFT SUMMARY PATIENT NEURO REMAINS INTACT. THERE IS HAS BEEN NO ACUTE CHANGES THIS SHIFT. PATIENT HAS REFUSED REPOSITIONING BESIDES TWICE THIS SHIFT. HILL CATH IN PLACE DRAINING WITH GRAVITY HERMAN COLORED. VSS. PATIENT REPORTS BACK PAIN AND RECEIVED MEDICATION PER EMAR. CALL LIGHT WITHIN REACH AND BED IN LOWEST POSITION. WILL CONTINUE TO MONITOR AND PROVIDE CARE UNTIL HAND OFF WITH NEXT SHIFT.
--- NOTE | 2021-08-12 18:23 | NUR ---
REPORT TO MED RN THIS RN GAVE REPORT TO MEDCIAL FLOOR RN.
--- NOTE | 2021-08-12 18:58 | NUR ---
SHIFT SUMMARY PATIENT TRANSFER FROM PCU. PATIENT ARRIVED SHORTLY BEFORE SHIFT CHANGE. ON HEPARIN DRIP, CHECKED ORDER AND RATE. ON 1L NC. HILL CATHETER IN PLACE DRAINING TO GRAVITY. PATIENT ON 2000ML FLUID RESTRICTION AND HAS RECEIVED 850ML OF FLUIDS. HEMODIALYSIS CATHETER PRESENT ON THE LEFT CHEST, DRESSING C/D/I. PATIENT IS A GOLD LIFT WITH Q2H REPOSITION. PATIENT IS WHEELCHAIR BOUND AT BASELINE. REPORTED THAT PATIENT HAS A STAGE 1 PRESSURE ULCER ON BUTTOCK, BLANCHABLE. PATIENT ORIENTED TO ROOM. BED IN LOW POSITION WITH CALL LIGHT IN REACH.
[2021-08-13 04:38] LABS: Hemoglobin 7.8 g/dL (11.5-16.0)
--- NOTE | 2021-08-13 04:52 | NUR ---
SHIFT Alert and oriented x'4. Respirations even and unlabored, O2@2L via n/c, complains of SOB on exrtion and some discomfort under right breast when taking a deep breathe. Medicated with hydrocodone x'2 due to lower back pain, effective relief. Excoriation to buttocks, barrier cream applied, turned and repositioned q2hrs and as needed comfort. Gaytan care complete, draining dark brianna cloudy urine. Heparin drip infusing. Resting peacefully in bed, safety maintained.
[2021-08-13 04:56] LABS: Albumin, Blood 1.9 g/dL (3.4-5.0); Anion Gap 8 mmol/L (6-16); Blood Urea Nitrogen 37 mg/dL (8-24); Bun/Creatinine Ratio 9.2 (12.0-20.0); CO2, Blood 31 mmol/L (21-32); Calcium, Blood 9.2 mg/dL (8.5-10.1); Chloride, Blood 93 mmol/L (98-108); Creatinine, Blood 4.02 mg/dL (0.40-1.00); Glomerular Filtration Rate 12 (60-); Glucose, Blood 60 mg/dL (70-99); Magnesium, Blood 2.5 mg/dL (1.6-2.4); Potassium, Blood 3.9 mmol/L (3.5-5.5); Sodium, Blood 132 mmol/L (136-145)
[2021-08-13 12:33] LABS: Vancomycin, Random 9.7 ug/mL
--- NOTE | 2021-08-13 14:30 | NUR ---
CRITICAL LAB VALUE 0719 CBG 52, GAVE DR LEROY NOTIFIED OF LOW CBG. RECHECK 0755 CBG 46, GAVE LEROY WITH SUGAR AND FRANSISCO AUGUSTIN, CHARGE NURSE NOTIFED. PATIENT A&O DENIES DIZZINESS OR LIGHTHEADED. RECHECK 0818 CBG 64. PATIENT EATING BREAKFAST TRAY. RECHECK 0857 CBG 66. NOTIFIED OF CBG RESULTS. RECHECKED CBG WITH DIFFERENT MACHINE 0931 29.
--- NOTE | 2021-08-13 19:10 | NUR ---
SHIFT SUMMARY A&OX4. LOW CBG THIS AM. CBG 79 PRIOR TO PATIENT GOING TO DIALYSIS. FIELD AUTOMOBILE ADJUSTER REPORTED THAT PATIENT WAS NOT HER TYPICAL SELF DURING SESSION. ON RETURN FROM DIALYSIS PATIENT STATED SHE FELT FOGGY AND THAT SHE DOES NOT NORMALLY FEEL LIKE THIS AFTER DIALYSIS. DR NOTIFIED. MEDICATED FOR BACK PAIN PER MAR X1. ON 2L NC. HILL PRESENT AND DRAINING TO GRAVITY DARK YELLOW, CLOUDY URINE. CATHETER CARE COMPLETED. CONSULT CALLED TO SURGERY PER DR. GIVENS REQUEST. CONSULT ALSO CALLED TO CARDIOLOGY REGARDING POSSIBLE HOME. HEPARIN DRIP INFUSING. EXCORITATION TO BUTTOCK, BARRIER CREAM APPLIED. REPOSITIONED Q2H. SMALL APPETITE. PATIENT RESTING IN BED. WILL CONTINUE TO MONITOR.
[2021-08-14 05:12] LABS: Hemoglobin 8.3 g/dL (11.5-16.0); Mean Corpuscular HGB 30.1 pg (26.0-34.0); Mean Corpuscular HGB Conc 30.7 g/dL (31.5-36.5); Mean Corpuscular Volume 98 fL (80-100); Mean Platelet Volume 12.2 fL (9.1-12.4); Platelet Count 225 K/mm3 (150-400); RDW Coefficient Variation 17.2 % (11.7-14.2); RDW Standard Deviation 62.4 fL (35.1-46.3); Red Blood Cell Count 2.76 M/mm3 (3.80-5.20); White Blood Cell Count 13.12 K/mm3 (4.00-11.30)
[2021-08-14 05:36] LABS: Albumin/Globulin Ratio 0.4 (0.8-1.8); Bilirubin, Total 0.5 mg/dL (0.1-1.0); Bun/Creatinine Ratio 8.6 (12.0-20.0); Calcium, Blood 9.1 mg/dL (8.5-10.1); Creatinine, Blood 3.15 mg/dL (0.40-1.00); Globulin, Blood 5.1 g/dL (2.2-4.0); Magnesium, Blood 2.3 mg/dL (1.6-2.4); Phosphorus, Blood 4.3 mg/dL (2.5-4.9); Total Protein, Blood 7.1 g/dL (6.4-8.2)
[2021-08-14 05:57] LABS: BAND PERCENT MAN 2 % (0-8); BASOPHILS ABSOLUTE MAN 0.26 K/mm3 (0.00-0.23); BASOPHILS PERCENT MAN 2 % (0-2); EOSINOPHILS ABSOLUTE MAN 0.26 K/mm3 (0.00-0.68); EOSINOPHILS PERCENT MAN 2 % (0-6); LYMPHOCYTES ABSOLUTE MAN 1.44 K/mm3 (0.84-5.20); LYMPHOCYTES PERCENT MAN 11 % (21-46); METAMYELOCYTE ABSOLUTE MAN 0.26 K/mm3 (0.00-0.00); METAMYELOCYTE PERCENT MAN 2 % (0-0); MONOCYTES ABSOLUTE MAN 0.65 K/mm3 (0.16-1.47); MONOCYTES PERCENT MAN 5 % (4-13); MYELOCYTE ABSOLUTE MAN 0.39 K/mm3 (0.00-0.00); MYELOCYTE PERCENT MAN 3 % (0-0); NEUTROPHILS ABSOLUTE MAN 9.84 K/mm3 (1.96-9.15); SEG NEUTROPHILS PERCENT MAN 73 % (41-73); TOTAL CELLS COUNTED 100
--- NOTE | 2021-08-14 07:23 | NUR ---
ALERT AND ORIENTED X'S 4. ABOUT 2100 BS 62, JUICE AND SNACK PROVIDED, INCREASED TO 113M REMAINED ASYMPTOMATIC. DENIES PAIN OR SOB. TURNED AND REPOSITIONED THROUGH NIGHT. HILL CATHETER PATENT. SAFETY MAINTAINED, CALL FERRO IN REACH
--- NOTE | 2021-08-14 16:39 | NUR ---
NURSE NOTE IR CONSULT PLACED 08/13. IR UNAVAILABLE TIL 08/16. DR. GIVENS REQUESTED SURGICAL BE CONSULTED INSTEAD. SURGICAL CONSULT CALLED IN ON 08/13. FOLLOW UP WITH SURGICAL CONSULT ON 08/14. SURGERY RECOMMENDING THAT IR BE CONSULTED SINCE THEY ORIGINALLY PLACED THE PERMACATH. DR. GIVENS NOTIFED AND NEW CONSULT PLACED FOR IR TO BE CALLED ON 08/16
--- NOTE | 2021-08-14 18:49 | NUR ---
SHIFT SUMMARY A&OX4. HAND TREMOR PRESENT. BEDREST WITH Q2H REPOSITION. PATIENT REQUESTS TO BE FLOATED WITH PILLOWS UNDER BOTH HIPS AND ARMS. REFUSED REPOSITION ONCE THIS SHIFT. BM THIS AM. EXORIATION ON BUTTOCK, BARRIER CREAM APPLIED. ON 2L NC. HILL DRAINING TO GRAVITY, DARK HERMAN URINE. CATHETER CARE COMPLETED. PERMACATH PRESENT ON LEFT CHEST. NO DIALYSIS TODAY. PLAN TO PULL PERMACATH AND REPLACE AFTER 48HR IF BC NEG. AWAITING IR. CONSULT NEEDS TO BE CALLED ON 08/16. HEPARIN DRIP INFUSING. FLUID RESTRICION OF 2000ML. FAMILY AT BEDSIDE MOST OF SHIFT. WILL CONTINUE TO MONITOR.
[2021-08-15 04:44] LABS: Hematocrit 26.4 % (33.0-51.0); Hemoglobin 8.1 g/dL (11.5-16.0); Mean Corpuscular HGB Conc 30.7 g/dL (31.5-36.5); Mean Corpuscular Volume 98 fL (80-100); Mean Platelet Volume 11.4 fL (9.1-12.4); NRBC ABSOLUTE 0.02 K/mm3 (0.00-0.02); NRBC Auto 0.2 /100 WBC (0.0-0.2); Platelet Count 226 K/mm3 (150-400); RDW Coefficient Variation 17.3 % (11.7-14.2); RDW Standard Deviation 62.4 fL (35.1-46.3); White Blood Cell Count 12.86 K/mm3 (4.00-11.30)
[2021-08-15 05:06] LABS: Anion Gap 9 mmol/L (6-16); Blood Urea Nitrogen 32 mg/dL (8-24); Bun/Creatinine Ratio 9.2 (12.0-20.0); CO2, Blood 29 mmol/L (21-32); Calcium, Blood 9.1 mg/dL (8.5-10.1); Chloride, Blood 96 mmol/L (98-108); Creatinine, Blood 3.46 mg/dL (0.40-1.00); Glomerular Filtration Rate 14 (60-); Glucose, Blood 145 mg/dL (70-99); Magnesium, Blood 2.3 mg/dL (1.6-2.4); Phosphorus, Blood 4.4 mg/dL (2.5-4.9); Potassium, Blood 3.7 mmol/L (3.5-5.5); Sodium, Blood 134 mmol/L (136-145)
[2021-08-15 05:22] LABS: BAND PERCENT MAN 5 % (0-8); BASOPHILS ABSOLUTE MAN 0.12 K/mm3 (0.00-0.23); BASOPHILS PERCENT MAN 1 % (0-2); EOSINOPHILS ABSOLUTE MAN 0.25 K/mm3 (0.00-0.68); EOSINOPHILS PERCENT MAN 2 % (0-6); LYMPHOCYTES PERCENT MAN 14 % (21-46); METAMYELOCYTE ABSOLUTE MAN 0.77 K/mm3 (0.00-0.00); METAMYELOCYTE PERCENT MAN 6 % (0-0); MONOCYTES ABSOLUTE MAN 0.38 K/mm3 (0.16-1.47); MONOCYTES PERCENT MAN 3 % (4-13); MYELOCYTE PERCENT MAN 7 % (0-0); NEUTROPHILS ABSOLUTE MAN 8.61 K/mm3 (1.96-9.15); SEG NEUTROPHILS PERCENT MAN 62 % (41-73); TOTAL CELLS COUNTED 100
--- NOTE | 2021-08-15 06:04 | NUR ---
SHIFT SUMMARY PATIENT REMAIN ON FLUIDS RESTRICTION 200OML AOX4 ABLE TO VOICE NEEDS C/O PAIN X 1 BACK PAIN REPOSTION AND PRN MEDICATION ADM WITH RELEIF.HILL CARE DONE DRAINING DARK URINE PT ON HEPARIN DRIP NO NEW ORDER AT THIS MOMENT CONT WITH SAME DOSE PER PHARMACY.TURNING AND REPOSTION Q 2 HRS NO ACUTE CHANGE IN THIS SHIFT.
--- NOTE | 2021-08-15 08:48 | NUR ---
Spiritual care visit conducted. Patient is lying in bed and alert. Patient tells me that she is feeling down today due to staff communications that suggest a long stay in the hospital at minimum through Sunday. Pt states that she still tries to stay up and leans on her dayan in God. I provide pastoral risk reduction counselor and prayer. Patient responds well and shows signs of an elevated mood.
--- NOTE | 2021-08-15 12:05 | NUR ---
INFORMED BY [facility]ART C[facility] RN THAT THIS PATIENT WILL BE GOING TO THE MECHANICAL FACILITIES TECHNICIAN RIGHT AFTER DIALYSIS FOR THE HOME
--- NOTE | 2021-08-15 12:34 | NUR ---
PICKED UP PATIENT FROM DIALYSIS AND TRANSFERED TO PROCEDURE ROOM BED. PATIENT AWAKE. AUDIBLE WHEEZING NOTED. DR. GUZMAN AT THE BEDSIDE AND ORDERED RT TREATMENT. RT CALLED AND CAME TOT HE BEDSIDE. ALBUTERAL TREATMENT GIVEN AND TOLERATED BY THE PATIENT 3 LPM CONTINUED AFTER THE TREATMENT.
--- NOTE | 2021-08-15 13:22 | NUR ---
HOME PERFORMED IN THEPROCEDURE ROOM OF THE HEART CENTER WITH ANESTHESIA PRESENT. PATIENT TOLERATED WELL. VVS. PATIENT WAKING FROM SEDATION AND TALKING WITH STAFF. OXYGEN WEANED TO 4LPM BNC.
--- NOTE | 2021-08-15 13:27 | NUR ---
PATIENT TALKING WITH STAFF AT THE BEDSIDE, REPORTED CALLED TO THE FLOOR RN OF 364 AND PATIENT PATIENT WILL BE TRANSFER TO [facility].
--- NOTE | 2021-08-15 13:57 | NUR ---
PT BACK FROM PROCEDURE
--- NOTE | 2021-08-15 15:17 | NUR ---
PT TO HEART CENTER AGAIN FOR DIALYSIS CATH EXCHANGE OR REMOVAL
--- NOTE | 2021-08-15 15:59 | NUR ---
PT BACK FROM [facility]ENTER, DIALYSIS CATH REMOVED, SITE CLEAN AND DRY, NO BLEEDING OR OOZING
--- NOTE | 2021-08-15 17:37 | NUR ---
SUMMARY PT SITTING UP IN BED WATCHING TV AND TALKING ON HER PHONE, PT HAS BEEN PLEASANT AND COOPERATIVE WITH CARE T/O THE DAY, PT WENT TO DIALYSIS THIS MORNING, CECILIA WELL, RIGHT AFTER DIALYSIS SHE WENT TO THE [employer] FOR A HOME, PT BACK TO THE ROOM BRIEFLY THEN WENT BACK TO THE [facility]ART CENTER AND HAD THE DIALYSIS CATHETER REMOVED, SPOUSE WAS IN TO VISIT BRIEFLY, PT MED PER EMAR FOR PAIN, DENIES ANY NAUSEA, L CHEST WALL SITE IS CLEAN AND DRY, VSS, WILL CONT TO MONITOR
--- NOTE | 2021-08-16 03:46 | NUR ---
SHIFT SUMMARY PATIENT REMAIN ALERT AND ORIENTED C/O PAIN X1 NORCO ADM WITH RELIEF.CONT HEPARIN DRIP NO CHANGE NEW BAG RUNNING AT THIS MOMENT.RECEIVED LAB RESULTS BLOOD CULTURE POSITIVE GRAM POSTIVE [place]CCINA CLUSTERS DR BARRIOS MADE AWARE NO NEW ORDER AT THIS TIME.CONT TURNING AND REPOSTION FOR COMFORT .
[2021-08-16 06:43] LABS: Hematocrit 25.9 % (33.0-51.0); Hemoglobin 7.8 g/dL (11.5-16.0)
[2021-08-16 06:50] LABS: Albumin, Blood 1.9 g/dL (3.4-5.0); Anion Gap 8 mmol/L (6-16); Blood Urea Nitrogen 21 mg/dL (8-24); Bun/Creatinine Ratio 7.4 (12.0-20.0); CO2, Blood 30 mmol/L (21-32); Chloride, Blood 100 mmol/L (98-108); Creatinine, Blood 2.83 mg/dL (0.40-1.00); Glomerular Filtration Rate 18 (60-); Glucose, Blood 137 mg/dL (70-99); Magnesium, Blood 2.2 mg/dL (1.6-2.4); Potassium, Blood 3.7 mmol/L (3.5-5.5); Sodium, Blood 138 mmol/L (136-145)
--- NOTE | 2021-08-16 17:18 | NUR ---
SUMMARY PT RESTING IN BED VISITING WITH HER SPOUSE AND WATCHING TV, PT HAS BEEN PLEASANT AND COOPERATIVE WITH CARE T/O THE DAY, MED PER EMAR FOR PAIN, PT'S OLD PERMA CATH SITE L CHEST WALL WITH SMALL AMOUNT OF OOZING, PT WITH MINOR NOSE BLEED, AFRIN ORDERED, NO DIALYSIS UNTIL NEW PERMACATH PLACED, VSS, WILL CONT TO MONITOR
[2021-08-17 04:52] LABS: Hematocrit 24.8 % (33.0-51.0); Hemoglobin 7.6 g/dL (11.5-16.0); Mean Corpuscular HGB 29.9 pg (26.0-34.0); Mean Corpuscular HGB Conc 30.6 g/dL (31.5-36.5); Mean Corpuscular Volume 98 fL (80-100); Platelet Count 247 K/mm3 (150-400); RDW Coefficient Variation 17.4 % (11.7-14.2); RDW Standard Deviation 62.4 fL (35.1-46.3); Red Blood Cell Count 2.54 M/mm3 (3.80-5.20); White Blood Cell Count 12.19 K/mm3 (4.00-11.30)
[2021-08-17 05:11] LABS: Anion Gap 8 mmol/L (6-16); Blood Urea Nitrogen 25 mg/dL (8-24); Bun/Creatinine Ratio 8.4 (12.0-20.0); CO2, Blood 29 mmol/L (21-32); Calcium, Blood 8.9 mg/dL (8.5-10.1); Chloride, Blood 98 mmol/L (98-108); Creatinine, Blood 2.99 mg/dL (0.40-1.00); Glomerular Filtration Rate 17 (60-); Glucose, Blood 272 mg/dL (70-99); Phosphorus, Blood 3.6 mg/dL (2.5-4.9); Potassium, Blood 3.7 mmol/L (3.5-5.5); Sodium, Blood 135 mmol/L (136-145)
[2021-08-17 05:27] LABS: BAND PERCENT MAN 5 % (0-8); BASOPHILS PERCENT MAN 0 % (0-2); EOSINOPHILS ABSOLUTE MAN 0.12 K/mm3 (0.00-0.68); EOSINOPHILS PERCENT MAN 1 % (0-6); LYMPHOCYTES ABSOLUTE MAN 2.07 K/mm3 (0.84-5.20); LYMPHOCYTES PERCENT MAN 17 % (21-46); METAMYELOCYTE ABSOLUTE MAN 0.24 K/mm3 (0.00-0.00); METAMYELOCYTE PERCENT MAN 2 % (0-0); MONOCYTES ABSOLUTE MAN 0.36 K/mm3 (0.16-1.47); MONOCYTES PERCENT MAN 3 % (4-13); MYELOCYTE ABSOLUTE MAN 0.36 K/mm3 (0.00-0.00); MYELOCYTE PERCENT MAN 3 % (0-0); NEUTROPHILS ABSOLUTE MAN 9.02 K/mm3 (1.96-9.15); SEG NEUTROPHILS PERCENT MAN 69 % (41-73); TOTAL CELLS COUNTED 100
--- NOTE | 2021-08-17 05:31 | NUR ---
SHIFT SUMMARY PATIENT ALERT AND ORIENTED DENIES PAIN LUNGS SOUND WHEEZING KAMI NEB TX ADM X 2 BY RT WITH RELIEF NON PRODUCTIVE COUGH NOTED TURNING AND REPOSTION HILL CATH DRANING WELL HERMAN URINE PT CONT FLUIDS RESTRICTION 2000CC.PT CONT HEPARIN DRIP NO CHANGE IN RATE.
--- NOTE | 2021-08-17 16:06 | NUR ---
TO MRI. HEPARIN STOPPED AT 1600 WITH PHARMACY AWARE.
--- NOTE | 2021-08-17 16:29 | NUR ---
BACK FROM MRI. HEPARIN HOOKED UP
--- NOTE | 2021-08-17 17:20 | NUR ---
ALERT. ORIENTED. W/C BOUND. POWERGLIDES X 2 PATENT. MEDICATED FOR BACK PAIN WITH GOOD RESULTS. BUTTOCK WITH FLAKEY SKI-COMBO CALAXINE AND ALOE APPLIED AFTER TAKING OFF PRIOR CREAM. TOLERATED WELL. CHRONIC HILL DRAINING TO GRAVITY. UNABLE TO DO MRI PER TECH PATIENT UNABLE TO FILL. UNLABORED RESPIRATIONS. ABLE TO MAKE NEEDS KNOWN. TURNED PRN. PERMACATH SITE HAS PRESSURE TEGADERM ON. WCTM
[2021-08-18 03:04] LABS: Hematocrit 25.7 % (33.0-51.0); Hemoglobin 7.8 g/dL (11.5-16.0); Mean Corpuscular HGB 29.7 pg (26.0-34.0); Mean Corpuscular HGB Conc 30.4 g/dL (31.5-36.5); Mean Corpuscular Volume 98 fL (80-100); Mean Platelet Volume 10.7 fL (9.1-12.4); Platelet Count 273 K/mm3 (150-400); RDW Coefficient Variation 17.2 % (11.7-14.2); RDW Standard Deviation 61.8 fL (35.1-46.3); Red Blood Cell Count 2.63 M/mm3 (3.80-5.20); White Blood Cell Count 11.21 K/mm3 (4.00-11.30)
[2021-08-18 03:19] LABS: Albumin, Blood 2.1 g/dL (3.4-5.0); Anion Gap 7 mmol/L (6-16); Blood Urea Nitrogen 28 mg/dL (8-24); Bun/Creatinine Ratio 9.3 (12.0-20.0); CO2, Blood 29 mmol/L (21-32); Calcium, Blood 9.1 mg/dL (8.5-10.1); Chloride, Blood 99 mmol/L (98-108); Creatinine, Blood 3.02 mg/dL (0.40-1.00); Glomerular Filtration Rate 16 (60-); Glucose, Blood 299 mg/dL (70-99); Magnesium, Blood 1.9 mg/dL (1.6-2.4); Phosphorus, Blood 3.7 mg/dL (2.5-4.9); Potassium, Blood 3.9 mmol/L (3.5-5.5); Sodium, Blood 135 mmol/L (136-145)
[2021-08-18 03:23] LABS: BAND PERCENT MAN 6 % (0-8); BASOPHILS PERCENT MAN 0 % (0-2); EOSINOPHILS ABSOLUTE MAN 0.67 K/mm3 (0.00-0.68); EOSINOPHILS PERCENT MAN 6 % (0-6); LYMPHOCYTES PERCENT MAN 17 % (21-46); METAMYELOCYTE ABSOLUTE MAN 0.44 K/mm3 (0.00-0.00); METAMYELOCYTE PERCENT MAN 4 % (0-0); MONOCYTES ABSOLUTE MAN 0.33 K/mm3 (0.16-1.47); MONOCYTES PERCENT MAN 3 % (4-13); MYELOCYTE ABSOLUTE MAN 0.22 K/mm3 (0.00-0.00); MYELOCYTE PERCENT MAN 2 % (0-0); NEUTROPHILS ABSOLUTE MAN 7.62 K/mm3 (1.96-9.15); SEG NEUTROPHILS PERCENT MAN 62 % (41-73); TOTAL CELLS COUNTED 100
--- NOTE | 2021-08-18 06:22 | NUR ---
SHIFT SUMMARY PATIENT ALERT AND ORIENTED X4 ABLE TO VOICE NEEEDS DENIES PAIN AT THIS MOMENT DRESSING TO UPPER POWERGLID CHANGE PT TOLARATED WELL NO S/S OF INFECTION NOTED NO SOB LUNGS SOUND CLEAR .SAFETY INPLACE WILL CONT TO MONITOR
[2021-08-18 09:23] LABS: Percent Saturation 34.2 % (15.0-50.0)
--- NOTE | 2021-08-18 15:16 | NUR ---
DIALYSIS NEW IJ. VENOUS RUNS POORLY. REVERSED LINES AND LAID PT FLAT GOT 250 BFR.
--- NOTE | 2021-08-18 16:09 | NUR ---
ALERT. ORIENTED. HAD TEMPORARY PERMACATH PLACED. TOLERATED WELL. AT THIS TIME RESEARCH INSTRUCTOR IS DOING TREATMENT W/V.S PER HER. RESEARCH INSTRUCTOR TO CHANGE DRESSING TO OLD PERMACATH SITE LEFT C.W. PATIENT EATTING GOOD. SLEEPING AT THIS TIME. UNLABORED RESPIRATIONS. IV HEPARIN INFUSING WITH PHARMACIST AWARE OF TIME PATIENT HEPARIN WAS SHUT OFF FOR [facility] PLAC[facility]
[2021-08-19 03:18] LABS: Hematocrit 24.9 % (33.0-51.0); Hemoglobin 7.7 g/dL (11.5-16.0); Mean Corpuscular HGB 29.7 pg (26.0-34.0); Mean Corpuscular HGB Conc 30.9 g/dL (31.5-36.5); Mean Corpuscular Volume 96 fL (80-100); Platelet Count 254 K/mm3 (150-400); RDW Coefficient Variation 17.2 % (11.7-14.2); RDW Standard Deviation 60.4 fL (35.1-46.3); Red Blood Cell Count 2.59 M/mm3 (3.80-5.20); White Blood Cell Count 11.65 K/mm3 (4.00-11.30)
[2021-08-19 03:37] LABS: Anion Gap 5 mmol/L (6-16); Blood Urea Nitrogen 20 mg/dL (8-24); Bun/Creatinine Ratio 9.2 (12.0-20.0); CO2, Blood 31 mmol/L (21-32); Calcium, Blood 8.4 mg/dL (8.5-10.1); Chloride, Blood 100 mmol/L (98-108); Creatinine, Blood 2.18 mg/dL (0.40-1.00); Glomerular Filtration Rate 24 (60-); Glucose, Blood 231 mg/dL (70-99); Magnesium, Blood 1.8 mg/dL (1.6-2.4); Phosphorus, Blood 2.7 mg/dL (2.5-4.9); Potassium, Blood 3.8 mmol/L (3.5-5.5); Sodium, Blood 136 mmol/L (136-145)
[2021-08-19 03:39] LABS: BAND PERCENT MAN 1 % (0-8); BASOPHILS ABSOLUTE MAN 0.11 K/mm3 (0.00-0.23); BASOPHILS PERCENT MAN 1 % (0-2); EOSINOPHILS ABSOLUTE MAN 0.11 K/mm3 (0.00-0.68); EOSINOPHILS PERCENT MAN 1 % (0-6); LYMPHOCYTES ABSOLUTE MAN 0.46 K/mm3 (0.84-5.20); LYMPHOCYTES PERCENT MAN 4 % (21-46); METAMYELOCYTE ABSOLUTE MAN 0.11 K/mm3 (0.00-0.00); METAMYELOCYTE PERCENT MAN 1 % (0-0); MONOCYTES ABSOLUTE MAN 1.16 K/mm3 (0.16-1.47); MONOCYTES PERCENT MAN 10 % (4-13); MYELOCYTE ABSOLUTE MAN 0.23 K/mm3 (0.00-0.00); MYELOCYTE PERCENT MAN 2 % (0-0); NEUTROPHILS ABSOLUTE MAN 9.43 K/mm3 (1.96-9.15); SEG NEUTROPHILS PERCENT MAN 80 % (41-73); TOTAL CELLS COUNTED 100
--- NOTE | 2021-08-19 11:08 | NUR ---
PT IS IN FOR DIALYSIS
[2021-08-19 14:13] LABS: Result SEE SEPARATE REPORT
--- NOTE | 2021-08-19 14:36 | NUR ---
CALLED AFTER PT HAD A BM THAT WAS BLACK. WAS CONCERNED ABOUT BLEEDING. RECEIVED AN ORDER FOR H&H LAB DRAW. PER DR DOOLEY, HOLD THE HEPARIN FOR NOW UNTIL SHE SEES THE RESULT
[2021-08-19 14:46] LABS: Hematocrit 24.9 % (33.0-51.0); Hemoglobin 7.7 g/dL (11.5-16.0)
--- NOTE | 2021-08-19 15:32 | NUR ---
RESTARTED THE HEPARIN PER DR DOOLEY. H&H SAME PREVIOUS DRAW. DR STATED TO CONTINUE MONITOR FOR ANY BLEEDING. PHARMACY AWARE ABOUT RESTARTING HEAPRIN.
--- NOTE | 2021-08-19 17:13 | NUR ---
SHIFT SUMMARY PT AOX4; AAT BEDSIDE. HEPARIN IS RUNNING. PT HAS BEDSORE AREA ON HER BUTTOCK, CREAM WAS APPLIED THIS AFTERNOON. CALLED THE DR TO GET AN ORDER FOR ANTIFUNGAL. CREASES UNDER THE PT ABD IS VERY YEASTY. MEDICATED FOR PAINX1. BED IS IN THE LOWEST POSITION AND CALL LIGHT WITHIN REACH.
[2021-08-19 21:31] LABS: Hematocrit 25.7 % (33.0-51.0); Hemoglobin 7.8 g/dL (11.5-16.0)
[2021-08-20 05:11] LABS: Hematocrit 23.7 % (33.0-51.0); Hemoglobin 7.2 g/dL (11.5-16.0)
[2021-08-20 05:32] LABS: Albumin, Blood 1.8 g/dL (3.4-5.0); Anion Gap 6 mmol/L (6-16); Blood Urea Nitrogen 12 mg/dL (8-24); Bun/Creatinine Ratio 7.1 (12.0-20.0); CO2, Blood 29 mmol/L (21-32); Calcium, Blood 7.7 mg/dL (8.5-10.1); Chloride, Blood 98 mmol/L (98-108); Creatinine, Blood 1.68 mg/dL (0.40-1.00); Glomerular Filtration Rate 32 (60-); Glucose, Blood 124 mg/dL (70-99); Magnesium, Blood 1.8 mg/dL (1.6-2.4); Phosphorus, Blood 2.2 mg/dL (2.5-4.9); Potassium, Blood 3.3 mmol/L (3.5-5.5); Sodium, Blood 133 mmol/L (136-145)
[2021-08-20 12:34] LABS: Stool Occult Blood Guaiac 1 Pos (Neg)
[2021-08-20 13:05] LABS: Campylobacter Sp Not Detected (NOT DETECT)
[2021-08-20 13:06] LABS: Adenovirus F 40/41 Not Detected (NOT DETECT); Astrovirus Not Detected (NOT DETECT); Cryptosporidium Not Detected (NOT DETECT); Cyclospora Cayetanensis Not Detected (NOT DETECT); E. Coli O157 Not Detected (NOT DETECT); Entamoeba Histolytica Not Detected (NOT DETECT); Enteroaggregative E. coli-EAEC Not Detected (NOT DETECT); Enteropathogenic E. coli-EPEC Not Detected (NOT DETECT); Enterotoxigenic E. coli-ETEC Not Detected (NOT DETECT); Giardia Lamblia Not Detected (NOT DETECT); Norovirus GI/GII Not Detected (NOT DETECT); Plesiomonas Shigelloides Not Detected (NOT DETECT); Rotavirus A Not Detected (NOT DETECT); Salmonella Sp Not Detected (NOT DETECT); Sapovirus Not Detected (NOT DETECT); Shiga Toxin-prod E. coli-STEC Not Detected (NOT DETECT); Shigella/Enteroin E. coli-EIEC Not Detected (NOT DETECT); Vibrio Cholerae Not Detected (NOT DETECT); Vibrio Sp Not Detected (NOT DETECT); Yersinia Enterocolitica Not Detected (NOT DETECT)
--- NOTE | 2021-08-20 18:37 | NUR ---
SUMMARY- PT A/O X4. REFUSING TO GET OOB TO CHAIR RELATED TO BACK PAIN AND DISC PROBLEMS. PT HAS EGG CRATE AND FLOATED ON PILLOWS. PT TOLERATING FOOD AND FLUIDS. BED BATH THIS AM. FOLDS RED, SKIN SPLITS. APPLIED MICONAZOLE AND BARRIER CREAM AFTER CLEANSED. HAVING FREQ SEMI-FORMED STOOLS, THIS AM BROWN-OLIVE JELLY TYPE. SENT GI PANAL- NEGATIVE FOR C-DIFF, POS OCCULT BLOOD. GIVEN IMMODIUM, NO FURTHER STOOL THIS SHIFT. C/O BACK PAIN, CONTROLLED WITH VICODIN 1 APPROX Q6. CONT WITH HEPARIN GTT FOR DVT. POWERGLIDE X2 LA, UPPER DRAWS. BLOOD SUGARS STABLE. SSRI PRN. PLAN FOR PERMACATH PLACEMENT MON.
[2021-08-21 02:24] LABS: Hematocrit 26.6 % (33.0-51.0); Hemoglobin 8.2 g/dL (11.5-16.0)
[2021-08-21 02:42] LABS: Albumin, Blood 2.1 g/dL (3.4-5.0); Anion Gap 6 mmol/L (6-16); Blood Urea Nitrogen 17 mg/dL (8-24); Bun/Creatinine Ratio 7.4 (12.0-20.0); CO2, Blood 30 mmol/L (21-32); Chloride, Blood 100 mmol/L (98-108); Creatinine, Blood 2.29 mg/dL (0.40-1.00); Glomerular Filtration Rate 23 (60-); Glucose, Blood 175 mg/dL (70-99); Phosphorus, Blood 3.7 mg/dL (2.5-4.9); Potassium, Blood 3.7 mmol/L (3.5-5.5); Sodium, Blood 136 mmol/L (136-145)
--- NOTE | 2021-08-21 05:58 | NUR ---
SHIFT SUMMARY AOX4 ABLE TO VOICE NEEDS C/O PAIN TO HER BACK REPOSITION AND PRN ADMIN PER EMAR WITH RELIEF.BED CHANGED TO BARIATRIC BED PT HAPPY .LUNGS SOUND CLEAR NO SOB PT CONT OXYGEN VIA N/C HILL DRANING DARK URINE .PT CONT HEPARIN DRIP NEW ORDER RECEIVED FROM PHARMACY CHANGE THE RATE THE PUMP UPDATED WITH THE NEW RATE.NO ACUTE CHANGE
--- NOTE | 2021-08-21 16:37 | NUR ---
SUMMARY- PT HAD DIALYSIS TODAY. PAIN CONTROLLED WITH NORCO. TOLERATING FOOD AND FLUID. IMMODIUM AND BANANA FLAKES THIS AM. PASSING GAS BUT HAD NO STOOL TODAY. PLAN FOR PERMACATH TOMORROW DR ABDALLA. CONT ON HEP GTT. BP ELEVATED THIS PM LIKELY RELATED TO METOPROLOL BEING HELD BEFORE DIALYSIS AND RN FORGOT TO GIVE DIRECTLY AFTER. GIVEN LATE AT [address] MILLIGAN F/U ON ELEVATED BP.
[2021-08-22 05:41] LABS: Hematocrit 26.9 % (33.0-51.0); Hemoglobin 8.1 g/dL (11.5-16.0)
[2021-08-22 06:13] LABS: Albumin, Blood 2.1 g/dL (3.4-5.0); Anion Gap 6 mmol/L (6-16); Blood Urea Nitrogen 14 mg/dL (8-24); Bun/Creatinine Ratio 7.8 (12.0-20.0); CO2, Blood 29 mmol/L (21-32); Calcium, Blood 9.1 mg/dL (8.5-10.1); Chloride, Blood 104 mmol/L (98-108); Creatinine, Blood 1.79 mg/dL (0.40-1.00); Glomerular Filtration Rate 30 (60-); Glucose, Blood 224 mg/dL (70-99); Phosphorus, Blood 3.1 mg/dL (2.5-4.9); Potassium, Blood 3.9 mmol/L (3.5-5.5); Sodium, Blood 139 mmol/L (136-145)
--- NOTE | 2021-08-22 06:39 | NUR ---
SHIFT SUMMARY PATIENT ALERT NO C/O CHEST CONT OXYGEN VIA N/C SPO2 94 NO SOB LUNGS SOUND CLEAR CONT HEPARIN DRIP.NO ACUTE CHANGE
[2021-08-22 16:13] LABS: BASOPHILS ABSOLUTE AUTO 0.04 K/mm3 (0.00-0.23); BASOPHILS PERCENT AUTO 1 % (0-2); EOSINOPHILS ABSOLUTE AUTO 0.18 K/mm3 (0.00-0.68); EOSINOPHILS PERCENT AUTO 3 % (0-6); Hematocrit 26.2 % (33.0-51.0); Hemoglobin 7.8 g/dL (11.5-16.0); IMMATURE GRAN ABSOLUTE AUTO 0.19 K/mm3 (0.00-0.10); IMMATURE GRAN PERCENT AUTO 3 % (0-1); LYMPHOCYTES ABSOLUTE AUTO 1.37 K/mm3 (0.84-5.20); LYMPHOCYTES PERCENT AUTO 19 % (21-46); MONOCYTES ABSOLUTE AUTO 0.48 K/mm3 (0.16-1.47); MONOCYTES PERCENT AUTO 7 % (4-13); Mean Corpuscular HGB 30.1 pg (26.0-34.0); Mean Corpuscular HGB Conc 29.8 g/dL (31.5-36.5); Mean Corpuscular Volume 101 fL (80-100); Mean Platelet Volume 10.9 fL (9.1-12.4); NEUTROPHILS ABSOLUTE AUTO 4.87 K/mm3 (1.96-9.15); NEUTROPHILS PERCENT AUTO 68 % (41-73); Platelet Count 237 K/mm3 (150-400); RDW Coefficient Variation 18.6 % (11.7-14.2); RDW Standard Deviation 68.3 fL (35.1-46.3); Red Blood Cell Count 2.59 M/mm3 (3.80-5.20); White Blood Cell Count 7.13 K/mm3 (4.00-11.30)
--- NOTE | 2021-08-22 16:48 | NUR ---
CALLED DR NEW AND DR ABDALLA- PT ARRIVED BACK FROM PROCEDURE. RECIEVED IN REPORT THE PT LOST ALOT OF BLOOD STST H&H WAS DRAWN, HEPARIN DRIP IS NO LONGER CONNECTED TO THE PT. UNCERTAIN WHAT THE CURRENT ORDER IS FOR THE HEPARIN. CALLED DR NEW SHE SPOKE TO DR ABDALLA AND STATED THE PT CAN RESUME THE HEPARIN DRIP AT THE CURRENT RATE WITH NO BOLUS DOSES FOR THE NEXT THREE HOURS. WILL CALL PHARMACY THE PT WAS DISCONNECTED FROM THE HEPARIN DRIP FOR AN UNKNOWN AMOUNT OF TIME. GATE GUARDGRIFFIN SIFUENTES WILL ASSIST.
--- NOTE | 2021-08-22 18:35 | NUR ---
SHIFT SUMMARY- PT ALERT AND ORIENTED. LIFT PT AT BASELINE. HILL CATH IN PLACE PATENT AND DRAINING. PT HAD C/O PAIN ONCE THIS MORNING, HER CHRONIC BACK PAIN, THIS EVENING POST PERMACATH PLACEMENT TO THE LEFT CHEST SHE C/O A HEADACHE AND SHOULDER PAIN. PT MEDICATED WITH PRN NORCO WHICH SEEEMED TO WORK WELL. PT COOK HELPER VEGETABLE A NEW ORDER FOR Q4 NEURO CHECKS THE FIRST ONE WAS COMPLETED AT 1700. PT HAS A SPECIFIC ORDER FOR POST OP VITALS WELL WHICH WERE COMPLETED NEXT SET OF VITALS SET FOR 1920. PT WAS NPO T/O THE DAY AND LANTUS INSULIN WAS HELD PER MD. PT HAS NO CURENT S&S OF DISTRESS NOTED, ON POST OP VITALS THE PT WAS NOTED TO HAVE SATS IN THE HIGH 80'S PLACED ON 2L O2 VIA NC, PT WAS ON THAT AMOUNT OF O2 THIS AM AND WAS TITRATED OFF PRE PROCEDURE. WILL CTM PT AND PASS ALL ON TO NIGHT RN IN BEDSIDE REPORT.
[2021-08-23 03:04] LABS: Hematocrit 26.2 % (33.0-51.0); Hemoglobin 7.9 g/dL (11.5-16.0)
[2021-08-23 03:35] LABS: Albumin, Blood 2.1 g/dL (3.4-5.0); Anion Gap 5 mmol/L (6-16); Blood Urea Nitrogen 17 mg/dL (8-24); Bun/Creatinine Ratio 8.2 (12.0-20.0); CO2, Blood 29 mmol/L (21-32); Chloride, Blood 104 mmol/L (98-108); Creatinine, Blood 2.08 mg/dL (0.40-1.00); Glomerular Filtration Rate 25 (60-); Glucose, Blood 205 mg/dL (70-99); Phosphorus, Blood 3.6 mg/dL (2.5-4.9); Potassium, Blood 4.2 mmol/L (3.5-5.5); Sodium, Blood 138 mmol/L (136-145)
--- NOTE | 2021-08-23 05:57 | NUR ---
SHIFT SUMMARY POST OP NEW PERMCATH TO LEFT UPPER CHEST DRESSING DRY CLEAN AND INTACT SOME SWELLING NOTED AROUND SHOULDER PT C/O PAIN NORCO ADM PER EMAR PT REASSES THE PAIN PT STATED SHE IS STILL IN PAIN DR HERRERA MADE AWARE NEW ORDER GIVE 1-2 TABS NORCO 5/325MG Q 4HRS PRN 2 TABS ADM WITH RELIEF PT SLEEPT WELL CONT NEURO CHECKS AND VITAL NO ACUTE CHANGE NOTED CONT HEPARIN DRIP NEW RATE UPDATED PER PHARMACY
--- NOTE | 2021-08-23 11:01 | NUR ---
HEPRIIN RATE ADJUSTED PER EMAR WHILE PT WAS AT DIALYSIS.
--- NOTE | 2021-08-23 15:53 | NUR ---
REPORT GIVEN TO STANLEY MOYA TAKING OVER CARE AT 1550. PT HAS BEEN AOX4 AND COOPERATIVE OF CARE. PT BEDREST AND NEEDS LIFTED TO BE TRANSFERED. PT HAD DIALYSIS TODAY AND TOLERATED WELL NO DISTRESS NOTED. PT HAS HAD PAIN DUE TO NEW PERMA CATH ON HER L UPPER CHEST AND IS TREATED PER EMAR.
[2021-08-23] MEDS ORDERED: BANATROL PLUS1 EAC1 PO (17:34)
[2021-08-23] MEDS ORDERED: RIFA300 PO (17:35)
[2021-08-23] MEDS ORDERED: CUBICIN500 MG IV (17:37)
--- NOTE | 2021-08-23 17:48 | NUR ---
DR. Ramy MASSEY NOTIFIED AT 2119 THAT PATIENT DID NOT HAVE ELIQUIS ON HOME MED REC. PROVIDER STATED HE WILL PLACE ORDERS ON MED REQ.
[2021-08-23] MEDS ORDERED: ELIQUIS5 M2 PO (17:55)
--- NOTE | 2021-08-23 18:48 | NUR ---
HEPRIN DRIP SHUT OFF AT 1603 WHEN ELIQUIS WAS GIVEN. CHARGE NURSE APPLE DID NOT KNOW HOW TO HELP RN PUT STOP TIME ON DRIPP.
--- NOTE | 2021-08-24 08:51 | NUR ---
Patient is a [facility] patient who was transferred to [facility] on 08/10/2021 due to hypotension. Patient discharged 08/23/2021 with resumption of home health orders. Gathered supporting documentation for resumption (face sheet, discharge order, med list, and H&P) and faxed to [facility] for review. No further interventions required. Lyndsay Deleon Referral Liaison
== END 2021-08-23 18:29 | disposition home or self-care (01) | DRG 853 ==
LOC: ER 10:16 → PCU 16:28 → MEDS 16:28 → PCU 17:48 → MEDS 08-12 18:49
PROVIDERS: Family Medicine; Hospitalist; Internal Medicine; Internal Medicine Nephrology; Pharmacist; Physician Assistant; Radiology Diagnostic Radiology; Student in an Organized Health Care Education/Training Program; ADMIT Internal Medicine
PROC: 3E03329 Introduction of Other Anti-infective into Peripheral Vein, Percutaneous Approach (ICD-10-PCS; principal; 2021-08-10)
PROC: 02PY03Z Removal of Infusion Device from Great Vessel, Open Approach (ICD-10-PCS; 2021-08-16)
PROC: 02HV33Z Insertion of Infusion Device into Superior Vena Cava, Percutaneous Approach (ICD-10-PCS; 2021-08-16)
PROC: 5A1D70Z Performance of Urinary Filtration, Intermittent, Less than 6 Hours Per Day (ICD-10-PCS; 2021-08-16)
PROC: 02HV33Z Insertion of Infusion Device into Superior Vena Cava, Percutaneous Approach (ICD-10-PCS; 2021-08-16)
PROC: 0JH63XZ Insertion of Tunneled Vascular Access Device into Chest Subcutaneous Tissue and Fascia, Percutaneous Approach (ICD-10-PCS; 2021-08-23)
PROC: B5181ZA Fluoroscopy of Superior Vena Cava using Low Osmolar Contrast, Guidance (ICD-10-PCS; 2021-08-23)
DX: A41.02 Sepsis due to Methicillin resistant Staphylococcus aureus (principal); N18.6 End stage renal disease; R65.21 Severe sepsis with septic shock; U07.1 COVID-19; T83.511A Infection and inflammatory reaction due to indwelling urethral catheter, initial encounter; N25.81 Secondary hyperparathyroidism of renal origin; E87.1 Hypo-osmolality and hyponatremia; I12.0 Hypertensive chronic kidney disease with stage 5 chronic kidney disease or end stage renal disease; I13.2 Hypertensive heart and chronic kidney disease with heart failure and with stage 5 chronic kidney disease, or end stage renal disease; I82.4Z1 Acute embolism and thrombosis of unspecified deep veins of right distal lower extremity; I50.22 Chronic systolic (congestive) heart failure; Z68.42 Body mass index [BMI] 45.0-49.9, adult; M46.26 Osteomyelitis of vertebra, lumbar region; M46.46 Discitis, unspecified, lumbar region; D63.1 Anemia in chronic kidney disease; I25.10 Atherosclerotic heart disease of native coronary artery without angina pectoris; R19.7 Diarrhea, unspecified; F41.8 Other specified anxiety disorders; E11.21 Type 2 diabetes mellitus with diabetic nephropathy; E03.9 Hypothyroidism, unspecified; E66.9 Obesity, unspecified; R07.89 Other chest pain; J44.9 Chronic obstructive pulmonary disease, unspecified; I25.2 Old myocardial infarction; Z95.1 Presence of aortocoronary bypass graft; Z98.890 Other specified postprocedural states; Z99.2 Dependence on renal dialysis; Z91.048 Other nonmedicinal substance allergy status; Z91.018 Allergy to other foods; Z79.4 Long term (current) use of insulin; Z79.899 Other long term (current) drug therapy
CPT/HCPCS: 0097U; 0241U; 36415; 36556; 36558; 36589; 51702; 71045; 72132; 74177; 75860; 76937; 80053; 80069; 80202; 81001; 82270; 82550; 82947; 83540; 83550; 83605; 83690; 83735; 84100; 85014; 85018; 85025; 85027; 85520; 85610; 85730; 86850; 86900; 86901; 87040; 87070; 87077; 87086; 87186; 87188; 93005; 93010; 93312; 93325; 93971; 94640; 94664; 94760; 96374; 96375; 97162; 99152; 99153; 99285-25; A9270; C1750; C1751; C1752; C1769; C1887; C1894; C8929; J0360; J0696; J0780; J0878; J0881; J1644; J1815; J1885; J2250; J2270; J2405; J2543; J2704; J3010; J3370; J7030; J7040; J7050; J7060; Q9957; Q9967

== ENCOUNTER 2021-10-27 20:23 | Inpatient (IN) | payer OTHER ==
[~2021-10-27] VITALS: Ht 160 cm; Wt 123.8 kg
[~2021-10-27 20:23] MED LIST changes: +BANATROL PLUS1 EAC1 PO; +CUBICIN500 MG IV; +ELIQUIS5 M2 PO; +METO10 PO; +RIFA300 PO; +SULTRIDS PO
[2021-10-27 21:12] LABS: BASOPHILS ABSOLUTE AUTO 0.06 K/mm3 (0.00-0.23); BASOPHILS PERCENT AUTO 1 % (0-2); EOSINOPHILS ABSOLUTE AUTO 0.03 K/mm3 (0.00-0.68); EOSINOPHILS PERCENT AUTO 0 % (0-6); Hematocrit 43.7 % (33.0-51.0); Hemoglobin 14.4 g/dL (11.5-16.0); IMMATURE GRAN ABSOLUTE AUTO 0.05 K/mm3 (0.00-0.10); IMMATURE GRAN PERCENT AUTO 0 % (0-1); LYMPHOCYTES ABSOLUTE AUTO 0.85 K/mm3 (0.84-5.20); LYMPHOCYTES PERCENT AUTO 7 % (21-46); MONOCYTES ABSOLUTE AUTO 0.54 K/mm3 (0.16-1.47); MONOCYTES PERCENT AUTO 4 % (4-13); Mean Corpuscular HGB 30.4 pg (26.0-34.0); Mean Corpuscular Volume 92 fL (80-100); Mean Platelet Volume 11.9 fL (9.1-12.4); NEUTROPHILS ABSOLUTE AUTO 11.13 K/mm3 (1.96-9.15); NEUTROPHILS PERCENT AUTO 88 % (41-73); Platelet Count 163 K/mm3 (150-400); RDW Coefficient Variation 15.1 % (11.7-14.2); RDW Standard Deviation 51.3 fL (35.1-46.3); Red Blood Cell Count 4.74 M/mm3 (3.80-5.20); White Blood Cell Count 12.66 K/mm3 (4.00-11.30)
[2021-10-27 21:31] LABS: Albumin, Blood 3.2 g/dL (3.4-5.0); Albumin/Globulin Ratio 0.6 (0.8-1.8); Bilirubin, Total 0.3 mg/dL (0.1-1.0); Bun/Creatinine Ratio 8.8 (12.0-20.0); Calcium, Blood 9.9 mg/dL (8.5-10.1); Creatinine, Blood 5.34 mg/dL (0.40-1.00); Globulin, Blood 5.1 g/dL (2.2-4.0); Potassium, Blood 6.2 mmol/L (3.5-5.5); Total Protein, Blood 8.3 g/dL (6.4-8.2)
[2021-10-28 00:01] LABS: Thyroid Stimulating Hormone 3.66 uIU/mL (0.360-4.800)
[2021-10-28 00:03] LABS: Potassium, Blood 6.4 mmol/L (3.5-5.5)
[2021-10-28 01:33] LABS: Bun/Creatinine Ratio 8.7 (12.0-20.0); Calcium, Blood 9.8 mg/dL (8.5-10.1); Creatinine, Blood 5.51 mg/dL (0.40-1.00); Potassium, Blood 5.4 mmol/L (3.5-5.5)
[2021-10-28 01:38] LABS: Influenza A, PCR NEGATIVE (NEGATIVE); Influenza B, PCR NEGATIVE (NEGATIVE); Resp Syncytial Virus, PCR NEGATIVE (NEGATIVE); SARS-Cov-2 (COVID-19) PCR, MMC NEGATIVE (NEGATIVE)
[2021-10-28 03:56] LABS: Source, Urine Foley catheter
[2021-10-28 03:58] LABS: Bilirubin, Urine Neg (Neg); Blood, Urine 5+ (Neg); Glucose Qualitative, Urine 3+ (Neg); Ketones, Urine Neg (Neg); Leukocyte Esterase, Urine 3+ (Neg); Nitrite, Urine Pos (Neg); Protein, Urine 4+ (Neg); Specific Gravity, Urine 1.015 (1.003-1.022); Urobilinogen, Urine NORM (Normal); pH, Urine 6.5 (5.0-8.0)
[2021-10-28 03:59] LABS: Appearance, Urine Cloudy (Clear); Color, Urine Pale Yellow (P-Yellow)
[2021-10-28 04:05] LABS: Bacteria Many /hpf; Squamous Epithelial Cells Not Seen /hpf (Few); White Blood Cells, Urine TNTC /hpf (0-5)
[2021-10-28 05:43] LABS: BASOPHILS ABSOLUTE AUTO 0.05 K/mm3 (0.00-0.23); BASOPHILS PERCENT AUTO 0 % (0-2); EOSINOPHILS PERCENT AUTO 0 % (0-6); Hematocrit 42.6 % (33.0-51.0); Hemoglobin 13.9 g/dL (11.5-16.0); IMMATURE GRAN ABSOLUTE AUTO 0.07 K/mm3 (0.00-0.10); IMMATURE GRAN PERCENT AUTO 1 % (0-1); LYMPHOCYTES ABSOLUTE AUTO 0.92 K/mm3 (0.84-5.20); LYMPHOCYTES PERCENT AUTO 7 % (21-46); MONOCYTES PERCENT AUTO 6 % (4-13); Mean Corpuscular HGB 30.6 pg (26.0-34.0); Mean Corpuscular HGB Conc 32.6 g/dL (31.5-36.5); Mean Corpuscular Volume 94 fL (80-100); Mean Platelet Volume 12.3 fL (9.1-12.4); NEUTROPHILS ABSOLUTE AUTO 12.21 K/mm3 (1.96-9.15); NEUTROPHILS PERCENT AUTO 86 % (41-73); Platelet Count 148 K/mm3 (150-400); RDW Coefficient Variation 15.2 % (11.7-14.2); RDW Standard Deviation 52.9 fL (35.1-46.3); Red Blood Cell Count 4.54 M/mm3 (3.80-5.20); White Blood Cell Count 14.15 K/mm3 (4.00-11.30)
[2021-10-28 06:06] LABS: Albumin/Globulin Ratio 0.6 (0.8-1.8); Bilirubin, Total 0.3 mg/dL (0.1-1.0); Bun/Creatinine Ratio 8.9 (12.0-20.0); Calcium, Blood 9.9 mg/dL (8.5-10.1); Creatinine, Blood 5.61 mg/dL (0.40-1.00); Globulin, Blood 5.2 g/dL (2.2-4.0); Potassium, Blood 5.4 mmol/L (3.5-5.5); Total Protein, Blood 8.2 g/dL (6.4-8.2)
[2021-10-28 12:36] LABS: Vancomycin, Random 13.7 ug/mL
--- NOTE | 2021-10-28 14:40 | NUR ---
TRANSFER UPDATE REPORT RECIEVED FROM ER NURSE AT 0850. PT TRANSFERED FROM ER TO DIALYSIS AT 0900. PT ARRIVED TO PCU UNIT AT 1205 VIA HOSPITAL BED. PT WAS ON 1.5L NC IN DIALYSIS AND HAS BEEN ON RA SINCE ARRIVAL TO UNIT WITH SATS IN THE 90'S. PT BELONGINGS WERE DELIVERED TO PT ROOM PRIOR TO HER ARRIVAL TO PCU ROOM.
--- NOTE | 2021-10-28 18:33 | NUR ---
SHIFT SUMMARY PT A/O X 4 AND COOPERATIVE OF CARE. VSS SINCE ARRIVAL TO UNIT WIT O2 SATS >92% ON RA. NO REPORT OF CHEST PAIN/PRESSURE SINCE ARRIVLA TO UNIT. NO REPORT OF SOB/DYSPNEA SINCE ARRIVLA TO UNIT. PT RECIEVED DIALYSIS TODAY BEFORE ARRIVING TO UNIT. HILL IN PLACE DRAINING TO GRAVITY. MICROBIOLOGY NOTIFIED RN OF GRAM POSITIVE COCCI IN CLUSTERS, DR NOTIFIED, PT ALREADY RECIEVING VNACO.
[2021-10-29 04:21] LABS: Hematocrit 39.8 % (33.0-51.0); Hemoglobin 12.7 g/dL (11.5-16.0)
[2021-10-29 04:44] LABS: Albumin, Blood 2.7 g/dL (3.4-5.0); Anion Gap 10 mmol/L (6-16); Blood Urea Nitrogen 42 mg/dL (8-24); Bun/Creatinine Ratio 8.2 (12.0-20.0); CO2, Blood 29 mmol/L (21-32); Calcium, Blood 9.5 mg/dL (8.5-10.1); Chloride, Blood 92 mmol/L (98-108); Creatinine, Blood 5.12 mg/dL (0.40-1.00); Glomerular Filtration Rate 10 (60-); Glucose, Blood 167 mg/dL (70-99); Magnesium, Blood 2.5 mg/dL (1.6-2.4); Phosphorus, Blood 6.7 mg/dL (2.5-4.9); Sodium, Blood 131 mmol/L (136-145)
--- NOTE | 2021-10-29 06:16 | NUR ---
SHIFT SUMMARY PT IS ALERT AND ORIENTED. THERE HAVE BEEN NO ACUTE CHANGES T/O THE NIGHT. PT REPORTS SOME CHEST PAIN WITH DEEP INSPERATION AT TIMES. VITALS ARE STABLE AND SATS ARE ABOVE 92% ON 1L NC. HILL IN PLACE AND DRAINING. PT IS ABLE TO ADJUST AND TURN SELF JUST NEEDS HELP PUTTING PILLOW UNDER BOTTOM. PT HAS LARGE AMOUNT OF SKIN BREAKDOWN ON BUTTOCKS AND IN ABDOMINAL AND PER AREA FOLDS. MICONAZOLE POWDER ORDERED WHICH PT IS CURRENTLY USING AT HOME. CALL LIGHT IS WITHIN REACH.
--- NOTE | 2021-10-29 12:41 | NUR ---
TRANSFER UPDATE REPORT GIVEN TO MEDICAL FLOOR RN AT 1115. PT LEFT PCU UNIT AT 1200 VIA HOSPITAL BED AND ON RA. PT BELONGINGS IN BAG AND WITH PT FOR TRANSFER. PT TRANSFERED PT PERSONAL WHEELCHAIR TO MEDICAL FLOOR ROOM. MEDICATIONS IN MEDICATION BAG AND TRANSFERED WITH PT. PT CHART WITH PT DURING TRANSFER.
--- NOTE | 2021-10-29 13:25 | NUR ---
PATIENT ARRRIVED ON THE MEDICAL FLOOR IN THEIR BED AT 1205 TODAY. PATIENT WAS HOOKED UP TO A CONTINUOUS PULSE OX AND GIVEN INSULIN PER SLIDING SCALE FOR COVERAGE. NO PAIN OR DISCOMFORT NOTED. VSS. OXYGEN IN USE WHILE THE PATIENT EATS. CALL LIGHT WITHIN REACH, BED IN LOWEST POSITION.
--- NOTE | 2021-10-29 18:32 | NUR ---
SHIFT SUMMARY PATIENT ALERT AND ORIENTED X4, PLEASANT AND COOPERATIVE WITH CARE. PATIENT HAS BEEN SLEEPING MOST OF THE AFTERNOON AFTER ARRIVING. PATIENT HAS A HILL DRAINING YELLOW URINE TO GRAVITY. PATIENT RECEIVED ONE UNIT OF INSULIN X2 FOR COVERAGE. CURRENTLY HAS 1 LPM OF O2 VIA NASAL CANNULA. CONTINUOUS PULSE OX ON AND WORKING. NO EVENTS ON TELE. PATIENT WOULD LIKE RESULTS OF BLOOD CULTURES WHEN THEY COME IN. FAMILY AT BEDSIDE, CALL LIGHT WITHIN REACH.
[2021-10-30 04:40] LABS: Hematocrit 36.8 % (33.0-51.0)
--- NOTE | 2021-10-30 04:54 | NUR ---
SUMMARY: PT A/OX4, CALLS APPROPRIATELY TO SPECIFY NEEDS AND IS PLEASANT AND COOPERATIVE W/CARE. PT W/C BOUND AT BASELINE AND REQ'S LIFT OOB BUT IS ABLE TO REPOSITION SELF IN BED. TURN SCHEDULE ENSURED FOR SBD/SORES TO BUTTOCKS. MEPILEX REMAINS C/D/I TO COCCYX AND HILL IS PATENT/DRAINING. SHE USED BEDPAN THIS SHIFT AND HAD A MED FORMED BM. PT REMAINS ON 1L O2 AD ARCENIO W/SPO2 WNL, NO S/S SOB OR DYSPNEA. SHE REMAINS NSR W/BBB AT 80'S BPM. DIALYSIS CATH INTACT TO L.CW AND BLOOD CX'S TO DIALYSIS CATH (+) THIS SHIFT FOR GRAM+ COCCI. MADE AWARE, PT ON VANCO WHICH PHARMACY AGREED IS SUFFICIENT COVERAGE W/NO NEW ORDERS RECIEVED. VSS/AFEBRILE, NO ACUTE CHANGES. WCTM AND REPORT TO DAY RN.
[2021-10-30 05:15] LABS: Albumin, Blood 2.7 g/dL (3.4-5.0); Anion Gap 10 mmol/L (6-16); Blood Urea Nitrogen 56 mg/dL (8-24); Bun/Creatinine Ratio 9.5 (12.0-20.0); CO2, Blood 28 mmol/L (21-32); Calcium, Blood 9.7 mg/dL (8.5-10.1); Chloride, Blood 92 mmol/L (98-108); Creatinine, Blood 5.92 mg/dL (0.40-1.00); Glomerular Filtration Rate 8 (60-); Glucose, Blood 186 mg/dL (70-99); Magnesium, Blood 2.7 mg/dL (1.6-2.4); Phosphorus, Blood 7.9 mg/dL (2.5-4.9); Potassium, Blood 4.8 mmol/L (3.5-5.5); Sodium, Blood 130 mmol/L (136-145)
--- NOTE | 2021-10-30 09:22 | NUR ---
0910 TO DIALYSIS PER BED
--- NOTE | 2021-10-30 11:53 | NUR ---
0740 PT HAS DIALYSIS CATHETER TO LEFT UPPER CHEST WITH DRESSING CLEAN DRY AND INTACT. NO REDNESS OR SWELLING
--- NOTE | 2021-10-30 13:07 | NUR ---
1245 RETURNED TO ROOM FROM DIALYSIS,. PT TELLS ME DIALYSIS WENT WELL, NO NEEDS AT THIS TIME. LUNCH GIVEN
--- NOTE | 2021-10-30 17:09 | NUR ---
PT CECILIA DIALYSIS WITHOUT DIFFICULTY. HAS RESTED IUN BED AND WATCHED TV. PT STATES BEFORE DINNER BLOOD SUGAR WAS ELEVATED HAD EATEN [employer] SNACK MIX. PT REMAINS SR WITH BBB. BIOX MAIINTAINING GREATER THAN 90% ON 1 LITER. PT AWARE OF PLAN FOR REMOVAL OF DIALYSIS CATHETER IN AM
[2021-10-31 05:13] LABS: Hematocrit 42.8 % (33.0-51.0); Hemoglobin 13.8 g/dL (11.5-16.0)
[2021-10-31 05:32] LABS: Albumin, Blood 2.8 g/dL (3.4-5.0); Anion Gap 9 mmol/L (6-16); Blood Urea Nitrogen 37 mg/dL (8-24); Bun/Creatinine Ratio 8.4 (12.0-20.0); CO2, Blood 29 mmol/L (21-32); Calcium, Blood 9.5 mg/dL (8.5-10.1); Chloride, Blood 96 mmol/L (98-108); Glomerular Filtration Rate 12 (60-); Glucose, Blood 164 mg/dL (70-99); Magnesium, Blood 2.5 mg/dL (1.6-2.4); Phosphorus, Blood 5.9 mg/dL (2.5-4.9); Potassium, Blood 4.5 mmol/L (3.5-5.5); Sodium, Blood 134 mmol/L (136-145)
--- NOTE | 2021-10-31 05:40 | NUR ---
SUMMARY: A/OX4, CALLS APPROPRIATELY TO SPECIFY NEEDS AND IS PLEASANT AND COOPERATIVE W/CARE. SHE REPOSITIONS SELF IN BED BUT REQUIRES LIFT TO GET UP. TURN SCHEDULE ENSURED D/T SORE/SBD TO BUTTOCKS AND MEPILEX REMAINS C/D/I. HILL PATENT IS PATENT AND DRAINING. PT REMAINS ON 1L O2 AD ARCENIO W/O RESP DISTRESS. SHE IS NSR AT 80'S-90'S BPM ON TELEMETRY. L.CW DIALYSIS CATH INTACT BUT DIALYSIS CATH AND BLOOD CX'S WERE BOTH (+). CONSULT PENDING AND NEEDS CALLED TODAY, WILL ENSURE DAY STAFF ARE AWARE. IV ABX BEING RECIEVED, PHARM MANAGING VANCO. NO ACUTE CHANGES, VSS/AFEBRILE. WCTM/REPORT TO DAY RN.
[2021-10-31 08:38] LABS: Vancomycin, Random 19.7 ug/mL
--- NOTE | 2021-10-31 16:39 | NUR ---
Spiritual care visit conducted. Pt talks about medical issues, family unit comlications, her resilience through many challenging circumstances and her support system. I provide therapeutic listening, highlight pt's strengths and depth of character and prayer. Pt responds well and shows signs of catharsis. I will continue to remain available.
--- NOTE | 2021-10-31 17:48 | NUR ---
REVIEWED SHIMON MOYA'S ASSESSMENT AND AGREE WITH HIM.
--- NOTE | 2021-10-31 17:59 | NUR ---
PT A&O, FOLLOWS COMMANDS, VERY PLEASANT. PT DOWN TO GET HD CATHETER REMOVED, CULTURE SENT. BLOOD CULTURES TO BE DRAWN FOLLOWING REMOVAL. ANTIBIOTICS STARTED. PT HAD LARGE BM, DRESSING TO LEFT BUTTOCKS CHANGED, R DRESSING STILL INTACT. PATIENT ABLE TO ASSIST WITH ADJUSTMENT IN BED.
--- NOTE | 2021-11-01 04:59 | NUR ---
Patient with VSS on RA overnight. Skin inspection reveals bilat buttock mepilex. Healing yeast infection in pannus and under breasts. Turned Q2 hrs. NO c/o pain overnight. Gaytan patent with minimal clear, yellow output.
[2021-11-01 05:28] LABS: Hematocrit 38.9 % (33.0-51.0); Hemoglobin 12.3 g/dL (11.5-16.0)
[2021-11-01 05:52] LABS: Albumin, Blood 2.8 g/dL (3.4-5.0); Anion Gap 12 mmol/L (6-16); Blood Urea Nitrogen 52 mg/dL (8-24); Bun/Creatinine Ratio 9.6 (12.0-20.0); CO2, Blood 27 mmol/L (21-32); Calcium, Blood 9.8 mg/dL (8.5-10.1); Chloride, Blood 94 mmol/L (98-108); Glomerular Filtration Rate 9 (60-); Glucose, Blood 174 mg/dL (70-99); Magnesium, Blood 2.6 mg/dL (1.6-2.4); Phosphorus, Blood 7.1 mg/dL (2.5-4.9); Potassium, Blood 4.4 mmol/L (3.5-5.5); Sodium, Blood 133 mmol/L (136-145)
--- NOTE | 2021-11-01 16:56 | NUR ---
SHIFT SUMMARY PT A&O, FOLLOWS COMMANDS, VERY PLEASANT. NO ACUTE CHANGES DURING SHIFT. PT RECEIVING IV ABX. PT RECEIVED BED BATH, LINEN AND DRESSINGS CHANGED.VSS, PT REMAINS ON O2. NO C/O PAIN.
--- NOTE | 2021-11-01 18:00 | NUR ---
THIS PROTECTION CHIEF [employer]AL [employer]ANT HAS REVIEWED GRIFFIN ROBINS'S NOTES AND ASSESSMENTS AND AGREES WITH THEM.
--- NOTE | 2021-11-02 04:09 | NUR ---
Patient with VSS on RA overnight. Patient with frequent refusal to be repositioned. Discussed the need to turn her and keep her off her buttocks. Patient states understanding but refuses to turn. Gaytan Patient with clear, yellow urine. No acute events overnight.
[2021-11-02 05:27] LABS: Hematocrit 36.7 % (33.0-51.0)
[2021-11-02 05:42] LABS: Albumin, Blood 2.8 g/dL (3.4-5.0); Anion Gap 12 mmol/L (6-16); Blood Urea Nitrogen 56 mg/dL (8-24); Bun/Creatinine Ratio 10.3 (12.0-20.0); CO2, Blood 26 mmol/L (21-32); Calcium, Blood 9.4 mg/dL (8.5-10.1); Chloride, Blood 94 mmol/L (98-108); Creatinine, Blood 5.45 mg/dL (0.40-1.00); Glomerular Filtration Rate 9 (60-); Glucose, Blood 154 mg/dL (70-99); Magnesium, Blood 2.6 mg/dL (1.6-2.4); Phosphorus, Blood 6.2 mg/dL (2.5-4.9); Potassium, Blood 4.4 mmol/L (3.5-5.5); Sodium, Blood 132 mmol/L (136-145)
--- NOTE | 2021-11-02 15:12 | NUR ---
Patient immediately explains about the removal of her port and blood cultures that came back negative for infection and the plan for new port installment today of tomorrow. She talks at length about spouse, Deep, and dtrStephanie and how they are coping while the pt is hospitalized. Pt laughs often as describes some of the funny situations her family members have been in. I help bring out humor and laughter, and provide therapeutic listening and prayer. Patient responds well and states that she greatly appreciates the visit. She shows signs of an elevated mood.
--- NOTE | 2021-11-02 18:06 | NUR ---
PT A/OX4, PLEASANT AND COOPERATIVE. THE PT IS UP WITH ASSIST. PT HAS BEEN IN BED T/O THE DAY TODAY. THE PT DENIED ANY PAIN. PT APPEARS TO BE BREATHING EASILY ON 2/MIN O2 VIA NC AT REST. PT HAS A HILL CATH INPLACE AND DAINING. POWERGLIDE PLACED IN LEFT UPPER ARM TODAY. CALL LIGHT IN REACH WILL CONTINUE TO MONITOR AND ASSESS FOR CHANGES
--- NOTE | 2021-11-03 04:39 | NUR ---
PATIENT WITH VSS ON RA OVERNIGHT. SKIN INSPECTION REVEALS YEAST IN GROIN, ABDOMINAL FOLDS, UNDER BREASTS. MEPILEX CHANGED ON BILAT BUTTOCKS. RIGHT BUTTOCK FREE OF BREAK DOWN BUT LEFT BUTTOCK WITH MULTIPLE SCABBY AREAS. PATIENT CONTINUES TO REFUSE Q2HR REPOSITIONING. NO C/O PAIN. NO OTHER ACUTE PROBLEMS OVERNIGHT.
[2021-11-03 05:23] LABS: Hematocrit 35.1 % (33.0-51.0); Hemoglobin 11.5 g/dL (11.5-16.0)
[2021-11-03 05:55] LABS: Albumin, Blood 2.7 g/dL (3.4-5.0); Anion Gap 11 mmol/L (6-16); Blood Urea Nitrogen 64 mg/dL (8-24); Bun/Creatinine Ratio 11.4 (12.0-20.0); CO2, Blood 26 mmol/L (21-32); Calcium, Blood 9.2 mg/dL (8.5-10.1); Chloride, Blood 95 mmol/L (98-108); Creatinine, Blood 5.63 mg/dL (0.40-1.00); Glomerular Filtration Rate 9 (60-); Glucose, Blood 133 mg/dL (70-99); Magnesium, Blood 2.5 mg/dL (1.6-2.4); Phosphorus, Blood 6.9 mg/dL (2.5-4.9); Potassium, Blood 4.5 mmol/L (3.5-5.5); Sodium, Blood 132 mmol/L (136-145)
--- NOTE | 2021-11-03 09:30 | NUR ---
PT TAKEN TO THE MEDIA SALES EXECUTIVE FOR DIALYSIS PORT PLACEMENT. PT WAS A/OX3 APPEARED TO BE BREATHING EASILY ON RA
--- NOTE | 2021-11-03 18:09 | NUR ---
PT A/OX4, PLEASANT AND COOPERATIVE. THE PT IS BED REST AT THIS TIME UP WITH LIFT. THE PT APPEARS TO BE BREATHING EASILY TODAY ON RA. THE PT WAS TAKEN TO THE FURNACE REPAIR MECHANIC FOR THE SECOND TIME THIS AFTERNOON FOR PLACEMENT OF A DIALYSIS CATHETER. PT WAS MEDICATED WITH TYLENOL FOR PAIN IN THE RIGHT SHOULDER POST CATH PLACEMENT. VSS. PT IS AWAKE AND EATING DINNER AT THIS TIME
--- NOTE | 2021-11-04 04:13 | NUR ---
PATIENT WITH VSS ON RA OVERNIGHT. RIGHT SUBCLAVIAN DIALYSIS CATHETER IN PLACE WITHOUT DRAINAGE. PATIENT PAINFUL AT INSERTION SITE. RECIEVED ORDER FOR NORCO. ICE BAG APPLIED. PATIENT TURNED AND CLEANED. ABDOMINAL FOLDS, GROIN, BREASTS STILL WITH YEAST, HILL CATHETER PATENT WITH CLEAR YELLOW URINE. PATIENT CONTINUES TO REFUSE REPOSITIONING Q2. NO ACUTE EVENTS OVERNIGHT.
[2021-11-04 05:24] LABS: Hematocrit 33.4 % (33.0-51.0); Hemoglobin 10.9 g/dL (11.5-16.0)
[2021-11-04 05:40] LABS: Albumin, Blood 2.7 g/dL (3.4-5.0); Anion Gap 11 mmol/L (6-16); Blood Urea Nitrogen 67 mg/dL (8-24); Bun/Creatinine Ratio 11.8 (12.0-20.0); CO2, Blood 26 mmol/L (21-32); Calcium, Blood 9.2 mg/dL (8.5-10.1); Chloride, Blood 95 mmol/L (98-108); Creatinine, Blood 5.68 mg/dL (0.40-1.00); Glomerular Filtration Rate 9 (60-); Glucose, Blood 179 mg/dL (70-99); Magnesium, Blood 2.5 mg/dL (1.6-2.4); Phosphorus, Blood 7.6 mg/dL (2.5-4.9); Potassium, Blood 4.3 mmol/L (3.5-5.5); Sodium, Blood 132 mmol/L (136-145)
--- NOTE | 2021-11-04 10:31 | NUR ---
Patient is lying in bed and receiving dialysis. She immediately tells me about her challenging day yesterday with multiple attempts to install a port. She explains how exhausted she has been following the procedure. I provide therapeutic listening and prayer. Patient responds well and shows signs of an elevated mood.
--- NOTE | 2021-11-04 17:42 | NUR ---
PT IS A/OX4, PLEASANT AND COOPERATIVE. THE PT IS BED REST UP WITH A LIFT. THE PT APPEARS TO BE BREATHING EASILY ON RA AT THIS TIME. THE PT HAD DIALYSIS TODAY AND TOLERATED IT WELL. PT WAS INSTRUCTED ON IV ANTI BIOTIC THERAPY FOR HOME BY A HOME HEALTH NURSE TODAY. THE PT WAS MEDICATED FOR RIGHT SHOULDER PAIN X2 SO FAR TODAY. CALL LIGHT IN REACH. EXPECT DISCHARGE TOMORROW
[2021-11-05 05:02] LABS: Hematocrit 33.5 % (33.0-51.0); Hemoglobin 10.7 g/dL (11.5-16.0)
--- NOTE | 2021-11-05 05:10 | NUR ---
SHIFT SUMMARY: PT IS A/OX4. SHE DID HAVE C/O OF RT. UPPER CHEST PAIN D/T RECENT DIALYSIS PORT PLACEMENT AND WAS MEDICATE VIA EMAR. SHE HAS A HILL THAT IS PATENT WITH CLEAR, YELLOW OUTPUT. HER LAS DIALYSIS WAS 11/04. TELE: SR/82 W/ BBB. NO OTHER CHAGES TO REPORT THIS SHIFT. CALL LIGHT IS WITHIN REACH AND WE'LL CONTINUE TO MONITOR.
[2021-11-05 05:28] LABS: Albumin, Blood 2.8 g/dL (3.4-5.0); Anion Gap 7 mmol/L (6-16); Blood Urea Nitrogen 46 mg/dL (8-24); Bun/Creatinine Ratio 9.6 (12.0-20.0); CO2, Blood 28 mmol/L (21-32); Calcium, Blood 9.3 mg/dL (8.5-10.1); Chloride, Blood 99 mmol/L (98-108); Creatinine, Blood 4.81 mg/dL (0.40-1.00); Glomerular Filtration Rate 10 (60-); Glucose, Blood 134 mg/dL (70-99); Magnesium, Blood 2.6 mg/dL (1.6-2.4); Phosphorus, Blood 6.9 mg/dL (2.5-4.9); Potassium, Blood 4.2 mmol/L (3.5-5.5); Sodium, Blood 134 mmol/L (136-145)
--- NOTE | 2021-11-05 08:00 | NUR ---
pt laying in bed watching tv, a/oxf3, pleasant and cooperative with care, follows commands well, reports her permacath site is sore to the right c.w. otherwise is ready to go home, lungs are clear t/o, resp even and unlabored, no cough noted, hrr, tele in place running sr in the 80's per monitor, see strip, ppp+2, cap refill <3sec, vs stable, afebrile, iv is picc line to halley site is clear and patent, btx4, abd flat soft nontender, has chronic paulino, skin has some red areas to coccyx, and old permacath site, owen hazel, call light in reach.
--- NOTE | 2021-11-05 15:16 | NUR ---
pt has been discharged to home, went over discharge instructions with her, she verbalized understanding, picc line will remain for iv abx with home health, lift was used to get her to the chair, left via wheelchair with regional telecommunications specialist and spouce in attendence, with all her belongings.
== END 2021-11-05 15:15 | disposition home health service (06) | DRG 698 ==
LOC: ER 20:23 → MEDS 10-28 02:14 → PCU 10-28 02:14 → ERHOLD 10-28 02:14 → PCU 10-28 09:15 → MEDS 10-29 11:59
PROVIDERS: Internal Medicine; Internal Medicine Nephrology; Physician Assistant; Student in an Organized Health Care Education/Training Program; ADMIT Family Medicine
PROC: 3E03329 Introduction of Other Anti-infective into Peripheral Vein, Percutaneous Approach (ICD-10-PCS; principal; 2021-10-28)
PROC: 0JPT0XZ Removal of Tunneled Vascular Access Device from Trunk Subcutaneous Tissue and Fascia, Open Approach (ICD-10-PCS; 2021-11-01)
DX: T83.511A Infection and inflammatory reaction due to indwelling urethral catheter, initial encounter (principal); N18.6 End stage renal disease; R65.20 Severe sepsis without septic shock; A41.81 Sepsis due to Enterococcus; N25.81 Secondary hyperparathyroidism of renal origin; I13.2 Hypertensive heart and chronic kidney disease with heart failure and with stage 5 chronic kidney disease, or end stage renal disease; I50.22 Chronic systolic (congestive) heart failure; Z68.42 Body mass index [BMI] 45.0-49.9, adult; E87.2 Acidosis; E87.1 Hypo-osmolality and hyponatremia; Z20.822 Contact with and (suspected) exposure to COVID-19; E87.5 Hyperkalemia; E03.9 Hypothyroidism, unspecified; D63.1 Anemia in chronic kidney disease; N31.9 Neuromuscular dysfunction of bladder, unspecified; E11.22 Type 2 diabetes mellitus with diabetic chronic kidney disease; E66.01 Morbid (severe) obesity due to excess calories; R94.31 Abnormal electrocardiogram [ECG] [EKG]; E83.41 Hypermagnesemia; E83.39 Other disorders of phosphorus metabolism; E88.09 Other disorders of plasma-protein metabolism, not elsewhere classified; Z95.1 Presence of aortocoronary bypass graft; Z88.8 Allergy status to other drugs, medicaments and biological substances; Z91.048 Other nonmedicinal substance allergy status; Z91.038 Other insect allergy status; Z98.890 Other specified postprocedural states; Y84.6 Urinary catheterization as the cause of abnormal reaction of the patient, or of later complication, without mention of misadventure at the time of the procedure
CPT/HCPCS: 0241U; 36415; 36558; 36589; 51702; 71045; 74150; 76937; 77001; 80048; 80053; 80069; 80202; 81001; 82947; 83036; 83605; 83735; 84132; 84145; 84443; 84484; 85014; 85018; 85025; 87040; 87070; 87077; 87086; 87186; 93005; 93010; 93308; 94644; 94664; 94762; 96365; 96366; 96367; 96375; 99152; 99153; 99285-25; A9270; C1750; C1769; C1894; J0295; J0610; J0692; J1644; J1815; J1940; J2250; J2550; J3010; J3370; J7030; J7040; J7060; J7799

== ENCOUNTER 2022-01-07 08:35 | Inpatient (IN) | payer OTHER ==
[~2022-01-07] VITALS: Ht 160 cm; Wt 120.2 kg
[2022-01-07 09:37] LABS: BASOPHILS ABSOLUTE AUTO 0.08 K/mm3 (0.00-0.23); BASOPHILS PERCENT AUTO 0 % (0-2); EOSINOPHILS ABSOLUTE AUTO 0.01 K/mm3 (0.00-0.68); EOSINOPHILS PERCENT AUTO 0 % (0-6); Hematocrit 41.7 % (33.0-51.0); Hemoglobin 13.5 g/dL (11.5-16.0); IMMATURE GRAN ABSOLUTE AUTO 0.17 K/mm3 (0.00-0.10); IMMATURE GRAN PERCENT AUTO 1 % (0-1); LYMPHOCYTES PERCENT AUTO 5 % (21-46); MONOCYTES ABSOLUTE AUTO 0.73 K/mm3 (0.16-1.47); MONOCYTES PERCENT AUTO 3 % (4-13); Mean Corpuscular HGB 31.6 pg (26.0-34.0); Mean Corpuscular HGB Conc 32.4 g/dL (31.5-36.5); Mean Corpuscular Volume 98 fL (80-100); NEUTROPHILS PERCENT AUTO 91 % (41-73); Platelet Count 169 K/mm3 (150-400); RDW Standard Deviation 57.8 fL (35.1-46.3); Red Blood Cell Count 4.27 M/mm3 (3.80-5.20); White Blood Cell Count 22.29 K/mm3 (4.00-11.30)
[2022-01-07 10:51] LABS: Albumin, Blood 3.4 g/dL (3.4-5.0); Albumin/Globulin Ratio 0.7 (0.8-1.8); Bilirubin, Total 0.5 mg/dL (0.1-1.0); Bun/Creatinine Ratio 7.3 (12.0-20.0); Creatinine, Blood 4.22 mg/dL (0.40-1.00); Potassium, Blood 5.3 mmol/L (3.5-5.5); Total Protein, Blood 8.4 g/dL (6.4-8.2)
--- NOTE | 2022-01-07 15:55 | NUR ---
ADMISSION: PT ARRIVED TO UNIT @1500. SLID OVER FROM [facility] TO HOSPITAL BED. A&OX4. BP STABLE. PT TACHYCARDIC 110'S-120'S. AFEBRILE. LUNG SOUNDS CLEAR THROUGHOUT. REDDNESS NOTED ON COCCYX, MEPILEX IN PLACE. POWERGLIDE PLACED IN DIAMOND. NS GTT @100ML/HR. PT ORIENTED TO ROOM AND CALL LIGHT. AT BEDSIDE AND UPDATED ON CARE. PT NOW RESTING. BED IN LOW.
[2022-01-07] MEDS ORDERED: FURO80 PO ×2 (16:10)
[2022-01-07] MEDS ORDERED: Calcium Acetat667 MG PO ×2 (16:11)
[2022-01-07] MEDS ORDERED: INSULIN AS100 UNIT/8 SC ×2 (16:41)
[2022-01-07 17:30] LABS: Source, Urine Foley catheter
[2022-01-07 17:35] LABS: Appearance, Urine Cloudy (Clear); Bilirubin, Urine Neg (Neg); Blood, Urine 4+ (Neg); Color, Urine Yellow (P-Yellow); Glucose Qualitative, Urine Neg (Neg); Ketones, Urine Neg (Neg); Leukocyte Esterase, Urine 3+ (Neg); Nitrite, Urine Neg (Neg); Protein, Urine 3+ (Neg); Specific Gravity, Urine 1.015 (1.003-1.022); Urobilinogen, Urine NORM (Normal)
--- NOTE | 2022-01-07 17:51 | NUR ---
SHIFT SUMMARY: PT REMAINS ALERT AND ORIENTED X4. BP STABLE. HR 110'S-120'S. AFEBRILE. PT ON RA SATING >95%. LUNG SOUNDS REMAIN CLEAR THROUGHOUT. ORDERS RECIEVED FOR BLOOD CULTURES FROM HD PORT. HD NURSE TO DRAW, VERIFIED WITH HD NURSE THAT DRAW WILL BE COMPLETED THIS EVENING. AT BEDSIDE. BED IN LOW. CALL LIGHT IN REACH. WILL REPORT TO ONCOMING RN.
[2022-01-07 17:53] LABS: Bacteria Mod /hpf; Mucus Light (0-Heavy); Squamous Epithelial Cells Rare /hpf (Few); Transitional Epithelial Cells Rare /hpf (0-Rare); White Blood Cells, Urine TNTC /hpf (0-5)
[2022-01-07 17:54] LABS: Renal Epithelial Rare /hpf (0-Rare)
[2022-01-07 17:56] LABS: Vancomycin, Random <0.8 ug/mL
--- NOTE | 2022-01-07 18:40 | NUR ---
PATIENT ADMITTED TO PCU WITH COMPLAINT OF REDNESS, SWELLING AND PAIN AT THE DIALYSIS CATHETER INSERT SITE. NEPHROLOGY CONSULT ON CHART. REQUEST MADE FOR CULTURE SET FROM DIALYSIS CVC. CVC AESEPTICALLY ACCESSED. 20 ML STRAIGHT BLOOD DRAW WITHOUT WASTE. CVC PORT FLUSHED WITH NS AND ANTICOAGULTED. CULTURE BOTTLES LABELED AND HAND CARRIED TO LAB.
[2022-01-07 22:39] LABS: International Normalized Ratio 1.16; Prothrombin Time Results 12.1 Sec (9.7-11.5)
--- NOTE | 2022-01-08 00:41 | NUR ---
UPDATE NOTIFIED BY TELE THAT PT HAVING ST ELEVATION. EKG DONE, PHYSICIAN NOTIFIED. ORDERS FOR TROPONIN TO BE DRAWN. TROPONIN CRITICAL, PHYSICIAN NOTIFIED. ORDERS FOR HEPARIN GTT, TRENDING TROPONINS, ASPIRIN,CARDIOLGY CONSULT. SEE ORDERS. DR. ASIF AT BEDSIDE DISCUSSING PLAN OF CARE FOR PT. NO PLAN FOR ANGIO AT THIS TIME. HEPARIN GTT INFUSING,SEE EMAR. DR. GIVENS UPDATED REGARDING CRITICAL BLOOD CULTURES. PLAN FOR SURGEON CONSULT IF BLOOD CULTURES FROM PERMACATH ARE POSITIVE. WILL CONTINUE TO MONITOR.
[2022-01-08 04:32] LABS: Hematocrit 35.1 % (33.0-51.0); Hemoglobin 11.2 g/dL (11.5-16.0); Mean Corpuscular HGB 31.3 pg (26.0-34.0); Mean Corpuscular HGB Conc 31.9 g/dL (31.5-36.5); Mean Corpuscular Volume 98 fL (80-100); Mean Platelet Volume 11.7 fL (9.1-12.4); Platelet Count 132 K/mm3 (150-400); RDW Coefficient Variation 15.6 % (11.7-14.2); RDW Standard Deviation 56.5 fL (35.1-46.3); Red Blood Cell Count 3.58 M/mm3 (3.80-5.20); White Blood Cell Count 20.74 K/mm3 (4.00-11.30)
[2022-01-08 04:45] LABS: Albumin, Blood 2.7 g/dL (3.4-5.0); Anion Gap 9 mmol/L (6-16); Blood Urea Nitrogen 41 mg/dL (8-24); Bun/Creatinine Ratio 8.2 (12.0-20.0); CO2, Blood 27 mmol/L (21-32); Calcium, Blood 9.2 mg/dL (8.5-10.1); Chloride, Blood 95 mmol/L (98-108); Glomerular Filtration Rate 10 (60-); Glucose, Blood 185 mg/dL (70-99); Magnesium, Blood 1.9 mg/dL (1.6-2.4); Sodium, Blood 131 mmol/L (136-145)
--- NOTE | 2022-01-08 04:54 | NUR ---
UPDATE PHYSICIAN NOTIFIED NO ORDERS FOR TRENDING TROPONINS. ORDERS TO TREND TROPONIN Q 8 HRS FOR 3 DRAWS.
--- NOTE | 2022-01-08 06:19 | NUR ---
SHIFT SUMMRARY PT ALERT AND ORIENTED X 4. HR STABLE. BP STABLE. NO CP OR PRESSURE. TROPONIN TRENDING DOWN. PT FEBRILE AT START OF SHIFT. TEMP CURRENLY 97.3. PT REFUSED Q 2 TURNS. SEE NOTES REGARDING CHANGES T/O SHIFT. PLAN FOR ECHO THIS AM. PT REPORTS PAIN IN PERMACATH SITE, MEDICATED,PT REPORTS RELIEF. HILL PATENT AND DRAINING TO GRAVITY. HEPARIN GTT, SEE EMAR. CALL LIGHT WIHTIN REACH. WILL CONT TO MONITOR UNTIL REPORT GIVEN TO IZAIAH MOYA.
--- NOTE | 2022-01-08 06:54 | NUR ---
UPDATE DR. GIVENS UPDATED ON BLOOD CULTURE RESULTS. SURGICAL CONSULT PLACED PER DR. GIVENS'S ORDERS
--- NOTE | 2022-01-08 17:10 | NUR ---
SHIFT SUMMARY: PT A&OX4. HR 110'S. BP STABLE. PT FEBRILE THIS MORNING WITH TEMP OF 100.4. MEDICATED PER EMAR. TEMP NOW 99.0. PT RECEIVED DIALYSIS TODAY, 1200 OF FLUID REMOVED. TROPS TRENDING DOWN. HEPARIN GTT IN DIAMOND, SEE EMAR. PLAN FOR HD PORT REMOVAL TOMORROW MORNING. HILL CATHETER IN PLACE DRAINING YELLOW URINE TO GRAVITY. MINIMAL OUTPUT THIS SHIFT. AT BEDISDE THIS AFTERNOON AND UPDATED ON PT CARE. PT NOW SITTING UP EATING DINNER. BED IN LOW. CALL LIGHT IN REACH. WILL REPORT TO ONCOMING RN.
[2022-01-09 05:21] LABS: Hematocrit 30.5 % (33.0-51.0); Hemoglobin 9.8 g/dL (11.5-16.0)
[2022-01-09 05:26] LABS: Albumin, Blood 2.5 g/dL (3.4-5.0); Anion Gap 8 mmol/L (6-16); Blood Urea Nitrogen 44 mg/dL (8-24); CO2, Blood 27 mmol/L (21-32); Calcium, Blood 8.6 mg/dL (8.5-10.1); Chloride, Blood 98 mmol/L (98-108); Creatinine, Blood 5.51 mg/dL (0.40-1.00); Glomerular Filtration Rate 9 (60-); Glucose, Blood 105 mg/dL (70-99); Magnesium, Blood 1.9 mg/dL (1.6-2.4); Phosphorus, Blood 4.8 mg/dL (2.5-4.9); Potassium, Blood 4.7 mmol/L (3.5-5.5); Sodium, Blood 133 mmol/L (136-145)
--- NOTE | 2022-01-09 05:30 | NUR ---
SHIFT SUMMARY PT ALERT AND ORIENTED 4. HR STABLE. BP STABLE. OXYGEN SATURATION MAINTAINED ABOVE 92% ON 2-4 L VIA NC. NO CP OR PRESSURE REPORTED. PT REFUSED Q 2 TURNS AT TIMES. HEPARIN GTT OFF AT 0300 PER MD ORDER. NO PAIN REPORTED. NO ACUTE CHANGES T/O SHIFT. CALL LIGHT WITHIN REACH. WILL CONT TO MONITOR UNTIL REPORT GIVEN TO DAYSHIFT RN.
--- NOTE | 2022-01-09 11:11 | NUR ---
UPDATE: HEMODIALYSIS CATHETER REMOVED @1100. VSS. DRESSING IN PLACE.
--- NOTE | 2022-01-09 12:41 | NUR ---
Pt. is awake in bed and welcomes my visit. Spouse if present. Pt. is unsettled about her dialysis treatment from the previous day. Listen empathetically with a calming presence. Pt. displays eveidence of understanding and engagement, as does spouse. Establish rapport. Prayed for Pt. Pt. and spouse verbalize gratitude for the spiritual care visit.
--- NOTE | 2022-01-09 17:15 | NUR ---
SHIFT SUMMARY: PT REMAINS ALERT AND ORIENTED X4, HR 100'S, BP STABLE, AFEBRILE, PT ON 2L NC SATING >96%. HEMODIALYSIS CATHETER REMOVED THIS AM. HEPARIN RESTARTED @1330. SEE EMAR. PT COMPLAINED OF CP LATER THIS AFTERNOON. BP STABLE, NO RHYTHYM CHANGE NOTED ON MONITOR, EKG DONE, MD NOTIFIED. HILL CATHETER IN PLACE DRAINING YELLOW URINE TO GRAVITY. MINIMAL OUTPUT THIS SHIFT. PT CURRENTLY SITTING UP EATING DINNER. BED IN LOW, CALL LIGHT IN REACH. WILL REPORT TO ONCOMING RN.
[2022-01-10 03:32] LABS: BASOPHILS ABSOLUTE AUTO 0.02 K/mm3 (0.00-0.23); BASOPHILS PERCENT AUTO 0 % (0-2); EOSINOPHILS ABSOLUTE AUTO 0.15 K/mm3 (0.00-0.68); EOSINOPHILS PERCENT AUTO 2 % (0-6); Hematocrit 29.4 % (33.0-51.0); Hemoglobin 9.3 g/dL (11.5-16.0); IMMATURE GRAN ABSOLUTE AUTO 0.06 K/mm3 (0.00-0.10); IMMATURE GRAN PERCENT AUTO 1 % (0-1); LYMPHOCYTES ABSOLUTE AUTO 1.14 K/mm3 (0.84-5.20); LYMPHOCYTES PERCENT AUTO 14 % (21-46); MONOCYTES ABSOLUTE AUTO 0.75 K/mm3 (0.16-1.47); MONOCYTES PERCENT AUTO 9 % (4-13); Mean Corpuscular HGB 31.4 pg (26.0-34.0); Mean Corpuscular HGB Conc 31.6 g/dL (31.5-36.5); Mean Corpuscular Volume 99 fL (80-100); Mean Platelet Volume 12.7 fL (9.1-12.4); NEUTROPHILS ABSOLUTE AUTO 6.13 K/mm3 (1.96-9.15); NEUTROPHILS PERCENT AUTO 74 % (41-73); Platelet Count 112 K/mm3 (150-400); RDW Coefficient Variation 15.7 % (11.7-14.2); RDW Standard Deviation 57.3 fL (35.1-46.3); Red Blood Cell Count 2.96 M/mm3 (3.80-5.20); White Blood Cell Count 8.25 K/mm3 (4.00-11.30)
[2022-01-10 04:04] LABS: Albumin, Blood 2.5 g/dL (3.4-5.0); Anion Gap 10 mmol/L (6-16); Blood Urea Nitrogen 53 mg/dL (8-24); Bun/Creatinine Ratio 9.2 (12.0-20.0); CO2, Blood 25 mmol/L (21-32); Calcium, Blood 8.9 mg/dL (8.5-10.1); Chloride, Blood 97 mmol/L (98-108); Creatinine, Blood 5.74 mg/dL (0.40-1.00); Glomerular Filtration Rate 8 (60-); Glucose, Blood 144 mg/dL (70-99); Magnesium, Blood 2.1 mg/dL (1.6-2.4); Phosphorus, Blood 5.3 mg/dL (2.5-4.9); Potassium, Blood 4.3 mmol/L (3.5-5.5); Sodium, Blood 132 mmol/L (136-145); Vancomycin, Random 13.3 ug/mL
--- NOTE | 2022-01-10 05:38 | NUR ---
SHIFT SUMMARY PT ALERT AND ORIENTED X 4. HR STABLE. BP STABLE. PT REPORTS PAIN AT PERMACATH SITE,MEDICATED PER EMAR. PT REPORTS RELIEF. PT TURNED Q 2 HRS AND NEEDED FOR COMFORT. PT HAD INCREASE IN O2 DEMAND DURING SHIFT,PHYSICIAN NOTIFIED. PT ON 2-5 L VIA NC TO MAINTAIN OXYGEN SATURATION ABOVE 92%. PT CURRENLTY ON 3 L VIA NC. OXYGEN SAT 98%. DRESSING FOR PD PORT CHANGED. MEPLEX ON COCCYX. PHYSICIAN NOTIFIED OF NO FURTHER TROPONINS DRAWN, TROPONIN TRENDING DOWN,SEE CHART. HEPARIN GTT,SEE EMAR. SERGIO PATENT AND TO GRAVITY. WILL CONT TO MONITOR UNTIL REPORT GIVEN TO IZAIAH MOYA.
--- NOTE | 2022-01-10 14:27 | NUR ---
TO PCU 1 FOR PERITONEAL DIALYSIS TX SERVICES OF DR GIVENS. PT SITTING UP IN BED, VSS. PD CATHETER CLEANED PER ASEPTIC TECHNIQUE. SITE CLEAR. DRESSING CHANGED PER PROTOCOL. CVC SITE ASSESSED, SITE CLEANED AND REDRESSED. TX INITIATED PER ORDERS. JOEL
--- NOTE | 2022-01-10 17:03 | NUR ---
SHIFT SUMMARY: PT REMAINS ALERT AND ORIENTED X4, BP STABLE, HR 90'S, AFEBRILE, PT SATING >95% ON 3L NC. PT CURRENTLY RECIEVEING PERITONEAL DIALYSIS AT BEDSIDE. VSS. STEVENSON IN TO SEE PT THIS AFTERNOON, PLANS FOR HOME TOMORROW @1100. PT NPO AT MIDNIGHT. HEPARIN GTT, SEE EMAR. HILL CATH IN PLACE, WITH MINIMAL OUTPUT THIS SHIFT. WILL REPORT TO ONCOMING RN.
[2022-01-11 05:05] LABS: BASOPHILS ABSOLUTE AUTO 0.02 K/mm3 (0.00-0.23); BASOPHILS PERCENT AUTO 0 % (0-2); EOSINOPHILS ABSOLUTE AUTO 0.14 K/mm3 (0.00-0.68); EOSINOPHILS PERCENT AUTO 2 % (0-6); Hematocrit 27.4 % (33.0-51.0); Hemoglobin 8.7 g/dL (11.5-16.0); IMMATURE GRAN PERCENT AUTO 1 % (0-1); LYMPHOCYTES ABSOLUTE AUTO 0.88 K/mm3 (0.84-5.20); LYMPHOCYTES PERCENT AUTO 12 % (21-46); MONOCYTES ABSOLUTE AUTO 0.61 K/mm3 (0.16-1.47); MONOCYTES PERCENT AUTO 9 % (4-13); Mean Corpuscular HGB 31.3 pg (26.0-34.0); Mean Corpuscular HGB Conc 31.8 g/dL (31.5-36.5); Mean Corpuscular Volume 99 fL (80-100); Mean Platelet Volume 12.3 fL (9.1-12.4); NEUTROPHILS PERCENT AUTO 76 % (41-73); Platelet Count 120 K/mm3 (150-400); RDW Coefficient Variation 15.7 % (11.7-14.2); RDW Standard Deviation 56.6 fL (35.1-46.3); Red Blood Cell Count 2.78 M/mm3 (3.80-5.20); White Blood Cell Count 7.15 K/mm3 (4.00-11.30)
[2022-01-11 05:39] LABS: Albumin, Blood 2.4 g/dL (3.4-5.0); Anion Gap 10 mmol/L (6-16); Blood Urea Nitrogen 53 mg/dL (8-24); Bun/Creatinine Ratio 9.8 (12.0-20.0); CO2, Blood 25 mmol/L (21-32); Calcium, Blood 9.1 mg/dL (8.5-10.1); Chloride, Blood 99 mmol/L (98-108); Creatinine, Blood 5.39 mg/dL (0.40-1.00); Glomerular Filtration Rate 9 (60-); Glucose, Blood 189 mg/dL (70-99); Magnesium, Blood 2.1 mg/dL (1.6-2.4); Phosphorus, Blood 5.9 mg/dL (2.5-4.9); Potassium, Blood 4.5 mmol/L (3.5-5.5); Sodium, Blood 134 mmol/L (136-145); Vancomycin, Random 21.3 ug/mL
--- NOTE | 2022-01-11 05:48 | NUR ---
BARMAN SUMMARY PT IS ALERT AND MOSTLY ORIENTED W MOMENTS OF CONFUSION AT TIMES. PT DID CALL THIS RN INTO THE ROOM TO REPORT THAT SHE HAD ACCIDENTLY INGESTED SOME HAND [employer] LEAD PSYCHOLOGIST FROM HER TABLE THINKING IT WAS HER WATER CUP, PT WAS APPERENTLY HALF ASLEEP AT THE TIME THIS OCCURED. PT REORIENTED AND HAND [employer] LEAD PSYCHOLOGIST REMOVED FROM HER TABLE. PT'S VITAL SIGNS WNL AND STABLE THIS SHIFT. O2 SATS >90% ON 3-4L NC. 2100 [place] HELD FOR CBG OF 129 AND ANTICIPATED NPO STATUS FOR PROCEDURE TODAY. PT NPO SINCE MIDNIGHT FOR PROCEDURE. PT HAD PERITONEAL DIALYSIS THIS SHIFT W NO RELATED EVENTS. WILL REPORT TO ONCOMING RN.
--- NOTE | 2022-01-11 10:35 | NUR ---
[facility] HERE AT 1030 TO PERFORM HOME PER 0RDER.
--- NOTE | 2022-01-11 18:12 | NUR ---
SHFIT SUMMARY PT ALERT AND ORIENTED, WITH INTERMITTENT PERIODS OF FATIGUE. PT REPORTS FEELING TIRED. VSS, HR IN 90'S, SBP 140'S. 02 SATS >92% ON 3 L VIA NC. HILL CATHETER IN PLACE AND DRAINING TO GRAVITY. AT BEDSIDE THROUGHOUT SHIFT AND PATIENT RESTED THROUGHOUT DAY. HEPARIN INFUSING PER EMAR. [facility] ARRIVED TO COMPLETE HOME. CALL LIGHT WITHIN REACH AND BED IN LOWEST POSITION.
--- NOTE | 2022-01-11 19:49 | NUR ---
TO PCU 1 FOR EVENING PD TX. PT AWAKE, A&O, PD SITE WNL, DRESSING CDI. PT CONNECTED TO PD PER DR GIVENS ORDERS. PD CATHETER CLEANED PER ASEPTIC TECHNIQUE. TX. INITIATED PER ORDERS. JOEL
--- NOTE | 2022-01-11 20:30 | NUR ---
ASSUMED CARE. AOX3, ABLE TO MAKE NEEDS KNOWN. MAINTENANCE AND OPERATIONS SUPERVISOR ALREADY GOT HER SET UP ON HEMODIALYSIS. ABLE TO USE CALL LIGHT AND BED CONTROLS APPROPRIATLY. BOOSTED UP IN BED WITH LIFT. WHILE REPOSITONING O2 WAS OFF, SHE DESATED DOWN TO 60% IN THAT SHORT OF A TIME. PLACED BACK ON 3L HI-FLOW DUE TO NASAL DRYNESS WITH HUMITITY, TOOK HER A MINUTES TO GET BACK UP TO 90%. DISCUSSED BREATHING EXERCISES TO ASSIST. GAVE KY FOR NASAL DRYNESS. THROAT VERY SORE AND HORSE DUE TO HOME PROCEDURE TODAY. SOME REDNESS IN BACK OF THROAT NOTED. LS DIM IN BASES, WHEEZES IN UPPER LOBES. SINUS ON MONITOR WITH BBB. DENIES ANY CHEST PAIN. TRACE EDEMA IN BLE. ABD SOFT, NO BM TODAY, PASSING FLATUS. HILL PATENT AND DRAINING CLOUDY WITH LARGE SEDIMENT IN TUBING. SKIN PALE, EXCORIATION TO BOTTOM, ENCOURAGE FREQUENT REPOSITIONING. CALL LIGHT IN REACH, BED IN LOW POSITION.
[2022-01-12 04:18] LABS: BASOPHILS ABSOLUTE AUTO 0.03 K/mm3 (0.00-0.23); BASOPHILS PERCENT AUTO 0 % (0-2); EOSINOPHILS ABSOLUTE AUTO 0.15 K/mm3 (0.00-0.68); EOSINOPHILS PERCENT AUTO 2 % (0-6); Hematocrit 26.5 % (33.0-51.0); Hemoglobin 8.4 g/dL (11.5-16.0); IMMATURE GRAN ABSOLUTE AUTO 0.15 K/mm3 (0.00-0.10); IMMATURE GRAN PERCENT AUTO 2 % (0-1); LYMPHOCYTES ABSOLUTE AUTO 0.92 K/mm3 (0.84-5.20); LYMPHOCYTES PERCENT AUTO 11 % (21-46); MONOCYTES ABSOLUTE AUTO 0.66 K/mm3 (0.16-1.47); MONOCYTES PERCENT AUTO 8 % (4-13); Mean Corpuscular HGB 31.1 pg (26.0-34.0); Mean Corpuscular HGB Conc 31.7 g/dL (31.5-36.5); Mean Corpuscular Volume 98 fL (80-100); Mean Platelet Volume 12.5 fL (9.1-12.4); NEUTROPHILS ABSOLUTE AUTO 6.38 K/mm3 (1.96-9.15); NEUTROPHILS PERCENT AUTO 77 % (41-73); Platelet Count 135 K/mm3 (150-400); RDW Coefficient Variation 15.9 % (11.7-14.2); RDW Standard Deviation 56.9 fL (35.1-46.3); White Blood Cell Count 8.29 K/mm3 (4.00-11.30)
[2022-01-12 04:36] LABS: Albumin, Blood 2.4 g/dL (3.4-5.0); Anion Gap 9 mmol/L (6-16); Blood Urea Nitrogen 51 mg/dL (8-24); Bun/Creatinine Ratio 9.7 (12.0-20.0); CO2, Blood 25 mmol/L (21-32); Calcium, Blood 9.2 mg/dL (8.5-10.1); Chloride, Blood 99 mmol/L (98-108); Creatinine, Blood 5.24 mg/dL (0.40-1.00); Glomerular Filtration Rate 9 (60-); Glucose, Blood 251 mg/dL (70-99); Phosphorus, Blood 5.7 mg/dL (2.5-4.9); Potassium, Blood 4.2 mmol/L (3.5-5.5); Sodium, Blood 133 mmol/L (136-145); Vancomycin, Random 19.1 ug/mL
--- NOTE | 2022-01-12 05:29 | NUR ---
SHIFT SUMMARY: AOX3, ABLE TO MAKE NEEDS KNOWN, USES CALL LIGHT APPROPRIATLY. BEDBOUND, ABLE TO TURN SELF WITH ASSISTANCE. LS WHEEZES IN UPPER LOBES, DIMINISHED IN BASES, SATS MID 90'S ON 3L-4L T/O NIGHT. DESATS QUICK WHEN O2 IS REMOVED DOWN TO 60%. SORE THROAT, LOSENGES ORDERED AND GIVEN. WEAK COUGH, NON-PRODUCTIVE. SINUS ON MONITOR, RATE 90'S. NO CHEST PAIN THIS SHIFT. TRACE EDEMA TO BLE. PARITNEAL DIALYSIS RAN T/O NIGHT, NO COMPLICATIONS. HILL PATENT YELLOW THICK SEDIMENT NOTED. BOTTOM VERY EXCORIATED BREAKDOWN. REPOSITIONED Q2. NO PAIN. HEPARIN GTT DOSE CHANGED TO 26MCQ/KG/HR. KIDNEY FUNCTIONS STILL POOR BUT HAVE IMPROVED SOME. WILL REPORT TO ONCOMING SHIFT, CHANGES THAT OCCURRED.
--- NOTE | 2022-01-12 11:06 | NUR ---
DIALYSIS NOTE PT DICONNECTED FROM PD TX PER P&P. PT REPORTS SHE TOLERATED TX WELL AND DENIES ANY ALARMS DURING THE NIGHT. I-DRAIN 106ML, TOTAL UF 1059ML, AVG DWELL 1:06. EFFLUENT EXAMED TO BE CLEAR WITH NO FIBRIN NOTED.
--- NOTE | 2022-01-12 15:46 | NUR ---
PT OUT FOR CXR
--- NOTE | 2022-01-12 17:53 | NUR ---
SHIFT SUMMARY PT ALERT AND ORIENTED. PT RESTED THROUGHOUT SHIFT, APPEARED LETHARGIC ON AND OFF. VSS; HR 80'S-90'S, SBP 130-150'S. O2 SAT >92% ON 4 L NC. PT DENIES SOB BUT SHALLOW RESPIRATIONS NOTED. EDUCATION ABOUT DEEP BREATHING PROVIDED. PT EXPRESSED UNDERSTANDING. PT DENIES CHEST PAIN OR CHEST PRESSURE, BUT REPORTS SOME TENDERNESS ON NECK/JAW AREA WITH PALPATION. PT RATED PAIN 2-3/10 ONLY WHEN PALPATING. PT DECLIONED ANY INTERVENTIONS. PT STATES THROAT IS STILL SORE AND MAKES IT HARD TO TAKE MEDS, BUT BY END OF SHIFT REPORTED THAT THERE HAS BEEN NOTED IMPROVEMENT. PT HAD BEDBATH TODAY AND REPOSITIONED Q2. HILL CATHETER IN PLACE AND DRAINING TO GRAVITY. YELLOW URINE WITH VISIBLE SEDIMENT, URINE OUTPUT OF 275 ML. NO BM, PT DENIES TENDERNESS, PAIN OR DISCOMFORT. BOWEL SOUNDS ACTIVE. HEPARIN STOPPED PER PHARMACY ORDER. CXR COMPLETED TODAY PER PROVIDER ORDER, RESULTS PENDING. CALL LIGHT WITHIN REACH AND BED IN LOWEST POSITION.
--- NOTE | 2022-01-12 20:04 | NUR ---
ASSUMED CARE. HEPARIN WAS RESTARTED ALMOST 45 MINUTES AGO AT A LOWER RATE PER PHARMACY, SEE EMAR. WALKED INTO ROOM TO FIND THE PATIENT HAVING A NOSE BLEED THAT IS JUST FLOWING OUT, A LARGE BUNCHED UP [place] SATURATED WITH BLOOD AND BLOOD FLOWING DOWN HER FACE AND NECK. STOPPED THE HEPARIN HAD HER HOLD TIGHT PRESSURE TO STOP THE BLEED, SHE COMPLAINED OF IT DRIPPING IN HER THROAT WHICH WAS CAUSING HER TO COUGH. CALLED PHARMACY TO INFORM THEM HEPARIN WAS STOPPED. GOT ICE FOR THE NOSE. AFTER HOLDING PRESSURE FOR 5 MINUTES IT STOPPED. HAD HER RINSE HER MOUTH AND THROAT AND SHE COUGHED UP LARGE BLOOD CLOT. O2 NC WAS PLACED NEAR HER LIPS FOR THE TIME TO KEEP SATS UP. CALLED DR. LIRIANO AND DISCUSSED CONCERNS OF ASPIRATION, CONTINUE BLEED I COULD STILL SEE BLOOD IN HER ORAL CAVITY. ORDER TO STOP HEPARIN GTT FOR THE NIGHT. PHARMACY WAS INFORMED. LS WHEEZES T/O, 4L HI-FLOW. NO EDEMA TO BLE. SINUS ON MONITOR. C/O NO BM FOR SEVERAL DAYS. WILL GIVE MIRALAX. CATH PATENT AND DRAINING. CALL LIGHT IS IN REACH.
--- NOTE | 2022-01-12 20:25 | NUR ---
DIALYSIS NOTE DWELL TIMES ADJUSTED DOWN TO [address] GIVENS TO MAXIMIZE UF. PT C/O CONSTIPATION AND REPORTS NO BM X 1WK. DISCUSSED WITH BEDSIDE RN AND PLANS FOR PRN BOWEL CARE TO BE PROVIDED TONIGHT. DISCUSSED THIS WITH THE PT AND PLANS TO REQUEST INCREASED BOWEL CARE PROTOCOL IN AM IF NO RESULTS OVERNIGHT. PT VERBILZED UNDERSTNADING AND AGREES WITH PLAN. CCPD TX INITIATED PER PROTOCOL AND PT TOLERATING WELL.
--- NOTE | 2022-01-12 22:15 | NUR ---
DR. LIRIANO CALLED AFTER REVIEWING THE CHART TO DISCUSS RESTARTING THE HEPARIN GTT. NOSE BLEED HAS RESOLVED AND NO OTHER SIGNS OF BLEEDING HAVE BEEN NOTED. RESTART PER PHARMACY. SPOKE TO GERSON IN PHARMACY AND DISCUSSED RESTART AT RATE OF 23 UNIT/KG/HR. WILL RESTART.
[2022-01-13 04:19] LABS: BASOPHILS ABSOLUTE AUTO 0.07 K/mm3 (0.00-0.23); BASOPHILS PERCENT AUTO 1 % (0-2); EOSINOPHILS ABSOLUTE AUTO 0.17 K/mm3 (0.00-0.68); EOSINOPHILS PERCENT AUTO 2 % (0-6); Hematocrit 25.9 % (33.0-51.0); Hemoglobin 8.2 g/dL (11.5-16.0); IMMATURE GRAN ABSOLUTE AUTO 0.31 K/mm3 (0.00-0.10); IMMATURE GRAN PERCENT AUTO 4 % (0-1); LYMPHOCYTES ABSOLUTE AUTO 0.88 K/mm3 (0.84-5.20); LYMPHOCYTES PERCENT AUTO 11 % (21-46); MONOCYTES ABSOLUTE AUTO 0.61 K/mm3 (0.16-1.47); MONOCYTES PERCENT AUTO 8 % (4-13); Mean Corpuscular HGB 31.1 pg (26.0-34.0); Mean Corpuscular HGB Conc 31.7 g/dL (31.5-36.5); Mean Corpuscular Volume 98 fL (80-100); Mean Platelet Volume 11.8 fL (9.1-12.4); NEUTROPHILS ABSOLUTE AUTO 6.02 K/mm3 (1.96-9.15); NEUTROPHILS PERCENT AUTO 75 % (41-73); Platelet Count 159 K/mm3 (150-400); RDW Coefficient Variation 15.9 % (11.7-14.2); RDW Standard Deviation 57.5 fL (35.1-46.3); Red Blood Cell Count 2.64 M/mm3 (3.80-5.20); White Blood Cell Count 8.06 K/mm3 (4.00-11.30)
[2022-01-13 04:45] LABS: Albumin, Blood 2.5 g/dL (3.4-5.0); Anion Gap 8 mmol/L (6-16); Blood Urea Nitrogen 48 mg/dL (8-24); Bun/Creatinine Ratio 9.5 (12.0-20.0); CO2, Blood 27 mmol/L (21-32); Chloride, Blood 99 mmol/L (98-108); Creatinine, Blood 5.05 mg/dL (0.40-1.00); Glomerular Filtration Rate 10 (60-); Glucose, Blood 220 mg/dL (70-99); Phosphorus, Blood 4.9 mg/dL (2.5-4.9); Sodium, Blood 134 mmol/L (136-145); Vancomycin, Random 16.7 ug/mL
--- NOTE | 2022-01-13 05:47 | NUR ---
SHIFT SUMMARY; AOX3, MILD CONFUSION T/O THE NIGHT, EASILY RE-ORIENTED. LS DIM WITH WHEEZES IN UPPER LOBES. SATS MID 90'S ON 4L NC. SHE HAD 1 EPISODE WHERE SHE DESATED WHILE ASLEEP SHE WAS MOUTH BREATHING. HAD TO PLACE O2 IN MOUTH. HAS 1 EPISODE OF NOSE BLEED THAT TOOK 5 MINUTES TO SUBSIDE. HEPARIN WAS STOPPED AND KEPT OFF FOR A COUPLE OF HOURS THEN RESTARTED. NOW RUNNING AT 24 UNITS/KG/HR. NO OTHER SIGNS OF BLEEDING THIS SHIFT. SINUS ON MONITOR WITH RATE IN 90'S. PERTINEAL DIALYSIS INFUSED T/O NIGHT. NO PAIN. NO BM. MIRALAX GIVEN. GOT MILK OF MAG ORDERED TO GET STARTED TODAY. URINE OUTPUT WITH LARGE AMOUNT OF SEDIMENT. POOR APPETITE. BLOOD SUGAR 91, PATIENT REFUSED LONG ACTING LAST NIGHT. NO OTHER CHANGES TO REPORT, WILL REPORT TO DAYSHIFT.
--- NOTE | 2022-01-13 06:38 | NUR ---
PATIENT AWAKE, ALERT, ORIENTED, LAYING IN BED THIS AM UPON ENTRY TO ROOM. OVERNIGHT CCPD COMPLETED ORDERED. PATIENT REPORTS CONTINUING CONSTIPATION WITH NO RELIEF YET. BUCKLE WIRE INSERTER WILL BE INFORMED OF THESE FINDINGS. PT AESPTICALLY DISCONNECTED AND CAPPED. CYCLER STRIPPED AND CLEANED. DR GIVENS CONSULTED FOR NEW ORDERS / PLAN OF CARE.
--- NOTE | 2022-01-13 10:59 | NUR ---
Pt. is awake in bed and welcomes my visit. Pt. is unsettled about a delay in results from some recent tests. Listen empathetically with a calming presence. Pt. displays evidence of both frustration, and an understanding that her condition is serious. Prayed with Pt. Pt. verbalized gratitude for the spiritual care visit.
--- NOTE | 2022-01-13 18:15 | NUR ---
DIALYSIS: PT HOOKED UP TO PERITONEAL DIALYSIS BY TECHNOLOGY ASSISTANT. LAB DRAW DONE VIA POWERGLIDE AND SENT, WILL MONITOR RESULTS.
--- NOTE | 2022-01-13 18:52 | NUR ---
PT HAS BEEN STABLE THIS SHIFT. HYPERTENSIVE AT TIMES. TELE REMAIN NSR WITH BBB. PT CONT HEPARIN GGT AT ORDERED RATE. PT HAS BEEN ON 4L THROUGHOUT SHIFT. BLOOD SUGARS STABLE AND TRETED ORDERED. POOR APPETITE. SWALLOWS WELL BUT COMPLAINS OF SORE THROAT R/T HOME. LS WITH CRACKLES ON RIGHT SIDE. HILL CONT TO HAVE LOW OUTPUT WITH THICK SEDIMENTED URINE. ABX CHANGED FROM VANCO TO CUBICIN. PT HAD NEW IV PLACED FOR COMBATIBILITY ISSUES. PERITONEAL DIALYSIS STARTED THIS EVENING. PT CONSTIPATED, STARTED ON MIRILAX, MOM AND CONT COLACE. EXCORIATED BUTTOCKS, MEPILEX IN PLACE. AM LABS TO BE REPEATED. PLAN FOR POSSIBLE HOME HEALTH AT DISCHARGE.
--- NOTE | 2022-01-13 19:41 | NUR ---
DIALYSIS NOTE DIANEAL ADJUSTED TO 1-4.25 & 1-1.[address] GIVENS TO MAXIMIZE UF. NO IMPROVEMENT OF CONSTIPATION. BEDSIDE RN REPORTS TO CONTINUE WITH PRN BOWEL PT VERBILZED UNDERSTNADING AND AGREES WITH PLAN. CCPD TX INITIATED PER PROTOCOL AND PT TOLERATING WELL.
--- NOTE | 2022-01-13 21:46 | NUR ---
PT IS A&OX4. HEPRIN GETT INFUSING PER ORDERS WITH INCREASED RATE FROM PHARMACY AT SHIFT CHANGE. PERITONEAL DIALYSIS RUNNING. VSS STABLE AT THIS TIME. TOOK EVENING MEDICATIONS WITHOUT DIFFICULTY. PT COMPLAINS OF "SIDEACHE" IN LUQ OF ABDOMEN. WARM PACK APPLIED FOR COMFORT. DECLINES TO BE REPOSITIONED AT THIS TIME. CALL LIGHT IN REACH.
[2022-01-14 02:10] LABS: Hematocrit 26.6 % (33.0-51.0); Hemoglobin 8.4 g/dL (11.5-16.0); Mean Corpuscular HGB 31.1 pg (26.0-34.0); Mean Corpuscular HGB Conc 31.6 g/dL (31.5-36.5); Mean Corpuscular Volume 99 fL (80-100); Mean Platelet Volume 11.5 fL (9.1-12.4); Platelet Count 195 K/mm3 (150-400); RDW Coefficient Variation 15.6 % (11.7-14.2); RDW Standard Deviation 56.2 fL (35.1-46.3); White Blood Cell Count 7.57 K/mm3 (4.00-11.30)
[2022-01-14 02:25] LABS: Albumin, Blood 2.5 g/dL (3.4-5.0); Anion Gap 7 mmol/L (6-16); Blood Urea Nitrogen 45 mg/dL (8-24); Bun/Creatinine Ratio 9.5 (12.0-20.0); CO2, Blood 28 mmol/L (21-32); Calcium, Blood 9.2 mg/dL (8.5-10.1); Chloride, Blood 98 mmol/L (98-108); Creatinine, Blood 4.76 mg/dL (0.40-1.00); Glomerular Filtration Rate 11 (60-); Glucose, Blood 281 mg/dL (70-99); Magnesium, Blood 2.1 mg/dL (1.6-2.4); Phosphorus, Blood 4.2 mg/dL (2.5-4.9); Potassium, Blood 4.2 mmol/L (3.5-5.5); Sodium, Blood 133 mmol/L (136-145)
[2022-01-14 02:32] LABS: BAND PERCENT MAN 3 % (0-8); BASOPHILS PERCENT MAN 0 % (0-2); EOSINOPHILS ABSOLUTE MAN 0.07 K/mm3 (0.00-0.68); EOSINOPHILS PERCENT MAN 1 % (0-6); LYMPHOCYTES PERCENT MAN 8 % (21-46); METAMYELOCYTE ABSOLUTE MAN 0.15 K/mm3 (0.00-0.00); METAMYELOCYTE PERCENT MAN 2 % (0-0); MONOCYTES ABSOLUTE MAN 0.45 K/mm3 (0.16-1.47); MONOCYTES PERCENT MAN 6 % (4-13); MYELOCYTE ABSOLUTE MAN 0.07 K/mm3 (0.00-0.00); MYELOCYTE PERCENT MAN 1 % (0-0); SEG NEUTROPHILS PERCENT MAN 79 % (41-73); TOTAL CELLS COUNTED 100
--- NOTE | 2022-01-14 04:55 | NUR ---
DR. GIVENS CALLED WITH A.M. LABS. STATES "EVERYTHING LOOKS GOOD". NO NEW ORDERS.
--- NOTE | 2022-01-14 06:14 | NUR ---
PERITONEAL DIALYSIS COMPLETE. INSTRUCTED BY GLORIA JOSEPH RN THAT ASSISTANT MANAGER BILINGUAL WOULD COME IN MORNING AND DISCONNECT PT. PT O2 SATS HAVE REMAINED >92% ON 2.5LPM. REPOSITIONED FOR COMFORT Q2H PT WOULD ALLOW. HEPRIN GTT INFUSING AT 25 PER ORDERS. HR HAS REMAIN IN SINUS RHYTHM IN THE 80-90'S.
--- NOTE | 2022-01-14 07:04 | NUR ---
PATIENT RESTING QUIETLY. WAKENS EASILY TO ORIENT. OVERNIGHT CCPD COPLETE ORDERED. EFFLUENT CLEAR / HERMAN. PATIENT AESEPTICALLY DISCONNECTED AND CAPPED. CYCLER STRIPPED AND CLEANED. DR GIVENS CONSULTED FOR NEW ORDERS / PLAN OF CARE.
--- NOTE | 2022-01-14 17:02 | NUR ---
SHIFT SUMMARY NO ACUTE EVENTS THIS SHIFT. PT ALERT AND ORIENTED. HEPARIN GTT RUNNING PER EMAR. PT REPOSITIONED T/O SHIFT WITH LIFT SHEET. PT ENDORSED SHARP PAIN IN LEFT SIDE THAT IS WORSE WITH DEEP INHALATION, DR. SHARMA AWARE AND ICE PACK PROVIDED. PT'S O2 SATURATION AT TIMES WOULD DECREASE TO MID 80s IF COUGHING OR TALKING, O2 VIA NASAL CANNULA 2-4 L THIS SHIFT. PT COMPLAINED OF SORE THROAT FROM HOME PROCEDURE, COUGH DROPS GIVEN PER EMAR. NO DISCHARGE NOTED AT PERITONEAL DIALYSIS SITE, NO TENDERNESS IN IMMEDIATE AREA. HILL DRAINING TO GRAVITY. PT HAD A VERY POOR APPETITE THIS SHIFT, WAS ABLE TO TOLERATE A YOGURT FOR BREAKFAST.
--- NOTE | 2022-01-14 19:58 | NUR ---
DIALYSIS-PD PT IN BED, APPETITE POOR. REMAINS CONSTIPATED. SAID SHE SWALLOWED WRONG EARLIER AND IS NOW SOB. REPORTED TO HER RN. 1 6L 4.25% AND 1 2.5% DEXTROSE DIANEAL BAGS. 20077 TOTAL VOLUME. 10 HOURS. 1600 FILL. LAST FILL 1000 ML. EXCHANGES 6, SITE CLEAR. CONNECTED PER PROTOCAL.
--- NOTE | 2022-01-14 20:08 | NUR ---
ASSUMED PT CARE FROM [facility] ON . PT IS A&OX4. DENIES ANY CHEST PAIN BUT COMPLAINS OF FEELING SOB, STATING SHE FEELS LIKE SHE SWALLOWED WRONG. PT BOOSTED IN BED AND SAT UP AT 90 DEGREED, ENCOURAGED TO COUGH. RESPIRATORY THERAPY CALLED FOR BREATHING TREATMENT. WILL MONITOR. PT REPORTS CONTINUED MILD PAIN IN LEFT FLANK AREA. PARITONEAL DAILYSIS RUNNING WITHOUT DIFFICULTY. HEPRIN GTT INFUSING ORDERED. CALL LIGHT IN REACH.
[2022-01-15 03:45] LABS: Hematocrit 26.7 % (33.0-51.0); Hemoglobin 8.4 g/dL (11.5-16.0); Mean Corpuscular HGB 31.3 pg (26.0-34.0); Mean Corpuscular HGB Conc 31.5 g/dL (31.5-36.5); Mean Corpuscular Volume 100 fL (80-100); Mean Platelet Volume 11.3 fL (9.1-12.4); Platelet Count 216 K/mm3 (150-400); RDW Coefficient Variation 15.6 % (11.7-14.2); RDW Standard Deviation 57.2 fL (35.1-46.3); Red Blood Cell Count 2.68 M/mm3 (3.80-5.20); White Blood Cell Count 7.49 K/mm3 (4.00-11.30)
[2022-01-15 04:03] LABS: Albumin, Blood 2.5 g/dL (3.4-5.0); Albumin/Globulin Ratio 0.6 (0.8-1.8); Bilirubin, Direct 0.1 mg/dL (0.0-0.3); Bilirubin, Indirect 0.2 mg/dL (0.1-0.7); Bilirubin, Total 0.3 mg/dL (0.1-1.0); Bun/Creatinine Ratio 8.8 (12.0-20.0); Creatinine, Blood 4.88 mg/dL (0.40-1.00); Globulin, Blood 4.5 g/dL (2.2-4.0); Magnesium, Blood 2.2 mg/dL (1.6-2.4); Phosphorus, Blood 4.5 mg/dL (2.5-4.9); Potassium, Blood 3.8 mmol/L (3.5-5.5)
[2022-01-15 04:51] LABS: BAND PERCENT MAN 1 % (0-8); BASOPHILS ABSOLUTE MAN 0.07 K/mm3 (0.00-0.23); BASOPHILS PERCENT MAN 1 % (0-2); EOSINOPHILS ABSOLUTE MAN 0.29 K/mm3 (0.00-0.68); EOSINOPHILS PERCENT MAN 4 % (0-6); LYMPHOCYTES ABSOLUTE MAN 0.82 K/mm3 (0.84-5.20); LYMPHOCYTES PERCENT MAN 11 % (21-46); METAMYELOCYTE ABSOLUTE MAN 0.14 K/mm3 (0.00-0.00); METAMYELOCYTE PERCENT MAN 2 % (0-0); MONOCYTES ABSOLUTE MAN 0.29 K/mm3 (0.16-1.47); MONOCYTES PERCENT MAN 4 % (4-13); MYELOCYTE ABSOLUTE MAN 0.22 K/mm3 (0.00-0.00); MYELOCYTE PERCENT MAN 3 % (0-0); NEUTROPHILS ABSOLUTE MAN 5.61 K/mm3 (1.96-9.15); SEG NEUTROPHILS PERCENT MAN 74 % (41-73); TOTAL CELLS COUNTED 100
--- NOTE | 2022-01-15 05:43 | NUR ---
PT HAS HAD UNEVENTFUL NIGHT. RESTING IN BED WITH EYES CLOSED, RESPIRAITONS EVEN AND UNLABORED. STATES IMPROVED SOB WHEN WAKING FOR VITALS CHECK AT MIDNIGHT. O2 SATS HAVE REMAINED IN HIGH 90'S ON 2 LPM. ABLE TO DRAW A.M. LABS THROUGH POWERGLYDE WITHOUT DIFFICULTY. HILL CATHER DRAINING CLOUDY, YELLOW URINE. PERITONEAL DIALYSIS RUNNING OVERNIGHT.
--- NOTE | 2022-01-15 07:07 | NUR ---
HEPRIN GTT STOPPED AT 0615 PER PHARMACY. INSTRUCTED TO [place] FOR ONE HOUR AND THEN RESTART. STATES ORDERS WILL BE PLACED.
--- NOTE | 2022-01-15 07:47 | NUR ---
DIALYSIS NOTE PATIENT RESTING QUIETLY. WAKENS EASILY TO ORIENT. OVERNIGHT CCPD COPLETE ORDERED PT DICONNECTED FROM PD TX PER P&P. PT REPORTS SHE TOLERATED TX WELL AND DENIES ANY ALARMS DURING THE NIGHT. I-DRAIN 1ML, TOTAL UF 2090ML, AVG DWELL 1:15. EFFLUENT EXAMED TO BE CLEAR WITH NO FIBRIN NOTED. PT REPORTS STILL NO BM, PT REPORTS FEELING A LITTLE CONGESTED. DISCUSSED THE IMPORTANCE OF TURN, COUGH, DEEP BREATHING EXCERCISED AND ENCOURAGED PT TO DO THIS HOURLY. REPORTED FINDINGS TO BEDSIDE RN AND REQUEST "IS" IF AVAILABLE, AND CONT BOWEL CARE PROTOCOL FOR CONSTIPATION.
--- NOTE | 2022-01-15 15:42 | NUR ---
END OF SHIFT SUMMARY: PATIENT IS NOW MEDICAL STATUS WAS CHANGED FROM HUMALOG TO MCS HUMULIN. PATIENT HAS BEEN AFEBRILE, PULSE RATE 80-90'S, SPO2>94% ON 2-4L VIA NC, BLOOD PRESSURE IN THE 150'S FOR SYS. HILL STILL DRAINING TO GRAVITY BM TODAY. PATIENT HAS BEEN PLEASANT, ANXIOUS AT TIMES, DYSPNIC WITH EXERTION, EXERTION WAS ROLLING ON TO BED BAUMANN, PATIENT MORE ANXIOUS THAN OXYGEN DEMAND. NONREBREATHER SETTLED HER BREATHING AND WORK OF BREATHING. HEPARIN RUNNING SAME THIS AM NO CHANGE SINCE STARTED THIS AM AFTER BEING STOPPED FOR 1 HOUR. DENIES CHEST PAIN SOB AT REST, BREATHING IMPROVED SLIGHLTY THROUGH THE DAY, WORKED ON INCENTIVE SPIROMETRY TEACHING, EDUCATION. PATIENT HAD A BM, NO CHANGE IN COGNITION. WILL CONTINUE TO MONITOR UNTIL SHIFT CHANGE.
--- NOTE | 2022-01-15 16:21 | NUR ---
DIALYSIS NOTE PT REPORTS SHE HAD LARGE BM TODAY ADN IS FEELING WELL OTHER THAN C/O INC SOB WHEN LAYING FLAT IN BED. CCPD TX INITATED PER P&P WITH 1-4.25 ON HEATER AND 1-2.5 SIDE BAG.
--- NOTE | 2022-01-16 06:12 | NUR ---
FLORAL MERCHANDISER SUMMARY PT IS ALERT AND ORIENTED COMMUNICATING APPROPRIATELY W STAFF. PT HAS MAINTAINED O2 SATS >90% ON 2L NC THIS SHIFT. BP SLIGHTLY ELEVATED THIS AM, PRN HYDRALAZINE GIVEN. TELE SHOWING SR IN THE 80'S W BBB THIS SHIFT. PT HAS SLEPT COMFORTABLY FOR MOST OF THE NIGHT REFUSING TO BE REPOSITIONED EXCEPT FOR ONE TIME THIS SHIFT. PT RECIEVED PERITONEAL DIALYSIS THIS SHIFT. WILL REPORT TO ONCOMING RN. =
[2022-01-16 06:16] LABS: Hematocrit 27.5 % (33.0-51.0); Hemoglobin 8.7 g/dL (11.5-16.0); Mean Corpuscular HGB 31.1 pg (26.0-34.0); Mean Corpuscular HGB Conc 31.6 g/dL (31.5-36.5); Mean Corpuscular Volume 98 fL (80-100); Mean Platelet Volume 10.8 fL (9.1-12.4); Platelet Count 250 K/mm3 (150-400); RDW Coefficient Variation 15.4 % (11.7-14.2); RDW Standard Deviation 56.2 fL (35.1-46.3); White Blood Cell Count 7.86 K/mm3 (4.00-11.30)
[2022-01-16 06:34] LABS: Albumin, Blood 2.5 g/dL (3.4-5.0); Anion Gap 5 mmol/L (6-16); Blood Urea Nitrogen 41 mg/dL (8-24); Bun/Creatinine Ratio 8.4 (12.0-20.0); CO2, Blood 30 mmol/L (21-32); Chloride, Blood 99 mmol/L (98-108); Creatinine, Blood 4.88 mg/dL (0.40-1.00); Glomerular Filtration Rate 10 (60-); Glucose, Blood 177 mg/dL (70-99); Magnesium, Blood 2.3 mg/dL (1.6-2.4); Phosphorus, Blood 4.4 mg/dL (2.5-4.9); Potassium, Blood 3.8 mmol/L (3.5-5.5); Sodium, Blood 134 mmol/L (136-145)
[2022-01-16 07:02] LABS: BAND PERCENT MAN 1 % (0-8); BASOPHILS PERCENT MAN 0 % (0-2); EOSINOPHILS ABSOLUTE MAN 0.23 K/mm3 (0.00-0.68); EOSINOPHILS PERCENT MAN 3 % (0-6); LYMPHOCYTES ABSOLUTE MAN 1.25 K/mm3 (0.84-5.20); LYMPHOCYTES PERCENT MAN 16 % (21-46); METAMYELOCYTE ABSOLUTE MAN 0.07 K/mm3 (0.00-0.00); METAMYELOCYTE PERCENT MAN 1 % (0-0); MONOCYTES ABSOLUTE MAN 0.47 K/mm3 (0.16-1.47); MONOCYTES PERCENT MAN 6 % (4-13); MYELOCYTE ABSOLUTE MAN 0.39 K/mm3 (0.00-0.00); MYELOCYTE PERCENT MAN 5 % (0-0); NEUTROPHILS ABSOLUTE MAN 5.42 K/mm3 (1.96-9.15); SEG NEUTROPHILS PERCENT MAN 68 % (41-73); TOTAL CELLS COUNTED 100
--- NOTE | 2022-01-16 07:58 | NUR ---
DIALYSIS NOTE PATIENT RESTING QUIETLY. WAKENS EASILY TO ORIENT. OVERNIGHT CCPD COPLETE ORDERED PT DICONNECTED FROM PD TX PER P&P. PT REPORTS SHE TOLERATED TX WELL AND DENIES ANY ALARMS DURING THE NIGHT. I-DRAIN 312ML, TOTAL UF 2382ML, AVG DWELL 1:14. EFFLUENT EXAMED TO BE CLEAR WITH NO FIBRIN NOTED. TX COMPLETED PRESCRIBED.
--- NOTE | 2022-01-16 17:19 | NUR ---
SHIFT SUMMARY PT WAS TRANFERRRED TO THE FLOOR [facility] 1030 THIS AM. SHE IS AXO 4 WITH INTHE ROOM. PT USES LIFT TO GET INTO BED AND CHAIR. SHE DENIES PAIN OR SOB. SHE IS ON A HEPARIN DRIP AND HAS BEEN THE SAME RATE ALL SHIFT. SBGS WITHIN RANGE. DIALYSIS SET FOR TONIGHT WITH TALENT ASSISTANT RN LEAVING HER INFORMATION TO BE PASSED ON TO GLASS BLOCK BENDER. BED IN LOWEST POSITION AND CALL LIGHT IN REACH
--- NOTE | 2022-01-16 19:45 | NUR ---
DIALYSIS-PD PT IN BED WATCHING TV. SAYS HER BACK AND BUTT HURT, SAYS SHE HAS A BEDSORE. CLEANED AND REDRESSED HER SITE PER PROTOCAL. CONNECTED TO PD TX PER PROTOCAL. SITE CLEAR. STARTED TX AT 191. ALARMED DURING INITIAL DRAIN X 2. BYPASSED [place]. [place]NE [address]129 ML. TIME 10 HRS. FILL 1600 ML. LAST FILL 1000 ML. EXCHANGES 6. DWELL TIME 78 MIN. 6L 4.25 % DEXTROSE DIANEAL,6L 2.5% DEXTROSE DIANEAL.
[2022-01-17 05:07] LABS: Hematocrit 28.3 % (33.0-51.0); Hemoglobin 8.8 g/dL (11.5-16.0)
[2022-01-17 05:41] LABS: Albumin, Blood 2.6 g/dL (3.4-5.0); Anion Gap 8 mmol/L (6-16); Blood Urea Nitrogen 39 mg/dL (8-24); Bun/Creatinine Ratio 7.5 (12.0-20.0); CO2, Blood 29 mmol/L (21-32); Chloride, Blood 98 mmol/L (98-108); Creatinine, Blood 5.23 mg/dL (0.40-1.00); Glomerular Filtration Rate 9 (60-); Glucose, Blood 242 mg/dL (70-99); Magnesium, Blood 2.5 mg/dL (1.6-2.4); Phosphorus, Blood 4.5 mg/dL (2.5-4.9); Potassium, Blood 3.3 mmol/L (3.5-5.5); Sodium, Blood 135 mmol/L (136-145)
--- NOTE | 2022-01-17 07:30 | NUR ---
PT AWAKE ALERT, WATCHING TV THIS AM. NO VERBAL COMPLAINT. OVERNIGHT CCPD COMPLETE ORDERED. PT AESEPTICALLY DISCONNECTED AND CAPPED. CYCLER STRIPPED AND CLEANED. DR GIVENS CONSULTED FOR NEW ORDERS / PLAN OF CARE.
--- NOTE | 2022-01-17 08:26 | NUR ---
SHIFT SUMMARY: PATIENT IS A&OX4, WITHDRAWN AT TIMES. HEPARIN GTT WAS INCREASED TO 39.1 FOR APPT RESULT OF 520 @ 2115. NO REPORTS OF PAIN VSS. PERITONEAL DIALYSIS WAS BY SHANK SCOURER. NO ALARMS DURING THE NIGHT, PATIENT TOLERATED WELL. COOPERATIVE WITH CARE. MEPILEX IS IN PLACE ON SACCRUM FOR REDNESS AND PREVENTION OF SKIN BREAKDOWN.
--- NOTE | 2022-01-17 19:45 | NUR ---
DIALYSIS-PD ENTERED ROOM AT 1850. PT HAS DINNER IN FRONT OF HER BUT NOT EATING. SAYS SHE IS NOT HUNGRY. SAYS THAT SHE HAD A SHARP PAIN IN ABD BETWEEN HER BELLY BUTTON AND CATH SITE. ONLY LASTED A SECOND. HASN'T RETURNED. PRESS ON HER BELLY WITH NO PAIN. SITE CLEANED AND DRESSED. SITE CLEAR. CALLED JUJU MOYA AND REPORTED PAIN TO HER. PT SUBDUED. VOLUMNE [id number], FILL 1600, LAST FILL 1000. TIME 10 HOURS, DWELL 78 MIN, EXCHANGES 6.
--- NOTE | 2022-01-18 05:18 | NUR ---
SHIFT SUMMARY NO ACUTE CHANGES TO PT CONDITION. PT HAS NO COMPLAINTS AT THIS TIME. PT MEDICATED PER EMAR FOR BLOOD GLUCOSE OF 156 LAST EVENING. PT HAS CALL LIGHT WITHIN HER REACH.
[2022-01-18 06:18] LABS: Albumin, Blood 2.7 g/dL (3.4-5.0); Anion Gap 8 mmol/L (6-16); Blood Urea Nitrogen 36 mg/dL (8-24); Bun/Creatinine Ratio 6.7 (12.0-20.0); CO2, Blood 28 mmol/L (21-32); Chloride, Blood 98 mmol/L (98-108); Creatinine, Blood 5.34 mg/dL (0.40-1.00); Glomerular Filtration Rate 9 (60-); Glucose, Blood 253 mg/dL (70-99); Magnesium, Blood 2.5 mg/dL (1.6-2.4); Phosphorus, Blood 4.4 mg/dL (2.5-4.9); Potassium, Blood 3.3 mmol/L (3.5-5.5); Sodium, Blood 134 mmol/L (136-145)
[2022-01-18 06:25] LABS: Hematocrit 29.5 % (33.0-51.0); Hemoglobin 9.3 g/dL (11.5-16.0)
--- NOTE | 2022-01-18 08:46 | NUR ---
TO ROOM 325 FOR PD TX REMOVAL. PT AWAKE, A&O. VISITING WITH . TX DC'D PER MD ORDERS. PT TOLERATED WELL. SITE BRYANT. JOEL
--- NOTE | 2022-01-18 17:57 | NUR ---
TO ROOM 225 FOR EVENING PD TX PER DR GIVENS'S ORDERS. SITE CLEANED PER ASEPTIC TECHNIQUE. PT TOLERATED WELL. JOEL
--- NOTE | 2022-01-18 18:33 | NUR ---
SHIFT SUMMARY NO ACUTE CHANGES THIS SHIFT. CARE COORDINATORS SPOKE WITH PT. STILL HOPEFUL TO DC ON SUNDAY. PT RECIEVED A BED BATH TODAY. BED IN LOWEST POSITION AND CALL LIGHT IN REACH
--- NOTE | 2022-01-19 04:49 | NUR ---
SHIFT SUMMARY NO ACUTE CHANGES TO PT STATUS. CALL LIGHT WITHIN REACH.
[2022-01-19 06:24] LABS: Hematocrit 29.8 % (33.0-51.0); Hemoglobin 9.2 g/dL (11.5-16.0)
[2022-01-19 06:38] LABS: Albumin, Blood 2.6 g/dL (3.4-5.0); Anion Gap 7 mmol/L (6-16); Blood Urea Nitrogen 36 mg/dL (8-24); Bun/Creatinine Ratio 6.4 (12.0-20.0); CO2, Blood 30 mmol/L (21-32); Chloride, Blood 99 mmol/L (98-108); Glomerular Filtration Rate 9 (60-); Glucose, Blood 176 mg/dL (70-99); Magnesium, Blood 2.4 mg/dL (1.6-2.4); Phosphorus, Blood 4.3 mg/dL (2.5-4.9); Potassium, Blood 3.4 mmol/L (3.5-5.5); Sodium, Blood 136 mmol/L (136-145)
--- NOTE | 2022-01-19 07:19 | NUR ---
Late note from 01/18/22 due to [employer] downtime. I visit with pt for over an hour. Pt talks about the family unit complications, her struggles with those around her making statements that make her feel as if they are giving up hope for her to ever recover, and her concerns about all her appointments lining up so that she has a successful d/c. During my visit pt's sister calls with news about pt's step father [place] sudden loss in one of his eyes. Pt also speaks of her spiritual distress. I normalize her feeling and concerns, encourage hope, listen empathically and provide pastoral pre parole counseling aide and prayer (leaning into pt's Worship belief system). Pt responds well and shows signs of inner peace and increased hope. I will continue to remain available to pt and family.
--- NOTE | 2022-01-19 07:30 | NUR ---
DIALYSIS NOTE PATIENT RESTING QUIETLY. WAKENS EASILY TO ORIENT. OVERNIGHT CCPD COPLETE ORDERED PT DICONNECTED FROM PD TX PER P&P. PT REPORTS SHE TOLERATED TX WELL AND DENIES ANY ALARMS DURING THE NIGHT. I-DRAIN 321ML, TOTAL UF 2220ML, AVG DWELL 1:14. EFFLUENT EXAMED TO BE CLEAR, SCANT AMOUNT OF BLOOD NOTED, WITH NO FIBRIN NOTED. TX COMPLETED PRESCRIBED.
--- NOTE | 2022-01-19 16:47 | NUR ---
Patient talks at length about her humorous moments in life and her times of great struggle. Pt states that there have been long challenges in her life both medically and personally. I provide therapeutic listening and prayer. Pt shows signs of increased hope. I will continue to remain available to pt and family.
--- NOTE | 2022-01-19 18:08 | NUR ---
MAKES NEEDS KNOWN, ALERT AND ORIENTED, VERY DECONDITIONED, HEMODIALYSIS STOPPED FOR TODAY. TO HAVE A PICC LINE PLACED TOMMORROW. POSSIBLE DISCHARGE WITH HOME IV ANTIBIOTICS. NO ACUTE CHANGES, CALL LIGHT WITH IN REACH, WILL RELAY TO PM GRIFFIN
--- NOTE | 2022-01-19 19:56 | NUR ---
DIALYSIS-PD 1829-PT JUST FINISHED HER DINNER. APPETITE SEEMS BETTER. PT CONNECTED TO PD TX @1855 PER PROTOCAL. SAME PROGRAM LAST NIGHT. PT BELIEVES SHE IS GOING HOME SOON AND WAS ASKING A LOT OF QUESTION ABOUT PD. SEEMS VERY INVESTED IN SEEING THIS WORK.
--- NOTE | 2022-01-20 04:14 | NUR ---
SHIFT SUMMARY NO ACUTE CHANGES TO PT CONDITION. PT SLEEPING OFF AND ON THROUGHOUT THE NIGHT. PT HAS NO CURRENT COMPLAINTS. CALL LIGHT IS WITHIN HER REACH.
[2022-01-20 05:07] LABS: Hematocrit 30.7 % (33.0-51.0); Hemoglobin 9.3 g/dL (11.5-16.0)
[2022-01-20 05:40] LABS: Albumin, Blood 2.7 g/dL (3.4-5.0); Anion Gap 9 mmol/L (6-16); Blood Urea Nitrogen 46 mg/dL (8-24); Bun/Creatinine Ratio 7.8 (12.0-20.0); CO2, Blood 28 mmol/L (21-32); CPK Creatine Kinase 23 U/L (26-193); Calcium, Blood 9.1 mg/dL (8.5-10.1); Chloride, Blood 98 mmol/L (98-108); Creatinine, Blood 5.87 mg/dL (0.40-1.00); Glomerular Filtration Rate 8 (60-); Glucose, Blood 247 mg/dL (70-99); Magnesium, Blood 2.5 mg/dL (1.6-2.4); Phosphorus, Blood 4.4 mg/dL (2.5-4.9); Potassium, Blood 3.4 mmol/L (3.5-5.5); Sodium, Blood 135 mmol/L (136-145)
--- NOTE | 2022-01-20 07:29 | NUR ---
PT AWAKE, ALERT, ORIENTED, COMFORTABLE THIS AM. OVERNIGHT CCPD COMPLETE ORDERED. PT AESEPTICALLY DISCONNECTED AND CAPPED. CYCLER STRIPPED ANSD CLEANED. CATHETER SECURED FOR DAYTIME. DR CHA CONSULTED FOR NEW ORDERES / PLAN OF CARE.
--- NOTE | 2022-01-20 10:19 | NUR ---
PATIENT IN NO DISTRESS, GOOD APPETITE THIS AM, DR HUSSEIN ROUNDED AT 0945, HOME O2 EVALUATION ORDERED, RT IN ROOM NOW, POSSIBLE DISCHARGE HOME TODAY, PATIENT DENEIS ANY CONCERNS
--- NOTE | 2022-01-20 11:31 | NUR ---
PATIENT HAVING A PICC LINE PLACED IN ROOM
[2022-01-20] MEDS ORDERED: Acetaminophen650 M1 PO ×2 (11:51)
[2022-01-20] MEDS ORDERED: CLOP75 PO ×2 (11:54)
[2022-01-20] MEDS ORDERED: CUBICIN RF500 M1 IV ×2 (11:56)
[2022-01-20] MEDS ORDERED: FURO20 PO ×2 (11:57)
[2022-01-20] MEDS ORDERED: LACT PO ×2 (11:58)
[2022-01-20] MEDS ORDERED: ANTIFUNGAL POWD85 GM TOP ×2 (11:59)
[2022-01-20] MEDS ORDERED: NITR.4SL SL ×2 (12:00)
[2022-01-20] MEDS ORDERED: NOVOLOG FL100 UNIT/3 SC ×2 (12:06)
--- NOTE | 2022-01-20 12:30 | NUR ---
PATIENT DISCHARGED, PATIENT AND STATED UNDERSTANDING OF DISCHARGE EDUCATIONS AND FOLLOW UP NEEDS, PLEASNT TO CARE THROUGH OUT PATIENTS STAY
== END 2022-01-20 13:00 | disposition home health service (06) | DRG 314 ==
LOC: ER 08:35 → PCU 13:56 → MEDS 01-16 10:00
PROVIDERS: Family Medicine; Internal Medicine Nephrology; Physician Assistant; ADMIT Internal Medicine
PROC: 3E03329 Introduction of Other Anti-infective into Peripheral Vein, Percutaneous Approach (ICD-10-PCS; principal; 2022-01-07)
PROC: 05PYX3Z Removal of Infusion Device from Upper Vein, External Approach (ICD-10-PCS; 2022-01-09)
PROC: 05HM33Z Insertion of Infusion Device into Right Internal Jugular Vein, Percutaneous Approach (ICD-10-PCS; 2022-01-09)
DX: T80.211A Bloodstream infection due to central venous catheter, initial encounter (principal); A41.01 Sepsis due to Methicillin susceptible Staphylococcus aureus; N18.6 End stage renal disease; R65.20 Severe sepsis without septic shock; Z68.42 Body mass index [BMI] 45.0-49.9, adult; E87.2 Acidosis; N25.81 Secondary hyperparathyroidism of renal origin; E87.1 Hypo-osmolality and hyponatremia; I50.22 Chronic systolic (congestive) heart failure; I13.2 Hypertensive heart and chronic kidney disease with heart failure and with stage 5 chronic kidney disease, or end stage renal disease; T83.511A Infection and inflammatory reaction due to indwelling urethral catheter, initial encounter; Z74.01 Bed confinement status; D63.1 Anemia in chronic kidney disease; E03.9 Hypothyroidism, unspecified; R51.9 Headache, unspecified; J44.9 Chronic obstructive pulmonary disease, unspecified; I25.10 Atherosclerotic heart disease of native coronary artery without angina pectoris; E66.01 Morbid (severe) obesity due to excess calories; E11.22 Type 2 diabetes mellitus with diabetic chronic kidney disease; E87.5 Hyperkalemia; E88.09 Other disorders of plasma-protein metabolism, not elsewhere classified; N31.9 Neuromuscular dysfunction of bladder, unspecified; F41.9 Anxiety disorder, unspecified; F32.A Depression, unspecified; I25.2 Old myocardial infarction; Z99.2 Dependence on renal dialysis; Z86.718 Personal history of other venous thrombosis and embolism; Z95.5 Presence of coronary angioplasty implant and graft; Z98.890 Other specified postprocedural states; Z91.048 Other nonmedicinal substance allergy status; Z91.018 Allergy to other foods; Z88.1 Allergy status to other antibiotic agents; Z79.4 Long term (current) use of insulin; Z79.01 Long term (current) use of anticoagulants; Z79.899 Other long term (current) drug therapy; Y84.8 Other medical procedures as the cause of abnormal reaction of the patient, or of later complication, without mention of misadventure at the time of the procedure; Y84.6 Urinary catheterization as the cause of abnormal reaction of the patient, or of later complication, without mention of misadventure at the time of the procedure
CPT/HCPCS: 36415; 36569; 51702; 71045; 71046; 76604; 80053; 80069; 80202; 81001; 82248; 82550; 82947; 83605; 83735; 83880; 84100; 84132; 84484; 85014; 85018; 85025; 85027; 85610; 85730; 86140; 87040; 87077; 87086; 87147; 87186; 93005; 93010; 93312; 93325; 94640; 94660; 94664; 94760; 94761; 94762; 96365; 99284; A9270; C1751; C8929; J0360; J0878; J0881; J1644; J1815; J1956; J2020; J2405; J2704; J2997; J3010; J3370; J7030; J7050; Q9957

== ENCOUNTER 2022-01-21 00:58 | Emergency (ER) | payer OTHER ==
[~2022-01-21] VITALS: Ht 160 cm; Wt 119.3 kg
[~2022-01-21 00:58] MED LIST changes: +ANTIFUNGAL POWD85 GM TOP; +Acetaminophen650 M1 PO; +Calcium Acetat667 MG PO; +FURO20 PO; +INSULIN AS100 UNIT/8 SC; +LACT PO; +NITR.4SL SL; +NOVOLOG FL100 UNIT/3 SC
== END 2022-01-21 04:09 | disposition home or self-care (01) ==
LOC: ER 00:58
DX: R06.02 Shortness of breath (principal); I13.2 Hypertensive heart and chronic kidney disease with heart failure and with stage 5 chronic kidney disease, or end stage renal disease; E11.22 Type 2 diabetes mellitus with diabetic chronic kidney disease; N18.6 End stage renal disease; I50.9 Heart failure, unspecified; E03.9 Hypothyroidism, unspecified; J44.9 Chronic obstructive pulmonary disease, unspecified; I25.10 Atherosclerotic heart disease of native coronary artery without angina pectoris; F41.9 Anxiety disorder, unspecified; Z91.030 Bee allergy status; Z88.8 Allergy status to other drugs, medicaments and biological substances; Z91.018 Allergy to other foods; Z91.048 Other nonmedicinal substance allergy status; Z79.899 Other long term (current) drug therapy; Z79.4 Long term (current) use of insulin; Z79.01 Long term (current) use of anticoagulants; Z95.5 Presence of coronary angioplasty implant and graft; Z95.1 Presence of aortocoronary bypass graft
CPT/HCPCS: 99282

== ENCOUNTER → 2022-02-01 | Outpatient (CLI) | payer OTHER ==
[2022-02-01 19:36] LABS: BASOPHILS ABSOLUTE AUTO 0.03 K/mm3 (0.00-0.23); BASOPHILS PERCENT AUTO 1 % (0-2); EOSINOPHILS ABSOLUTE AUTO 0.31 K/mm3 (0.00-0.68); EOSINOPHILS PERCENT AUTO 5 % (0-6); Hematocrit 32.8 % (33.0-51.0); Hemoglobin 9.9 g/dL (11.5-16.0); IMMATURE GRAN ABSOLUTE AUTO 0.02 K/mm3 (0.00-0.10); IMMATURE GRAN PERCENT AUTO 0 % (0-1); LYMPHOCYTES ABSOLUTE AUTO 1.08 K/mm3 (0.84-5.20); LYMPHOCYTES PERCENT AUTO 17 % (21-46); MONOCYTES ABSOLUTE AUTO 0.24 K/mm3 (0.16-1.47); MONOCYTES PERCENT AUTO 4 % (4-13); Mean Corpuscular HGB 30.6 pg (26.0-34.0); Mean Corpuscular HGB Conc 30.2 g/dL (31.5-36.5); Mean Corpuscular Volume 101 fL (80-100); Mean Platelet Volume 11.7 fL (9.1-12.4); NEUTROPHILS ABSOLUTE AUTO 4.62 K/mm3 (1.96-9.15); NEUTROPHILS PERCENT AUTO 73 % (41-73); Platelet Count 144 K/mm3 (150-400); RDW Coefficient Variation 15.8 % (11.7-14.2); RDW Standard Deviation 59.1 fL (35.1-46.3); Red Blood Cell Count 3.24 M/mm3 (3.80-5.20)
[2022-02-01 20:13] LABS: C-REACTIVE PROTEIN, EXT RANGE 2.22 mg/dL (0.000-0.300)
[2022-02-01 20:19] LABS: Albumin, Blood 2.8 g/dL (3.4-5.0); Bilirubin, Total 0.4 mg/dL (0.1-1.0); Bun/Creatinine Ratio 8.4 (12.0-20.0); Calcium, Blood 8.9 mg/dL (8.5-10.1); Creatinine, Blood 3.22 mg/dL (0.40-1.00); Globulin, Blood 2.9 g/dL (2.2-4.0); Potassium, Blood 3.6 mmol/L (3.5-5.5); Total Protein, Blood 5.7 g/dL (6.4-8.2)
== END | disposition home or self-care (01) ==
LOC: LAB HH 16:40
PROVIDERS: Internal Medicine
DX: M46.26 Osteomyelitis of vertebra, lumbar region (principal); R78.81 Bacteremia
CPT/HCPCS: 80053; 82550; 85025; 86140

== ENCOUNTER → 2022-02-06 | Outpatient (CLI) | payer OTHER ==
[2022-02-06 17:01] LABS: BASOPHILS ABSOLUTE AUTO 0.04 K/mm3 (0.00-0.23); BASOPHILS PERCENT AUTO 1 % (0-2); EOSINOPHILS ABSOLUTE AUTO 0.31 K/mm3 (0.00-0.68); EOSINOPHILS PERCENT AUTO 4 % (0-6); Hematocrit 33.1 % (33.0-51.0); Hemoglobin 10.2 g/dL (11.5-16.0); IMMATURE GRAN ABSOLUTE AUTO 0.03 K/mm3 (0.00-0.10); IMMATURE GRAN PERCENT AUTO 0 % (0-1); LYMPHOCYTES PERCENT AUTO 10 % (21-46); MONOCYTES ABSOLUTE AUTO 0.38 K/mm3 (0.16-1.47); MONOCYTES PERCENT AUTO 5 % (4-13); Mean Corpuscular HGB 30.7 pg (26.0-34.0); Mean Corpuscular HGB Conc 30.8 g/dL (31.5-36.5); Mean Corpuscular Volume 100 fL (80-100); Mean Platelet Volume 12.2 fL (9.1-12.4); NEUTROPHILS ABSOLUTE AUTO 6.28 K/mm3 (1.96-9.15); NEUTROPHILS PERCENT AUTO 80 % (41-73); Platelet Count 124 K/mm3 (150-400); RDW Coefficient Variation 15.4 % (11.7-14.2); RDW Standard Deviation 56.9 fL (35.1-46.3); Red Blood Cell Count 3.32 M/mm3 (3.80-5.20); White Blood Cell Count 7.84 K/mm3 (4.00-11.30)
[2022-02-06 17:27] LABS: C-REACTIVE PROTEIN, EXT RANGE 3.65 mg/dL (0.000-0.300)
[2022-02-06 17:29] LABS: Albumin, Blood 2.8 g/dL (3.4-5.0); Albumin/Globulin Ratio 0.8 (0.8-1.8); Bilirubin, Total 0.3 mg/dL (0.1-1.0); Bun/Creatinine Ratio 8.3 (12.0-20.0); Calcium, Blood 9.4 mg/dL (8.5-10.1); Creatinine, Blood 3.48 mg/dL (0.40-1.00); Globulin, Blood 3.3 g/dL (2.2-4.0); Potassium, Blood 3.5 mmol/L (3.5-5.5); Total Protein, Blood 6.1 g/dL (6.4-8.2)
== END | disposition home or self-care (01) ==
LOC: LAB HH 15:33
PROVIDERS: Internal Medicine
DX: M46.26 Osteomyelitis of vertebra, lumbar region (principal); R78.81 Bacteremia
CPT/HCPCS: 80053; 82550; 85025; 86140

== ENCOUNTER → 2022-02-27 | Outpatient (CLI) | payer OTHER ==
[~2022-02-27] MED LIST changes: +NITR100CA PO
[2022-02-27 16:36] LABS: BASOPHILS ABSOLUTE AUTO 0.04 K/mm3 (0.00-0.23); BASOPHILS PERCENT AUTO 1 % (0-2); EOSINOPHILS ABSOLUTE AUTO 0.48 K/mm3 (0.00-0.68); EOSINOPHILS PERCENT AUTO 6 % (0-6); Hematocrit 33.2 % (33.0-51.0); Hemoglobin 10.1 g/dL (11.5-16.0); IMMATURE GRAN ABSOLUTE AUTO 0.03 K/mm3 (0.00-0.10); IMMATURE GRAN PERCENT AUTO 0 % (0-1); LYMPHOCYTES ABSOLUTE AUTO 1.15 K/mm3 (0.84-5.20); LYMPHOCYTES PERCENT AUTO 15 % (21-46); MONOCYTES ABSOLUTE AUTO 0.32 K/mm3 (0.16-1.47); MONOCYTES PERCENT AUTO 4 % (4-13); Mean Corpuscular HGB 30.1 pg (26.0-34.0); Mean Corpuscular HGB Conc 30.4 g/dL (31.5-36.5); Mean Corpuscular Volume 99 fL (80-100); Mean Platelet Volume 11.9 fL (9.1-12.4); NEUTROPHILS PERCENT AUTO 74 % (41-73); Platelet Count 149 K/mm3 (150-400); RDW Coefficient Variation 15.9 % (11.7-14.2); RDW Standard Deviation 57.4 fL (35.1-46.3); Red Blood Cell Count 3.36 M/mm3 (3.80-5.20); White Blood Cell Count 7.62 K/mm3 (4.00-11.30)
[2022-02-27 16:44] LABS: C-REACTIVE PROTEIN, EXT RANGE 2.01 mg/dL (0.000-0.300)
[2022-02-27 16:56] LABS: Albumin, Blood 2.8 g/dL (3.4-5.0); Albumin/Globulin Ratio 0.8 (0.8-1.8); Bilirubin, Total 0.2 mg/dL (0.1-1.0); Creatinine, Blood 3.32 mg/dL (0.40-1.00); Globulin, Blood 3.3 g/dL (2.2-4.0); Potassium, Blood 3.5 mmol/L (3.5-5.5); Total Protein, Blood 6.1 g/dL (6.4-8.2)
== END | disposition home or self-care (01) ==
LOC: LAB HH 15:49
PROVIDERS: Family Medicine
DX: M46.26 Osteomyelitis of vertebra, lumbar region (principal); R78.81 Bacteremia
CPT/HCPCS: 80053; 82550; 85025; 86140

== ENCOUNTER 2022-03-18 11:49 | Emergency (ER) | payer OTHER ==
[~2022-03-18] VITALS: Ht 160 cm; Wt 119.3 kg
[~2022-03-18 11:49] MED LIST changes: -FURO20 PO; -NITR100CA PO
[2022-03-18 13:43] LABS: BASOPHILS ABSOLUTE AUTO 0.03 K/mm3 (0.00-0.23); BASOPHILS PERCENT AUTO 0 % (0-2); EOSINOPHILS ABSOLUTE AUTO 0.06 K/mm3 (0.00-0.68); EOSINOPHILS PERCENT AUTO 1 % (0-6); Hematocrit 35.5 % (33.0-51.0); Hemoglobin 11.2 g/dL (11.5-16.0); IMMATURE GRAN ABSOLUTE AUTO 0.03 K/mm3 (0.00-0.10); IMMATURE GRAN PERCENT AUTO 0 % (0-1); LYMPHOCYTES ABSOLUTE AUTO 0.67 K/mm3 (0.84-5.20); LYMPHOCYTES PERCENT AUTO 8 % (21-46); MONOCYTES ABSOLUTE AUTO 0.45 K/mm3 (0.16-1.47); MONOCYTES PERCENT AUTO 6 % (4-13); Mean Corpuscular HGB 30.2 pg (26.0-34.0); Mean Corpuscular HGB Conc 31.5 g/dL (31.5-36.5); Mean Corpuscular Volume 96 fL (80-100); NEUTROPHILS ABSOLUTE AUTO 6.87 K/mm3 (1.96-9.15); NEUTROPHILS PERCENT AUTO 85 % (41-73); Platelet Count 196 K/mm3 (150-400); RDW Coefficient Variation 15.9 % (11.7-14.2); RDW Standard Deviation 55.9 fL (35.1-46.3); Red Blood Cell Count 3.71 M/mm3 (3.80-5.20); White Blood Cell Count 8.11 K/mm3 (4.00-11.30)
[2022-03-18 14:08] LABS: Albumin, Blood 2.8 g/dL (3.4-5.0); Albumin/Globulin Ratio 0.6 (0.8-1.8); Bilirubin, Total 0.2 mg/dL (0.1-1.0); Bun/Creatinine Ratio 8.9 (12.0-20.0); Creatinine, Blood 4.85 mg/dL (0.40-1.00); Globulin, Blood 4.5 g/dL (2.2-4.0); Potassium, Blood 3.9 mmol/L (3.5-5.5); Total Protein, Blood 7.3 g/dL (6.4-8.2)
[2022-03-18 14:56] LABS: Appearance, Urine Turbid (Clear); Bilirubin, Urine Neg (Neg); Blood, Urine 5+ (Neg); Color, Urine Yellow (P-Yellow); Glucose Qualitative, Urine Neg (Neg); Ketones, Urine Neg (Neg); Leukocyte Esterase, Urine 3+ (Neg); Nitrite, Urine Neg (Neg); Protein, Urine 4+ (Neg); Source, Urine Fem Cath; Specific Gravity, Urine 1.015 (1.003-1.022); Urobilinogen, Urine NORM (Normal)
[2022-03-18 15:22] LABS: Bacteria Many /hpf; Mucus Heavy (0-Heavy)
[2022-03-18] MEDS ORDERED: NITR100CA PO (15:22)
[2022-03-18 15:23] LABS: White Blood Cells, Urine TNTC /hpf (0-5)
[2022-03-18 15:24] LABS: Triple Phosphate Crystals Few /hpf
[2022-03-18 15:25] LABS: Squamous Epithelial Cells Not Seen /hpf (Few); Transitional Epithelial Cells Few /hpf (0-Rare)
== END 2022-03-18 15:43 | disposition home or self-care (01) ==
LOC: ER 11:49
PROVIDERS: Physician Assistant
DX: T83.021A Displacement of indwelling urethral catheter, initial encounter (principal); Y84.6 Urinary catheterization as the cause of abnormal reaction of the patient, or of later complication, without mention of misadventure at the time of the procedure; N39.0 Urinary tract infection, site not specified; H93.8X3 Other specified disorders of ear, bilateral; R09.89 Other specified symptoms and signs involving the circulatory and respiratory systems; I13.2 Hypertensive heart and chronic kidney disease with heart failure and with stage 5 chronic kidney disease, or end stage renal disease; E11.22 Type 2 diabetes mellitus with diabetic chronic kidney disease; N18.6 End stage renal disease; I50.9 Heart failure, unspecified; E03.9 Hypothyroidism, unspecified; J44.9 Chronic obstructive pulmonary disease, unspecified; I25.10 Atherosclerotic heart disease of native coronary artery without angina pectoris; I25.2 Old myocardial infarction; Z99.2 Dependence on renal dialysis; Z79.4 Long term (current) use of insulin; Z91.030 Bee allergy status; Z88.8 Allergy status to other drugs, medicaments and biological substances; Z91.018 Allergy to other foods; Z91.048 Other nonmedicinal substance allergy status; Z79.899 Other long term (current) drug therapy; Z79.01 Long term (current) use of anticoagulants
CPT/HCPCS: 36415; 51702; 71045; 80053; 81001; 83690; 85025; 87077; 87086; 87186; 93005; 93010; 94640; 94664; J2405

== ENCOUNTER 2022-03-21 17:48 | Inpatient (IN) | payer OTHER ==
[~2022-03-21] VITALS: Ht 175.3 cm; Wt 136.0 kg
[~2022-03-21 17:48] MED LIST changes: +NITR100CA PO
[2022-03-21 18:53] LABS: BASOPHILS ABSOLUTE AUTO 0.03 K/mm3 (0.00-0.23); BASOPHILS PERCENT AUTO 0 % (0-2); EOSINOPHILS ABSOLUTE AUTO 0.01 K/mm3 (0.00-0.68); EOSINOPHILS PERCENT AUTO 0 % (0-6); Hematocrit 38.8 % (33.0-51.0); Hemoglobin 11.8 g/dL (11.5-16.0); IMMATURE GRAN ABSOLUTE AUTO 0.08 K/mm3 (0.00-0.10); IMMATURE GRAN PERCENT AUTO 1 % (0-1); LYMPHOCYTES ABSOLUTE AUTO 0.82 K/mm3 (0.84-5.20); LYMPHOCYTES PERCENT AUTO 7 % (21-46); MONOCYTES ABSOLUTE AUTO 0.37 K/mm3 (0.16-1.47); MONOCYTES PERCENT AUTO 3 % (4-13); Mean Corpuscular HGB 30.2 pg (26.0-34.0); Mean Corpuscular HGB Conc 30.4 g/dL (31.5-36.5); Mean Corpuscular Volume 99 fL (80-100); Mean Platelet Volume 11.5 fL (9.1-12.4); NEUTROPHILS ABSOLUTE AUTO 9.91 K/mm3 (1.96-9.15); NEUTROPHILS PERCENT AUTO 88 % (41-73); Platelet Count 224 K/mm3 (150-400); RDW Coefficient Variation 16.6 % (11.7-14.2); RDW Standard Deviation 60.1 fL (35.1-46.3); Red Blood Cell Count 3.91 M/mm3 (3.80-5.20); White Blood Cell Count 11.22 K/mm3 (4.00-11.30)
[2022-03-21 19:13] LABS: Albumin, Blood 2.8 g/dL (3.4-5.0); Albumin/Globulin Ratio 0.6 (0.8-1.8); Bilirubin, Total 0.3 mg/dL (0.1-1.0); Bun/Creatinine Ratio 8.9 (12.0-20.0); Calcium, Blood 9.3 mg/dL (8.5-10.1); Creatinine, Blood 5.31 mg/dL (0.40-1.00); Globulin, Blood 4.6 g/dL (2.2-4.0); Potassium, Blood 4.1 mmol/L (3.5-5.5); Total Protein, Blood 7.4 g/dL (6.4-8.2)
[2022-03-21] MEDS ORDERED: Nitrofurantoin100 M1 PO (20:53)
[2022-03-21 21:10] LABS: Source, Urine Clean Catch
[2022-03-21 21:11] LABS: Base Excess Venous 0.6 mmol/L; Bicarbonate Venous 23.4 mmol/L (24.0-30.0); PCO2 Venous 66.9 mmHg (38-42); pH Blood Venous 7.23 (7.34-7.37)
[2022-03-21 21:15] LABS: Blood, Urine 4+ (Neg); Glucose Qualitative, Urine Neg (Neg); Ketones, Urine 1+ (Neg); Leukocyte Esterase, Urine 3+ (Neg); Nitrite, Urine Neg (Neg); Protein, Urine 4+ (Neg); Urobilinogen, Urine NORM (Normal)
[2022-03-21 21:25] LABS: Bilirubin, Urine 1+ (Neg)
[2022-03-21 21:26] LABS: Appearance, Urine Cloudy (Clear); Color, Urine Yellow (P-Yellow)
[2022-03-21 21:28] LABS: Red Blood Cells, Urine 25-50 /hpf (0-2); White Blood Cells, Urine TNTC /hpf (0-5)
[2022-03-21 21:29] LABS: Bacteria Many /hpf
[2022-03-21 21:30] LABS: Renal Epithelial Mod /hpf (0-Rare); Squamous Epithelial Cells Few /hpf (Few); Transitional Epithelial Cells Few /hpf (0-Rare); Yeast/Fungi Urine Mod /hpf
--- NOTE | 2022-03-22 00:15 | NUR ---
PT ADMITTED TO FLOOR VIA GURNEY FROM ER. PT TRANSFERRED TO MEDICAL FLOOR BED WITH 4 STAFF MEMBERS. PT IS MORBIDLY OBESE, AND IS BEDBOUND AT BASELINE. PT IS ALERT AND ORIENTED X4. TRISTIAN PRESENT, AND ASSISTING WITH THE ADMIT PROCESS. PT HAD HER PERITONEAL DIALYSIS ON 03/20 PM, PER TRISTIAN. PT IS ON 3L OXYGEN VIA NC, WHICH IS HER BASELINE. PT HAS A HILL IN PLACE, URINE SAMPLE DONE IN ER. HILL PLACED HERE LAST SUNDAY IN ER, PER PT. PT HAS A HISTORY OF ECZEMA- PRESENT ON PT'S ABDOMEN. PT ALSO HAS DISCOLORATION TO JAVED, PT REPORTS DUE TO REACTION TO DRESSING ADHESIVE FROM RECENT PICC LINE. COCCYX IS RED ON HER RIGHT SIDE - BLANCHABLE, LEFT SIDE COCCYX WITH QUARTER SIZE STAGE 2 ULCER. CALL LIGHT WITHIN REACH. FLUIDS AT BEDSIDE. BED IN LOW POSITION. BED ALARM ON FOR SAFETY. WILL CONTINUE TO MONITOR UNTIL AM SHIFT CHANGE.
--- NOTE | 2022-03-22 06:27 | NUR ---
SHIFT SUMMARY - NO ACUTE CHANGES SINCE ADMIT LAST NOC. PT IS ALERT AND ORIENTED X3. PT SLEPT FOR APPX 4 HOURS TONIGHT. GIVENS CONSULT IN PLACE. PT IS A PERITONEAL DIALYSIS PATIENT - LAST PERITONEAL DIALYSIS WAS 03/20 AT HOME. TRISTIAN PT'S IS HER PRIMARY CAREGIVER - HE IS SUPPORTIVE. PT IS MORBIDLY OBESE. PT HAS ECZEMA ON HER ABDOMEN. PT IS BEDBOUND AT BASELINE. PT DOES HAVE A WHEELCHAIR AT HOME, BUT RELAYS SHE IS UNABLE TO GET IN HER WHEELCHAIR UNASSISTED. PT'S HAS STAGE 1, AND STAGE 2 PRESSURE ULCERS ON HER COCCYX (STAGE 2 ON LEFT HIP, OTHERWISE STAGE 1 ON COCCYX). PT WEARS 3L OXYGEN AT BASELINE, CONTINUES ON 3L OXYGEN VIA NC HERE. CALL LIGHT WITHIN REACH. BED IN LOW POSITION. FLUIDS AT BEDSIDE. WILL CONTINUE TO MONITOR UNTIL AM SHIFT CHANGE.
[2022-03-22 07:34] LABS: BASOPHILS ABSOLUTE AUTO 0.06 K/mm3 (0.00-0.23); BASOPHILS PERCENT AUTO 1 % (0-2); EOSINOPHILS ABSOLUTE AUTO 0.09 K/mm3 (0.00-0.68); EOSINOPHILS PERCENT AUTO 1 % (0-6); Hematocrit 36.3 % (33.0-51.0); Hemoglobin 10.7 g/dL (11.5-16.0); IMMATURE GRAN ABSOLUTE AUTO 0.08 K/mm3 (0.00-0.10); IMMATURE GRAN PERCENT AUTO 1 % (0-1); LYMPHOCYTES ABSOLUTE AUTO 1.38 K/mm3 (0.84-5.20); LYMPHOCYTES PERCENT AUTO 13 % (21-46); MONOCYTES ABSOLUTE AUTO 0.51 K/mm3 (0.16-1.47); MONOCYTES PERCENT AUTO 5 % (4-13); Mean Corpuscular HGB 29.1 pg (26.0-34.0); Mean Corpuscular HGB Conc 29.5 g/dL (31.5-36.5); Mean Corpuscular Volume 99 fL (80-100); Mean Platelet Volume 11.7 fL (9.1-12.4); NEUTROPHILS ABSOLUTE AUTO 8.32 K/mm3 (1.96-9.15); NEUTROPHILS PERCENT AUTO 80 % (41-73); Platelet Count 195 K/mm3 (150-400); RDW Coefficient Variation 16.6 % (11.7-14.2); RDW Standard Deviation 60.2 fL (35.1-46.3); Red Blood Cell Count 3.68 M/mm3 (3.80-5.20); White Blood Cell Count 10.44 K/mm3 (4.00-11.30)
[2022-03-22 08:06] LABS: Albumin, Blood 2.7 g/dL (3.4-5.0); Albumin/Globulin Ratio 0.7 (0.8-1.8); Bilirubin, Total 0.2 mg/dL (0.1-1.0); Bun/Creatinine Ratio 9.5 (12.0-20.0); Calcium, Blood 9.1 mg/dL (8.5-10.1); Creatinine, Blood 5.5 mg/dL (0.40-1.00); Globulin, Blood 3.9 g/dL (2.2-4.0); Magnesium, Blood 2.5 mg/dL (1.6-2.4); Phosphorus, Blood 5.6 mg/dL (2.5-4.9); Potassium, Blood 3.9 mmol/L (3.5-5.5); Thyroid Stimulating Hormone 6.91 uIU/mL (0.360-4.800); Total Protein, Blood 6.6 g/dL (6.4-8.2)
--- NOTE | 2022-03-22 18:29 | NUR ---
PT IS A/OX4, PLEASANT AND COOPERATIVE. THE PT IS BEBOUND. PT WAS FLOATED ON PILLOWS OFF THE BED T/O THE DAY SHE REQUESTED. THE PT APPEARS TO BE BREATHING ON O2 @ 3L/MIN VIA NC AT REST. THE PT HAS A CHRONIC HILL CATHETER DRAINING AND SECURE. THE PT IS TO START PERITONEAL DIALYSIS THIS EVENING THROUGH THE NIGHT. CALL LIGHT IN REACH. THE PTS WAS AT THE BEDSIDE FOR MOST OF THE DAY
[2022-03-22] MEDS ORDERED: FLUT.05NI (18:54)
[2022-03-22] MEDS ORDERED: GLIMEPIRIDE4 MG PO (18:56)
[2022-03-22] MEDS ORDERED: FLUTICASONE-SA1 EA10 INH (18:57)
[2022-03-22] MEDS ORDERED: FURO80 PO (18:59)
--- NOTE | 2022-03-22 20:22 | NUR ---
1854 CONNECTED PT TO PD PER PROTOCAL. NO C/O AT THIS TIME.
[2022-03-23 06:09] LABS: Hematocrit 35.6 % (33.0-51.0)
[2022-03-23 06:39] LABS: Albumin, Blood 2.8 g/dL (3.4-5.0); Anion Gap 11 mmol/L (6-16); Blood Urea Nitrogen 51 mg/dL (8-24); CO2, Blood 25 mmol/L (21-32); Chloride, Blood 99 mmol/L (98-108); Creatinine, Blood 5.65 mg/dL (0.40-1.00); Glomerular Filtration Rate 9 (60-); Glucose, Blood 328 mg/dL (70-99); Magnesium, Blood 2.5 mg/dL (1.6-2.4); Phosphorus, Blood 5.7 mg/dL (2.5-4.9); Potassium, Blood 3.9 mmol/L (3.5-5.5); Sodium, Blood 135 mmol/L (136-145)
--- NOTE | 2022-03-23 07:22 | NUR ---
PT AWAKE / ALERT / RESTING IN BED / NO COMPLAINTS. OVERNIGHT CCPD COMPLETE ORDERED. EFFLUENT CLEAR. NO FIBRIN NOTED. PT AESEPTICALLY DISCONNECTED AND CAPPED. IDRAIN [id number], TUF 2719, AVG DWELL [id number], 27MIN. CYCLER STRIPPED AND CLEANED. DR GIVENS CONSULTED FOR NEW ORDERS / PLAN OF CARE.
--- NOTE | 2022-03-23 07:43 | NUR ---
Rn summary: Patient is A/O. Patient is on peritoneal dialysis. Pt breath sounds diminished rt lowr lobe. Pt refusing to turn and be repositioned. Pt states that turning is what caused her breakdown in the past. Teaching done but pt continues to refuse repositioning. Gaytan cath with sediment, flused with sterile saline. Nystatin power to creases and skin folds. 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 Call light in reach, pt hopes to return home today.
[2022-03-23] MEDS ORDERED: VISBIOME 112.51 EACH PO (11:20)
[2022-03-23] MEDS ORDERED: ATOR80 PO (11:20)
[2022-03-23] MEDS ORDERED: METO25ER PO (11:20)
[2022-03-23] MEDS ORDERED: AMOCLA500 PO (11:21)
--- NOTE | 2022-03-23 16:34 | NUR ---
PT DISCHARGED THE PT VERBALIZED UNDERSTANDING OF THE DC INSTRUCTION. PTS PRESCRIPTION FAXED TO [facility] REQUESTED. THE PT WAS LIFTED INTO HER OWN WHEELCHAIR AND WAS ESORTED OUT BY HER . A FOLLOW UP APPOINTMENT WAS MADE FOR THE PT PRIOR TO DISCHARGE.
== END 2022-03-23 13:27 | disposition home health service (06) | DRG 698 ==
LOC: ER 17:48 → MEDS 23:33
PROVIDERS: Emergency Medicine; Internal Medicine Nephrology; Physician Assistant; ADMIT Internal Medicine
DX: T83.511A Infection and inflammatory reaction due to indwelling urethral catheter, initial encounter (principal); G92.8 Other toxic encephalopathy; N18.6 End stage renal disease; I50.22 Chronic systolic (congestive) heart failure; I13.2 Hypertensive heart and chronic kidney disease with heart failure and with stage 5 chronic kidney disease, or end stage renal disease; N25.81 Secondary hyperparathyroidism of renal origin; N39.0 Urinary tract infection, site not specified; B96.4 Proteus (mirabilis) (morganii) as the cause of diseases classified elsewhere; Z51.5 Encounter for palliative care; E11.22 Type 2 diabetes mellitus with diabetic chronic kidney disease; I25.10 Atherosclerotic heart disease of native coronary artery without angina pectoris; E03.9 Hypothyroidism, unspecified; F41.8 Other specified anxiety disorders; J44.9 Chronic obstructive pulmonary disease, unspecified; M54.9 Dorsalgia, unspecified; G89.29 Other chronic pain; N31.9 Neuromuscular dysfunction of bladder, unspecified; E66.9 Obesity, unspecified; D63.1 Anemia in chronic kidney disease; E87.70 Fluid overload, unspecified; Z99.81 Dependence on supplemental oxygen; Z68.39 Body mass index [BMI] 39.0-39.9, adult; Z86.718 Personal history of other venous thrombosis and embolism; Z95.5 Presence of coronary angioplasty implant and graft; Z99.2 Dependence on renal dialysis; Z95.1 Presence of aortocoronary bypass graft; Z79.01 Long term (current) use of anticoagulants; Z86.14 Personal history of Methicillin resistant Staphylococcus aureus infection; Z87.2 Personal history of diseases of the skin and subcutaneous tissue; Z95.828 Presence of other vascular implants and grafts; Z79.899 Other long term (current) drug therapy; Z79.2 Long term (current) use of antibiotics; Z98.890 Other specified postprocedural states; Z88.1 Allergy status to other antibiotic agents; Z91.038 Other insect allergy status; Z91.018 Allergy to other foods; Z91.09 Other allergy status, other than to drugs and biological substances; Z91.048 Other nonmedicinal substance allergy status; Z79.4 Long term (current) use of insulin; Z79.51 Long term (current) use of inhaled steroids; Z79.02 Long term (current) use of antithrombotics/antiplatelets
CPT/HCPCS: 36415; 70450; 80053; 80069; 81001; 82803; 82947; 83036; 83605; 83735; 84100; 84443; 85014; 85018; 85025; 87040; 87086; 93005; 93010; 94640; 94664; 94760; A9270; J0696; J1815; J7030

== ENCOUNTER 2022-05-12 14:27 | Emergency (ER) | payer OTHER ==
[~2022-05-12] VITALS: Ht 160 cm; Wt 119.3 kg
[~2022-05-12 14:27] MED LIST changes: +AMOCLA500 PO; +FLUT.05NI; +FLUTICASONE-SA1 EA10 INH; +Nitrofurantoin100 M1 PO; +PROBIOTIC1 EA13 PO; +Ropinirole HCl0.5 MG PO
[2022-05-12 18:53] LABS: Source, Urine Foley catheter
[2022-05-12 18:57] LABS: Appearance, Urine Cloudy (Clear); Bilirubin, Urine Neg (Neg); Blood, Urine 2+ (Neg); Color, Urine Yellow (P-Yellow); Glucose Qualitative, Urine Neg (Neg); Ketones, Urine Neg (Neg); Leukocyte Esterase, Urine 3+ (Neg); Nitrite, Urine Neg (Neg); Protein, Urine 3+ (Neg); Urobilinogen, Urine NORM (Normal)
[2022-05-12 19:11] LABS: White Blood Cells, Urine 50-100 /hpf (0-5)
[2022-05-12 19:12] LABS: Bacteria Many /hpf; Hyaline Casts 0-2 /lpf (0-2); Squamous Epithelial Cells Few /hpf (Few); Yeast/Fungi Urine Few /hpf
[2022-05-12 19:13] LABS: Transitional Epithelial Cells Few /hpf (0-Rare)
== END 2022-05-12 19:21 | disposition home or self-care (01) ==
LOC: ER 14:27
PROVIDERS: Emergency Medicine
DX: R33.9 Retention of urine, unspecified (principal); E03.9 Hypothyroidism, unspecified; E11.22 Type 2 diabetes mellitus with diabetic chronic kidney disease; I13.2 Hypertensive heart and chronic kidney disease with heart failure and with stage 5 chronic kidney disease, or end stage renal disease; I50.9 Heart failure, unspecified; N18.6 End stage renal disease; J44.9 Chronic obstructive pulmonary disease, unspecified; I25.10 Atherosclerotic heart disease of native coronary artery without angina pectoris; F41.9 Anxiety disorder, unspecified; Z99.2 Dependence on renal dialysis; Z95.5 Presence of coronary angioplasty implant and graft; Z87.440 Personal history of urinary (tract) infections; Z79.01 Long term (current) use of anticoagulants; Z79.899 Other long term (current) drug therapy; Z79.02 Long term (current) use of antithrombotics/antiplatelets; Z79.4 Long term (current) use of insulin
CPT/HCPCS: 51702; 81001; 87077; 87086; 87186; 99283-25

== ENCOUNTER 2022-06-09 07:22 | Emergency (ER) | payer OTHER ==
[~2022-06-09] VITALS: Ht 167.6 cm; Wt 181.4 kg
== END 2022-06-09 10:40 ==
LOC: ER 07:22
DX: I46.9 Cardiac arrest, cause unspecified (principal); E03.9 Hypothyroidism, unspecified; J44.9 Chronic obstructive pulmonary disease, unspecified; I25.2 Old myocardial infarction; I12.0 Hypertensive chronic kidney disease with stage 5 chronic kidney disease or end stage renal disease; I50.9 Heart failure, unspecified; N18.6 End stage renal disease; E11.22 Type 2 diabetes mellitus with diabetic chronic kidney disease; I25.10 Atherosclerotic heart disease of native coronary artery without angina pectoris; Z91.09 Other allergy status, other than to drugs and biological substances; Z91.018 Allergy to other foods; Z91.030 Bee allergy status; Z88.8 Allergy status to other drugs, medicaments and biological substances; Z79.890 Hormone replacement therapy; Z79.899 Other long term (current) drug therapy; Z79.4 Long term (current) use of insulin; Z79.01 Long term (current) use of anticoagulants; Z95.1 Presence of aortocoronary bypass graft; Z95.5 Presence of coronary angioplasty implant and graft
CPT/HCPCS: 31500; 31720; 94002